=== PATIENT | female | born 1965 | race Hispanic/Latino ===

== ENCOUNTER 2016-11-05 16:13 | Inpatient (IN) | payer MEDICAID ==
[2016-11-05 16:27] LABS: Basophils % (Auto) 0.8 % (0.0-1.8); Eosinophils % (Auto) 1.7 % (0.0-4.3); Hematocrit 43.4 % (30.3-42.9); Hemoglobin 14.8 gm/dl (10.1-14.3); Mean Corpuscular HGB Conc 34 % (30-34); Mean Corpuscular Hemoglobin 32 pg (28-32); Mean Corpuscular Volume 93 fl (79-97); Platelet Count 210 K/mm3 (140-440); Red Blood Count 4.66 M/mm3 (3.65-5.03); Red Cell Distribution Width 12.4 % (13.2-15.2); White Blood Count 6.2 K/mm3 (4.5-11.0)
--- NOTE | 2016-11-05 16:36 | Cat Scan Report ---
FINAL REPORT PROCEDURE: Unenhanced CT scan of the brain TECHNIQUE: Computerized tomography of the head was performed without contrast material. HISTORY: neuro deficits \T\lt; 6hrs or sx present upon awakening COMPARISON: No prior studies are available for comparison. FINDINGS: Brain: Brain density appears normal. No evidence of intracranial hemorrhage. No parenchymal hemorrhage, mass lesions or mass effect are seen. No abnormal extraxial fluid collects or masses are seen. Ventricles: Ventricles are normal size and are midline. Bone Windows: No evidence of skull fracture. Paranasal sinuses: Clear Mastoid air cells: Clear IMPRESSION: Negative exam. If clinically indicated MRI of the brain could be obtained for further evaluation
[2016-11-05 16:37] LABS: INR 1.05 (0.87-1.13)
[2016-11-05 16:38] LABS: Partial Thromboplastin Time 29.6 Sec. (24.2-36.6)
[2016-11-05 16:40] LABS: Anion Gap 19 mmol/L; BUN/Creatinine Ratio 13.75; Blood Urea Nitrogen 11 mg/dL (7-17); Calcium 9.1 mg/dL (8.4-10.2); Carbon Dioxide 21 mmol/L (22-30); Chloride 104.7 mmol/L (98-107); Glucose 97 mg/dL (65-100); Potassium 3.9 mmol/L (3.6-5.0); Sodium 141 mmol/L (137-145)
[2016-11-05] MEDS ORDERED: NACL ONE (16:55)
[2016-11-05 17:12] LABS: Creatine Kinase 53 units/L (30-135)
[2016-11-05 17:29] LABS: Creatine Kinase MB < 1.0 ng/mL (0.0-4.0)
--- NOTE | 2016-11-05 18:01 | Cat Scan Report ---
FINAL REPORT EXAM: CT ANGIO HEAD HISTORY: stroke TECHNIQUE: Serial axial images from skullbase to vertex during intravenous administration of 100 milliliters Omni 350 contrast with coronal and sagittal reconstruction PRIORS: Noncontrast head CT 11/05/2016 FINDINGS: There is no mass effect or midline shift. Lateral ventricles are stable in size and configuration, remaining within normal limits. The vertebrobasilar system is patent. No focal stenotic lesion is identified. Posterior communicating artery is seen on the right side. Posterior cerebral arteries are patent bilaterally. The distal internal carotid arteries, middle cerebral arteries and anterior cerebral arteries are patent bilaterally. No major branch occlusion is seen. No aneurysm is identified. Paranasal sinuses and mastoid air cells are well aerated. No acute osseous abnormality is identified. IMPRESSION: 1. No major branch occlusion is identified. Patient can be further assessed with MRI with diffusion-weighted imaging if indicated.
[2016-11-05 18:11] LABS: Urine Drugs of Abuse Note Disclamer
[2016-11-05 18:19] LABS: Bacteria,Urine 1+ /HPF (Negative); Bilirubin,Urine NEG (Negative); Blood,Urine NEG (Negative); Ketones,Urine NEG (Negative); Leukocyte Esterase,Urine NEG (Negative); Nitrite,Urine NEG (Negative); Protein,Urine <15 mg/dL mg/dL (Negative); Urobilinogen,Urine < 2.0 mg/dL (<2.0); WBC,Urine < 1.0 /HPF (0.0-6.0)
--- NOTE | 2016-11-05 18:38 | Emergency Department Report ---
ED Neuro Deficit HPI - General Chief Complaint: Neuro Symptoms/Deficit Stated Complaint: POSS CVA Time Seen by Provider: 11/05/16 16:37 Source: patient, EMS Mode of arrival: Ambulatory Limitations: Physical Limitation - History of Present Illness Onset/Timin -: Sudden, hour(s) Location: speech, right face, right arm, right leg Presenting Symptoms: Present: Weak/Paralyzed One Side, Facial Droop/Numbness, Unable to Speak Clearly. Absent: Sudden, Severe Headache, Blurred/Loss of Vision, Altered Mental Status History of same: Yes Place: home Severity: moderate Quality: weak, numb Improves With: none Worsens With: none On Anticoagulants: Yes Associated Symptoms: chest pain. denies: confusion, cough, diaphoresis, fever/ chills, headaches, loss of appetite, malise, nausea/vomiting, vertigo, seizures , shortness of breath, syncope - Related Data Home Medications: Previous Rx's Medication Instructions Recorded Last Taken Type Clopidogrel [Plavix] 75 mg PO QDAY #30 tablet 11/08/16 Unknown Rx LORazepam [Ativan] 1 mg PO QDAY PRN #15 tablet 11/08/16 Unknown Rx Nicotine [Habitrol] 21 mg TD QDAY #30 patch 11/08/16 Unknown Rx Simvastatin [Zocor TAB] 40 mg PO QHS #30 tablet 11/08/16 Unknown Rx oxyCODONE /ACETAMINOPHEN [Percocet 1 tab PO Q4HR #12 tab 11/08/16 Unknown Rx 5/325] Allergies/Adverse Reactions: Allergies Allergy/AdvReac Type Severity Reaction Status Date / Time cyclobenzaprine HCl Allergy Severe Itching Verified 04/28/14 07:57 [From Flexeril] Fish Containing Products Allergy Anaphylaxis Verified 04/28/14 07:57 ibuprofen Allergy abd pain Verified 04/28/14 07:56 ketorolac tromethamine Allergy Headache Verified 04/28/14 07:56 [From Toradol] ED Review of Systems ROS: Stated complaint: POSS CVA Other details as noted in HPI Comment: Unobtainable due to pts medical conditions Constitutional: denies: chills, fever Eyes: denies: eye pain, eye discharge, vision change ENT: denies: ear pain, throat pain Respiratory: denies: cough, shortness of breath, wheezing Cardiovascular: denies: chest pain, palpitations Endocrine: no symptoms reported Gastrointestinal: denies: abdominal pain, nausea, diarrhea Genitourinary: denies: urgency, dysuria, discharge Musculoskeletal: denies: back pain, joint swelling, arthralgia Skin: denies: rash, lesions Neurological: denies: headache, weakness, paresthesias Psychiatric: denies: anxiety, depression Hematological/Lymphatic: denies: easy bleeding, easy bruising ED Past Medical Hx - Past Medical History Previous Medical History?: Yes Hx Hypertension: Yes Hx CVA: Yes (tia) Hx Heart Attack/AMI: Yes (04/2013) Hx Congestive Heart Failure: No Hx Diabetes: No Hx Seizures: Yes (closed head injury) Hx Asthma: No Hx COPD: No Hx HIV: No Additional medical history: history of anxiety - Surgical History Past Surgical History?: Yes Hx Coronary Stent: No Additional Surgical History: Hysterectomy, back surgery - Social History Smoking Status: Current Every Day Smoker Substance Use Type: None - Medications Home Medications: Home Medications Medication Instructions Recorded Confirmed Last Taken Type Clopidogrel [Plavix] 75 mg PO QDAY #30 tablet 11/08/16 Unknown Rx LORazepam [Ativan] 1 mg PO QDAY PRN #15 tablet 11/08/16 Unknown Rx Nicotine [Habitrol] 21 mg TD QDAY #30 patch 11/08/16 Unknown Rx Simvastatin [Zocor TAB] 40 mg PO QHS #30 tablet 11/08/16 Unknown Rx oxyCODONE /ACETAMINOPHEN [Percocet 1 tab PO Q4HR #12 tab 11/08/16 Unknown Rx 5/325] ED Neuro Physical Exam - General Limitations: Physical Limitation General appearance: alert, in no apparent distress - Head Head exam: Present: atraumatic, normocephalic - Eye Eye exam: Present: normal appearance, PERRL - Neck Neck exam: Present: normal inspection, full ROM. Absent: tenderness, meningismus, lymphadenopathy - Respiratory Respiratory exam: Present: normal lung sounds bilaterally - Cardiovascular Cardiovascular Exam: Present: regular rate - GI/Abdominal GI/Abdominal exam: Present: soft. Absent: distended, tenderness, guarding, rebound - Extremities Exam Extremities exam: Present: normal inspection, full ROM - Back Exam Back exam: Present: normal inspection, full ROM - Neurological Exam Neurological exam: Present: alert, oriented X3 - NIHSS Assessment Interval: Baseline 1a. Level of Consciousness: alert 1b. LOC Questions: answers correctly 1c. LOC Commands: performs tasks correctly 2. Best Gaze: normal 3. Visual: no visual loss 4. Facial Palsy: partial paralysis 5b. Motor Arm Right: no movement 5a. Motor Arm Left: no drift 6a. Motor Leg Left: no drift 6b. Motor Leg Right: no movement 7. Limb Ataxia: absent 8. Sensory: mild/moderate sensory loss 9. Best Language: no aphasia 10. Dysarthria: mild/moderate dysarthria 11. Extinction/Inattention: no abnormality Total Score: 12 Stroke Severity: Moderate Stroke - Psychiatric Psychiatric exam: Present: normal affect, normal mood - Skin Skin exam: Present: warm, dry ED Course Vital Signs 11/05/16 11/05/16 11/05/16 16:26 16:28 16:30 Temperature 98.3 F Pulse Rate 123 H Respiratory 16 Rate Blood Pressure 150/123 150/123 138/113 Blood Pressure [Left] O2 Sat by Pulse 98 98 Oximetry 11/05/16 11/05/16 11/05/16 16:32 16:34 16:36 Temperature Pulse Rate Respiratory Rate Blood Pressure 138/113 138/113 138/113 Blood Pressure [Left] O2 Sat by Pulse 97 98 99 Oximetry 11/05/16 11/05/16 11/05/16 16:37 16:38 16:40 Temperature Pulse Rate 118 H 119 H Respiratory 16 25 H 29 H Rate Blood Pressure 138/113 138/113 Blood Pressure [Left] O2 Sat by Pulse 99 98 97 Oximetry 11/05/16 11/05/16 11/05/16 16:42 16:44 16:46 Temperature Pulse Rate 118 H 116 H 118 H Respiratory 25 H 19 21 Rate Blood Pressure 138/113 138/113 138/113 Blood Pressure [Left] O2 Sat by Pulse 99 98 97 Oximetry 11/05/16 11/05/16 11/05/16 16:48 16:50 16:52 Temperature Pulse Rate 117 H 124 H 121 H Respiratory 19 17 17 Rate Blood Pressure 138/113 138/113 138/113 Blood Pressure [Left] O2 Sat by Pulse 97 98 97 Oximetry 11/05/16 11/05/16 11/05/16 16:54 16:56 16:58 Temperature Pulse Rate 118 H 113 H 111 H Respiratory 20 15 16 Rate Blood Pressure 138/113 138/113 138/113 Blood Pressure [Left] O2 Sat by Pulse 97 97 98 Oximetry 11/05/16 11/05/16 11/05/16 17:00 17:30 18:00 Temperature Pulse Rate 129 H 123 H 129 H Respiratory 16 12 23 Rate Blood Pressure 127/108 143/113 127/108 Blood Pressure [Left] O2 Sat by Pulse 95 71 L Oximetry 11/05/16 11/05/16 11/05/16 18:30 19:17 20:00 Temperature Pulse Rate 124 H 77 80 Respiratory 20 20 20 Rate Blood Pressure 139/108 Blood Pressure 121/107 128/82 [Left] O2 Sat by Pulse 93 100 97 Oximetry 11/05/16 11/05/16 11/05/16 21:00 22:51 22:52 Temperature Pulse Rate 79 60 Respiratory 20 20 Rate Blood Pressure Blood Pressure 135/103 [Left] O2 Sat by Pulse 98 Oximetry 11/05/16 22:55 Temperature Pulse Rate 73 Respiratory 20 Rate Blood Pressure Blood Pressure 126/85 [Left] O2 Sat by Pulse 98 Oximetry - Lab Data Result diagrams: 11/05/16 16:15 11/05/16 16:15 Lab Results 11/05/16 11/05/16 11/05/16 Range/Units 16:15 16:15 16:15 WBC 6.2 (4.5-11.0) K/mm3 RBC 4.66 (3.65-5.03) M/mm3 Hgb 14.8 H (10.1-14.3) gm/dl Hct 43.4 H (30.3-42.9) % MCV 93 (79-97) fl MCH 32 (28-32) pg MCHC 34 (30-34) % RDW 12.4 L (13.2-15.2) % Plt Count 210 (140-440) K/mm3 Lymph % (Auto) 26.9 (13.4-35.0) % [place] % (Auto) 6.7 (0.0-7.3) % Eos % (Auto) 1.7 (0.0-4.3) % Baso % (Auto) 0.8 (0.0-1.8) % Lymph # 1.7 (1.2-5.4) K/mm3 [place] # 0.4 (0.0-0.8) K/mm3 Eos # 0.1 (0.0-0.4) K/mm3 Baso # 0.1 (0.0-0.1) K/mm3 Seg Neutrophils % 63.9 (40.0-70.0) % Seg Neutrophils # 4.0 (1.8-7.7) K/mm3 PT 13.6 (12.2-14.9) Sec. INR 1.05 (0.87-1.13) APTT 29.6 (24.2-36.6) Sec. Thrombin Time (15.1-19.6) Sec. Sodium 141 (137-145) mmol/L Potassium 3.9 (3.6-5.0) mmol/L Chloride 104.7 (98-107) mmol/L Carbon Dioxide 21 L (22-30) mmol/L Anion Gap 19 mmol/L BUN 11 (7-17) mg/dL Creatinine 0.8 (0.7-1.2) mg/dL Estimated GFR > 60 ml/min BUN/Creatinine Ratio 13.75 % Glucose 97 (65-100) mg/dL POC Glucose (70-105) Calcium 9.1 (8.4-10.2) mg/dL Total Creatine Kinase (30-135) units/L CK-MB (CK-2) (0.0-4.0) ng/mL CK-MB (CK-2) Rel Index (0-4) Troponin T < 0.010 (0.00-0.029) ng/mL Urine Color (Yellow) Urine Turbidity (Clear) Urine pH (5.0-7.0) Urine Protein (Negative) mg/dL Urine Glucose (UA) (Negative) mg/dL Urine Ketones (Negative) mg/dL Urine Blood (Negative) Urine Nitrite (Negative) Urine Bilirubin (Negative) Urine Urobilinogen (<2.0) mg/dL Ur Leukocyte Esterase (Negative) Urine WBC (Auto) (0.0-6.0) /HPF Urine RBC (Auto) (0.0-6.0) /HPF U Epithel Cells (Auto) (0-13.0) /HPF Urine Bacteria (Auto) (Negative) /HPF Urine Opiates Screen Urine Methadone Screen Ur Barbiturates Screen Ur Phencyclidine Scrn Ur Amphetamines Screen U Benzodiazepines Scrn Urine Cocaine Screen U Marijuana (THC) Screen Drugs of Abuse Note 04/09/17 04/09/17 04/09/17 Range/Units 16:15 16:15 16:36 WBC (4.5-11.0) K/mm3 RBC (3.65-5.03) M/mm3 Hgb (10.1-14.3) gm/dl Hct (30.3-42.9) % MCV (79-97) fl MCH (28-32) pg MCHC (30-34) % RDW (13.2-15.2) % Plt Count (140-440) K/mm3 Lymph % (Auto) (13.4-35.0) % [place] % (Auto) (0.0-7.3) % Eos % (Auto) (0.0-4.3) % Baso % (Auto) (0.0-1.8) % Lymph # (1.2-5.4) K/mm3 [place] # (0.0-0.8) K/mm3 Eos # (0.0-0.4) K/mm3 Baso # (0.0-0.1) K/mm3 Seg Neutrophils % (40.0-70.0) % Seg Neutrophils # (1.8-7.7) K/mm3 PT (12.2-14.9) Sec. INR (0.87-1.13) APTT (24.2-36.6) Sec. Thrombin Time 15.2 (15.1-19.6) Sec. Sodium (137-145) mmol/L Potassium (3.6-5.0) mmol/L Chloride (98-107) mmol/L Carbon Dioxide (22-30) mmol/L Anion Gap mmol/L BUN (7-17) mg/dL Creatinine (0.7-1.2) mg/dL Estimated GFR ml/min BUN/Creatinine Ratio % Glucose (65-100) mg/dL POC Glucose 80 (70-105) Calcium (8.4-10.2) mg/dL Total Creatine Kinase 53 (30-135) units/L CK-MB (CK-2) < 1.0 (0.0-4.0) ng/mL CK-MB (CK-2) Rel Index 1.8 (0-4) Troponin T < 0.010 (0.00-0.029) ng/mL Urine Color (Yellow) Urine Turbidity (Clear) Urine pH (5.0-7.0) Urine Protein (Negative) mg/dL Urine Glucose (UA) (Negative) mg/dL Urine Ketones (Negative) mg/dL Urine Blood (Negative) Urine Nitrite (Negative) Urine Bilirubin (Negative) Urine Urobilinogen (<2.0) mg/dL Ur Leukocyte Esterase (Negative) Urine WBC (Auto) (0.0-6.0) /HPF Urine RBC (Auto) (0.0-6.0) /HPF U Epithel Cells (Auto) (0-13.0) /HPF Urine Bacteria (Auto) (Negative) /HPF Urine Opiates Screen Urine Methadone Screen Ur Barbiturates Screen Ur Phencyclidine Scrn Ur Amphetamines Screen U Benzodiazepines Scrn Urine Cocaine Screen U Marijuana (THC) Screen Drugs of Abuse Note 11/05/16 11/05/16 Range/Units 18:06 18:06 WBC (4.5-11.0) K/mm3 RBC (3.65-5.03) M/mm3 Hgb (10.1-14.3) gm/dl Hct (30.3-42.9) % MCV (79-97) fl MCH (28-32) pg MCHC (30-34) % RDW (13.2-15.2) % Plt Count (140-440) K/mm3 Lymph % (Auto) (13.4-35.0) % [place] % (Auto) (0.0-7.3) % Eos % (Auto) (0.0-4.3) % Baso % (Auto) (0.0-1.8) % Lymph # (1.2-5.4) K/mm3 [place] # (0.0-0.8) K/mm3 Eos # (0.0-0.4) K/mm3 Baso # (0.0-0.1) K/mm3 Seg Neutrophils % (40.0-70.0) % Seg Neutrophils # (1.8-7.7) K/mm3 PT (12.2-14.9) Sec. INR (0.87-1.13) APTT (24.2-36.6) Sec. Thrombin Time (15.1-19.6) Sec. Sodium (137-145) mmol/L Potassium (3.6-5.0) mmol/L Chloride (98-107) mmol/L Carbon Dioxide (22-30) mmol/L Anion Gap mmol/L BUN (7-17) mg/dL Creatinine (0.7-1.2) mg/dL Estimated GFR ml/min BUN/Creatinine Ratio % Glucose (65-100) mg/dL POC Glucose (70-105) Calcium (8.4-10.2) mg/dL Total Creatine Kinase (30-135) units/L CK-MB (CK-2) (0.0-4.0) ng/mL CK-MB (CK-2) Rel Index (0-4) Troponin T (0.00-0.029) ng/mL Urine Color Yellow (Yellow) Urine Turbidity Clear (Clear) Urine pH 5.0 (5.0-7.0) Urine Protein <15 mg/dl (Negative) mg/dL Urine Glucose (UA) Neg (Negative) mg/dL Urine Ketones Neg (Negative) mg/dL Urine Blood Neg (Negative) Urine Nitrite Neg (Negative) Urine Bilirubin Neg (Negative) Urine Urobilinogen < 2.0 (<2.0) mg/dL Ur Leukocyte Esterase Neg (Negative) Urine WBC (Auto) < 1.0 (0.0-6.0) /HPF Urine RBC (Auto) 1.0 (0.0-6.0) /HPF U Epithel Cells (Auto) 6.0 (0-13.0) /HPF Urine Bacteria (Auto) 1+ (Negative) /HPF Urine Opiates Screen Presumptive negative Urine Methadone Screen Presumptive negative Ur Barbiturates Screen Presumptive negative Ur Phencyclidine Scrn Presumptive negative Ur Amphetamines Screen Presumptive negative U Benzodiazepines Scrn Presumptive positive Urine Cocaine Screen Presumptive negative U Marijuana (THC) Screen Presumptive negative Drugs of Abuse Note Disclamer - EKG Data EKG shows normal: sinus rhythm Rate: normal - Medical Decision Making Patient will need admission for Right side CVA, head ct negative and ctAngio negative too, talk and discus with neurology and agree with admission , not TPA candidate , although i talk to the patient and explained the risk and benefits and the decision to not give tpa. labs negative , ekg unchanged , talk to dr. alexander and agree with admission. Critical Care Time: Yes Critical care time in (mins) excluding proc time.: 45 Critical care attestation.: If time is entered above; I have spent that time in minutes in the direct care of this critically ill patient, excluding procedure time. ED Disposition Clinical Impression: Hypertension Qualifiers: Hypertension type: essential hypertension Qualified Code(s): I10 - Essential ( primary) hypertension CVA (cerebral vascular accident) Qualifiers: CVA mechanism: thrombosis Precerebral and cerebral artery: middle cerebral artery Laterality of affected vessel: left Qualified Code(s): I63.312 - Cerebral infarction due to thrombosis of left middle cerebral artery Disposition: OP ADMITTED IP TO THIS HOSP Is pt being admited?: Yes Does the pt Need Aspirin: Yes Condition: Good Time of Disposition: 18:39
[2016-11-05] MEDS ORDERED: ASPIRIN PO ONE (18:39)
[2016-11-05] MEDS ORDERED: MORPHINE ONE (19:48)
[2016-11-05] MEDS ORDERED: MORPHINE IV ONE (19:51)
[2016-11-05] MEDS ORDERED: ZOFRAN IV PRN (22:08)
[2016-11-05] MEDS ORDERED: ZOFRAN ONE (22:42)
[2016-11-05] MEDS ORDERED: DILAUDID ONE (22:43)
[2016-11-05] MEDS: DILAUDID IV PRN (22:52)
--- NOTE | 2016-11-05 23:16 | History and Physical Report ---
History of Present Illness Date of examination: 11/05/16 Date of admission: 11/05/16 22:08 Chief complaint: C/o Rt sided weakness since 5 hrs ago History of present illness: 51 year old female with history of TIA HTN CAD AK in past and smoker comes in for Rt sided weakness and difficulty talking for last 5 hours.Symptoms are improving.No SOB CP.Had TIA in the past. Smokes pack a day Past History Past Medical History: acute AK, CAD, hypertension, hyperlipidemia, other (TIA) Past Surgical History: hysterectomy Social history: lives with family, smoking Family history: hypertension Medications and Allergies Allergies Allergy/AdvReac Type Severity Reaction Status Date / Time cyclobenzaprine HCl Allergy Severe Itching Verified 04/28/14 07:57 [From Flexeril] Fish Containing Products Allergy Anaphylaxis Verified 04/28/14 07:57 ibuprofen Allergy abd pain Verified 04/28/14 07:56 ketorolac tromethamine Allergy Headache Verified 04/28/14 07:56 [From Toradol] Home Medications Medication Instructions Recorded Confirmed Last Taken Type No Known Home Medications [No 11/05/16 11/05/16 Unknown History Reported Home Medications] Active Meds: Active Medications Hydromorphone HCl (Dilaudid) 1 mg IV Q3H PRN PRN Reason: pain Last Admin: 11/05/16 22:52 Dose: 1 mg Ondansetron HCl (Zofran) 4 mg IV Q3H PRN PRN Reason: nausea Last Admin: 11/05/16 22:50 Dose: 4 mg Review of Systems All systems: negative Constitutional: no weight loss, no weight gain, no fever, no chills, no sweats, no night sweats Ears, nose, mouth and throat: no ear pain, no ear discharge, no sinus pressure, no sinus pain, no mouth pain, no dysphagia, no hoarseness, no sore throat Breasts: deferred Cardiovascular: no chest pain, no orthopnea, no palpitations, no rapid/ irregular heart beat, no edema, no syncope, no lightheadedness, no shortness of breath, no dyspnea on exertion, no paroxysmal nocturnal dyspnea, no claudication , no phlebitis, no decreased exercise tolerance Respiratory: other, no cough, no cough with sputum, no excessive sputum, no hemoptysis, no shortness of breath, no dyspnea on exertion, no congestion, no wheezing, no pleurisy, no pain, no pain on inspiration, no snoring, no sleep apnea, no respiratory infections Gastrointestinal: no abdominal pain, no nausea, no vomiting, no diarrhea, no constipation, no change in bowel habits, no hematemesis, no coffee ground emesis , no BRBPR Genitourinary Female: no menorrhagia Menstruation: no ammenorrhea Musculoskeletal: arm numbness/tingling, leg numbness/tingling, no neck stiffness , no neck pain, no shooting arm pain Integumentary: no rash, no pruritis, no redness, no sores, no wounds, no jaundice, no boils, no blisters Neurological: paralysis, weakness, parathesias, numbness, change in speech Psychiatric: anxiety, no paranoia, no depression Endocrine: no cold intolerance, no heat intolerance, no polyphagia, no excessive thirst, no polydipsia, no polyuria Hematologic/Lymphatic: no easy bruising, no easy bleeding Allergic/Immunologic: no urticaria, no allergic rhinitis, no wheezing Exam - Physical Exam Narrative exam: WD WN female lying comfortably - Constitutional Vitals: Temp Pulse Resp BP Pulse Ox 98.3 F 73 20 126/85 98 11/05/16 16:30 11/05/16 22:55 11/05/16 22:55 11/05/16 22:55 11/05/16 22:55 General appearance: Present: no acute distress, well-nourished - EENT Eyes: Present: PERRL ENT: hearing intact, clear oral mucosa - Neck Neck: Present: supple, normal ROM - Respiratory Respiratory effort: normal Respiratory: bilateral: CTA - Cardiovascular Heart Sounds: Present: S1 & S2. Absent: rub, click - Extremities Extremities: pulses symmetrical, No edema Peripheral Pulses: within normal limits - Abdominal General gastrointestinal: Present: soft, non-tender, non-distended, normal bowel sounds Female genitourinary: Present: normal - Integumentary Integumentary: Present: clear, warm, dry - Musculoskeletal Musculoskeletal: gait normal, strength equal bilaterally - Psychiatric Psychiatric: appropriate mood/affect, intact judgment & insight - Neurologic Neurologic: CNII-XII intact, moves all extremities Results - Labs CBC & Chem 7: 11/05/16 16:15 11/05/16 16:15 Labs: Laboratory Last Values WBC 6.2 K/mm3 (4.5-11.0) 11/05/16 16:15 RBC 4.66 M/mm3 (3.65-5.03) 11/05/16 16:15 Hgb 14.8 gm/dl (10.1-14.3) H 11/05/16 16:15 Hct 43.4 % (30.3-42.9) H 11/05/16 16:15 MCV 93 fl (79-97) 11/05/16 16:15 MCH 32 pg (28-32) 11/05/16 16:15 MCHC 34 % (30-34) 11/05/16 16:15 RDW 12.4 % (13.2-15.2) L 11/05/16 16:15 Plt Count 210 K/mm3 (140-440) 11/05/16 16:15 Lymph % (Auto) 26.9 % (13.4-35.0) 11/05/16 16:15 [place] % (Auto) 6.7 % (0.0-7.3) 11/05/16 16:15 Eos % (Auto) 1.7 % (0.0-4.3) 11/05/16 16:15 Baso % (Auto) 0.8 % (0.0-1.8) 11/05/16 16:15 Lymph # 1.7 K/mm3 (1.2-5.4) 11/05/16 16:15 [place] # 0.4 K/mm3 (0.0-0.8) 11/05/16 16:15 Eos # 0.1 K/mm3 (0.0-0.4) 11/05/16 16:15 Baso # 0.1 K/mm3 (0.0-0.1) 11/05/16 16:15 Seg Neutrophils % 63.9 % (40.0-70.0) 11/05/16 16:15 Seg Neutrophils # 4.0 K/mm3 (1.8-7.7) 11/05/16 16:15 PT 13.6 Sec. (12.2-14.9) 11/05/16 16:15 INR 1.05 (0.87-1.13) 11/05/16 16:15 APTT 29.6 Sec. (24.2-36.6) 11/05/16 16:15 Thrombin Time 15.2 Sec. (15.1-19.6) 11/05/16 16:15 Sodium 141 mmol/L (137-145) 11/05/16 16:15 Potassium 3.9 mmol/L (3.6-5.0) 11/05/16 16:15 Chloride 104.7 mmol/L (98-107) 11/05/16 16:15 Carbon Dioxide 21 mmol/L (22-30) L 11/05/16 16:15 Anion Gap 19 mmol/L 11/05/16 16:15 BUN 11 mg/dL (7-17) 11/05/16 16:15 Creatinine 0.8 mg/dL (0.7-1.2) 11/05/16 16:15 Estimated GFR > 60 ml/min 11/05/16 16:15 BUN/Creatinine Ratio 13.75 % 11/05/16 16:15 Glucose 97 mg/dL (65-100) 11/05/16 16:15 Calcium 9.1 mg/dL (8.4-10.2) 11/05/16 16:15 Total Creatine Kinase 53 units/L (30-135) 11/05/16 16:15 CK-MB (CK-2) < 1.0 ng/mL (0.0-4.0) 11/05/16 16:15 CK-MB (CK-2) Rel Index 1.8 (0-4) 11/05/16 16:15 Troponin T < 0.010 ng/mL (0.00-0.029) 11/05/16 16:15 Urine Color Yellow (Yellow) 11/05/16 18:06 Urine Turbidity Clear (Clear) 11/05/16 18:06 Urine pH 5.0 (5.0-7.0) 11/05/16 18:06 Urine Protein <15 mg/dl mg/dL (Negative) 11/05/16 18:06 Urine Glucose (UA) Neg mg/dL (Negative) 11/05/16 18:06 Urine Ketones Neg mg/dL (Negative) 11/05/16 18:06 Urine Blood Neg (Negative) 11/05/16 18:06 Urine Nitrite Neg (Negative) 11/05/16 18:06 Urine Bilirubin Neg (Negative) 11/05/16 18:06 Urine Urobilinogen < 2.0 mg/dL (<2.0) 11/05/16 18:06 Ur Leukocyte Esterase Neg (Negative) 11/05/16 18:06 Urine WBC (Auto) < 1.0 /HPF (0.0-6.0) 11/05/16 18:06 Urine RBC (Auto) 1.0 /HPF (0.0-6.0) 11/05/16 18:06 U Epithel Cells (Auto) 6.0 /HPF (0-13.0) 11/05/16 18:06 Urine Bacteria (Auto) 1+ /HPF (Negative) 11/05/16 18:06 Urine Opiates Screen Presumptive negative 11/05/16 18:06 Urine Methadone Screen Presumptive negative 11/05/16 18:06 Ur Barbiturates Screen Presumptive negative 11/05/16 18:06 Ur Phencyclidine Scrn Presumptive negative 11/05/16 18:06 Ur Amphetamines Screen Presumptive negative 11/05/16 18:06 U Benzodiazepines Scrn Presumptive positive 11/05/16 18:06 Urine Cocaine Screen Presumptive negative 11/05/16 18:06 U Marijuana (THC) Screen Presumptive negative 11/05/16 18:06 Drugs of Abuse Note Disclamer 11/05/16 18:06 Short CBC 11/05/16 Range/Units 16:15 WBC 6.2 (4.5-11.0) K/mm3 Hgb 14.8 H (10.1-14.3) gm/dl Hct 43.4 H (30.3-42.9) % Plt Count 210 (140-440) K/mm3 [facility] 11/05/16 16:15 Sodium 141 Potassium 3.9 Chloride 104.7 Carbon Dioxide 21 L BUN 11 Creatinine 0.8 Glucose 97 Calcium 9.1 Cardiac Enzymes 11/05/16 11/05/16 Range/Units 16:15 16:15 Total Creatine Kinase 53 (30-135) units/L CK-MB (CK-2) < 1.0 (0.0-4.0) ng/mL Troponin T < 0.010 < 0.010 (0.00-0.029) ng/mL Urine 11/05/16 Range/Units 18:06 Urine Color Yellow (Yellow) Urine pH 5.0 (5.0-7.0) Urine Protein <15 mg/dl (Negative) mg/dL Urine Glucose (UA) Neg (Negative) mg/dL - Imaging and Cardiology EKG: report reviewed (NSR) CT Scan - head: report reviewed (No bleed.) Assessment and Plan Advance Directives: Yes (Full code) VTE prophylaxis?: Chemical Plan of care discussed with patient/family: Yes - Patient Problems (1) CVA (cerebral vascular accident) Current Visit: Yes Status: Acute Qualifiers: CVA mechanism: thrombosis Precerebral and cerebral artery: middle cerebral artery Laterality of affected vessel: left Qualified Code(s): I63.312 - Cerebral infarction due to thrombosis of left middle cerebral artery Plan to address problem: CVA work up.MRI MRA CDS and Echo ordered.Plavix initiated.F/u on Neuro consult. (2) Hypertension Current Visit: Yes Status: Chronic Qualifiers: Hypertension type: essential hypertension Qualified Code(s): I10 - Essential (primary) hypertension Plan to address problem: Losartan 100 mg po qd started (3) COPD (chronic obstructive pulmonary disease) Current Visit: Yes Status: Chronic Qualifiers: COPD type: C Chronic bronchitis type: simple Emphysema type: E Qualified Code(s): J41.0 - Simple chronic bronchitis Plan to address problem: Duonebs prn (4) Nicotine dependence Current Visit: Yes Status: Chronic Qualifiers: Nicotine product type: cigarettes Substance use status: S Plan to address problem: Counselled about chantix patches and Gum.Also Zyban/welbutrin.Initiated Nicoderm patch. (5) DVT prophylaxis Current Visit: No Status: Acute Plan to address problem: On Lovenox 40 mg sq qd
[2016-11-06] MEDS ORDERED: SODIUM CHLORIDE FLUSH SYRINGE 10 ML IV PRN (00:04)
[2016-11-06] MEDS ORDERED: DUONEB 0.5 MG-3 MG/3 ML SOLN IH PRN (00:41)
[2016-11-06] MEDS ORDERED: PROVENTIL IH PRN (00:44)
[2016-11-06] MEDS ORDERED: NACL 0.9% 1000 ML 1,000 ML IV SCH (01:00)
--- NOTE | 2016-11-06 01:51 | Admit Criteria Form ---
Admission Criteria Documentation: NEUROLOGY GRG Clinical Indications for Admission to Inpatient Care (Place ' X' for any and all applicable criteria): Hospital admission is needed for appropriate care of the patient because of 1 or more of the following: [ ]I. Encephalitis [ ]II. Severe PLAYERS ASSISTANT infections indicated by 1 or more of the following(1)(2)(3) : [ ]a) Intracranial abscess [ ]b) Spinal abscess or myelitis [ ]c) Tuberculous or other nonbacterial, nonviral PLAYERS ASSISTANT infection(8) [ ]III. Vasculitis and 1 or more of the following(14)(15): []a) Altered mental status that is severe or persistent or other acute neurologic change []b) Psychosis []c) Seizure [ ]IV. Status epilepticus or repetitive seizures not controlled with emergent treatment [A] (7)(8) [ ]V. Altered mental status that is severe or persistent [ ]. Transient alteration in consciousness with high-risk etiology; examples include (12)(13): [ ]a) Cardiovascular source [ ]b) Cataplexy [ ]VII. Cerebral aneurysm requiring ANY ONE of the following(14): [ ]a) IV antihypertensives or vasoactive agents [ ]b) Sedation and analgesia for suspected leak [ ]c) Need for external ventricular drainage and cerebral perfusion pressure monitoring [ ]d) Emergent evaluation to determine need for surgical clipping or endovascular coiling by interventional radiology. If surgery is required ( Also use Craniotomy, Supratentorial, for Surgery of Bleeding Intracranial Aneurysm (for bleeding aneurysm) or Craniotomy, Supratentorial (for nonbleeding aneurysm) as appropriate. [ X]VIII. New-onset severe neurologic symptom requiring inpatient care indicated by ANY ONE of the following: [ ]a) Aphasia(15) [ ]b) Weakness (grade 3 or less) [ ]c) Paralysis (eg, hemiplegia) [ ]d) Spasticity(16) [ ]e) Dystonia [ ]e) Ataxia(17) [ ]f) Amnesia(18) [ ]g) Involuntary movements(19) [ ]h) Vertigo [ ] Visual loss [ X]i) Other severe neurologic finding (eg, papilledema, mass effect on imaging, myoclonus not treatable at alternative level of care (eg, observation care) [ ]IX. Guillain-[place] syndrome(20) [ ]X. Myasthenia gravis crisis or inpatient monitoring need as indicated by 1 or more of the following(21): [ ]a) Intensive treatment (eg, course of plasmapheresis) with inadequate outpatient situation to monitor patients status [ ]b) Inadequate airway protection [ ]c) Respiratory insufficiency requiring intubation or inpatient. monitoring [ ]d) Progressive dysphagia with failure to thrive [ ]XI. Multiple sclerosis or other acute demyelinating disease requiring inpatient care as indicated by 1 or more of the following (22)(23): [ ]a) Acute severe deterioration requiring inpatient treatment (eg, IV steroids, plasmapheresis, close observation) [ ]b) Acute complication requiring inpatient care (eg, sepsis, severe decubitus, aspiration) [ ]XII.Parkinson disease requiring inpatient care (Also use Optimal Recovery Care Criteria or General Recovery Criteria as appropriate) indicated by 1 or more of the following(25): [ ]a) Infection (eg, aspiration pneumonia) not treatable at alternative level of care [ ]b Dehydration that is severe or persistent [ ]c) Life-threatening agitation or psychotic behavior not treatable on emergency, observation care, or alternative level (eg, residential) basis [ ]d) Severe medication withdrawal effects (eg, freezing, neuroleptic malignant syndrome) not responsive to emergency and observation care treatment ( as appropriate) [ ]e) Other severe manifestation not treatable at alternative level of care [ ]XII. Amyotrophic lateral sclerosis with inpatient care needs as indicated by ANY ONE of the following(26): [ ]a) Acute complications (eg, aspiration pneumonia, sepsis ) requiring inpatient care ( see other optimal Recovery Guideline as appropriate) [ ]b) Dehydration that is severe persistent AND artificial support desired [ ]c) Inadequate airway protection AND artificial support desired [ ]d) Severe ventilatory insufficiency AND artificial support desired [ ]XIII. Myasthenia gravis crisis or inpatient monitoring need as indicated by 1 or more of the following(21): [] a) Inadequate airway protection []b) Respiratory insufficiency requiring intubation or inpatient monitoring []c) Progressive dysphagia with failure to thrive []d) Intensive treatment (e.g., course of plasmapheresis) with inadequate outpatient situation to monitor patients status [ ]XIV. Multiple sclerosis or other acute demyelinating disease requiring inpatient care indicated by 1 or more of the following[C](36)(43)(44)(45)(46): []a) Acute severe deterioration requiring inpatient treatment (eg, IV steroids, plasmapheresis, close observation) []b) Acute complication requiring inpatient care (eg, sepsis, severe decubitus, aspiration) [ ]XV. Intracranial hypertension (e.g., pseudotumor cerebri) requiring inpatient care (e.g., acute visual loss, inadequate oral intake) (47)(48)(49) [ ]XVI. Parkinson disease requiring inpatient care (Also use Optimal Recovery Care Criteria or General Recovery Criteria as appropriate) indicated by 1 or more of the following(25): [] a) Infection (e.g., aspiration pneumonia) not treatable at alternative level of care []b) Volume depletion not responsive to emergency and observation care treatment (as appropriate) []c) Life-threatening agitation or psychotic behavior not treatable on emergency, observation care, or alternative level (e.g., residential) basis []d) Severe medication withdrawal effects (e.g., freezing, neuroleptic malignant syndrome) not responsive to emergency and observation care treatment (as appropriate) []e) Other severe manifestation not treatable at alternative level of care [ ]XVII. Amyotrophic lateral sclerosis with inpatient care needs as indicated by1 or more of the following(42): []a) Acute complications (eg, aspiration pneumonia, sepsis) requiring inpatient care (see other Optimal Recovery Guideline or General Recovery Guideline as appropriate) []b) Dehydration that is severe or persistent AND artificial support desired []c) Inadequate airway protection AND artificial support desired []d) Severe ventilatory insufficiency AND artificial support desired [ ]XVIII. Severe myopathy, neuropathy, or other neuromuscular disease indicated by 1 or more of the following(42)(52)(53)(54): []a ) New-onset severe diffuse weakness (eg, strength 3/5 or less) []b) Severe dysphagia []c) Dyspnea at rest or with minimal exertion (new) []d) Inadequate airway protection []e) Inadequate ventilation indicated by 1 or more of the following : i) Partial pressure of carbon dioxide greater than 44 mm Hg ( 5.9 kPa) (new) ii) Reduced peak expiratory flow rate (new) iii) Vital capacity less than 50% of predicted (less than 15 mL/kg) iv) Peak inspiratory force less negative than -30 cm H2O (- 2942 Pa) [ ]XVII.Complications of congenital or degenerative disease (eg, infection, seizures, dehydration, injury) not responsive to emergency and observation care treatment (as appropriate ) [C](16)(29)(30) [ ]XVIII.Suspected or confirmed nerve or muscle toxic injury, including ANY ONE of the following: [ ]a) Rhabdomyolysis(31) i) Acute renal failure ii) Dehydration that is severe or persistent iii) Altered mental status that is severe or persistent iv) Electrolyte abnormality that remains after emergency or observation level care ( as appropriate) [ ]b) Botulism(32) [ ]c) Other severe toxin-induced sign or symptom [ ]XIX. Neurologic trauma requiring inpatient treatment (medical) indicated by ANY ONE of the following(33)(34): [ ]a) Vital signs or neurologic signs more frequently than every 4 hours [ ]b) Hyperosmolar therapy [ ]c) Respiratory monitoring [ ]d) Intracranial pressure monitoring and treatment [ ]e) Stabilization and immobilization device placement (eg, braces, body jacket) [ ]f) Intubation & mechanical ventilation for airway protection or therapeutic hyperventilation [ ]g) Other treatment or monitoring needed that requires inpatient level of care [ ]XX.Complications of neurologic devices (eg, ventricular shunt, neurostimulator) requiring 1 or more of the following(35)(36): [ ]a) IV antibiotics with monitoring while awaiting culture results [ ]b) Monitoring for hydrocephalus [ ]XXI. Neurology condition symptom, or finding for which emergency and observation care have failed or are not considered appropriate. See General Criteria: Observation Care ISC, General Admission Criteria GRG, or Pediatric General Admission Criteria GRG guideline as appropriate. The original [facility] content created by [facility] has been revised. The portions of the content which have been revised are identified through the use of italic text or in bold, and [facility] has neither reviewed nor approved the modified material. All other unmodified content is copyright [facility] Please see references footnoted in the original [facility] edition 2016 Admission Criteria Met: Yes
[2016-11-06] MEDS: DILAUDID IV PRN ×5 (02:06→21:10)
[2016-11-06] MEDS: PLAVIX PO SCH (10:40)
[2016-11-06] MEDS: HABITROL TD SCH (10:41)
--- NOTE | 2016-11-06 11:05 | Consultation ---
History of Present Illness Consult date: 11/06/16 Requesting physician: ROSEY AMBROCIO Reason for Consult: stroke Chief complaint: R sided weakness History of present illness: 51 YO F Hx HTN/HLD/TIA/CAD/Tob not on AP abuse p/w wake up R sided weakness, slurred speech and R sided numbness on 11/05 8 AM. Sx are constant. There are no clear aggravating, relieving or temporal factors. Severity was enough to cause inability to effectively use the right side. Past History Past Medical History: acute PR, CAD, hypertension, hyperlipidemia, other (TIA) Past Surgical History: hysterectomy Social history: lives with family, smoking Family history: hypertension Medications and Allergies Allergies Allergy/AdvReac Type Severity Reaction Status Date / Time cyclobenzaprine HCl Allergy Severe Itching Verified 04/28/14 07:57 [From Flexeril] Fish Containing Products Allergy Anaphylaxis Verified 04/28/14 07:57 ibuprofen Allergy abd pain Verified 04/28/14 07:56 ketorolac tromethamine Allergy Headache Verified 04/28/14 07:56 [From Toradol] Home Medications Medication Instructions Recorded Confirmed Last Taken Type No Known Home Medications [No 11/05/16 11/05/16 Unknown History Reported Home Medications] Active Meds: Active Medications Albuterol (Proventil) 2.5 mg IH Q3HRT PRN PRN Reason: Shortness Of Breath Clopidogrel Bisulfate (Plavix) 75 mg PO QDAY [facility] Last Admin: 11/06/16 10:40 Dose: 75 mg Hydromorphone HCl (Dilaudid) 1 mg IV Q3H PRN PRN Reason: pain Last Admin: 11/06/16 07:52 Dose: 1 mg Sodium Chloride (Nacl 0.9% 1000 Ml) 1,000 mls @ 75 mls/hr IV DIRECT IRINA Stop: 11/06/16 22:00 Nicotine (Habitrol) 21 mg TD QDAY IRINA Last Admin: 11/06/16 10:41 Dose: 21 mg Ondansetron HCl (Zofran) 4 mg IV Q3H PRN PRN Reason: nausea Last Admin: 11/05/16 22:50 Dose: 4 mg Simvastatin (Zocor) 20 mg PO QHS [facility] Sodium Chloride (Sodium Chloride Flush Syringe 10 Ml) 10 ml IV PRN PRN PRN Reason: LINE FLUSH Review of Systems All systems: negative Constitutional: fatigue, weakness Neurological: paralysis (on R), weakness (on R), parathesias (on R hemibody), numbness (R hemibody), tingling, change in speech (slurred), gait dysfunction, motor disturbance (on R), sensory deficit (on R), paralysis (on R), no aphasia, no double vision, no loss of vision Physical Examination - Vital Signs Vital Signs: Vital Signs BP 150/123 11/05/16 16:26 - Constitutional General appearance: comfortable, older than stated age - EENT EENT: Present: ATNC, PERRL, mucous membranes moist, hearing intact - Respiratory Respiratory: Present: chest non-tender, normal breath sounds, no respiratory distress - Cardiovascular Cardiovascular: Present: regular rate Extremities: Present: no peripheral edema bilatateraly, no clubbing, cyanosis, no inflammation, no ischemia or petechiae - Gastrointestinal Gastrointestinal: Present: normoactive bowel sounds, soft, non-distended - Integumentary Integumentary: Present: normal - Neurologic Cranial nerve examination: PERRL, EOMI, V1/V2/V3 grossly intact, intact, intact shoulder shrug, intact cough reflex, Intact Vestibulo-ocular r, intact corneal reflex, facial droop (on R), tongue deviation (to L), other (slight decreased on R upper/lower field) Speech examination: other (dysarthria) Sensorimotor examination: flaccid paralysis (on R), hemiparesis (on R) Motor examination - right side: 2/5: biceps, triceps, wrist flexion, wrist extension, aquatic facility manager, hip flexors, knee extensors, dorsiflexion, toe extension (EHL) , plantarflexion Motor examination - left side: 5/5: biceps, triceps, wrist flexion, wrist extension, aquatic facility manager, hip flexors, knee extensors, dorsiflexion, toe extension (EHL) , plantarflexion Detailed sensory examination: light touch (diminished on R), temperature ( diminshed on R) Reflex and gait examination: Babinski's sign (on R) Reflexes: 3+: ankle (on R), bicep, knee, tricep - Musculoskeletal Musculoskeletal: Present: no fluid collection, no pain, normal range of motion - Psychiatric Psychiatric: Present: mood/affect appropriate, cooperative Results - Laboratory Findings CBC and BMP: 11/05/16 16:15 11/05/16 16:15 Assessment and Plan 51 YO F Hx HTN/HLD/CAD/TIA/Tob abuse not on AP p/w dense R sided weakness/ numbness, slurred speech, ? partial R hemianopsia and L tongue deviation- suspected acute lacunar stroke to L brainstem. CTH/CTA head neg. Plan and Recommendation: 1. No indication for pharmacologic thrombolysis with IV tPA or mechanical thrombectomy due to last known normal > 6 hrs from presentation. Current NIHSS 11. 2. Telemetry bed w/ Q4 hour neuro checks 3. Brain imaging: MRI Brain w/o Arturo Stroke Protocol 4. Vascular Imaging: Bilateral Carotid Duplex U/S 5. TTE to eval for possible cardiac source of embolism 6. Serum Labs: HgA1c, LDL. 7. Autoregulate SBP to goal 120-160 as pt is outside permissive HTN window. 8. Secondary stroke prevention: ASA 325mg Daily x 1 then 81mg QDay & upgrade to full dose statin therapy (Crestor 20mg or 40mg OR Lipitor 40mg or 80mg Daily OR Zocor 40mg QDay) for goal LDL < 70. No firm indication at this point for therapeutic anticoagulation as pt has not had AFib captured on telemetry monitoring. 9. F/E/N: isotonic IVF prn, prn replete, bedside speech/swallow eval prior to PO intake. 10. DVT Prophylaxis 11. Stroke education, PT/OT/Speech Therapy consults, CM evaluation 12. For any changes in neurologic status, pls obtain STAT CTH w/o contrast and call neurology
[2016-11-06] MEDS ORDERED: ATIVAN PO PRN (11:10)
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
[2016-11-06] MEDS: ZOCOR PO SCH (21:10)
[2016-11-07] MEDS: DILAUDID IV PRN ×6 (00:56→19:58)
[2016-11-07] MEDS: PLAVIX PO SCH (10:03)
[2016-11-07] MEDS: HABITROL TD SCH (10:03)
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
--- NOTE | 2016-11-07 12:35 | Magnetic Resonance Report ---
MRA HEAD WITHOUT CONTRAST HISTORY: CVA. [id number] imaging with MIP reformations of the [place] of [place] is submitted. The arteries appear widely patent and free of hemodynamically significant stenosis or aneurysm dilatation. Both vertebral arteries are identified appearing patent as well. IMPRESSION: Unremarkable MRA head.
--- NOTE | 2016-11-07 12:35 | Magnetic Resonance Report ---
MRI OF THE BRAIN WITHOUT CONTRAST: HISTORY: CVA PROCEDURE: Multiplanar, multisequence MR imaging of the brain without IV contrast was performed. FINDINGS: The brain parenchyma signal intensity and its ramirez white interface are within normal limits on all sequences. Mild, age-appropriate chronic white matter changes are noted. No evidence for acute ischemia, hemorrhage or mass. No chronic infarct or extra-axial fluid collection. The midline structures are central. The basal cisterns are patent. Normal ventricular size. The orbital cavities and sella turcica demonstrate no abnormality. The visualized paranasal sinuses and mastoid air cells are well aerated. IMPRESSION: Unremarkable non-enhanced MRI of the brain.
[2016-11-07] MEDS: ZOCOR PO SCH (22:33)
[2016-11-08] MEDS: DILAUDID IV PRN ×3 (04:06→09:51)
[2016-11-08] MEDS ORDERED: LEXISCAN IV ONE (09:00)
--- NOTE | 2016-11-08 11:14 | Event Note ---
Date: 11/08/16 I attempted to see this patient between my scheduled coverage time of 8 AM-12 PM but they were not present in the floor room. I will return to staff in follow up 11/09 as needed. Interestingly, MRI Brain and MRA Head neg-? infarct too small to be identified. TTE result pending. Remainder of impression/plan as previously dictated.
[2016-11-08] MEDS: PLAVIX PO SCH (12:09)
[2016-11-08] MEDS: HABITROL TD SCH (12:09)
--- NOTE | 2016-11-08 13:26 | Query- Chest Pain ---
Diana Galan Franco Date: 11/08/16 Jeremy/AUTUMN: Stevie Brendameera Phone#:[phone] Exercise your independent professional judgment when responding to query. Questions asked do not imply a particular answer is desired or expected. We greatly appreciate your clarification on this issue. Clinical Documentation States: 51 year old female was admitted on 11/05/16. The discharge summary states " Discharge Diagnoses (1) GERD (gastroesophageal reflux disease) Status: Acute Qualifiers: Esophagitis presence: E Chest pain Status: Acute Qualifiers: Chest pain type: C " Please document the etiology of Chest Pain: [ ] Myocardial Infarction [ ] Pneumonia [ ] Mediastinitis [ ] Costochondritis [ ] Pulmonary Embolism [ ] Coronary Artery Disease [x ] GERD [ ] Other: [ ] Comment/Explanation: Present on Admission: [x ] Yes (Y) [ ] Clinically undeterminable (W) [ ] No(N) Please document response in your Progress Notes and/or Discharge Summary and indicate if the condition was present on admission. SASHA
--- NOTE | 2016-11-08 23:08 | Treadmill Report ---
NUCLEAR PERFUSION SCAN REFERRING PHYSICIAN: Cody Read MD PROTOCOL: The patient was brought to the stress lab in a postabsorptive state, given 10 mCi of technetium 99m at rest. The patient underwent rest imaging: The patient underwent Lexiscan stress test per standard protocol. At peak stress, the patient was given 26 mCi of technetium 99m. Shortly thereafter, the patient underwent stress imaging. Raw imaging reveals mild GI artifact. No significant motion artifact. SPECT imaging examined carefully in the horizontal long axis, vertical long axis, and short axis views. Grossly, there is normal homogenous uptake of radioisotope in all reported segments. There is no evidence of significant fixed or reversible perfusion defects suggestive of prior infarction or ischemia. Gated wall motion reveals normal systolic thickening. Calculated ejection fraction of 50%. No TID. CONCLUSIONS: 1. Normal myocardial perfusion scan without evidence of active ischemia or prior infarction. 2. Normal left ventricular systolic performance without evidence of transient ischemic dilatation or stress-induced segmental wall motion abnormalities. JOB# [id number] ANEL/ROXANA
[2016-11-09 10:13] VITALS: BP 128/87
--- NOTE | 2016-11-10 22:05 | Vascular Lab Report ---
CAROTID DUPLEX STUDY: RIGHT PSVEDV CCA PROX: 8826 CCA DIST: 7425 ICA PROX: 7119 ICA MID: 8236 ICA DIST: 8336 ECA: 87 VERT: 95 23 LEFT PSVEDV CCA PROX:[id number] CCA DIST: 6822 ICA PROX: 5723 ICA MID: 7433 ICA DIST: 6730 ECA: 86 VERT: 31 9 REASON FOR EXAM: Stroke. COMMENTS ON THE RIGHT: Doppler frequency analysis is consistent with 16 to 49 percent diameter reduction of the internal carotid artery. Minimal amount of plaque is seen. The common carotid artery is patent. The external carotid artery is patent. The vertebral artery has antegrade flow. COMMENTS ON THE LEFT: Doppler frequency analysis is consistent with 16 to 49 percent diameter reduction of the internal carotid artery. Minimal amount of plaque is seen. The common carotid artery is patent. The external carotid artery is patent. The vertebral artery has antegrade flow. IMPRESSION: Less than 50% diameter reduction in the internal carotid arteries bilaterally. Consider repeat carotid artery duplex in 12 months.
== END 2016-11-08 13:24 | disposition home health service (06) | DRG 65 ==
LOC: ED 16:13 → 4A 22:08
PROVIDERS: ADMIT Internal Medicine; ATTEND Hospitalist
DX: I63.9 Cerebral infarction, unspecified (principal); G81.91 Hemiplegia, unspecified affecting right dominant side; K21.9 Gastro-esophageal reflux disease without esophagitis; J44.9 Chronic obstructive pulmonary disease, unspecified; I10 Essential (primary) hypertension; E78.5 Hyperlipidemia, unspecified; I25.10 Atherosclerotic heart disease of native coronary artery without angina pectoris; G89.29 Other chronic pain; M54.9 Dorsalgia, unspecified; F17.210 Nicotine dependence, cigarettes, uncomplicated; Z82.49 Family history of ischemic heart disease and other diseases of the circulatory system; Z79.899 Other long term (current) drug therapy; Z90.710 Acquired absence of both cervix and uterus; Z87.828 Personal history of other (healed) physical injury and trauma; I25.2 Old myocardial infarction
CPT/HCPCS: 36415; 70450; 70496; 70544; 70551; 78452; 80048; 80061; 80307; 81001; 82550; 82553; 82962; 84484; 85025; 85610; 85670; 85730; 93005; 93010; 93017; 93306; 93880; 94760; 96374; 96375; 99291; A9502; J1170; J2270; J2405; J2785; Q9967

== ENCOUNTER 2017-08-10 10:58 | Emergency (ER) | payer MEDICAID ==
[2017-08-10 11:22] VITALS: BP 132/94
[2017-08-10] MEDS ORDERED: ASPIRIN PO ONE (11:23)
--- NOTE | 2017-08-10 11:43 | XRay Report ---
CHEST XRAY, 2 VIEWS: History: Shortness of breath. Findings: There is mild diffuse interstitial coarsening. The lungs are hyperexpanded but clear. No infiltrate, pleural fluid or pneumothorax is detected. The cardiac silhouette and pulmonary vasculature are within normal limits for technique. The bony thorax is unremarkable. IMPRESSION: Changes consistent with COPD. No acute cardiopulmonary process.
[2017-08-10 12:01] LABS: Basophils % (Auto) 0.5 % (0.0-1.8); Eosinophils # (Auto) 0.1 K/mm3 (0.0-0.4); Eosinophils % (Auto) 1.1 % (0.0-4.3); Hematocrit 43.9 % (30.3-42.9); Hemoglobin 15.1 gm/dl (10.1-14.3); Lymphocytes % (Auto) 18.4 % (13.4-35.0); Mean Corpuscular HGB Conc 34 % (30-34); Mean Corpuscular Hemoglobin 32 pg (28-32); Mean Corpuscular Volume 94 fl (79-97); Monocytes # (Auto) 0.5 K/mm3 (0.0-0.8); Monocytes % (Auto) 8.5 % (0.0-7.3); Platelet Count 272 K/mm3 (140-440); Red Blood Count 4.65 M/mm3 (3.65-5.03); Red Cell Distribution Width 13.6 % (13.2-15.2)
[2017-08-10 12:33] LABS: BUN/Creatinine Ratio 13; Blood Urea Nitrogen 10 mg/dL (7-17); Calcium 9.1 mg/dL (8.4-10.2); Hemolysis Index 47
== END 2017-08-10 12:00 | disposition left against medical advice (07) ==
LOC: ED 10:58
DX: R11.2 Nausea with vomiting, unspecified (principal); R06.02 Shortness of breath; Z53.21 Procedure and treatment not carried out due to patient leaving prior to being seen by health care provider
CPT/HCPCS: 36415; 71046; 80048; 84484; 85025; 93005; 93010

== ENCOUNTER 2018-08-14 14:00 | Emergency (ER) | payer MEDICAID, OTHER ==
[2018-08-14] MEDS ORDERED: ATIVAN IV ONE (14:20)
[2018-08-14] MEDS ORDERED: ALUM-MAG HYDROX-SIMETH 200-200-20MG/5ML PO ONE (14:21)
--- NOTE | 2018-08-14 14:42 | Emergency Department Report ---
ED Chest Pain HPI - General Chief Complaint: Chest Pain Stated Complaint: CHEST PAIN Time Seen by Provider: 08/14/18 14:13 Source: patient, EMS Mode of arrival: Stretcher Limitations: No Limitations - History of Present Illness Initial Comments: Ms. Kelly is a 53-year-old female with history of CVA and reported coronary artery disease who presents with chest pain since last night. Pain began as indigestion. After antacid, symptoms improved. This morning she developed chest heaviness tightness radiating to her back and right side of her neck. She has right arm pain. Denies shortness of breath although she appears to be hyperventilating. Pain is persistent at rest. 9/10 in severity. Pain does not change with movement or breathing. Denies vomiting. Developed headache after nitroglycerin. She arrived per EMS. She does smoke tobacco. She does not take any home medications. She does not have a primary care physician. - Related Data Previous Rx's Medication Instructions Recorded Last Taken Type Nicotine [Habitrol] 14 mg TD QDAY #10 patch 06/11/18 Unknown Rx Pantoprazole [Protonix] 40 mg PO QDAY #20 tablet 06/11/18 Unknown Rx Zolpidem [Ambien] 5 mg PO QHS PRN #10 tablet 06/11/18 Unknown Rx oxyCODONE /ACETAMINOPHEN [Percocet 1 tab PO Q6H PRN #12 tablet 06/11/18 Unknown Rx 5/325 mg] Oxycodone HCl/Acetaminophen 1 each PO Q6HR PRN #4 tablet 06/16/18 Unknown Rx [Percocet 10/325 mg] Methocarbamol [Robaxin-750] 750 mg PO Q6HR PRN #20 tablet 06/20/18 Unknown Rx Ondansetron [Zofran Odt] 4 mg PO Q8HR PRN #20 tab.rapdis 06/20/18 Unknown Rx Pantoprazole [Protonix] 40 mg PO QDAY #30 tablet 07/10/18 Unknown Rx Allergies Allergy/AdvReac Type Severity Reaction Status Date / Time cyclobenzaprine HCl Allergy Severe Itching Verified 04/28/14 07:57 [From Flexeril] Fish Containing Products Allergy Anaphylaxis Verified 04/28/14 07:57 ibuprofen Allergy abd pain Verified 04/28/14 07:56 ketorolac tromethamine Allergy Headache Verified 04/28/14 07:56 [From Toradol] Heart Score - HEART Score History: Slightly suspicious EKG: Normal Age: 45-65 Risk factors: 1-2 risk factors Troponin: < normal limit HEART Score: 2 ED Review of Systems ROS: Stated complaint: CHEST PAIN Other details as noted in HPI Comment: All other systems reviewed and negative Constitutional: denies: fever, malaise Eyes: denies: eye discharge, vision change Respiratory: denies: cough Cardiovascular: chest pain ED Past Medical Hx - Past Medical History Hx Hypertension: Yes Hx CVA: Yes (tia) Hx Heart Attack/AMI: Yes (04/2014 as per pt although pt had a neg cardiac cath here ) Hx Congestive Heart Failure: No Hx Diabetes: No Hx Seizures: Yes (closed head injury) Hx Asthma: No Hx COPD: No Hx HIV: No Additional medical history: history of anxiety - Surgical History Hx Coronary Stent: No Additional Surgical History: Hysterectomy, back surgery - Family History Family history: CAD/[place] (father of heart attack), other (mother hx of CHF is ) - Social History Smoking Status: Current Every Day Smoker Substance Use Type: None - Medications Home Medications: Home Medications Medication Instructions Recorded Confirmed Last Taken Type Nicotine [Habitrol] 14 mg TD QDAY #10 patch 06/11/18 Unknown Rx Pantoprazole [Protonix] 40 mg PO QDAY #20 tablet 06/11/18 Unknown Rx Zolpidem [Ambien] 5 mg PO QHS PRN #10 tablet 06/11/18 Unknown Rx oxyCODONE /ACETAMINOPHEN [Percocet 1 tab PO Q6H PRN #12 tablet 06/11/18 Unknown Rx 5/325 mg] Oxycodone HCl/Acetaminophen 1 each PO Q6HR PRN #4 tablet 06/16/18 Unknown Rx [Percocet 10/325 mg] Methocarbamol [Robaxin-750] 750 mg PO Q6HR PRN #20 tablet 06/20/18 Unknown Rx Ondansetron [Zofran Odt] 4 mg PO Q8HR PRN #20 tab.rapdis 06/20/18 Unknown Rx Pantoprazole [Protonix] 40 mg PO QDAY #30 tablet 07/10/18 Unknown Rx ED Physical Exam - General Limitations: No Limitations General appearance: alert, in no apparent distress, other (appears anxious, hyperventilating) - Head Head exam: Present: atraumatic, normocephalic - Eye Eye exam: Present: normal appearance - ENT ENT exam: Present: mucous membranes moist - Neck Neck exam: Present: normal inspection, full ROM. Absent: tenderness, meningismus - Respiratory Respiratory exam: Present: normal lung sounds bilaterally. Absent: respiratory distress, wheezes, rales, rhonchi - Cardiovascular Cardiovascular Exam: Present: regular rate, normal rhythm, normal heart sounds. Absent: systolic murmur, diastolic murmur, rubs, gallop - GI/Abdominal GI/Abdominal exam: Present: soft, normal bowel sounds. Absent: distended, tenderness, guarding, rebound - Extremities Exam Extremities exam: Present: normal inspection - Back Exam Back exam: Present: normal inspection - Neurological Exam Neurological exam: Present: alert, oriented X3 - Psychiatric Psychiatric exam: Present: normal affect, normal mood - Skin Skin exam: Present: warm, dry, intact, normal color. Absent: rash ED Course Vital Signs 08/14/18 08/14/18 08/14/18 14:11 14:15 14:23 Temperature 98.5 F Pulse Rate 120 H 119 H 120 H Respiratory 21 44 H 13 Rate Blood Pressure 144/84 O2 Sat by Pulse 96 99 Oximetry 08/14/18 08/14/18 08/14/18 14:30 14:45 15:01 Temperature Pulse Rate 120 H 113 H 116 H Respiratory 17 44 H 13 Rate Blood Pressure 108/74 123/84 134/76 O2 Sat by Pulse 96 93 91 Oximetry 08/14/18 08/14/18 15:15 15:28 Temperature Pulse Rate 120 H Respiratory 21 18 Rate Blood Pressure 128/93 O2 Sat by Pulse 93 Oximetry ANKIT score - Ankit Score Age > 65: (0) No Aspirin use within the Past 7 Days: (0) No 3 or more CAD Risk Factors: (1) Yes 2 or more Angina events in past 24 hrs: (0) No Known CAD with more than 50% Stenosis: (0) No Elevated Cardiac Markers: (0) No ST Deviation Greater than 0.5mm: (0) No ANKIT Score: 1 ED Medical Decision Making - Lab Data Result diagrams: 08/14/18 14:26 08/14/18 14:26 - EKG Data Interpretation: no acute changes 08/14/18 14:41 EKG obtained upon arrival Sinus tachycardia rate 120 normal axis positive LVH no significant ST elevation positive repolarization abnormality unchanged from previous EKG 07/10/2018 08/14/18 14:42 - Medical Decision Making Ms. Kelly presents with recurrent chest pain over the last several years since at least 2013 according to electronic medical record. She has had 2 negative stress tests here at [facility]. First in 2013 negative Lexiscan. Recent normal thallium stress test May 2018 with a mild fixed defect attributed to breast attenuation Without reported ischemia. Ms. Kelly reported cardiac cath, but she does not have cardiac stent. Recent CT angiogram of the chest obtained last month obtained without evidence of acute vascular abnormality. No evidence of pulmonary embolism or aortic abnormality. I spoke with extensively with Ms. Kelly prior to discharge. Tachycardia has resolved after Lorazepam and PO maalox in addition to PO Percoct. She admitted that she was very afraid of her "leaky heart valve". She was upset that her last echo was 5 years ago. I provided education regarding the expected outcome and complications of aortic regurgitation. I've asked her to obtain primary care. She does not have a acute illness at this time which needs further resuscitation. SHe does have a high component of anxiety which is understandable considering the her extensive family history of heart disease. She is discharged home. She has been calm, comfortable after speaking with the family via phone. She has have recurrent chronic chest pain which is not related to coronary artery disease. Critical care attestation.: If time is entered above; I have spent that time in minutes in the direct care of this critically ill patient, excluding procedure time. ED Disposition Clinical Impression: Chest pain, COPD (chronic obstructive pulmonary disease), GERD (gastroesophageal reflux disease), Tobacco abuse Disposition: -01 TO HOME OR SELFCARE Is pt being admited?: No Does the pt Need Aspirin: No Condition: Stable Instructions: Chest Pain (ED), Chronic Obstructive Pulmonary Disease (ED) Referrals: [facility] [Outside] - 3-5 Days
[2018-08-14 14:45] LABS: Basophils # (Auto) 0.1 K/mm3 (0.0-0.1); Eosinophils # (Auto) 0.2 K/mm3 (0.0-0.4); Eosinophils % (Auto) 1.8 % (0.0-4.3); Hematocrit 39.3 % (30.3-42.9); Hemoglobin 13.8 gm/dl (10.1-14.3); Lymphocytes # (Auto) 1.8 K/mm3 (1.2-5.4); Lymphocytes % (Auto) 20.4 % (13.4-35.0); Mean Corpuscular HGB Conc 35 % (30-34); Mean Corpuscular Volume 97 fl (79-97); Monocytes # (Auto) 0.7 K/mm3 (0.0-0.8); Monocytes % (Auto) 7.4 % (0.0-7.3); Platelet Count 332 K/mm3 (140-440); Red Blood Count 4.06 M/mm3 (3.65-5.03); Red Cell Distribution Width 13.9 % (13.2-15.2)
--- NOTE | 2018-08-14 15:01 | XRay Report ---
CHEST ONE VIEW INDICATION: Chest pain. COMPARISON: 07/10/2018. FINDINGS: Portable, single, frontal chest radiograph demonstrates normal cardiomediastinal silhouette. Clear, hyperexpanded lungs. Unremarkable bones. Extrinsic EKG leads. CONCLUSION: No acute disease in the chest. COPD. Thank you for the opportunity to participate in this patient's care.
[2018-08-14 15:11] LABS: BUN/Creatinine Ratio 14; Blood Urea Nitrogen 13 mg/dL (7-17); Calcium 9.6 mg/dL (8.4-10.2); Hemolysis Index 6
[2018-08-14] MEDS ORDERED: ZOFRAN IV ONE (16:03)
[2018-08-14] MEDS ORDERED: PERCOCET 5/325 PO ONE (16:03)
[2018-08-14 18:48] VITALS: BP 112/70
== END 2018-08-14 18:15 | disposition home or self-care (01) ==
LOC: ED 14:00
DX: R07.89 Other chest pain (principal); J44.9 Chronic obstructive pulmonary disease, unspecified; K21.9 Gastro-esophageal reflux disease without esophagitis; F17.200 Nicotine dependence, unspecified, uncomplicated; I11.0 Hypertensive heart disease with heart failure; F41.9 Anxiety disorder, unspecified; Z88.5 Allergy status to narcotic agent; Z91.013 Allergy to seafood; Z90.710 Acquired absence of both cervix and uterus
CPT/HCPCS: 36415; 71045; 80048; 84484; 85025; 93005; 93010; 96374; 96375; 99285; J2060; J2405

== ENCOUNTER 2018-09-01 15:29 | Inpatient (IN) | payer OTHER ==
--- NOTE | 2018-09-01 15:44 | Emergency Department Report ---
HPI - General Time Seen by Provider: 09/01/18 15:32 - HPI HPI: Charge nurse triage/ room 23 The patient is a 53-year-old female presented with a chief complaint of slurred speech and right-sided weakness. The patient states she awakened this morning at approximately 03:30 with a headache. The patient was on the phone at approximately 14:45 when she was found to have slurred speech. The patient and fell right-sided weakness with inability to move the right upper or lower e xtremity. Patient also complains of numbness in her right upper and lower extremity. Location: [facility] Duration: [See above] Quality: Weakness, numbness Severity: Severe Modifying factors: [see above] Context: [see above] Mode of transportation: [not driving] ED Past Medical Hx - Past Medical History Hx Hypertension: Yes Hx CVA: Yes (tia) Hx Heart Attack/AMI: Yes (04/2014 as per pt although pt had a neg cardiac cath here ) Hx Seizures: Yes (closed head injury) Additional medical history: history of anxiety - Surgical History Additional Surgical History: Hysterectomy, back surgery - Family History Family history: no significant - Social History Smoking Status: Current Every Day Smoker Substance Use Type: None - Medications Home Medications: Home Medications Medication Instructions Recorded Confirmed Last Taken Type Nicotine [Habitrol] 14 mg TD QDAY #10 patch 06/11/18 09/01/18 Unknown Rx Zolpidem [Ambien] 5 mg PO QHS PRN #10 tablet 06/11/18 09/01/18 Unknown Rx oxyCODONE /ACETAMINOPHEN [Percocet 1 tab PO Q6H PRN #12 tablet 06/11/18 09/01/18 Unknown Rx 5/325 mg] Oxycodone HCl/Acetaminophen 1 each PO Q6HR PRN #4 tablet 06/16/18 09/01/18 Unknown Rx [Percocet 10/325 mg] Methocarbamol [Robaxin-750] 750 mg PO Q6HR PRN #20 tablet 06/20/18 09/01/18 Unknown Rx Ondansetron [Zofran Odt] 4 mg PO Q8HR PRN #20 tab.rapdis 06/20/18 09/01/18 Unknown Rx Pantoprazole [Protonix] 40 mg PO QDAY #30 tablet 07/10/18 09/01/18 Unknown Rx ED Review of Systems ROS: Stated complaint: CVA Other details as noted in HPI Constitutional: no symptoms reported Eyes: denies: eye pain ENT: denies: throat pain Respiratory: no symptoms reported Cardiovascular: denies: chest pain Endocrine: no symptoms reported Gastrointestinal: denies: abdominal pain Genitourinary: denies: dysuria Musculoskeletal: denies: back pain Neurological: headache, weakness, numbness Physical Exam - Physical Exam Physical Exam: GENERAL: The patient is well-developed well-nourished female lying on stretcher with right-sided facial droop. [] HEENT: Normocephalic. Atraumatic. Extraocular motions are intact. Right-sided facial droop NECK: Supple. Trachea midline CHEST/LUNGS: Clear to auscultation. There is no respiratory distress noted. HEART/CARDIOVASCULAR: Regular. There is no tachycardia. There is no gallop rub or murmur. ABDOMEN: Abdomen is soft, nontender. Patient has normal bowel sounds. There is no abdominal distention. SKIN: There is no rash. There is no edema. There is no diaphoresis. NEURO: The patient is awake, alert, and oriented. The patient is cooperative. The patient has a right-sided facial droop without forehead sparing. Patient's tongue deviates to the left. Patient is unable to move her right upper or lower extremity. Patient has decreased sensation to the right upper extremity and right lower extremity. The patient has slurred speech. MUSCULOSKELETAL: There is no evidence of acute injury. NIHSS= 13 LOC a. Alert= 0 Not alert but arousable to minor stimuli=1 Not alert requires repeated or strong stimuli to move= 2 Responds only reflex motor or unresponsive=3 b. asks month and age answers both correctly= 0 answers one correctly= 1 answers neither correctly= 2 Best Gaze normal= 0 abnormal in one or both but forced deviation or total paresis absent= 1 forced deviation or total gaze paresis= 2 Visual no visual loss= 0 partial hemianopia= 1 complete hemianopia= 2 bilateral hemianopia= 3 Facial Palsy normal= 0 minor paralysis= 1 partial paralysis= 2 (+)complete paralysis= 3 Motor Arm no drift= 0 drift before 10 secs but doesnt hit bed= 1 some effort against gravity= 2 no effort against gravity= 3 (+)no movement= 4 Motor leg no drift= 0 drift before 5 secs but doesnt hit bed= 1 drifts to bed before 5 secs= 2 no effort against gravity= 3 (+)no movement= 4 Limb ataxia absent=0 present in one limb= 1 present in two limbs= 2 Sensory normal= 0 (+)mild sensory loss= 1 severe (unaware of being touched)= 2 Best language mild/some loss of fluency= 1 severe= 2 mute= 3 Dysarthria normal= 0 (+)slurs some words= 1 severe/unintelligible= 2 Extinction and Inattention no abnormality= 0 visual, tactile, auditory or personal inattention= 1 profound (doesnt recognize own hand or orients to only one side= 2 ED Course - Consultations Consultation #1: 09/01/18 15:53 Tele-Neuro paged 09/01/18 15:[address] Moore- Will evaluate and call back 09/01/18 16:[address] Moore- states patient refused TPA. Recommends CTA brain and neck, if no large thrombus, admit for CVA workup ED Medical Decision Making - Lab Data Result diagrams: 09/01/18 15:50 09/01/18 15:50 Laboratory Tests 09/01/18 09/01/18 09/01/18 15:50 15:50 15:50 WBC 7.0 RBC 4.27 Hgb 14.6 H Hct 41.6 MCV 97 MCH 34 H MCHC 35 H RDW 12.7 L Plt Count 307 Lymph % (Auto) 26.2 Rice % (Auto) 7.7 H Eos % (Auto) 2.3 Baso % (Auto) 1.2 Lymph # 1.8 Rice # 0.5 Eos # 0.2 Baso # 0.1 Seg Neutrophils % 62.6 Seg Neutrophils # 4.4 PT 11.9 L INR 0.84 L APTT 24.5 Thrombin Time Sodium 139 Potassium 4.3 Chloride 100.7 Carbon Dioxide 24 Anion Gap 19 BUN 13 Creatinine 0.9 Estimated GFR > 60 BUN/Creatinine Ratio 14 Glucose 119 H Calcium 9.0 09/01/18 15:50 WBC RBC Hgb Hct MCV MCH MCHC RDW Plt Count Lymph % (Auto) Rice % (Auto) Eos % (Auto) Baso % (Auto) Lymph # Rice # Eos # Baso # Seg Neutrophils % Seg Neutrophils # PT INR APTT Thrombin Time 14.8 L Sodium Potassium Chloride Carbon Dioxide Anion Gap BUN Creatinine Estimated GFR BUN/Creatinine Ratio Glucose Calcium - EKG Data -: EKG Interpreted by Sd EKG shows normal: sinus rhythm Rate: tachycardia (106 bpm) - EKG Data When compared to previous EKG there are: no significant change Interpretation: unchanged when compared t (08/14/2018) - Radiology Data Radiology results: pending (CT angiogram brain, CT angiogram neck ), report reviewed (CT head), image reviewed (CT head) [address] [address] Cat Scan Report Signed Patient: ISHAAN YOON MR#: [id number] : 1965 Acct:[id number] Age/Sex: 53 / F ADM Date: 09/01/18 Loc: ED Attending Dr: Agusto allred Physician: ELAINE WORLEY MD Date of Service: 09/01/18 Procedure(s): CT head/brain wo con Accession Number(s): [id number] cc: ELAINE WORLEY MD FINAL REPORT PROCEDURE: CT HEAD/BRAIN WO CON TECHNIQUE: Computerized tomography of the head was performed without contrast material. HISTORY: right-sided weakness, slurred speech COMPARISON: 06/16/2018 FINDINGS: No CT evidence of acute intracranial hemorrhage, hydrocephalus, acute territorial infarction, or hydrocephalus. The intracranial arteries are symmetric in density. Calvarium is intact. The visualized paranasal sinuses and mastoids are aerated. IMPRESSION: No CT evidence of acute abnormality Transcribed By: [facility] Dictated By: MELLISA MCMILLAN M.D. Electronically Authenticated By: MELLISA MCMILLAN M.D. Signed Date/Time: 09/01/181550 DD/ 155 TD/TT: 09/01/18 155 Critical care attestation.: If time is entered above; I have spent that time in minutes in the direct care of this critically ill patient, excluding procedure time. ED Disposition Clinical Impression: Right sided weakness Disposition: OP ADMIT IP TO THIS HOSP Is pt being admited?: Yes Does the pt Need Aspirin: Yes Condition: Fair Referrals: KELLEE PHIPPS [Primary Care Provider] - 3-5 Days Time of Disposition: 19:05 (hospitalist notified (Dr Read). CTA brain and neck pending)
--- NOTE | 2018-09-01 15:51 | Cat Scan Report ---
FINAL REPORT PROCEDURE: CT HEAD/BRAIN WO CON TECHNIQUE: Computerized tomography of the head was performed without contrast material. HISTORY: right-sided weakness, slurred speech COMPARISON: 06/16/2018 FINDINGS: No CT evidence of acute intracranial hemorrhage, hydrocephalus, acute territorial infarction, or hydr ocephalus. The intracranial arteries are symmetric in density. Calvarium is intact. The visualized pa ranasal sinuses and mastoids are aerated. IMPRESSION: No CT evidence of acute abnormality
[2018-09-01 16:08] LABS: Basophils # (Auto) 0.1 K/mm3 (0.0-0.1); Basophils % (Auto) 1.2 % (0.0-1.8); Eosinophils # (Auto) 0.2 K/mm3 (0.0-0.4); Eosinophils % (Auto) 2.3 % (0.0-4.3); Hematocrit 41.6 % (30.3-42.9); Hemoglobin 14.6 gm/dl (10.1-14.3); Lymphocytes # (Auto) 1.8 K/mm3 (1.2-5.4); Lymphocytes % (Auto) 26.2 % (13.4-35.0); Mean Corpuscular HGB Conc 35 % (30-34); Mean Corpuscular Volume 97 fl (79-97); Monocytes # (Auto) 0.5 K/mm3 (0.0-0.8); Monocytes % (Auto) 7.7 % (0.0-7.3); Platelet Count 307 K/mm3 (140-440); Red Blood Count 4.27 M/mm3 (3.65-5.03); Red Cell Distribution Width 12.7 % (13.2-15.2)
[2018-09-01 16:12] LABS: BUN/Creatinine Ratio 14; Blood Urea Nitrogen 13 mg/dL (7-17); Hemolysis Index 11
[2018-09-01 16:17] LABS: INR 0.84 (0.87-1.13)
[2018-09-01 16:18] LABS: Partial Thromboplastin Time 24.5 Sec. (24.2-36.6)
[2018-09-01] MEDS ORDERED: PLAVIX PO ONE (16:18)
[2018-09-01] MEDS ORDERED: BENADRYL ONE (19:37)
[2018-09-01] MEDS ORDERED: BENADRYL IV ONE (19:39)
--- NOTE | 2018-09-01 20:13 | Cat Scan Report ---
FINAL REPORT EXAM: CT ANGIO HEAD HISTORY: right-sided weakness COMPARISON: CT of the head from today. TECHNIQUE: Contiguous axial images were obtained. Additional sagittal and coronal reformatted images were obtained. Max intensity projection images obtained. Administration of IV contrast given per ins titution protocol. Images submitted for interpretation. 100 cc Omnipaque 350. Findings: Petrous, cavernous, supraclinoid portions of the internal carotid arteries are widely paten t. A1 segments are symmetric in caliber. Tiny anterior communicating artery is present. Symmetric bra nching opacification of the anterior, middle, and posterior cerebral arteries. Bilateral posterior co mmunicating arteries are present. Intracranial portions the vertebral arteries and basilar artery are patent. No early draining vein. No area of abnormal hypervascular enhancement. Gross normal opacification harmony or dural venous sinuses. IMPRESSION: Negative CTA of the head.
--- NOTE | 2018-09-01 21:03 | Cat Scan Report ---
FINAL REPORT EXAM: CT ANGIO NECK HISTORY: right-sided weakness COMPARISON: None available. TECHNIQUE: Contiguous axial images were obtained. Additional sagittal and coronal reformatted images were obtained. Administration of IV contrast given per institution protocol. Images submitted for in terpretation. 100 cc Omnipaque 350. FINDINGS: Extracranial portions of the common carotid, internal carotid, vertebral arteries are widely patent. Carotid bifurcations are widely patent. Conventional arch anatomy with separate origins of the innomi sarah left common carotid arteries. Carotid bifurcations are patent. No luminal regularity or stenosis . Codominant vertebral arteries. Spaces of the neck are preserved. Mild diffuse enlargement of the thyroid gland without dominant nodu le. Salivary glands are unremarkable. No enlarged cervical lymph nodes. Mild degenerative changes of the cervical spine. Emphysematous changes at the lung apices and scarring. IMPRESSION: Negative CTA of the neck.
[2018-09-01] MEDS ORDERED: ATARAX PO ONE (21:06)
[2018-09-01] MEDS ORDERED: ZOFRAN ODT PO PRN (21:12)
[2018-09-01] MEDS ORDERED: AMBIEN PO PRN (21:12)
[2018-09-01] MEDS ORDERED: ROBAXIN PO PRN (21:12)
--- NOTE | 2018-09-01 21:12 | History and Physical Report ---
History of Present Illness Date of examination: 09/01/18 Medications and Allergies Allergies Allergy/AdvReac Type Severity Reaction Status Date / Time cyclobenzaprine HCl Allergy Severe Itching Verified 04/28/14 07:57 [From Flexeril] Fish Containing Products Allergy Anaphylaxis Verified 04/28/14 07:57 ibuprofen Allergy abd pain Verified 04/28/14 07:56 ketorolac tromethamine Allergy Headache Verified 04/28/14 07:56 [From Toradol] Home Medications Medication Instructions Recorded Confirmed Last Taken Type Nicotine [Habitrol] 14 mg TD QDAY #10 patch 06/11/18 09/01/18 Unknown Rx Zolpidem [Ambien] 5 mg PO QHS PRN #10 tablet 06/11/18 09/01/18 Unknown Rx oxyCODONE /ACETAMINOPHEN [Percocet 1 tab PO Q6H PRN #12 tablet 06/11/18 09/01/18 Unknown Rx 5/325 mg] Oxycodone HCl/Acetaminophen 1 each PO Q6HR PRN #4 tablet 06/16/18 09/01/18 Unknown Rx [Percocet 10/325 mg] Methocarbamol [Robaxin-750] 750 mg PO Q6HR PRN #20 tablet 06/20/18 09/01/18 Unknown Rx Ondansetron [Zofran Odt] 4 mg PO Q8HR PRN #20 tab.rapdis 06/20/18 09/01/18 Unknown Rx Pantoprazole [Protonix] 40 mg PO QDAY #30 tablet 07/10/18 09/01/18 Unknown Rx Exam - Constitutional Vitals: Temp Pulse Resp BP Pulse Ox 98.1 F 102 H 19 177/144 96 09/01/18 17:14 09/01/18 17:14 09/01/18 17:15 09/01/18 17:14 09/01/18 17:15 Results - Labs CBC & Chem 7: 09/01/18 15:50 09/01/18 15:50 Labs: Laboratory Last Values WBC 7.0 K/mm3 (4.5-11.0) 09/01/18 15:50 RBC 4.27 M/mm3 (3.65-5.03) 09/01/18 15:50 Hgb 14.6 gm/dl (10.1-14.3) H 09/01/18 15:50 Hct 41.6 % (30.3-42.9) 09/01/18 15:50 MCV 97 fl (79-97) 09/01/18 15:50 MCH 34 pg (28-32) H 09/01/18 15:50 MCHC 35 % (30-34) H 09/01/18 15:50 RDW 12.7 % (13.2-15.2) L 09/01/18 15:50 Plt Count 307 K/mm3 (140-440) 09/01/18 15:50 Lymph % (Auto) 26.2 % (13.4-35.0) 09/01/18 15:50 Perkins % (Auto) 7.7 % (0.0-7.3) H 09/01/18 15:50 Eos % (Auto) 2.3 % (0.0-4.3) 09/01/18 15:50 Baso % (Auto) 1.2 % (0.0-1.8) 09/01/18 15:50 Lymph # 1.8 K/mm3 (1.2-5.4) 09/01/18 15:50 Perkins # 0.5 K/mm3 (0.0-0.8) 09/01/18 15:50 Eos # 0.2 K/mm3 (0.0-0.4) 09/01/18 15:50 Baso # 0.1 K/mm3 (0.0-0.1) 09/01/18 15:50 Seg Neutrophils % 62.6 % (40.0-70.0) 09/01/18 15:50 Seg Neutrophils # 4.4 K/mm3 (1.8-7.7) 09/01/18 15:50 PT 11.9 Sec. (12.2-14.9) L 09/01/18 15:50 INR 0.84 (0.87-1.13) L 09/01/18 15:50 APTT 24.5 Sec. (24.2-36.6) 09/01/18 15:50 Thrombin Time 14.8 Sec. (15.1-19.6) L 09/01/18 15:50 Sodium 139 mmol/L (137-145) 09/01/18 15:50 Potassium 4.3 mmol/L (3.6-5.0) 09/01/18 15:50 Chloride 100.7 mmol/L (98-107) 09/01/18 15:50 Carbon Dioxide 24 mmol/L (22-30) 09/01/18 15:50 Anion Gap 19 mmol/L 09/01/18 15:50 BUN 13 mg/dL (7-17) 09/01/18 15:50 Creatinine 0.9 mg/dL (0.7-1.2) 09/01/18 15:50 Estimated GFR > 60 ml/min 09/01/18 15:50 BUN/Creatinine Ratio 14 % 09/01/18 15:50 Glucose 119 mg/dL (65-100) H 09/01/18 15:50 Calcium 9.0 mg/dL (8.4-10.2) 09/01/18 15:50
[2018-09-01] MEDS ORDERED: TYLENOL PO PRN (21:13)
[2018-09-01] MEDS ORDERED: SODIUM CHLORIDE FLUSH SYRINGE 10 ML IV PRN ×2 (21:13→21:14)
[2018-09-01] MEDS ORDERED: ZOFRAN IV PRN (21:13)
[2018-09-01] MEDS ORDERED: ASPIRIN PO SCH (22:00)
[2018-09-01] MEDS ORDERED: NACL 0.9% 1000 ML 1,000 ML IV SCH (22:00)
[2018-09-01] MEDS: PERCOCET 5/325 PO PRN (23:53)
[2018-09-01] MEDS: PROTONIX PO SCH (23:54)
[2018-09-01] MEDS: HABITROL TD SCH (23:55)
[2018-09-02] MEDS: SODIUM CHLORIDE FLUSH SYRINGE 10 ML IV SCH ×3 (00:08→21:12)
--- NOTE | 2018-09-02 02:20 | Event Note ---
Date: 09/01/18 See H/p in reports Aciute CVA with Rt Hemiplegia
--- NOTE | 2018-09-02 03:09 | History and Physical Report ---
CHIEF COMPLAINT: Right-sided weakness since 3:00 p.m. HISTORY OF PRESENT ILLNESS: A 53-year-old female presents with sudden onset of right upper and right lower extremity weakness, starting at around 3:00 p.m. The patient was called as a code stroke in the ER and code stroke protocol was initiated. The patient has some slight movement in the right upper extremity. No movement at all in the right lower extremity. PAST MEDICAL HISTORY: Significant for hypertension, cerebrovascular accident, acute NC, seizure disorder. PAST SURGICAL HISTORY: Hysterectomy and back surgery. FAMILY HISTORY: Hypertension. SOCIAL HISTORY: Smokes about half a pack to a pack a day. REVIEW OF SYSTEMS: Significant for dizziness, resolved by rest. Otherwise, review of systems is negative. PHYSICAL EXAMINATION: GENERAL: Middle-aged female, cooperative during examination. VITAL SIGNS: Initial blood pressure is 200/110, it dropped down to 164/87. HEENT: Unremarkable. Pupils equal and reactive. NECK: Supple, no lymphadenopathy, no thyromegaly. LUNGS: Clear to auscultation and percussion. Good air entry. CARDIOVASCULAR: S1, S2 heard. No gallop, no murmur, no rub. Apical impulse in left fifth intercostal space and midclavicular line. ABDOMEN: Soft and benign. No hepatosplenomegaly. No guarding, no rigidity. CENTRAL NERVOUS SYSTEM: Right upper extremity 0/5 power with slight twitching, able to move her fingers slightly. The right lower extremity is 0/5 power. LABORATORY DATA: Within normal limits. Head CT was normal. ASSESSMENT AND PLAN: 1. Right acute cerebrovascular accident with right hemiplegia. Cerebrovascular accident workup, MRI/MRA and carotid duplex scan and echocardiogram ordered. 2. Hypertension. Continue antihypertensives. 3. Nicotine dependence. Nicotine patch. 4. Deep venous thrombosis prophylaxis, Lovenox and gastrointestinal prophylaxis. JOB# [id number] VSM/NTS
[2018-09-02 05:58] LABS: Chol/HDL Ratio 2.32 %
[2018-09-02] MEDS: PERCOCET 5/325 PO PRN ×3 (06:00→20:02)
[2018-09-02] MEDS ORDERED: ATIVAN IV NR (08:17)
--- NOTE | 2018-09-02 10:11 | Progress Note ---
Assessment and Plan Assessment and plan: Patient is a 53 woman with a history of tobacco dependency, hypertension, CVA, prior seizure disorder, acute [place], anxiety disorder who presented for slurred speech and right sided weakness. According to Dr. 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 Follow-up on current diagnosis of acute stroke. Overnight uneventful. Patient denies any chest pain, shortness breath, nausea/vomiting or severe headaches. Imaging, nursing note, chart, labs and old chart reviewed. Discussed with patient. Hospitalist Physical - Physical exam Narrative exam: Gen: WDWN, NAD, Awake, Alert, Orientated HEENT: NCAT, EOMI, PERRL, OP Clear Neck: supple, no adenopathy, no thyromegaly, no JVD CVS/Heart: RRR, normal S1S2, pulses present bilaterally Chest/Lungs: CTA B, Symmetrical chest expansion, good air entry bilaterally GI/Abdomen: soft, NTND, good bowel sounds, no guarding or rebound /Bladder: no suprapubic tenderness, no CVA or paraspinal tenderness Extermity/Skin: no c/c/e, no obvious rash MSK: FROM x 3, right side not working Neuro: CN 2-12 grossly intact, right hemiparesis Psych: calm - Constitutional Vitals: Temp Pulse Resp BP Pulse Ox 97.9 F 89 18 142/111 99 09/02/18 07:35 09/02/18 07:35 09/02/18 07:35 09/02/18 07:35 09/02/18 07:35 Results - Labs CBC & Chem 7: 09/01/18 15:50 09/01/18 15:50 Labs: Laboratory Last Values WBC 7.0 K/mm3 (4.5-11.0) 09/01/18 15:50 RBC 4.27 M/mm3 (3.65-5.03) 09/01/18 15:50 Hgb 14.6 gm/dl (10.1-14.3) H 09/01/18 15:50 Hct 41.6 % (30.3-42.9) 09/01/18 15:50 MCV 97 fl (79-97) 09/01/18 15:50 MCH 34 pg (28-32) H 09/01/18 15:50 MCHC 35 % (30-34) H 09/01/18 15:50 RDW 12.7 % (13.2-15.2) L 09/01/18 15:50 Plt Count 307 K/mm3 (140-440) 09/01/18 15:50 Lymph % (Auto) 26.2 % (13.4-35.0) 09/01/18 15:50 [place] % (Auto) 7.7 % (0.0-7.3) H 09/01/18 15:50 Eos % (Auto) 2.3 % (0.0-4.3) 09/01/18 15:50 Baso % (Auto) 1.2 % (0.0-1.8) 09/01/18 15:50 Lymph # 1.8 K/mm3 (1.2-5.4) 09/01/18 15:50 [place] # 0.5 K/mm3 (0.0-0.8) 09/01/18 15:50 Eos # 0.2 K/mm3 (0.0-0.4) 09/01/18 15:50 Baso # 0.1 K/mm3 (0.0-0.1) 09/01/18 15:50 Seg Neutrophils % 62.6 % (40.0-70.0) 09/01/18 15:50 Seg Neutrophils # 4.4 K/mm3 (1.8-7.7) 09/01/18 15:50 PT 11.9 Sec. (12.2-14.9) L 09/01/18 15:50 INR 0.84 (0.87-1.13) L 09/01/18 15:50 APTT 24.5 Sec. (24.2-36.6) 09/01/18 15:50 Thrombin Time 14.8 Sec. (15.1-19.6) L 09/01/18 15:50 Sodium 139 mmol/L (137-145) 09/01/18 15:50 Potassium 4.3 mmol/L (3.6-5.0) 09/01/18 15:50 Chloride 100.7 mmol/L (98-107) 09/01/18 15:50 Carbon Dioxide 24 mmol/L (22-30) 09/01/18 15:50 Anion Gap 19 mmol/L 09/01/18 15:50 BUN 13 mg/dL (7-17) 09/01/18 15:50 Creatinine 0.9 mg/dL (0.7-1.2) 09/01/18 15:50 Estimated GFR > 60 ml/min 09/01/18 15:50 BUN/Creatinine Ratio 14 % 09/01/18 15:50 Glucose 119 mg/dL (65-100) H 09/01/18 15:50 POC Glucose 103 (70-105) 09/01/18 15:34 Hemoglobin A1c 5.2 % (4-6) 09/02/18 04:29 Calcium 9.0 mg/dL (8.4-10.2) 09/01/18 15:50 Triglycerides 73 mg/dL (2-149) 09/02/18 04:29 Cholesterol 121 mg/dL (50-199) 09/02/18 04:29 LDL Cholesterol Direct 69 mg/dL (50-130) 09/02/18 04:29 HDL Cholesterol 52 mg/dL (40-59) 09/02/18 04:29 Cholesterol/HDL Ratio 2.32 % 09/02/18 04:29
[2018-09-02] MEDS: PLAVIX PO SCH (10:24)
[2018-09-02] MEDS: PROTONIX PO SCH (10:24)
[2018-09-02] MEDS: HABITROL TD SCH (10:25)
[2018-09-02] MEDS: BABY ASPIRIN PO SCH (10:35)
[2018-09-02] MEDS: MORPHINE IV PRN ×3 (10:35→23:27)
--- NOTE | 2018-09-02 15:37 | Magnetic Resonance Report ---
MRI BRAIN WITHOUT CONTRAST: 09/02/18 CLINICAL: Stroke. COMPARISON: CT head and CTA head 09/01/18 TECHNIQUE: Axial diffusion, T1, T2, gradient echo T2*, coronal and axial FLAIR and sagittal T1 sequences on a 1.5 [place]iko magnet. FINDINGS: Motion degrades the quality of the exam. Normal ventricles and sulci. No restricted diffusion. Mild bilateral multifocal subcortical white matter hyperintensities on FLAIR and T2. A single right basal ganglia hypointensity on the gradient echo segments is consistent with a chronic microbleed. No other microbleeds. No mass or mass effect. No hemorrhage, edema or extra-axial collection. Normal pituitary and optic chiasm. The brainstem and cerebellum are normal. Intact vascular flow voids. Normal sinuses. The orbits, and soft tissues are normal. Normal calvarium and skull base. IMPRESSION: No evidence of acute/subacute infarct or hemorrhage. A single right basal ganglia chronic microbleed. Moderate bilateral chronic white matter microangiopathy.
--- NOTE | 2018-09-02 15:41 | Magnetic Resonance Report ---
MRA HEAD WITHOUT CONTRAST: 09/02/18 CLINICAL: Stroke. TECHNIQUE: Axial 3-D [id number] MR angiography of the [place] with review of axial source images. FINDINGS: Motion degrades the quality of the exam. The [place] is intact with no obvious aneurysm, high-grade stenosis or occlusion. Intact basilar and vertebral arteries. IMPRESSION: Negative study.
--- NOTE | 2018-09-02 16:35 | Progress Note ---
Subjective Date of service: 09/02/18 Interval history: patient seen and exmined there is right hand weakness and mild aphasia she has past hx of TIA w/u at [facility] there is negative MRI except microangiopathy in the brain... explained w/u to the patient condition is stable Objective - Vital Sign Vital Signs - 12hr 09/02/18 09/02/18 09/02/18 07:00 07:35 10:00 Temperature 97.9 F Pulse Rate 87 89 Pulse Rate [ 80 Apical] Pulse Rate [ 88 From Monitor] Respiratory 18 20 Rate Respiratory 20 Rate [Right Arm ] Respiratory 20 Rate [Right Leg ] Blood Pressure 142/111 O2 Sat by Pulse 99 99 Oximetry 09/02/18 09/02/18 09/02/18 10:31 10:35 14:11 Temperature 97.9 F Pulse Rate 97 H Pulse Rate [ Apical] Pulse Rate [ From Monitor] Respiratory 18 20 20 Rate Respiratory Rate [Right Arm ] Respiratory Rate [Right Leg ] Blood Pressure 129/102 O2 Sat by Pulse 100 Oximetry 09/02/18 09/02/18 16:27 16:30 Temperature 97.9 F Pulse Rate 101 H Pulse Rate [ Apical] Pulse Rate [ From Monitor] Respiratory 18 20 Rate Respiratory Rate [Right Arm ] Respiratory Rate [Right Leg ] Blood Pressure 123/93 O2 Sat by Pulse 98 Oximetry - Laboratory Findings CBC and BMP: 09/01/18 15:50 09/01/18 15:50 Abnormal Lab Findings: Abnormal Labs 09/01/18 09/01/18 09/01/18 15:50 15:50 15:50 Hgb 14.6 H MCH 34 H MCHC 35 H RDW 12.7 L [place] % (Auto) 7.7 H PT 11.9 L INR 0.84 L Thrombin Time Glucose 119 H 09/01/18 15:50 Hgb MCH MCHC RDW [place] % (Auto) PT INR Thrombin Time 14.8 L Glucose
--- NOTE | 2018-09-02 19:18 | Vascular Lab Report ---
FINAL REPORT EXAM: VL CAROTID DUPLEX BILAT HISTORY: stroke TECHNIQUE: Ultrasound carotid arteries with pulsed and color Doppler evaluation PRIORS: None. FINDINGS: Right common carotid artery demonstrates a no visible plaque formation. Peak systolic velocity 75 marifer timeters/second end-diastolic velocity 24 centimeters/second No significant plaque formation observed within the right ICA. Peak systolic velocity 105 centimeters /second end-diastolic velocity 44 centimeters/second The left CCA demonstrates normal flow velocity 82 centimeters/second peak systolic velocity and 24 ce ntimeters/second end-diastolic velocity The distal left ICA demonstrates peak systolic velocity 100 centimeters/second with end-diastolic heri ocity of 43 centimeters/second There is antegrade flow within both vertebral arteries IMPRESSION: No evidence for hemodynamically significant stenosis less than 50 percent range bilaterally
[2018-09-02] MEDS: BENADRYL PO PRN (21:11)
[2018-09-03] MEDS: PERCOCET 5/325 PO PRN ×2 (03:16→09:59)
[2018-09-03] MEDS: BENADRYL PO PRN (03:17)
--- NOTE | 2018-09-03 07:47 | Progress Note ---
Assessment and Plan Assessment and plan: Patient is a 53 woman with a history of tobacco dependency, hypertension, CVA, prior seizure disorder, acute [place], anxiety disorder who presented for slurred speech and right sided weakness. According to Dr. Dumas's note, patient refused tPA --Possible Acute CVA with right-sided weakness: patient refused tPA, On aspirin and statin Workup negative so far, acute CVA was ruled out as per workup Continue PT OT, rehabilitation Workup negative.: CT head; no acute abnormality noted MRI brain; normal study MRA brain; normal study carotid Doppler; 50% stenosis[no hemodynamically significant] CTA neck; negative CTA head; negative ECHO: Normal ejection fraction.No PFO --Possible TIA; continue aspirin and statin Physical therapy occupational therapy, home health as needed --Accelerated hypertension; present on admission Now well controlled, continue current antihypertensives --Ongoing tobacco use; smoking cessation Nicotine patch as needed --DVT prophylaxis; Lovenox --Discharge planning; Possible rehabilitation acute versus subacute versus home with home health, When medically stable History Interval history: Patient seen and examined medical records reviewed Admitted with possible acute CVA, not a candidate for TPA The patient feels better still complains of right-sided weakness Extensive neuro workup is negative Patient uses the right side normally sometimes Vital signs reviewed Hospitalist Physical - Constitutional Vitals: Temp Pulse Resp BP Pulse Ox 97.9 F 93 H 18 113/87 94 09/03/18 07:28 09/03/18 07:28 09/03/18 07:28 09/03/18 07:28 09/03/18 07:28 General appearance: Present: no acute distress, well-nourished - EENT Eyes: Present: PERRL, EOM intact - Neck Neck: Present: supple, normal ROM - Respiratory Respiratory effort: normal Respiratory: bilateral: diminished, negative: rales, rhonchi, wheezing - Cardiovascular Rhythm: regular Heart Sounds: Present: S1 & S2 - Extremities Extremities: no ischemia, No edema - Abdominal General gastrointestinal: soft, non-tender, non-distended, normal bowel sounds - Integumentary Integumentary: Present: clear, warm - Psychiatric Psychiatric: appropriate mood/affect, cooperative - Neurologic Neurologic: CNII-XII intact, moves all extremities (intermittent mild right- sided weakness) Results - Labs CBC & Chem 7: 09/01/18 15:50 09/01/18 15:50 Labs: Laboratory Last Values WBC 7.0 K/mm3 (4.5-11.0) 09/01/18 15:50 RBC 4.27 M/mm3 (3.65-5.03) 09/01/18 15:50 Hgb 14.6 gm/dl (10.1-14.3) H 09/01/18 15:50 Hct 41.6 % (30.3-42.9) 09/01/18 15:50 MCV 97 fl (79-97) 09/01/18 15:50 MCH 34 pg (28-32) H 09/01/18 15:50 MCHC 35 % (30-34) H 09/01/18 15:50 RDW 12.7 % (13.2-15.2) L 09/01/18 15:50 Plt Count 307 K/mm3 (140-440) 09/01/18 15:50 Lymph % (Auto) 26.2 % (13.4-35.0) 09/01/18 15:50 [place] % (Auto) 7.7 % (0.0-7.3) H 09/01/18 15:50 Eos % (Auto) 2.3 % (0.0-4.3) 09/01/18 15:50 Baso % (Auto) 1.2 % (0.0-1.8) 09/01/18 15:50 Lymph # 1.8 K/mm3 (1.2-5.4) 09/01/18 15:50 [place] # 0.5 K/mm3 (0.0-0.8) 09/01/18 15:50 Eos # 0.2 K/mm3 (0.0-0.4) 09/01/18 15:50 Baso # 0.1 K/mm3 (0.0-0.1) 09/01/18 15:50 Seg Neutrophils % 62.6 % (40.0-70.0) 09/01/18 15:50 Seg Neutrophils # 4.4 K/mm3 (1.8-7.7) 09/01/18 15:50 PT 11.9 Sec. (12.2-14.9) L 09/01/18 15:50 INR 0.84 (0.87-1.13) L 09/01/18 15:50 APTT 24.5 Sec. (24.2-36.6) 09/01/18 15:50 Thrombin Time 14.8 Sec. (15.1-19.6) L 09/01/18 15:50 Sodium 139 mmol/L (137-145) 09/01/18 15:50 Potassium 4.3 mmol/L (3.6-5.0) 09/01/18 15:50 Chloride 100.7 mmol/L (98-107) 09/01/18 15:50 Carbon Dioxide 24 mmol/L (22-30) 09/01/18 15:50 Anion Gap 19 mmol/L 09/01/18 15:50 BUN 13 mg/dL (7-17) 09/01/18 15:50 Creatinine 0.9 mg/dL (0.7-1.2) 09/01/18 15:50 Estimated GFR > 60 ml/min 09/01/18 15:50 BUN/Creatinine Ratio 14 % 09/01/18 15:50 Glucose 119 mg/dL (65-100) H 09/01/18 15:50 POC Glucose 103 (70-105) 09/01/18 15:34 Hemoglobin A1c 5.2 % (4-6) 09/02/18 04:29 Calcium 9.0 mg/dL (8.4-10.2) 09/01/18 15:50 Triglycerides 73 mg/dL (2-149) 09/02/18 04:29 Cholesterol 121 mg/dL (50-199) 09/02/18 04:29 LDL Cholesterol Direct 69 mg/dL (50-130) 09/02/18 04:29 HDL Cholesterol 52 mg/dL (40-59) 09/02/18 04:29 Cholesterol/HDL Ratio 2.32 % 09/02/18 04:29
[2018-09-03] MEDS: MORPHINE IV PRN ×2 (08:25→14:15)
[2018-09-03] MEDS: BABY ASPIRIN PO SCH (09:49)
[2018-09-03] MEDS: PROTONIX PO SCH (09:49)
[2018-09-03] MEDS: PLAVIX PO SCH (09:49)
[2018-09-03] MEDS: HABITROL TD SCH (09:50)
[2018-09-03] MEDS: SODIUM CHLORIDE FLUSH SYRINGE 10 ML IV SCH ×2 (09:50→21:44)
[2018-09-03] MEDS ORDERED: PERCOCET 5/325 PO PRN (14:30)
[2018-09-03] MEDS ORDERED: LOVENOX SUB-Q SCH (22:00)
[2018-09-04] MEDS ORDERED: NORCO 5/325 PO PRN (00:50)
[2018-09-04] MEDS: PERCOCET 5/325 PO PRN ×3 (00:58→12:43)
[2018-09-04] MEDS ORDERED: APRESOLINE IV ONE (04:27)
[2018-09-04] MEDS ORDERED: APRESOLINE IV PRN (09:01)
[2018-09-04] MEDS ORDERED: LOPRESSOR PO SCH (10:00)
[2018-09-04] MEDS: BABY ASPIRIN PO SCH (10:12)
[2018-09-04] MEDS: HABITROL TD SCH (10:12)
[2018-09-04] MEDS: PROTONIX PO SCH (10:13)
[2018-09-04] MEDS: SODIUM CHLORIDE FLUSH SYRINGE 10 ML IV SCH (12:58)
[2018-09-04] MEDS ORDERED: APRESOLINE PO SCH (14:00)
--- NOTE | 2018-09-04 14:01 | Discharge Summary ---
Providers - Providers Date of Admission: 09/01/18 21:13 Date of discharge: 09/04/18 Attending physician: KAELYN CARDONA 09/01/18 Consult to Physician [CONS] Routine Comment: Consulting Provider: SONDRA RENE Physician Instructions: Reason For Exam: cva 09/01/18 21:14 Occupational Therapy Evaluate and Treat [CONS] Routine Comment: Reason For Exam: Neuro deficits Physical Therapy Evaluation and Treat [CONS] Routine Comment: Reason For Exam: Neuro deficits Primary care physician: KELLEE PHIPPS Hospitalization Reason for admission: slurring speech, right-sided weakness Condition: Stable Pertinent studies: Workup negative.: CT head; no acute abnormality noted MRI brain; normal study MRA brain; normal study carotid Doppler; 50% stenosis[no hemodynamically significant] CTA neck; negative CTA head; negative ECHO: Normal ejection fraction.No PFO Hospital course: Patient is a 53 woman with a history of tobacco dependency, hypertension, CVA, prior seizure disorder, acute [place], anxiety disorder who presented for slurred speech and right sided weakness. According to Dr. Dumas's note, patient refused tPA Patient was admitted had extensive negative neuro workup, received physical therapy, recommend home PT No evidence of acute CVA, acute CVA ruled out, Possible TIA Today patient is comfortable in no new complaints vital signs stable Physical examination prior to discharge is unremarkable Hemodynamically and clinically stable at discharge Discharge diagnosis and management: --Possible Acute CVA with right-sided weakness:POA patient refused tPA, On aspirin and statin Workup negative so far, acute CVA was ruled out as per workup Continue PT Workup negative.: CT head; no acute abnormality noted MRI brain; normal study MRA brain; normal study carotid Doppler; 50% stenosis[no hemodynamically significant] CTA neck; negative CTA head; negative ECHO: Normal ejection fraction.No PFO --Possible TIA; continue aspirin and statin Physical therapy occupational therapy, home health as needed --Accelerated hypertension; present on admission Now well controlled, continue current antihypertensives --Ongoing tobacco use; smoking cessation Nicotine patch as needed Disposition: [id number]/[place]-06 HOME UNDER HOME HL Time spent for discharge: 31 min Core Measure Documentation - Palliative Care Palliative Care/ Comfort Measures: Not Applicable - Core Measures Any of the following diagnoses?: none Exam - Constitutional Vitals: Temp Pulse Resp BP Pulse Ox 98.7 F 83 16 141/117 96 09/04/18 12:37 09/04/18 12:57 09/04/18 12:37 09/04/18 12:57 09/04/18 12:37 General appearance: Present: no acute distress, well-nourished - EENT Eyes: Present: PERRL, EOM intact - Neck Neck: Present: supple, normal ROM - Respiratory Respiratory effort: normal Respiratory: negative: rales, rhonchi, wheezing - Cardiovascular Rhythm: regular Heart Sounds: Present: S1 & S2 - Extremities Extremities: no ischemia, No edema - Abdominal General gastrointestinal: Present: soft, non-tender, non-distended, normal bowel sounds - Integumentary Integumentary: Present: clear, warm - Musculoskeletal Musculoskeletal: right sided weakness - Psychiatric Psychiatric: appropriate mood/affect, cooperative - Neurologic Neurologic: moves all extremities Plan Activity: advance as tolerated, fall precautions Diet: regular Special Instructions: smoking cessation Additional Instructions: Smoking cessation advised Follow up with: KELLEE PHIPPS [Primary Care Provider] - 3-5 Days SANGITA SILVERIO MD [Staff Physician] - 7 Days Prescriptions: Aspirin [Aspirin BABY CHEW TAB] 81 mg PO QDAY #30 tab.chew Metoprolol [Lopressor TAB] 12.5 mg PO BID #60 tablet Nicotine [Habitrol] 14 mg TD QDAY #30 patch
[2018-09-04 15:47] VITALS: BP 135/97
== END 2018-09-04 16:30 | disposition home health service (06) | DRG 69 ==
LOC: ED 15:29 → 4A 21:13
PROVIDERS: ADMIT Internal Medicine; ATTEND Internal Medicine
DX: G45.9 Transient cerebral ischemic attack, unspecified (principal); F41.9 Anxiety disorder, unspecified; R29.713 NIHSS score 13; I10 Essential (primary) hypertension; F17.210 Nicotine dependence, cigarettes, uncomplicated; Z90.710 Acquired absence of both cervix and uterus; Z82.49 Family history of ischemic heart disease and other diseases of the circulatory system; Z86.73 Personal history of transient ischemic attack (TIA), and cerebral infarction without residual deficits; I25.2 Old myocardial infarction; Z71.6 Tobacco abuse counseling
CPT/HCPCS: 36415; 70450; 70496; 70498; 70544; 70551; 80048; 80061; 82962; 83036; 85025; 85610; 85670; 85730; 93005; 93010; 93306; 93880; 96374; 99406; G0378; A9270-GY; J0360; J1200; J1650; J2060; J2270; J7030; Q9967

== ENCOUNTER 2019-05-11 10:48 | Inpatient (IN) | payer OTHER ==
[2019-05-11] MEDS ORDERED: BABY ASPIRIN PO ONE (11:30)
[2019-05-11] MEDS ORDERED: ZOFRAN IV ONE (11:42)
[2019-05-11] MEDS ORDERED: DUONEB *Not for PRN Use IH ONE (11:42)
[2019-05-11] MEDS ORDERED: MORPHINE IV ONE ×2 (11:42→12:46)
--- NOTE | 2019-05-11 11:54 | XRay Report ---
CHEST 1 VIEW INDICATION: Chest Pain. COMPARISON: 08/14/2018. FINDINGS: Support devices: None. Heart: Normal. Lungs/Pleura: Mild diffuse increased interstitial/reticular markings are again noted. These are chron ic. No superimposed acute consolidation, effusion, or pneumothorax. IMPRESSION: 1. No acute findings. Signer Name: Nehemias Decker MD Signed: 05/11/2019 11:50 AM Workstation Name: [id number]
--- NOTE | 2019-05-11 11:55 | Emergency Department Report ---
<DECLAN ASHFORD - Last Filed: 05/11/19 13:45> ED Chest Pain HPI - General Chief Complaint: Chest Pain Stated Complaint: CHEST PAIN Time Seen by Provider: 05/11/19 11:19 Source: patient, EMS Mode of arrival: Stretcher Limitations: No Limitations - History of Present Illness Initial Comments: 54-year-old female patient here today with sudden onset of chest pain 2 hours prior to arrival. In as stabbing and pressure-like, substernal right chest, radiating through to back and down the right arm. He noted 02/05 in [facility]. Patient had a cardiac event in 2013 with a normal cardiac cath. Also diagnosed with a CVA in August of this year. Last stress test in 2018 was normal. MD Complaint: chest pain -: hour(s) Onset: during rest, during exertion Pain Location: substernal, right chest Pain Radiation: RUE, back Severity scale (0 -10): 8 Quality: sharp, pressure Consistency: constant Improves With: nothing Worsens With: exertion re: dyspnea. denies: nausea, vomting Other Symptoms: denies: cough, syncope - Related Data Previous Rx's Medication Instructions Recorded Last Taken Type Zolpidem [Ambien] 5 mg PO QHS PRN #10 tablet 06/11/18 Unknown Rx oxyCODONE /ACETAMINOPHEN [Percocet 1 tab PO Q6H PRN #12 tablet 06/11/18 Unknown Rx 5/325 mg] Ondansetron [Zofran ODT TAB] 4 mg PO Q8HR PRN #20 tab.rapdis 06/20/18 Unknown Rx Pantoprazole [Protonix TAB] 40 mg PO QDAY #30 tablet 07/10/18 Unknown Rx Aspirin [Aspirin BABY CHEW TAB] 81 mg PO QDAY #30 tab.chew 09/04/18 Unknown Rx Metoprolol [Lopressor TAB] 12.5 mg PO BID #60 tablet 09/04/18 Unknown Rx Nicotine [Habitrol] 14 mg TD QDAY #30 patch 09/04/18 Unknown Rx Allergies Allergy/AdvReac Type Severity Reaction Status Date / Time cyclobenzaprine HCl Allergy Severe Itching Verified 04/28/14 07:57 [From Flexeril] Fish Containing Products Allergy Anaphylaxis Verified 04/28/14 07:57 ibuprofen Allergy abd pain Verified 04/28/14 07:56 ketorolac tromethamine Allergy Headache Verified 04/28/14 07:56 [From Toradol] methocarbamol [From Robaxin] Allergy Unknown Verified 09/02/18 07:38 Heart Score - HEART Score History: Moderately suspicious EKG: Non-specific Age: 45-65 Risk factors: > 3 risk factors or hx of atherosclerotic disease ED Review of Systems Comment: All other systems reviewed and negative Constitutional: denies: chills, fever Respiratory: shortness of breath. denies: cough, SOB with exertion Cardiovascular: chest pain. denies: palpitations, dyspnea on exertion Endocrine: no symptoms reported Gastrointestinal: denies: abdominal pain, nausea, diarrhea Genitourinary: denies: urgency, dysuria, discharge Skin: denies: rash, lesions Neurological: denies: headache, weakness, paresthesias Psychiatric: denies: anxiety, depression ED Past Medical Hx - Past Medical History Hx Hypertension: Yes Hx CVA: Yes (tia) Hx Heart Attack/AMI: Yes (04/2014 as per pt although pt had a neg cardiac cath here ) Hx Congestive Heart Failure: No Hx Diabetes: No Hx Seizures: Yes Hx Asthma: No Hx COPD: No Additional medical history: history of anxiety - Surgical History Additional Surgical History: Hysterectomy, back surgery - Social History Smoking Status: Current Every Day Smoker Substance Use Type: None - Medications Home Medications: Home Medications Medication Instructions Recorded Confirmed Last Taken Type Zolpidem [Ambien] 5 mg PO QHS PRN #10 tablet 06/11/18 09/01/18 Unknown Rx oxyCODONE /ACETAMINOPHEN [Percocet 1 tab PO Q6H PRN #12 tablet 06/11/18 09/01/18 Unknown Rx 5/325 mg] Ondansetron [Zofran ODT TAB] 4 mg PO Q8HR PRN #20 tab.rapdis 06/20/18 09/01/18 Unknown Rx Pantoprazole [Protonix TAB] 40 mg PO QDAY #30 tablet 07/10/18 09/01/18 Unknown Rx Aspirin [Aspirin BABY CHEW TAB] 81 mg PO QDAY #30 tab.chew 09/04/18 Unknown Rx Metoprolol [Lopressor TAB] 12.5 mg PO BID #60 tablet 09/04/18 Unknown Rx Nicotine [Habitrol] 14 mg TD QDAY #30 patch 09/04/18 Unknown Rx ED Physical Exam - General Limitations: No Limitations RENNY score - Renny Score Age > 65: (0) No Aspirin use within the Past 7 Days: (0) No 3 or more CAD Risk Factors: (1) Yes 2 or more Angina events in past 24 hrs: (0) No Known CAD with more than 50% Stenosis: (0) No Elevated Cardiac Markers: (0) No ST Deviation Greater than 0.5mm: (0) No RENNY Score: 1 ED Medical Decision Making - Lab Data Result diagrams: 05/11/19 11:27 05/11/19 11:27 - Radiology Data Radiology results: report reviewed - Medical Decision Making 54-year-old female patient here today with sudden onset of chest pain. History of CVA 09/18/2018 and cardiac cath in 2013. Stress test in 2018 normal EKG today shows new left bundle branch block. Cristian is normal. ED Disposition Clinical Impression: Chest pain Qualifiers: Chest pain type: unspecified Qualified Code(s): R07.9 - Chest pain, unspecified Hypertension Qualifiers: Hypertension type: unspecified Qualified Code(s): I10 - Essential (primary) hypertension Disposition: OP ADMIT IP TO THIS HOSP Condition: Stable <SANGITA BERTRAND - Last Filed: 05/11/19 15:26> Heart Score - HEART Score History: Moderately suspicious EKG: Non-specific Age: 45-65 Risk factors: No known risk factors Troponin: < normal limit HEART Score: 3 - Critical Actions Critical Actions: 0-3 pts:0.9-1.7%risk of adverse cardiac event.Candidate for discharge ED Review of Systems ROS: Stated complaint: CHEST PAIN Other details as noted in HPI ED Course Vital Signs 05/11/19 05/11/19 05/11/19 10:55 12:50 14:06 Temperature 97.8 F Pulse Rate 108 H 96 H Pulse Rate [ 94 H Bilateral] Respiratory 22 20 Rate Respiratory 20 Rate [Bilateral ] Blood Pressure 170/99 Blood Pressure 142/75 [Left] O2 Sat by Pulse 93 95 Oximetry RENNY score - Renny Score Age > 65: (0) No Aspirin use within the Past 7 Days: (0) No 3 or more CAD Risk Factors: (1) Yes 2 or more Angina events in past 24 hrs: (0) No Known CAD with more than 50% Stenosis: (0) No Elevated Cardiac Markers: (0) No ST Deviation Greater than 0.5mm: (0) No RENNY Score: 1 ED Medical Decision Making - Lab Data Result diagrams: 05/11/19 11:27 05/11/19 11:27 Laboratory Results - last 24 hr 05/11/19 05/11/19 05/11/19 11:27 11:27 11:46 WBC 6.3 RBC 3.93 Hgb 12.8 Hct 37.7 MCV 96 MCH 33 H MCHC 34 RDW 13.0 L Plt Count 267 Lymph % (Auto) 18.2 [place] % (Auto) 6.1 Eos % (Auto) 1.0 Baso % (Auto) 1.0 Lymph # 1.1 L [place] # 0.4 Eos # 0.1 Baso # 0.1 Seg Neutrophils % 73.7 H Seg Neutrophils # 4.6 PT 12.7 INR 0.98 APTT 27.9 Sodium 137 Potassium 4.2 Chloride 100.1 Carbon Dioxide 23 Anion Gap 18 BUN 14 Creatinine 1.0 Estimated GFR 58 BUN/Creatinine Ratio 14 Glucose 109 H Calcium 8.9 Troponin T < 0.010 Critical care attestation.: If time is entered above; I have spent that time in minutes in the direct care of this critically ill patient, excluding procedure time. ED Disposition Is pt being admited?: Yes Does the pt Need Aspirin: Yes Time of Disposition: 15:26
[2019-05-11 11:57] LABS: Basophils # (Auto) 0.1 K/mm3 (0.0-0.1); Eosinophils # (Auto) 0.1 K/mm3 (0.0-0.4); Hematocrit 37.7 % (30.3-42.9); Hemoglobin 12.8 gm/dl (10.1-14.3); Lymphocytes # (Auto) 1.1 K/mm3 (1.2-5.4); Lymphocytes % (Auto) 18.2 % (13.4-35.0); Mean Corpuscular HGB Conc 34 % (30-34); Mean Corpuscular Volume 96 fl (79-97); Monocytes # (Auto) 0.4 K/mm3 (0.0-0.8); Monocytes % (Auto) 6.1 % (0.0-7.3); Platelet Count 267 K/mm3 (140-440); Red Blood Count 3.93 M/mm3 (3.65-5.03)
[2019-05-11 12:17] LABS: BUN/Creatinine Ratio 14; Blood Urea Nitrogen 14 mg/dL (7-17); Calcium 8.9 mg/dL (8.4-10.2); Hemolysis Index 4
[2019-05-11 12:23] LABS: INR 0.98 (0.87-1.13)
[2019-05-11 12:24] LABS: Partial Thromboplastin Time 27.9 Sec. (24.2-36.6)
[2019-05-11] MEDS ORDERED: SOLU-Medrol IV ONE ×2 (12:40→12:43)
[2019-05-11 12:46] LABS: Creatine Kinase MB 3.8 ng/mL (0.0-4.0)
[2019-05-11 12:49] LABS: Alanine Aminotransferase 19 units/L (7-56); Albumin 4.4 g/dL (3.9-5)
[2019-05-11] MEDS ORDERED: NITRO-BID 2% TP ONE ×2 (12:50→12:52)
[2019-05-11] MEDS ORDERED: HEPARIN 10,000 UNITS/10 ML IV ONE (12:51)
[2019-05-11] MEDS ORDERED: HEPARIN/ 0.45% NACL-25,000 UNIT/500 ML 25,000 UNIT/500 ML BAG IV SCH (13:00)
[2019-05-11 13:09] LABS: Bilirubin,Direct < 0.2 mg/dL (0-0.2)
[2019-05-11] MEDS ORDERED: BENADRYL PO ONE (13:45)
[2019-05-11] MEDS ORDERED: ZOFRAN ODT PO PRN (16:27)
[2019-05-11] MEDS ORDERED: ZOFRAN IV PRN (16:28)
[2019-05-11] MEDS ORDERED: SODIUM CHLORIDE FLUSH SYRINGE 10 ML IV PRN (16:28)
[2019-05-11] MEDS ORDERED: TYLENOL PO PRN (16:28)
[2019-05-11] MEDS ORDERED: REGLAN IV PRN (16:28)
[2019-05-11] MEDS ORDERED: BABY ASPIRIN PO SCH (17:00)
[2019-05-11] MEDS: DILAUDID IV PRN (17:01)
[2019-05-11] MEDS: HABITROL TD SCH (17:02)
[2019-05-11] MEDS: PROTONIX PO SCH (17:03)
[2019-05-11] MEDS: BENADRYL IV PRN (19:12)
[2019-05-11] MEDS: LOPRESSOR PO SCH (21:37)
[2019-05-11] MEDS: SODIUM CHLORIDE FLUSH SYRINGE 10 ML IV SCH (21:38)
[2019-05-11] MEDS: PERCOCET 5/325 PO PRN (21:42)
[2019-05-11] MEDS: AMBIEN PO PRN (21:42)
[2019-05-11] MEDS ORDERED: PEPCID IV SCH (22:00)
[2019-05-12] MEDS: DILAUDID IV PRN ×2 (04:19→10:00)
[2019-05-12] MEDS: BENADRYL IV PRN ×4 (04:20→21:27)
--- NOTE | 2019-05-12 06:34 | Event Note ---
Date: 05/11/19 See H/p in reports Chest pain-r/o ND HTN GERD
[2019-05-12 06:55] LABS: Albumin 3.8 g/dL (3.9-5); Calcium 7.7 mg/dL (8.4-10.2)
--- NOTE | 2019-05-12 07:45 | History and Physical Report ---
CHIEF COMPLAINT: Chest pain for 2 hours prior to arrival. HISTORY OF PRESENT ILLNESS: This 54-year-old female with history of hypertension, nicotine dependence, and gastroesophageal reflux disease, comes in for chest pain 2 hours prior to arrival, stabbing pain radiating to back and right arm. Chest pain is 7 on a scale of 1-10 in severity. The patient had cardiac catheterization in 2013. Diagnosed with cerebrovascular accident in August of this year with no residual deficits. Had a stress test in 2018, which was normal. No exacerbating or relieving factors. PAST MEDICAL HISTORY: As mentioned, hypertension, cerebrovascular accident, acute ID in 04/2014, seizure disorder; anxiety disorder, and GERD. PAST SURGICAL HISTORY: Hysterectomy and back surgery. SOCIAL HISTORY: Smokes over a pack a day. No alcohol, no recreational drugs. FAMILY HISTORY: Hypertension. CURRENT MEDICATIONS: Metoprolol 12.5 b.i.d., nicotine 14 mg patch, and Protonix 40 mg daily. REVIEW OF SYSTEMS: Significant for left-sided chest pain with radiation to the back and right arm. No diaphoresis. PHYSICAL EXAMINATION: GENERAL: A middle-aged female, cooperative during the examination. VITAL SIGNS: Blood pressure is 101/59, temperature 98.3, pulse is 92, and respirations 18. HEENT: Unremarkable. Pupils are equal and reactive. NECK: Supple, no lymphadenopathy, no thyromegaly. LUNGS: Clear to auscultation and percussion. Good air entry. CARDIOVASCULAR: S1, S2 heard. No gallop, no murmur, no rub. Apical impulse in the left fifth intercostal space in midclavicular line. ABDOMEN: Soft and benign. No hepatosplenomegaly, no guarding, no rigidity. Hernial orifices are normal. EXTREMITIES: Good pedal pulses. No pedal edema. EKG Reviewed. Normal sinus rhythm. No acute ST-T wave changes. Second EKG shows sinus tachycardia, left bundle branch block which is new. The old EKG did not show a left bundle branch block. LABORATORY DATA: CBC was normal. Electrolytes were normal. Glucose was slightly high at 109. BNP was 11,208, high. Troponin was normal. ASSESSMENT AND PLAN: 1. Chest pain, rule out myocardial infarction, chest pain protocol. 2. New-onset left bundle branch block. The patient was initiated on IV heparin by the ER physician. Continue to have IV heparin with the possibility of acute ischemic event causing left bundle branch block. Cardiology consult requested. 3. Elevated BNP. Echocardiogram requested for ejection fraction. 4. Hypertension. Continue antihypertensives. 5. Gastroesophageal reflux disease. Continue PPIs. 6. Nicotine dependence. Nicoderm patch initiated. 7. Deep vein thrombosis prophylaxis, Lovenox 40 mg subcutaneous daily. JOB# [id number] VSM/NTS MTDD
[2019-05-12] MEDS: PERCOCET 5/325 PO PRN ×3 (08:20→20:39)
[2019-05-12] MEDS: ASPIRIN PO SCH (09:58)
[2019-05-12] MEDS: PROTONIX PO SCH (09:59)
[2019-05-12] MEDS: HABITROL TD SCH (09:59)
[2019-05-12] MEDS: LOPRESSOR PO SCH ×2 (09:59→21:26)
[2019-05-12] MEDS: SODIUM CHLORIDE FLUSH SYRINGE 10 ML IV SCH (10:00)
--- NOTE | 2019-05-12 12:24 | Consultation ---
History of Present Illness Consult date: 05/12/19 Consult reason: chest pain, other (Abnormal ECG) History of present illness: This is a 54 year old woman with no prior cardiac history who presented with complaints of chest pain. Patient describes chest pain as tightness associated with shortness of breath. There is no lower extremity edema. Labs measures a proBNP at 11,208. Cycled troponin are normal and a chest x-ray is negative. A 12 lead ECG is sinus rhythm with a left bundle branch block. The LBBB is new when compared to prior ECGs. Patient has had extensive cardiac workup over the last few years. In 2013, a cardiac cath revealed normal coronaries, ejection fraction 60%. A year ago she had a persantine thallium stress test that reports no ischemia. An echocardiogram done at this hospital 6 months ago reports a normal left ventricular systolic function, ejection fraction 55-60%. Medications and Allergies Allergies Allergy/AdvReac Type Severity Reaction Status Date / Time cyclobenzaprine HCl Allergy Severe Itching Verified 04/28/14 07:57 [From Flexeril] Fish Containing Products Allergy Anaphylaxis Verified 04/28/14 07:57 ibuprofen Allergy abd pain Verified 04/28/14 07:56 ketorolac tromethamine Allergy Headache Verified 04/28/14 07:56 [From Toradol] methocarbamol [From Robaxin] Allergy Unknown Verified 09/02/18 07:38 Home Medications Medication Instructions Recorded Confirmed Last Taken Type Zolpidem [Ambien] 5 mg PO QHS PRN #10 tablet 06/11/18 05/12/19 05/11/19 Rx oxyCODONE /ACETAMINOPHEN [Percocet 1 tab PO Q6H PRN #12 tablet 06/11/18 05/12/19 05/11/19 Rx 5/325 mg] Ondansetron [Zofran ODT TAB] 4 mg PO Q8HR PRN #20 tab.rapdis 06/20/18 05/12/19 05/11/19 Rx Pantoprazole [Protonix TAB] 40 mg PO QDAY #30 tablet 07/10/18 05/12/19 05/11/19 Rx Aspirin [Aspirin BABY CHEW TAB] 81 mg PO QDAY #30 tab.chew 09/04/18 05/12/19 05/11/19 Rx Metoprolol [Lopressor TAB] 12.5 mg PO BID #60 tablet 09/04/18 05/12/19 05/11/19 Rx Nicotine [Habitrol] 14 mg TD QDAY #30 patch 09/04/18 05/12/19 05/12/19 07:43 Rx Active Meds: Active Medications Acetaminophen (Tylenol) 650 mg PO Q4H PRN PRN Reason: Pain MILD(1-3)/Fever >100.5/MATA Aspirin (Aspirin) 325 mg PO QDAY COUNTS INCLUDE 234 BEDS AT THE [facility] Last Admin: 05/12/19 09:58 Dose: 325 mg Documented by: Diphenhydramine HCl (Benadryl) 25 mg IV Q6H PRN PRN Reason: Itching Last Admin: 05/12/19 08:21 Dose: 25 mg Documented by: Enoxaparin Sodium (Lovenox) 30 mg SUB-Q QDAY COUNTS INCLUDE 234 BEDS AT THE [facility] Hydromorphone HCl (Dilaudid) 1 mg IV Q3H PRN PRN Reason: Pain , Severe (7-10) Last Admin: 05/12/19 10:00 Dose: 1 mg Documented by: Metoclopramide HCl (Reglan) 10 mg IV Q6H PRN PRN Reason: Nausea And Vomiting Last Admin: 05/11/19 20:01 Dose: 10 mg Documented by: Metoprolol Tartrate (Lopressor) 12.5 mg PO BID COUNTS INCLUDE 234 BEDS AT THE [facility] Last Admin: 05/12/19 09:59 Dose: 12.5 mg Documented by: Nicotine (Habitrol) 14 mg TD QDAY COUNTS INCLUDE 234 BEDS AT THE [facility] Last Admin: 05/12/19 09:59 Dose: 14 mg Documented by: Ondansetron HCl (Zofran Odt) 4 mg PO Q8H PRN PRN Reason: Vomiting Oxycodone/Acetaminophen (Percocet 5/325) 1 tab PO Q6H PRN PRN Reason: Pain, Moderate (4-6) Last Admin: 05/12/19 08:20 Dose: 1 tab Documented by: Pantoprazole Sodium (Protonix) 40 mg PO QDAY COUNTS INCLUDE 234 BEDS AT THE [facility] Last Admin: 05/12/19 09:59 Dose: 40 mg Documented by: Sodium Chloride (Sodium Chloride Flush Syringe 10 Ml) 10 ml IV BID COUNTS INCLUDE 234 BEDS AT THE [facility] Last Admin: 05/12/19 10:00 Dose: 10 ml Documented by: Sodium Chloride (Sodium Chloride Flush Syringe 10 Ml) 10 ml IV PRN PRN PRN Reason: LINE FLUSH Zolpidem Tartrate (Ambien) 5 mg PO QHS PRN PRN Reason: Insomnia Last Admin: 05/11/19 21:42 Dose: 5 mg Documented by: Physical Examination Vital Signs Temp Pulse Resp BP Pulse Ox 97.8 F 108 H 22 170/99 93 05/11/19 10:55 05/11/19 10:55 05/11/19 10:55 05/11/19 10:55 05/11/19 10:55 General appearance: no acute distress HEENT: Positive: PERRL Neck: Positive: trachea midline Cardiac: Positive: Reg Rate and Rhythm Lungs: Positive: Decreased Breath Sounds Neuro: Positive: Grossly Intact Extremities: Absent: edema Results 05/11/19 11:27 05/12/19 06:00 Cardiac Enzymes 05/11/19 05/12/19 Range/Units 11:46 06:00 AST 16 32 (5-40) units/L CK-MB (CK-2) 3.8 (0.0-4.0) ng/mL Coagulation 05/11/19 Range/Units 11:46 PT 12.7 (12.2-14.9) Sec. INR 0.98 (0.87-1.13) APTT 27.9 (24.2-36.6) Sec. Comprehensive Metabolic Panel 05/11/19 05/12/19 Range/Units 11:46 06:00 Sodium 134 L (137-145) mmol/L Potassium 5.5 H D (3.6-5.0) mmol/L Chloride 100.0 (98-107) mmol/L Carbon Dioxide 22 (22-30) mmol/L BUN 25 H (7-17) mg/dL Creatinine 1.5 H (0.7-1.2) mg/dL Glucose 105 H (65-100) mg/dL Calcium 7.7 L (8.4-10.2) mg/dL Direct Bilirubin < 0.2 (0-0.2) mg/dL Indirect Bilirubin 0.4 mg/dL AST 16 32 (5-40) units/L ALT 19 28 (7-56) units/L Alkaline Phosphatase 61 52 (35-129) units/L Total Protein 7.3 6.6 (6.3-8.2) g/dL Albumin 4.4 3.8 L (3.9-5) g/dL Assessment and Plan Chest pain LBBB, new [facility] 2014: normal coronaries MPI 05/2018: no ischemia Echo 08/2018: EF 55% Plan: Echocardiogram for LVEF reassessment. Pre-discharge persantine thallium stress test.
[2019-05-12] MEDS ORDERED: NITROMIST TL PRN (12:51)
[2019-05-12] MEDS ORDERED: ZESTRIL PO SCH (13:00)
[2019-05-12] MEDS: MUCINEX ER PO SCH ×2 (13:21→21:27)
[2019-05-12] MEDS: NITRO-BID 2% TP SCH ×2 (13:27→18:16)
[2019-05-12] MEDS ORDERED: NITROSTAT SL PRN (13:43)
[2019-05-12] MEDS ORDERED: LASIX IV ONE (15:00)
--- NOTE | 2019-05-12 15:03 | Progress Note ---
Assessment and Plan Atypical chest pain - ACS ruled out, cardiology recommended a stress test before discharge - Trend her troponins, continue aspirin and statin Left bundle branch block, new - Likely due to dilated cardiomyopathy - Status post heparin drip, 2-D echo showed reduction of EF to 20-25% - Medical management per cardiology TENZIN, likely vasomotor nephropathy versus cardiorenal syndrome - We will give one-time dose of Lasix IV - We'll monitor urine output, if urine output improves and renal function remains stable will continue Lasix New onset CHFrEF 20-25% - Dilated cardiomyopathy, cardiology following, stress test tomorrow - We'll give diuresis challenge, continue aspirin and statin Acute respiratory distress - Could be due to COPD and underlying new onset of CHF - We'll continue to treat underlying cause, provide supplemental O2 as needed along with nebulizer breathing treatment and diuresis COPD with exacerbation - Continue scheduled nebulizer, monitor clinically DVT prophylaxis, we'll place on Lovenox Brief History: The patient states 54-year-old woman with a history of COPD who presented to the hospital with atypical, poorly characterized chest pain. ECG on presentation was a mild sinus tachycardia at 103, with a left bundle branch block. A review of her serial ECGs show that the left bundle branch block is new. She was placed on heparin drip, Cardiologic consulted and admitted to the hospital for further evaluation and management. Patient has had extensive cardiac workup including a cardiac catheterization 5 years ago, which reported angiographically normal coronary arteries, and normal left ventricular systolic function with ejection fraction 60%. 2-D echo obtained during this hospitalization showed EF of 20-25%. Patient is being managed for acute new onset CHF exacerbation and acute respiratory failure. Radiological data: Chest x-ray: No acute findings A 2-D echo ; EF 20-25% Hospitalist Physical exam: GENERAL: elderly WF lying on bed appeared to be in no discomfort. HEENT: Normocephalic. Atraumatic. No conjunctival congestion or icterus. Patient has moist mucous membranes. NECK: Supple. Trachea midline. CHEST/LUNGS: Clear to auscultated bilaterally, breathing nonlabored. No wheezes crackles or rhonchi. HEART/CARDIOVASCULAR: Regular in rate and rhythm. S1 and S2 positive. ABDOMEN: Abdomen is soft, nontender. Patient has normal bowel sounds. SKIN: There is no rash. Warm and dry. NEURO: No focal motor deficit. Follows command. MUSCULOSKELETAL: No joint effusion or tenderness. EXTRIMITY: No edema, no cyanosis or clubbing. PSYCH: Cooperative. Subjective Date of service: 05/12/19 Interval history: Patient seen and examined. Medical records and medication list reviewed. No acute event overnight noted by the RN. Patient continued to complaints of difficulty breathing and cough. Patient is tolerating diet. Discussed plan of care at bedside with patient. Objective - Constitutional Vitals: Vital Signs - 12hr 05/12/19 05/12/19 05/12/19 04:59 09:54 09:59 Temperature 98.2 F Pulse Rate 78 69 82 Pulse Rate [ Apical] Pulse Rate [ Left Radial] Pulse Rate [ Right Radial] Respiratory 18 Rate Blood Pressure 114/87 114/87 Blood Pressure 122/58 [Left] O2 Sat by Pulse 95 98 Oximetry 05/12/19 05/12/19 05/12/19 10:00 13:27 13:33 Temperature Pulse Rate 66 71 71 Pulse Rate [ 70 Apical] Pulse Rate [ 70 Left Radial] Pulse Rate [ 70 Right Radial] Respiratory 21 Rate Blood Pressure 109/76 109/76 Blood Pressure [Left] O2 Sat by Pulse 98 Oximetry - Labs CBC & Chem 7: 05/13/19 05:36 05/13/19 05:36 Labs: Abnormal lab results 05/12/19 Range/Units 06:00 Sodium 134 L (137-145) mmol/L Potassium 5.5 H D (3.6-5.0) mmol/L BUN 25 H (7-17) mg/dL Creatinine 1.5 H (0.7-1.2) mg/dL Glucose 105 H (65-100) mg/dL Calcium 7.7 L (8.4-10.2) mg/dL Albumin 3.8 L (3.9-5) g/dL
[2019-05-12] MEDS: DUONEB *Not for PRN Use IH SCH (21:05)
[2019-05-13] MEDS: PERCOCET 5/325 PO PRN ×4 (02:18→22:27)
[2019-05-13] MEDS: DUONEB *Not for PRN Use IH SCH ×4 (04:18→20:08)
[2019-05-13] MEDS: NITRO-BID 2% TP SCH ×2 (05:23→12:57)
[2019-05-13] MEDS: SODIUM CHLORIDE FLUSH SYRINGE 10 ML IV SCH ×3 (05:23→22:26)
[2019-05-13] MEDS ORDERED: LASIX IV SCH (06:00)
[2019-05-13 06:04] LABS: Hematocrit 35.6 % (30.3-42.9)
[2019-05-13 06:29] LABS: Calcium 7.8 mg/dL (8.4-10.2)
[2019-05-13] MEDS ORDERED: LEXISCAN IV ONE ×2 (07:01→07:43)
[2019-05-13] MEDS ORDERED: LOVENOX SUB-Q SCH ×2 (10:00)
[2019-05-13] MEDS: PROTONIX PO SCH (11:29)
[2019-05-13] MEDS: ASPIRIN PO SCH (11:29)
[2019-05-13] MEDS: HABITROL TD SCH (11:29)
[2019-05-13] MEDS: LOPRESSOR PO SCH (11:30)
[2019-05-13] MEDS: LOVENOX SUB-Q SCH (11:33)
[2019-05-13] MEDS: MUCINEX ER PO SCH ×2 (11:35→21:46)
--- NOTE | 2019-05-13 13:38 | Progress Note ---
Assessment and Plan - Patient Problems (1) Bundle branch block, left Current Visit: Yes Status: Acute Plan to address problem: Patient's (bundle-branch block is associated with the of dilated cardiomyopathy, left ventricular ejection fraction 20-25%. Normal myocardial perfusion study suggests a nonischemic cardiomyopathy. We will start aggressive therapy with afterload agents, beta blockers, diuretics, spironolactone and aspirin. (2) Dyspnea Current Visit: No Status: Acute Plan to address problem: The patient's chronic dyspnea appears to be to her severe COPD. She has long-standing tobacco abuse and continues to smoke cigarettes. Chest x-ray does show hyperinflated lung rebollar with evidence of COPD. Recommend pulmonary consultation and assessment of the patient's COPD and respiratory distress prior to discharge. Subjective Date of service: 05/13/19 Interval history: Patient underwent a Lexiscan thallium stress test today, results show a dilated cardiomyopathy with normal perfusion, suggesting a nonischemic cardiomyopathy. On echocardiogram, left ventricular ejection fraction was estimated at 20-25%. Objective Vital Signs Temp Pulse Pulse Resp Resp BP Pulse Ox 05/13/19 11:30 118/93 05/13/19 10:20 84 118/93 05/13/19 10:19 84 121/84 05/13/19 10:18 87 129/85 05/13/19 10:17 87 123/54 05/13/19 10:16 89 89/46 05/13/19 10:15 88 120/81 05/13/19 09:49 69 108/80 05/13/19 08:20 98.2 F 18 110/81 05/13/19 04:02 98.4 F 67 18 102/72 99 05/12/19 23:58 98.3 F 68 18 98/66 98 05/12/19 23:00 69 05/12/19 21:18 92 05/12/19 21:06 88 20 05/12/19 19:23 98.1 F 65 18 120/74 94 05/12/19 18:16 81 111/77 05/12/19 18:14 74 111/77 97 05/12/19 17:00 67 05/12/19 16:35 97.9 F 72 18 120/79 95 - Physical Examination General: Other (mild respiratory distress) HEENT: Positive: PERRL Neck: Positive: trachea midline Cardiac: Positive: Reg Rate and Rhythm Lungs: Positive: Decreased Breath Sounds Neuro: Positive: Grossly Intact Abdomen: Positive: Soft Skin: Positive: Clear Extremities: Absent: edema - Labs and Meds CBC 05/13/19 Range/Units 05:36 Hgb 12.0 (10.1-14.3) gm/dl Hct 35.6 (30.3-42.9) % Plt Count 241 (140-440) K/mm3 Comprehensive Metabolic Panel 05/13/19 Range/Units 05:36 Sodium 131 L (137-145) mmol/L Potassium 4.6 (3.6-5.0) mmol/L Chloride 96.5 L (98-107) mmol/L Carbon Dioxide 22 (22-30) mmol/L BUN 41 H (7-17) mg/dL Creatinine 1.6 H (0.7-1.2) mg/dL Glucose 98 (65-100) mg/dL Calcium 7.8 L (8.4-10.2) mg/dL
[2019-05-13] MEDS: ZESTRIL PO SCH (14:00)
[2019-05-13] MEDS: COREG PO SCH ×2 (15:00→21:46)
[2019-05-13] MEDS: DELTASONE PO SCH (16:25)
[2019-05-13] MEDS: XANAX PO PRN (16:34)
--- NOTE | 2019-05-13 17:39 | Progress Note ---
Assessment and Plan Atypical chest pain - ACS ruled out, s/p stress test today - Trended her troponins, continue aspirin and statin - medical Mx per cardiology Left bundle branch block, new - Likely due to dilated cardiomyopathy - Status post heparin drip, 2-D echo showed reduction of EF to 20-25% - Medical management per cardiology TENZIN, likely vasomotor nephropathy versus cardiorenal syndrome -monitor urine output, continue Lasix New onset CHFrEF 20-25% - Dilated cardiomyopathy, cardiology following, s/p stress test today - We'll cont diuresis challenge, continue aspirin and statin Acute respiratory distress - Could be due to COPD and underlying new onset of CHF - We'll continue to treat underlying cause, provide supplemental O2 as needed along with nebulizer breathing treatment and diuresis COPD with exacerbation - Continue scheduled nebulizer, monitor clinically DVT prophylaxis, on Lovenox Disposition: when clinically stable Brief History: The patient states 54-year-old woman with a history of COPD who presented to the hospital with atypical, poorly characterized chest pain. ECG on presentation was a mild sinus tachycardia at 103, with a left bundle branch block. A review of her serial ECGs show that the left bundle branch block is new. She was placed on heparin drip, Cardiologic consulted and admitted to the hospital for further evaluation and management. Patient has had extensive cardiac workup including a cardiac catheterization 5 years ago, which reported angiographically normal coronary arteries, and normal left ventricular systolic function with ejection fraction 60%. 2-D echo obtained during this hospitalization showed EF of 20-25%. Patient is being managed for acute new onset CHF exacerbation and acute respiratory failure. Radiological data: Chest x-ray: No acute findings A 2-D echo ; EF 20-25% Hospitalist Physical exam: GENERAL: elderly WF lying on bed appeared to be in no discomfort. HEENT: Normocephalic. Atraumatic. No conjunctival congestion or icterus. Patient has moist mucous membranes. NECK: Supple. Trachea midline. CHEST/LUNGS: Clear to auscultated bilaterally, breathing nonlabored. No wheezes crackles or rhonchi. HEART/CARDIOVASCULAR: Regular in rate and rhythm. S1 and S2 positive. ABDOMEN: Abdomen is soft, nontender. Patient has normal bowel sounds. SKIN: There is no rash. Warm and dry. NEURO: No focal motor deficit. Follows command. MUSCULOSKELETAL: No joint effusion or tenderness. EXTRIMITY: No edema, no cyanosis or clubbing. PSYCH: Cooperative. Subjective Date of service: 05/13/19 Interval history: Patient seen and examined. Medical records and medication list reviewed. No acute event overnight noted by the RN. Patient continued to complaints of difficulty breathing and cough. Patient is tolerating diet. Cr tended up today Discussed plan of care at bedside with patient. Objective - Constitutional Vitals: Vital Signs - 12hr 05/13/19 05/13/19 05/13/19 08:20 09:49 10:15 Temperature 98.2 F Pulse Rate 69 88 Pulse Rate [ Posterior Bilateral Throughout] Respiratory 18 Rate Respiratory Rate [Posterior Bilateral Throughout] Blood Pressure 110/81 108/80 120/81 O2 Sat by Pulse Oximetry 05/13/19 05/13/19 05/13/19 10:16 10:17 10:18 Temperature Pulse Rate 89 87 87 Pulse Rate [ Posterior Bilateral Throughout] Respiratory Rate Respiratory Rate [Posterior Bilateral Throughout] Blood Pressure 89/46 123/54 129/85 O2 Sat by Pulse Oximetry 05/13/19 05/13/19 05/13/19 10:19 10:20 11:30 Temperature Pulse Rate 84 84 Pulse Rate [ Posterior Bilateral Throughout] Respiratory Rate Respiratory Rate [Posterior Bilateral Throughout] Blood Pressure 121/84 118/93 118/93 O2 Sat by Pulse Oximetry 05/13/19 05/13/19 13:45 13:50 Temperature Pulse Rate Pulse Rate [ 75 Posterior Bilateral Throughout] Respiratory Rate Respiratory 18 Rate [Posterior Bilateral Throughout] Blood Pressure O2 Sat by Pulse 96 Oximetry - Labs CBC & Chem 7: 05/13/19 05:36 05/14/19 06:52 Labs: Abnormal lab results 05/12/19 05/13/19 Range/Units 19:51 05:36 Heparin Anti-Xa Level < 0.10 L (0.3-0.7) U.I./ml Sodium 131 L (137-145) mmol/L Chloride 96.5 L (98-107) mmol/L BUN 41 H (7-17) mg/dL Creatinine 1.6 H (0.7-1.2) mg/dL Calcium 7.8 L (8.4-10.2) mg/dL
[2019-05-13] MEDS: ALDACTONE PO SCH (17:53)
[2019-05-13] MEDS ORDERED: PULMICORT 1 MG, BROVANA NEBU 15 MCG IH SCH (20:00)
[2019-05-13] MEDS: BROVANA NEBU IH SCH (20:07)
[2019-05-13] MEDS: PULMICORT IH SCH (20:07)
[2019-05-13] MEDS: AMBIEN PO PRN (22:27)
[2019-05-13 23:25] LABS: Bacteria,Urine 4+ /HPF (Negative); Bilirubin,Urine NEG (Negative); Blood,Urine NEG (Negative); Color,Urine Straw (Yellow); Mucus,Urine FEW /HPF; Protein,Urine <15 mg/dL mg/dL (Negative); Urobilinogen,Urine < 2.0 mg/dL (<2.0)
[2019-05-13 23:45] LABS: Creatinine,Urine 24.1 mg/dL (0.1-20.0)
--- NOTE | 2019-05-14 00:11 | Treadmill Report ---
THALLIUM STRESS TEST REPORT LEFT VENTRICLE: Left ventricle is moderately to severely dilated. Perfusion study demonstrates normal apical thinning, otherwise homogeneous uptake of the tracer in all segments with no significant defects identified. Gated analysis demonstrates severe left ventricular systolic dysfunction with ejection fraction calculated at 29%. CONCLUSION: Evidence of a severe dilated cardiomyopathy, with severe left ventricular dysfunction, ejection fraction 29%. The perfusion scan demonstrates no significant defects, consistent with a nonischemic cardiomyopathy. Clinical correlation is recommended. JOB# [id number] CA/NTS
[2019-05-14] MEDS: PERCOCET 5/325 PO PRN ×3 (04:44→18:12)
[2019-05-14 07:57] LABS: Calcium 8.4 mg/dL (8.4-10.2)
[2019-05-14] MEDS: PULMICORT IH SCH ×2 (08:06→20:34)
[2019-05-14] MEDS: BROVANA NEBU IH SCH ×2 (08:06→20:34)
[2019-05-14] MEDS: DUONEB *Not for PRN Use IH SCH ×3 (08:06→20:34)
[2019-05-14] MEDS: MUCINEX ER PO SCH ×2 (09:49→21:56)
[2019-05-14] MEDS: DELTASONE PO SCH (09:49)
[2019-05-14] MEDS: PROTONIX PO SCH (09:49)
[2019-05-14] MEDS: ASPIRIN PO SCH (09:49)
[2019-05-14] MEDS: LOVENOX SUB-Q SCH (09:49)
[2019-05-14] MEDS: LASIX PO SCH (09:49)
[2019-05-14] MEDS: COREG PO SCH ×2 (09:50→21:56)
[2019-05-14] MEDS: ZESTRIL PO SCH (09:50)
[2019-05-14] MEDS: ALDACTONE PO SCH (09:50)
[2019-05-14] MEDS: HABITROL TD SCH (09:50)
[2019-05-14] MEDS: SODIUM CHLORIDE FLUSH SYRINGE 10 ML IV SCH ×2 (09:51→21:56)
--- NOTE | 2019-05-14 10:17 | Consultation ---
History of Present Illness - Reason for Consult Consult date: 05/14/19 acute renal failure, hyperkalemia - History of Present Illness The patient is a 54 YO female with history significant for Hyeprtension, Tobacco smoking, COPD and CVA who presented to [facility] ED with c/o sudden onset of chest pa in 2 hours prior to arrival. Patient was admitted to r/o ACS. Echo showed EF 20-25%. Currently followed by Cards. The creatinine level increased to 1.6 yesterday. Her BP is intermittently low. Patient denies any N, V, D, abd pain, fever, chills, dysuria, hematuria, dizziness, weakness, syncope or leg swelling. Nephrology was consulted for further evaluation. Past History Past Medical History: COPD, heart failure, hypertension Medications and Allergies Allergies Allergy/AdvReac Type Severity Reaction Status Date / Time cyclobenzaprine HCl Allergy Severe Itching Verified 04/28/14 07:57 [From Flexeril] Fish Containing Products Allergy Anaphylaxis Verified 04/28/14 07:57 ibuprofen Allergy abd pain Verified 04/28/14 07:56 ketorolac tromethamine Allergy Headache Verified 04/28/14 07:56 [From Toradol] methocarbamol [From Robaxin] Allergy Unknown Verified 09/02/18 07:38 Home Medications Medication Instructions Recorded Confirmed Last Taken Type Zolpidem [Ambien] 5 mg PO QHS PRN #10 tablet 06/11/18 05/12/19 05/11/19 Rx oxyCODONE /ACETAMINOPHEN [Percocet 1 tab PO Q6H PRN #12 tablet 06/11/18 05/12/19 05/11/19 Rx 5/325 mg] Pantoprazole [Protonix TAB] 40 mg PO QDAY #30 tablet 07/10/18 05/12/19 05/11/19 Rx Aspirin [Aspirin BABY CHEW TAB] 81 mg PO QDAY #30 tab.chew 09/04/18 05/12/19 05/11/19 Rx ALBUTEROL Inhaler (OR & NICU) 2 puff IH QID PRN #1 vial 05/15/19 Unknown Rx [Proair] Budesonide/Formoterol Fumarate 10.2 gm IH BID #1 hfa.aer.ad 05/15/19 Unknown Rx [Symbicort 160-4.5 Mcg Inhaler] Carvedilol [Coreg] 6.25 mg PO BID #60 tablet 05/15/19 Unknown Rx Furosemide [Lasix TAB] 40 mg PO QDAY #30 tablet 05/15/19 Unknown Rx Lisinopril [Zestril TAB] 5 mg PO QDAY #30 tablet 05/15/19 Unknown Rx Pantoprazole [Protonix TAB] 40 mg PO QDAY #30 tablet 05/15/19 Unknown Rx Spironolactone [Aldactone] 25 mg PO QDAY #30 tablet 05/15/19 Unknown Rx guaiFENesin ER [Mucinex ER] 600 mg PO BID #10 tablet 05/15/19 Unknown Rx predniSONE [Deltasone] 40 mg PO QDAY #5 tablet 05/15/19 Unknown Rx Active Meds: Active Medications Acetaminophen (Tylenol) 650 mg PO Q4H PRN PRN Reason: Pain MILD(1-3)/Fever >100.5/MATA Albuterol/Ipratropium (Duoneb *Not For Prn Use*) 1 ampul IH TIDRT [facility] Last Admin: 05/14/19 08:06 Dose: 1 ampul Documented by: Alprazolam (Xanax) 0.25 mg PO Q8H PRN PRN Reason: Anxiety Last Admin: 05/13/19 16:34 Dose: 0.25 mg Documented by: Arformoterol Tartrate (Brovana Nebu) 15 mcg IH Q12HRT [facility] Last Admin: 05/14/19 08:06 Dose: 15 mcg Documented by: Aspirin (Aspirin) 325 mg PO QDAY [facility] Last Admin: 05/14/19 09:49 Dose: 325 mg Documented by: Budesonide (Pulmicort) 1 mg IH Q12HRT [facility] Last Admin: 05/14/19 08:06 Dose: 0.5 mg Documented by: Carvedilol (Coreg) 6.25 mg PO BID [facility] Last Admin: 05/14/19 09:50 Dose: 6.25 mg Documented by: Diphenhydramine HCl (Benadryl) 25 mg IV Q6H PRN PRN Reason: Itching Last Admin: 05/12/19 21:27 Dose: 25 mg Documented by: Enoxaparin Sodium (Lovenox) 30 mg SUB-Q QDAY [facility] Last Admin: 05/14/19 09:49 Dose: 30 mg Documented by: Furosemide (Lasix) 40 mg PO QDAY [facility] Last Admin: 05/14/19 09:49 Dose: 40 mg Documented by: Guaifenesin (Mucinex Er) 600 mg PO BID [facility] Last Admin: 05/14/19 09:49 Dose: 600 mg Documented by: Lisinopril (Zestril) 5 mg PO QDAY [facility] Last Admin: 05/14/19 09:50 Dose: 5 mg Documented by: Metoclopramide HCl (Reglan) 10 mg IV Q6H PRN PRN Reason: Nausea And Vomiting Last Admin: 05/11/19 20:01 Dose: 10 mg Documented by: Nicotine (Habitrol) 14 mg TD QDAY [facility] Last Admin: 05/14/19 09:50 Dose: 14 mg Documented by: Nitroglycerin (Nitrostat) 0.4 mg SL .Q5MIN PRN PRN Reason: Chest Pain Ondansetron HCl (Zofran Odt) 4 mg PO Q8H PRN PRN Reason: Vomiting Oxycodone/Acetaminophen (Percocet 5/325) 1 tab PO Q6H PRN PRN Reason: Pain, Moderate (4-6) Last Admin: 05/14/19 04:44 Dose: 1 tab Documented by: Pantoprazole Sodium (Protonix) 40 mg PO QDAY [facility] Last Admin: 05/14/19 09:49 Dose: 40 mg Documented by: Prednisone (Deltasone) 40 mg PO QDAY [facility] Last Admin: 05/14/19 09:49 Dose: 40 mg Documented by: Sodium Chloride (Sodium Chloride Flush Syringe 10 Ml) 10 ml IV BID [facility] Last Admin: 05/14/19 09:51 Dose: 10 ml Documented by: Sodium Chloride (Sodium Chloride Flush Syringe 10 Ml) 10 ml IV PRN PRN PRN Reason: LINE FLUSH Spironolactone (Aldactone) 25 mg PO QDAY [facility] Last Admin: 05/14/19 09:50 Dose: 25 mg Documented by: Zolpidem Tartrate (Ambien) 5 mg PO QHS PRN PRN Reason: Insomnia Last Admin: 05/13/19 22:27 Dose: 5 mg Documented by: Review of Systems Constitutional: no weight loss, no weight gain, no anorexia, no fatigue, no weakness, no poor appetite Breasts: deferred Cardiovascular: chest pain, no orthopnea, no edema, no syncope, no lightheadedness, no shortness of breath, no dyspnea on exertion, no high blood pressure, no leg edema Respiratory: no cough, no hemoptysis, no shortness of breath, no dyspnea on exertion Gastrointestinal: no abdominal pain, no nausea, no vomiting, no diarrhea Genitourinary Female: no dysuria, no hematuria Rectal: no bleeding Integumentary: no rash, no jaundice Neurological: no paralysis, no weakness, no convulsions, no aphasia, no change in speech, no change in mentation, no confusion, no memory loss Exam - Vital Signs Vital signs: Vital Signs Temp Pulse Resp BP Pulse Ox 97.8 F 108 H 22 170/99 93 05/11/19 10:55 05/11/19 10:55 05/11/19 10:55 05/11/19 10:55 05/11/19 10:55 - General Appearance General appearance: well-developed, well-nourished, appears stated age, other (no distress) EENT: ATNC, PERRL, mucous membranes moist, hearing intact, vision intact Neck: Present: neck supple, trachea midline Respiratory: Clear to Ascultation Heart: regular, S1S2, no murmurs Gastrointestinal: Present: normoactive bowel sounds. Absent: tenderness, distended Integumentary: no rash, warm and dry Neurologic: no focal deficit, no asterixis, alert and oriented x3 Musculoskeletal: Present: other (no edema) Results - Lab Results 05/15/19 05:17 05/15/19 05:17 Most recent lab results Calcium 8.4 mg/dL (8.4-10.2) 05/14/19 06:52 Magnesium 1.90 mg/dL (1.7-2.3) 05/11/19 11:46 Urine Creatinine 24.1 mg/dL (0.1-20.0) H 05/13/19 23:00 Urine Sodium 17 mmol/L 05/13/19 23:00 Assessment and Plan 1. Acute kidney injury: Adalbertoley vasomotor TENZIN. Renal function has improved now. Monitor renal function. Avoid nephrotoxic agents. 2. FEN: Hyperkalemia, improved. Monitor lytes. 3. Chest pain: Followed by Cards. 4.Cardiomyopathy: EF 20-25%. 5. COPD. Will sign off.
[2019-05-14] MEDS: BENADRYL IV PRN (10:21)
--- NOTE | 2019-05-14 13:00 | Progress Note ---
<SOFIYA REEVES - Last Filed: 05/14/19 12:57> Assessment and Plan Chest pain LBBB, new COPD Left ventricular ejection fraction 20-25% by echo. Normal myocardial perfusion study suggests a nonischemic cardiomyopathy. Recommend Pulmonary consultation and assessment of the patient's COPD. Continue medical therapy for nonischemic cardiomyopathy. Advised sodium/fluid restriction. Subjective Date of service: 05/14/19 Interval history: Patient denies chest pain and shortness of breath. Objective Vital Signs Temp Pulse Pulse Pulse Resp Resp BP 05/14/19 12:22 87 18 124/81 05/14/19 10:00 83 05/14/19 09:50 83 151/101 05/14/19 09:48 93 H 151/101 05/14/19 08:15 77 18 05/14/19 07:36 98.3 F 81 18 144/95 05/14/19 05:44 17 05/14/19 04:37 97.3 F L 84 18 128/77 05/14/19 00:07 97.6 F 79 16 128/86 05/13/19 23:00 72 05/13/19 21:46 71 94/62 05/13/19 20:22 98.4 F 71 12 94/62 05/13/19 20:12 05/13/19 20:00 78 18 05/13/19 17:53 109/78 05/13/19 16:29 97.7 F 82 18 109/78 05/13/19 15:00 109/78 05/13/19 13:50 75 18 05/13/19 13:45 Pulse Ox 05/14/19 12:22 98 05/14/19 10:00 98 05/14/19 09:50 05/14/19 09:48 93 05/14/19 08:15 05/14/19 07:36 89 05/14/19 05:44 05/14/19 04:37 90 05/14/19 00:07 100 05/13/19 23:00 05/13/19 21:46 05/13/19 20:22 99 05/13/19 20:12 95 05/13/19 20:00 05/13/19 17:53 05/13/19 16:29 95 05/13/19 15:00 05/13/19 13:50 05/13/19 13:45 96 - Physical Examination General: No Apparent Distress HEENT: Positive: PERRL Neck: Positive: trachea midline Cardiac: Positive: Reg Rate and Rhythm Lungs: Positive: Decreased Breath Sounds Neuro: Positive: Grossly Intact Abdomen: Positive: Soft Extremities: Absent: edema - Labs and Meds Comprehensive Metabolic Panel 05/14/19 Range/Units 06:52 Sodium 139 D (137-145) mmol/L Potassium 4.6 (3.6-5.0) mmol/L Chloride 100.0 (98-107) mmol/L Carbon Dioxide 23 (22-30) mmol/L BUN 28 H (7-17) mg/dL Creatinine 1.0 (0.7-1.2) mg/dL Glucose 110 H (65-100) mg/dL Calcium 8.4 (8.4-10.2) mg/dL <ANKIT HEWITT - Last Filed: 05/14/19 17:43> Assessment and Plan I have seen and evaluated the patient and agree with the assessment and plan. The patient presents with nonischemic cardiomyopathy with EF 20-25%. Continue goal directed medical therapy. Objective Vital Signs Temp Pulse Pulse Pulse Resp Resp BP 05/14/19 15:30 86 115/87 05/14/19 13:22 15 05/14/19 12:22 87 18 124/81 05/14/19 10:00 83 05/14/19 09:50 83 151/101 05/14/19 09:48 93 H 151/101 05/14/19 08:15 77 18 05/14/19 07:36 98.3 F 81 18 144/95 05/14/19 05:44 17 05/14/19 04:37 97.3 F L 84 18 128/77 05/14/19 00:07 97.6 F 79 16 128/86 05/13/19 23:00 72 05/13/19 21:46 71 94/62 05/13/19 20:22 98.4 F 71 12 94/62 05/13/19 20:12 05/13/19 20:00 78 18 05/13/19 17:53 109/78 Pulse Ox 05/14/19 15:30 94 05/14/19 13:22 05/14/19 12:22 98 05/14/19 10:00 98 05/14/19 09:50 05/14/19 09:48 93 05/14/19 08:15 05/14/19 07:36 89 05/14/19 05:44 05/14/19 04:37 90 05/14/19 00:07 100 05/13/19 23:00 05/13/19 21:46 05/13/19 20:22 99 05/13/19 20:12 95 05/13/19 20:00 05/13/19 17:53 - Labs and Meds Comprehensive Metabolic Panel 05/14/19 Range/Units 06:52 Sodium 139 D (137-145) mmol/L Potassium 4.6 (3.6-5.0) mmol/L Chloride 100.0 (98-107) mmol/L Carbon Dioxide 23 (22-30) mmol/L BUN 28 H (7-17) mg/dL Creatinine 1.0 (0.7-1.2) mg/dL Glucose 110 H (65-100) mg/dL Calcium 8.4 (8.4-10.2) mg/dL
--- NOTE | 2019-05-14 15:39 | Progress Note ---
Assessment and Plan Atypical chest pain - ACS ruled out, NORMAL stress test - Trended her troponins, continue aspirin and statin - medical Mx per cardiology Left bundle branch block, new - Likely due to dilated cardiomyopathy - Status post heparin drip, 2-D echo showed reduction of EF to 20-25% - Medical management per cardiology TENZIN, likely vasomotor nephropathy versus cardiorenal syndrome -monitor urine output, continue Lasix New onset CHFrEF 20-25% - Dilated cardiomyopathy, cardiology following, s/p Normal MPI study suggests a nonischemic cardiomyopathy. - We'll cont diuresis challenge, continue aspirin and statin Acute respiratory distress - Could be due to COPD and underlying new onset of CHF - We'll continue to treat underlying cause, provide supplemental O2 as needed along with nebulizer breathing treatment and diuresis COPD with exacerbation - Continue scheduled nebulizer, monitor clinically DVT prophylaxis, on Lovenox Disposition: when clinically stable Brief History: The patient states 54-year-old woman with a history of COPD who presented to the hospital with atypical, poorly characterized chest pain. ECG on presentation was a mild sinus tachycardia at 103, with a left bundle branch block. A review of her serial ECGs show that the left bundle branch block is new. She was placed on heparin drip, Cardiologic consulted and admitted to the hospital for further evaluation and management. Patient has had extensive cardiac workup including a cardiac catheterization 5 years ago, which reported angiographically normal coronary arteries, and normal left ventricular systolic function with eje ction fraction 60%. 2-D echo obtained during this hospitalization showed EF of 20-25%. Patient is being managed for acute new onset CHF exacerbation and acute respiratory failure. Radiological data: Chest x-ray: No acute findings A 2-D echo ; EF 20-25% Hospitalist Physical exam: GENERAL: elderly WF lying on bed appeared to be in no discomfort. HEENT: Normocephalic. Atraumatic. No conjunctival congestion or icterus. Patient has moist mucous membranes. NECK: Supple. Trachea midline. CHEST/LUNGS: Clear to auscultated bilaterally, breathing nonlabored. No wheezes crackles or rhonchi. HEART/CARDIOVASCULAR: Regular in rate and rhythm. S1 and S2 positive. ABDOMEN: Abdomen is soft, nontender. Patient has normal bowel sounds. SKIN: There is no rash. Warm and dry. NEURO: No focal motor deficit. Follows command. MUSCULOSKELETAL: No joint effusion or tenderness. EXTRIMITY: No edema, no cyanosis or clubbing. PSYCH: Cooperative. Subjective Date of service: 05/14/19 Interval history: Patient seen and examined. Medical records and medication list reviewed. No acute event overnight noted by the RN. Patient continued to complaints of difficulty breathing on exertion and improved cough. Patient is tolerating diet. Cr improved Discussed plan of care at bedside with patient. Objective - Constitutional Vitals: Vital Signs - 12hr 05/14/19 05/14/19 05/14/19 04:37 05:44 07:36 Temperature 97.3 F L 98.3 F Pulse Rate 84 81 Pulse Rate [ Apical] Pulse Rate [ Posterior Bilateral Throughout] Respiratory 18 17 18 Rate Respiratory Rate [Posterior Bilateral Throughout] Blood Pressure 128/77 144/95 O2 Sat by Pulse 90 89 Oximetry 05/14/19 05/14/19 05/14/19 08:15 09:48 09:50 Temperature Pulse Rate 93 H 83 Pulse Rate [ Apical] Pulse Rate [ 77 Posterior Bilateral Throughout] Respiratory Rate Respiratory 18 Rate [Posterior Bilateral Throughout] Blood Pressure 151/101 151/101 O2 Sat by Pulse 93 Oximetry 05/14/19 05/14/19 05/14/19 10:00 12:22 13:22 Temperature Pulse Rate 87 Pulse Rate [ 83 Apical] Pulse Rate [ Posterior Bilateral Throughout] Respiratory 18 15 Rate Respiratory Rate [Posterior Bilateral Throughout] Blood Pressure 124/81 O2 Sat by Pulse 98 98 Oximetry 05/14/19 15:30 Temperature Pulse Rate 86 Pulse Rate [ Apical] Pulse Rate [ Posterior Bilateral Throughout] Respiratory Rate Respiratory Rate [Posterior Bilateral Throughout] Blood Pressure 115/87 O2 Sat by Pulse 94 Oximetry - Labs CBC & Chem 7: 05/15/19 05:17 05/15/19 05:17 Labs: Abnormal lab results 05/13/19 05/14/19 Range/Units 23:00 06:52 BUN 28 H (7-17) mg/dL Glucose 110 H (65-100) mg/dL Urine Creatinine 24.1 H (0.1-20.0) mg/dL
[2019-05-14] MEDS: XANAX PO PRN (16:24)
--- NOTE | 2019-05-14 17:27 | Consultation ---
History of Present Illness Consult date: 05/14/19 Reason for consult: dyspnea, cough, chest pain, COPD History of present illness: PULMONARY AND CRITICAL CARE CONSULTATION DR. STONE THANK YOU FOR ASKING US TO PARTICIPATE IN THE CARE OF THIS PATIENT. 54-year-old female patient here today with sudden onset of chest pain 2 hours prior to arrival. In as stabbing and pressure-like, substernal right chest, radiating through to back and down the right arm. He noted 7/10 in severity. Patient had a cardiac event in 2013 with a normal cardiac cath. Also diagnosed with a CVA in August of this year. Last stress test in 2018 was normal. Patient also complaining shortness of breath and cough. Patient has history of COPD. Smoked 1 pack x 30 years. Patient says cut down to 1/2 a pack now. Counselled to stop smoking. Denies alcohol or drug abuse. 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 Patient allergic Cyclobezaprine, Ibuprophen and fish products. Past History Past Medical History: COPD, stroke Medications and Allergies Allergies Allergy/AdvReac Type Severity Reaction Status Date / Time cyclobenzaprine HCl Allergy Severe Itching Verified 04/28/14 07:57 [From Flexeril] Fish Containing Products Allergy Anaphylaxis Verified 04/28/14 07:57 ibuprofen Allergy abd pain Verified 04/28/14 07:56 ketorolac tromethamine Allergy Headache Verified 04/28/14 07:56 [From Toradol] methocarbamol [From Robaxin] Allergy Unknown Verified 09/02/18 07:38 Home Medications Medication Instructions Recorded Confirmed Last Taken Type Zolpidem [Ambien] 5 mg PO QHS PRN #10 tablet 06/11/18 05/12/19 05/11/19 Rx oxyCODONE /ACETAMINOPHEN [Percocet 1 tab PO Q6H PRN #12 tablet 06/11/18 05/12/19 05/11/19 Rx 5/325 mg] Ondansetron [Zofran ODT TAB] 4 mg PO Q8HR PRN #20 tab.rapdis 06/20/18 05/12/19 05/11/19 Rx Pantoprazole [Protonix TAB] 40 mg PO QDAY #30 tablet 07/10/18 05/12/19 05/11/19 Rx Aspirin [Aspirin BABY CHEW TAB] 81 mg PO QDAY #30 tab.chew 09/04/18 05/12/19 05/11/19 Rx Metoprolol [Lopressor TAB] 12.5 mg PO BID #60 tablet 09/04/18 05/12/19 05/11/19 Rx Nicotine [Habitrol] 14 mg TD QDAY #30 patch 09/04/18 05/12/19 05/12/19 07:43 Rx Active Meds: Active Medications Acetaminophen (Tylenol) 650 mg PO Q4H PRN PRN Reason: Pain MILD(1-3)/Fever >100.5/MATA Albuterol/Ipratropium (Duoneb *Not For Prn Use*) 1 ampul IH TIDRT [facility] Last Admin: 05/14/19 15:06 Dose: 1 ampul Documented by: Alprazolam (Xanax) 0.25 mg PO Q8H PRN PRN Reason: Anxiety Last Admin: 05/14/19 16:24 Dose: 0.25 mg Documented by: Arformoterol Tartrate (Brovana Nebu) 15 mcg IH Q12HRT [facility] Last Admin: 05/14/19 08:06 Dose: 15 mcg Documented by: Aspirin (Aspirin) 325 mg PO QDAY [facility] Last Admin: 05/14/19 09:49 Dose: 325 mg Documented by: Budesonide (Pulmicort) 0.5 mg IH Q12HRT [facility] Carvedilol (Coreg) 6.25 mg PO BID [facility] Last Admin: 05/14/19 09:50 Dose: 6.25 mg Documented by: Diphenhydramine HCl (Benadryl) 25 mg IV Q6H PRN PRN Reason: Itching Last Admin: 05/14/19 10:21 Dose: 25 mg Documented by: Enoxaparin Sodium (Lovenox) 30 mg SUB-Q QDAY [facility] Last Admin: 05/14/19 09:49 Dose: 30 mg Documented by: Furosemide (Lasix) 40 mg PO QDAY [facility] Last Admin: 05/14/19 09:49 Dose: 40 mg Documented by: Guaifenesin (Mucinex Er) 600 mg PO BID [facility] Last Admin: 05/14/19 09:49 Dose: 600 mg Documented by: Lisinopril (Zestril) 5 mg PO QDAY [facility] Last Admin: 05/14/19 09:50 Dose: 5 mg Documented by: Metoclopramide HCl (Reglan) 10 mg IV Q6H PRN PRN Reason: Nausea And Vomiting Last Admin: 05/11/19 20:01 Dose: 10 mg Documented by: Nicotine (Habitrol) 14 mg TD QDAY [facility] Last Admin: 05/14/19 09:50 Dose: 14 mg Documented by: Nitroglycerin (Nitrostat) 0.4 mg SL .Q5MIN PRN PRN Reason: Chest Pain Ondansetron HCl (Zofran Odt) 4 mg PO Q8H PRN PRN Reason: Vomiting Oxycodone/Acetaminophen (Percocet 5/325) 1 tab PO Q6H PRN PRN Reason: Pain, Moderate (4-6) Last Admin: 05/14/19 12:22 Dose: 1 tab Documented by: Pantoprazole Sodium (Protonix) 40 mg PO QDAY [facility] Last Admin: 05/14/19 09:49 Dose: 40 mg Documented by: Prednisone (Deltasone) 40 mg PO QDAY [facility] Last Admin: 05/14/19 09:49 Dose: 40 mg Documented by: Sodium Chloride (Sodium Chloride Flush Syringe 10 Ml) 10 ml IV BID [facility] Last Admin: 05/14/19 09:51 Dose: 10 ml Documented by: Sodium Chloride (Sodium Chloride Flush Syringe 10 Ml) 10 ml IV PRN PRN PRN Reason: LINE FLUSH Spironolactone (Aldactone) 25 mg PO QDAY [facility] Last Admin: 05/14/19 09:50 Dose: 25 mg Documented by: Zolpidem Tartrate (Ambien) 5 mg PO QHS PRN PRN Reason: Insomnia Last Admin: 05/13/19 22:27 Dose: 5 mg Documented by: Physical Examination Vital signs: Vital Signs Temp Pulse Resp BP Pulse Ox 97.8 F 108 H 22 170/99 93 05/11/19 10:55 05/11/19 10:55 05/11/19 10:55 05/11/19 10:55 05/11/19 10:55 General appearance: alert, appears uncomfortable Eyes: non-icteric ENT: oropharynx moist Neck: supple, no JVD Ascultation: Bilateral: diminished breath sounds, other (Prolonged expiratory phase.) Cardiovascular: regular rate and rhythm Gastrointestinal: normoactive bowel sounds, soft, non-tender Integumentary: normal Extremities: no cyanosis, no edema Musculoskeletal: no deformities Gait: other (Patient resting in bed at this time.) normal mental status, non-focal exam, pupils equal and round depressed Results - Laboratory Findings CBC and BMP: 05/13/19 05:36 05/14/19 06:52 PT/INR, D-dimer PT 12.7 Sec. (12.2-14.9) 05/11/19 11:46 INR 0.98 (0.87-1.13) 05/11/19 11:46 Abnormal lab findings: Abnormal Labs 05/11/19 05/11/19 05/11/19 11:27 11:27 11:46 MCH 33 H RDW 13.0 L Lymph # 1.1 L Seg Neutrophils % 73.7 H Heparin Anti-Xa Level Sodium Potassium Chloride BUN Creatinine Glucose 109 H Calcium CK-MB (CK-2) Rel Index 4.9 H NT-Pro-B Natriuret Pep 96310 H Albumin Urine Creatinine 05/12/19 05/12/19 05/13/19 06:00 19:51 05:36 MCH RDW Lymph # Seg Neutrophils % Heparin Anti-Xa Level < 0.10 L Sodium 134 L 131 L Potassium 5.5 H D Chloride 96.5 L BUN 25 H 41 H Creatinine 1.5 H 1.6 H Glucose 105 H Calcium 7.7 L 7.8 L CK-MB (CK-2) Rel Index NT-Pro-B Natriuret Pep Albumin 3.8 L Urine Creatinine 05/13/19 05/14/19 23:00 06:52 MCH RDW Lymph # Seg Neutrophils % Heparin Anti-Xa Level Sodium Potassium Chloride BUN 28 H Creatinine Glucose 110 H Calcium CK-MB (CK-2) Rel Index NT-Pro-B Natriuret Pep Albumin Urine Creatinine 24.1 H - Diagnostic Findings Chest x-ray: report reviewed (Reported chronic interstitial and reticulonodular markings. No acute findings.), image reviewed Assessment and Plan 54-year-old female patient here today with sudden onset of chest pain 2 hours prior to arrival. In as stabbing and pressure-like, substernal right chest, radiating through to back and down the right arm. He noted 710 in severity. Patient had a cardiac event in 2013 with a normal cardiac cath. Also diagnosed with a CVA in August of this year. Last stress test in 2018 was normal. Patient also complaining shortness of breath and cough. Patient has history of COPD. Smoked 1 pack x 30 years. Patient says cut down to 1/2 a pack now. Counselled to stop smoking. Denies alcohol or drug abuse. 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 Patient allergic Cyclobezaprine, Ibuprophen and fish products. - Patient Problems (1) Chest pain Current Visit: Yes Status: Acute Qualifiers: Chest pain type: unspecified Qualified Code(s): R07.9 - Chest pain, unspecified Plan to address problem: Management as per cardiology. (2) HTN (hypertension) Current Visit: Yes Status: Chronic Qualifiers: Hypertension type: unspecified Qualified Code(s): I10 - Essential (primary) hypertension Plan to address problem: Management as per primary care. (3) Bundle branch block, left Current Visit: Yes Status: Acute Plan to address problem: Management as per cardiology. (4) COPD (chronic obstructive pulmonary disease) Current Visit: No Status: Chronic Qualifiers: Plan to address problem: O2 2 litres via nasal canula. Albuterol/atrovent aerosol treatments q 6 hours prn for shortness of breath. Brovanna/Budesonide aerosol treatments q 12 hours. Patient is on PO prednisone. Continue s/c lovenox. Continue Protonix. ABGs on room air. (5) GERD (gastroesophageal reflux disease) Current Visit: No Status: Acute Plan to address problem: Patient is on Protonix. (6) Right sided weakness Current Visit: No Status: Acute Plan to address problem: Management as per primary care.
[2019-05-14] MEDS: AMBIEN PO PRN (21:56)
[2019-05-15 05:36] LABS: Hematocrit 36.6 % (30.3-42.9); Hemoglobin 12.6 gm/dl (10.1-14.3)
[2019-05-15 05:55] LABS: Calcium 8.1 mg/dL (8.4-10.2)
[2019-05-15] MEDS: PULMICORT IH SCH (08:12)
[2019-05-15] MEDS: DUONEB *Not for PRN Use IH SCH ×2 (08:13→15:01)
[2019-05-15] MEDS: PERCOCET 5/325 PO PRN ×2 (08:15→14:00)
[2019-05-15] MEDS: XANAX PO PRN (08:15)
[2019-05-15] MEDS: BROVANA NEBU IH SCH (08:16)
[2019-05-15] MEDS: LASIX PO SCH (09:39)
[2019-05-15] MEDS: ALDACTONE PO SCH (09:39)
[2019-05-15] MEDS: ASPIRIN PO SCH (09:40)
[2019-05-15] MEDS: DELTASONE PO SCH (09:40)
[2019-05-15] MEDS: PROTONIX PO SCH (09:40)
[2019-05-15] MEDS: COREG PO SCH (09:40)
[2019-05-15] MEDS: ZESTRIL PO SCH (09:41)
[2019-05-15] MEDS: SODIUM CHLORIDE FLUSH SYRINGE 10 ML IV SCH (09:42)
[2019-05-15] MEDS: LOVENOX SUB-Q SCH (09:51)
[2019-05-15] MEDS: MUCINEX ER PO SCH (09:51)
--- NOTE | 2019-05-15 10:29 | Progress Note ---
Assessment and Plan Chest pain LBBB, new COPD Tobacco abuse Left ventricular ejection fraction 20-25% by echo. Normal myocardial perfusion study suggests a nonischemic cardiomyopathy. Recommend: Sodium/fluid restriction. Continue medical therapy for nonischemic cardiomyopathy. Subjective Date of service: 05/15/19 Interval history: No cardiac complaints. No events on telemetry overnight. Objective Vital Signs Temp Pulse Pulse Resp Resp Resp BP 05/15/19 09:41 80 05/15/19 09:40 84 05/15/19 09:39 84 05/15/19 08:50 05/15/19 08:37 97.9 F 88 18 144/93 05/15/19 08:00 86 18 05/15/19 03:13 97.8 F 87 16 108/63 05/14/19 23:09 97.7 F 84 20 142/73 05/14/19 23:00 83 05/14/19 20:39 05/14/19 20:38 79 20 05/14/19 20:03 98.0 F 88 16 121/63 05/14/19 18:12 16 05/14/19 18:00 16 05/14/19 15:30 86 115/87 05/14/19 13:22 15 05/14/19 12:22 87 18 124/81 05/14/19 12:00 78 Pulse Ox 05/15/19 09:41 05/15/19 09:40 05/15/19 09:39 05/15/19 08:50 97 05/15/19 08:37 97 05/15/19 08:00 05/15/19 03:13 85 05/14/19 23:09 91 05/14/19 23:00 05/14/19 20:39 93 05/14/19 20:38 05/14/19 20:03 91 05/14/19 18:12 05/14/19 18:00 05/14/19 15:30 94 05/14/19 13:22 05/14/19 12:22 98 05/14/19 12:00 - Physical Examination General: No Apparent Distress HEENT: Positive: PERRL Neck: Positive: trachea midline Cardiac: Positive: Reg Rate and Rhythm Lungs: Positive: Decreased Breath Sounds Neuro: Positive: Grossly Intact Abdomen: Positive: Soft Extremities: Absent: edema - Labs and Meds CBC 05/15/19 Range/Units 05:17 Hgb 12.6 (10.1-14.3) gm/dl Hct 36.6 (30.3-42.9) % Plt Count 263 (140-440) K/mm3 Comprehensive Metabolic Panel 05/15/19 Range/Units 05:17 Sodium 138 (137-145) mmol/L Potassium 4.1 (3.6-5.0) mmol/L Chloride 99.5 (98-107) mmol/L Carbon Dioxide 27 (22-30) mmol/L BUN 23 H (7-17) mg/dL Creatinine 1.0 (0.7-1.2) mg/dL Glucose 97 (65-100) mg/dL Calcium 8.1 L (8.4-10.2) mg/dL
[2019-05-15 12:10] VITALS: BP 143/89
--- NOTE | 2019-05-15 12:42 | Discharge Summary ---
Providers - Providers Date of Admission: 05/11/19 13:33 Date of discharge: 05/15/19 Attending physician: ROSEY AMBROCIO 05/11/19 11:51 Consult to Physician [CONS] Stat Comment: Consulting Provider: RACHID SPAULDING Physician Instructions: Reason For Exam: Chest pain new LBBB 05/13/19 15:11 Consult to Physician [CONS] Routine Comment: Consulting Provider: DANIELLE GOMEZ Physician Instructions: Reason For Exam: TENZIN 05/14/19 09:11 Consult to Physician [CONS] Routine Comment: Consulting Provider: ONELIA GALVIN Physician Instructions: Reason For Exam: respiratory failure 05/14/19 15:39 Physical Therapy Evaluation and Treat [CONS] Routine Comment: Reason For Exam: placement Primary care physician: WAGON WINDER Hospitalization Condition: Stable Pertinent studies: CXR MPI stress test 2d echo Hospital course: The patient states 54-year-old woman with a history of COPD who presented to the hospital with atypical, poorly characterized chest pain. ECG on presentation was a mild sinus tachycardia at 103, with a left bundle branch block. A review of her serial ECGs showed that the left bundle branch block is new. She was placed on heparin drip, Cardiologic consulted and admitted to the hospital for further evaluation and management. Patient has had extensive cardiac workup including a cardiac catheterization 5 years ago, which reported angiographically normal coronary arteries, and normal left ventricular systolic function with ejection fraction 60%. 2-D echo obtained during this hospitalization showed EF of 20-25%. Patient was managed for acute new onset CHF exacerbation and acute respiratory distress. Patient was admitted to medical floor with scheduled nebs, steroids, IV Lasix and supplemental O2 to keep O2 sat at or above 94%. Heart MPS stress test was normal. Cardiology recommended no further intervention. Patients symptoms improved with medical management. patient was was then discharged home in stable condition with outpt f/u. Radiological data: Chest x-ray: No acute findings A 2-D echo ; EF 20-25% MPI stress test - normal findings Discharge Diagnosis and mx: Atypical chest pain, likely GERD - ACS ruled out, NORMAL stress test - Trended her troponins, continue aspirin and statin - medical Mx per cardiology Left bundle branch block, new - Likely due to dilated cardiomyopathy - Status post heparin drip, 2-D echo showed reduction of EF to 20-25% - Medical management per cardiology TENZIN, likely vasomotor nephropathy versus cardiorenal syndrome, resolved -monitored urine output, continue Lasix New onset CHFrEF 20-25% - Dilated cardiomyopathy, cardiology following, s/p Normal MPI study suggests a nonischemic cardiomyopathy. - cont diuresis, continue aspirin and statin Acute respiratory distress - Could be due to COPD and underlying new onset of CHF - Treated underlying cause, provided supplemental O2 as needed along with nebulizer breathing treatment and diuresis COPD with exacerbation - Continued scheduled nebulizer, monitored clinically DVT prophylaxis, on Lovenox Disposition: when clinically stable Hospitalist Physical exam: GENERAL: elderly WF lying on bed appeared to be in no discomfort. HEENT: Normocephalic. Atraumatic. No conjunctival congestion or icterus. Patient has moist mucous membranes. NECK: Supple. Trachea midline. CHEST/LUNGS: Clear to auscultated bilaterally, breathing nonlabored. No wheezes crackles or rhonchi. HEART/CARDIOVASCULAR: Regular in rate and rhythm. S1 and S2 positive. ABDOMEN: Abdomen is soft, nontender. Patient has normal bowel sounds. SKIN: There is no rash. Warm and dry. NEURO: No focal motor deficit. Follows command. MUSCULOSKELETAL: No joint effusion or tenderness. EXTRIMITY: No edema, no cyanosis or clubbing. PSYCH: Cooperative. Disposition: DC/[place]-06 HOME [facility] Time spent for discharge: 34 minutes Core Measure Documentation - Palliative Care Palliative Care/ Comfort Measures: Not Applicable - Core Measures Any of the following diagnoses?: heart failure - Heart Failure Discharge Requirements THA/ARB for LVSD if EF <40%: Yes Beta cammy at discharge: Yes Exam - Constitutional Vitals: Temp Pulse Resp BP Pulse Ox 97.9 F 90 18 143/89 96 05/15/19 08:37 05/15/19 12:09 05/15/19 08:37 05/15/19 12:09 05/15/19 12:09 Plan Activity: advance as tolerated, fall precautions Weight Bearing Status: Non-Weight Bearing Diet: low fat, low salt Special Instructions: restrict fluid intake to (1.2 L daily), record daily weights Follow up with: LUISA PRYOR MD [Primary Care Provider] - 3-5 Days KAREY VERMA MD [Staff Physician] - 7 Days RACHID SPAULDING MD [Staff Physician] - 7 Days Prescriptions: Spironolactone [Aldactone] 25 mg PO QDAY #30 tablet Carvedilol [Coreg] 6.25 mg PO BID #60 tablet predniSONE [Deltasone] 40 mg PO QDAY #5 tablet Furosemide [Lasix TAB] 40 mg PO QDAY #30 tablet guaiFENesin ER [Mucinex ER] 600 mg PO BID #10 tablet ALBUTEROL Inhaler (OR & NICU) [Proair] 2 puff IH QID PRN #1 vial PRN Reason: Shortness Of Breath Pantoprazole [Protonix TAB] 40 mg PO QDAY #30 tablet Budesonide/Formoterol Fumarate [Symbicort 160-4.5 Mcg Inhaler] 10.2 gm IH BID #1 hfa.aer.ad Lisinopril [Zestril TAB] 5 mg PO QDAY #30 tablet
[2019-05-15] MEDS: HABITROL TD SCH (14:04)
== END 2019-05-15 16:00 | disposition home health service (06) | DRG 291 ==
LOC: ED 10:48 → 4A 13:33
PROVIDERS: ADMIT Internal Medicine; ATTEND Internal Medicine
PROC: 4A033R1 Measurement of Arterial Saturation, Peripheral, Percutaneous Approach (ICD-10-PCS; principal; 2019-05-15)
DX: I11.0 Hypertensive heart disease with heart failure (principal); N17.0 Acute kidney failure with tubular necrosis; J44.1 Chronic obstructive pulmonary disease with (acute) exacerbation; I50.23 Acute on chronic systolic (congestive) heart failure; I42.0 Dilated cardiomyopathy; I44.7 Left bundle-branch block, unspecified; E87.5 Hyperkalemia; G40.909 Epilepsy, unspecified, not intractable, without status epilepticus; F17.210 Nicotine dependence, cigarettes, uncomplicated; F41.9 Anxiety disorder, unspecified; F17.200 Nicotine dependence, unspecified, uncomplicated; K21.9 Gastro-esophageal reflux disease without esophagitis; Z86.73 Personal history of transient ischemic attack (TIA), and cerebral infarction without residual deficits; I25.2 Old myocardial infarction; Z90.710 Acquired absence of both cervix and uterus; Z82.49 Family history of ischemic heart disease and other diseases of the circulatory system; Z88.8 Allergy status to other drugs, medicaments and biological substances; Z88.6 Allergy status to analgesic agent; Z79.82 Long term (current) use of aspirin; Z79.899 Other long term (current) drug therapy; Z79.51 Long term (current) use of inhaled steroids; Z71.6 Tobacco abuse counseling
CPT/HCPCS: 36415; 36600; 71045; 78452; 80048; 80053; 80076; 81001; 82550; 82553; 82570; 82803; 83036; 83735; 83880; 84100; 84300; 84484; 85014; 85018; 85025; 85049; 85520; 85610; 85730; 93005; 93010; 93017; 93306; 94640; 94644; 94760; 96374; 96375; G0378; A9502; J1170; J1200; J1644; J1650; J1940; J2270; J2405; J2765; J2785; J2930; J7512

== ENCOUNTER 2019-05-27 20:42 | Emergency (ER) | payer SELFPAY ==
[2019-05-27] MEDS ORDERED: ASPIRIN 325 MG TAB PO ONE (21:13)
--- NOTE | 2019-05-27 21:44 | XRay Report ---
CHEST 1 VIEW 05/27/2019 9:22 PM INDICATION / CLINICAL INFORMATION: Chest Pain. COMPARISON: One view of the chest from 05/11/2019. FINDINGS: SUPPORT DEVICES: None. HEART / MEDIASTINUM: No significant abnormality. LUNGS / PLEURA: Generalized interstitial prominence is unchanged. No acute pulmonary abnormality is s een. No significant pleural effusion. No pneumothorax. ADDITIONAL FINDINGS: No significant additional findings. IMPRESSION: No acute abnormality of the chest. Signer Name: Maxi Burciaga MD Signed: 05/27/2019 9:40 PM Workstation Name: [id number]
[2019-05-27] MEDS ORDERED: MAGNESIUM SULFATE 2 GM/50 ML BAG IV ONE (21:45)
[2019-05-27] MEDS ORDERED: IPRATROPIUM 0.02% NEBU 2.5 ML IH ONE (21:46)
[2019-05-27] MEDS ORDERED: ALBUTEROL 2.5 MG/3 ML NEBU IH ONE (21:46)
[2019-05-27] MEDS ORDERED: LORazepam 2 MG/ML VIAL IV ONE (21:46)
[2019-05-27 21:54] LABS: Basophils # (Auto) 0.1 K/mm3 (0.0-0.1); Basophils % (Auto) 0.7 % (0.0-1.8); Eosinophils # (Auto) 0.2 K/mm3 (0.0-0.4); Eosinophils % (Auto) 2.1 % (0.0-4.3); Hematocrit 37.4 % (30.3-42.9); Hemoglobin 12.6 gm/dl (10.1-14.3); Lymphocytes # (Auto) 1.2 K/mm3 (1.2-5.4); Mean Corpuscular HGB Conc 34 % (30-34); Mean Corpuscular Volume 97 fl (79-97); Monocytes # (Auto) 0.4 K/mm3 (0.0-0.8); Monocytes % (Auto) 4.5 % (0.0-7.3); Platelet Count 244 K/mm3 (140-440); Red Blood Count 3.87 M/mm3 (3.65-5.03); Red Cell Distribution Width 13.3 % (13.2-15.2)
[2019-05-27 22:17] LABS: BUN/Creatinine Ratio 19; Blood Urea Nitrogen 23 mg/dL (7-17); Calcium 8.3 mg/dL (8.4-10.2); Hemolysis Index 8
[2019-05-27 22:22] LABS: Alanine Aminotransferase 9 units/L (7-56); Albumin 4.1 g/dL (3.9-5)
[2019-05-27 22:28] LABS: Bilirubin,Direct < 0.2 mg/dL (0-0.2)
--- NOTE | 2019-05-27 22:30 | Emergency Department Report ---
ED General Adult HPI - General Chief complaint: Dyspnea/Respdistress Stated complaint: PAM Time Seen by Provider: 05/27/19 21:07 Source: patient, EMS Mode of arrival: Stretcher Limitations: No Limitations - History of Present Illness Initial comments: Patient presents to the emergency department the chief complaint of shortness of breath. Patient has a history of COPD since the last 2 days she's had shortness of breath. Patient denies any valerie chest pain but states that she has some chest tightness when trying to take a deep breath. Patient was brought in by EMS and received a breathing treatment in route with 125 mg Solu-Medrol IV. Patient denies any abdominal pain, headache. -: Sudden Severity scale (0 -10): 1 Improves with: none Worsens with: none Associated Symptoms: denies other symptoms Treatments Prior to Arrival: none - Related Data Previous Rx's Medication Instructions Recorded Last Taken Type Zolpidem [Ambien] 5 mg PO QHS PRN #10 tablet 06/11/18 05/11/19 Rx oxyCODONE /ACETAMINOPHEN [Percocet 1 tab PO Q6H PRN #12 tablet 06/11/18 05/11/19 Rx 5/325 mg] Pantoprazole [Protonix TAB] 40 mg PO QDAY #30 tablet 07/10/18 05/11/19 Rx Aspirin [Aspirin BABY CHEW TAB] 81 mg PO QDAY #30 tab.chew 09/04/18 05/11/19 Rx ALBUTEROL Inhaler (OR & NICU) 2 puff IH QID PRN #1 vial 05/15/19 Unknown Rx [Proair] Budesonide/Formoterol Fumarate 10.2 gm IH BID #1 hfa.aer.ad 05/15/19 Unknown Rx [Symbicort 160-4.5 Mcg Inhaler] Carvedilol [Coreg] 6.25 mg PO BID #60 tablet 05/15/19 Unknown Rx Furosemide [Lasix TAB] 40 mg PO QDAY #30 tablet 05/15/19 Unknown Rx Lisinopril [Zestril TAB] 5 mg PO QDAY #30 tablet 05/15/19 Unknown Rx Pantoprazole [Protonix TAB] 40 mg PO QDAY #30 tablet 05/15/19 Unknown Rx Spironolactone [Aldactone] 25 mg PO QDAY #30 tablet 05/15/19 Unknown Rx guaiFENesin ER [Mucinex ER] 600 mg PO BID #10 tablet 05/15/19 Unknown Rx predniSONE [Deltasone] 40 mg PO QDAY #5 tablet 05/15/19 Unknown Rx ALBUTEROL Inhaler (OR & NICU) 2 puff IH Q4HR PRN #1 inhalation 05/27/19 Unknown Rx [ProAir HFA Inhaler] Acetaminophen/Codeine [Tylenol 1 tab PO Q6H PRN #6 tab 05/27/19 Unknown Rx /Codeine # 3 tab] Azithromycin [Zithromax Z-BECK] 250 mg PO DAILY #6 tablet 05/27/19 Unknown Rx predniSONE [Deltasone] 20 mg PO DAILY #15 tablet 05/27/19 Unknown Rx Allergies Allergy/AdvReac Type Severity Reaction Status Date / Time cyclobenzaprine HCl Allergy Severe Itching Verified 04/28/14 07:57 [From Flexeril] Fish Containing Products Allergy Anaphylaxis Verified 04/28/14 07:57 ibuprofen Allergy abd pain Verified 04/28/14 07:56 ketorolac tromethamine Allergy Headache Verified 04/28/14 07:56 [From Toradol] methocarbamol [From Robaxin] Allergy Unknown Verified 09/02/18 07:38 ED Review of Systems ROS: Stated complaint: APM Other details as noted in HPI Comment: All other systems reviewed and negative Constitutional: denies: chills, fever Eyes: denies: eye pain, eye discharge, vision change ENT: denies: ear pain, throat pain Respiratory: shortness of breath, wheezing. denies: cough Cardiovascular: denies: chest pain, palpitations Endocrine: no symptoms reported Gastrointestinal: denies: abdominal pain, nausea, diarrhea Genitourinary: denies: urgency, dysuria, discharge Musculoskeletal: denies: back pain, joint swelling, arthralgia Skin: denies: rash, lesions Neurological: denies: headache, weakness, paresthesias Psychiatric: denies: anxiety, depression Hematological/Lymphatic: denies: easy bleeding, easy bruising ED Past Medical Hx - Past Medical History Previous Medical History?: Yes Hx Hypertension: Yes Hx CVA: Yes (tia) Hx Heart Attack/AMI: Yes (04/2014 as per pt although pt had a neg cardiac cath here ) Hx Congestive Heart Failure: No Hx Diabetes: No Hx Seizures: Yes Hx Asthma: No Hx COPD: Yes Additional medical history: history of anxiety - Surgical History Past Surgical History?: Yes Additional Surgical History: Hysterectomy, back surgery - Social History Smoking Status: Current Every Day Smoker - Medications Home Medications: Home Medications Medication Instructions Recorded Confirmed Last Taken Type Zolpidem [Ambien] 5 mg PO QHS PRN #10 tablet 06/11/18 05/12/19 05/11/19 Rx oxyCODONE /ACETAMINOPHEN [Percocet 1 tab PO Q6H PRN #12 tablet 06/11/18 05/12/19 05/11/19 Rx 5/325 mg] Pantoprazole [Protonix TAB] 40 mg PO QDAY #30 tablet 07/10/18 05/12/19 05/11/19 Rx Aspirin [Aspirin BABY CHEW TAB] 81 mg PO QDAY #30 tab.chew 09/04/18 05/12/19 05/11/19 Rx ALBUTEROL Inhaler (OR & NICU) 2 puff IH QID PRN #1 vial 05/15/19 Unknown Rx [Proair] Budesonide/Formoterol Fumarate 10.2 gm IH BID #1 hfa.aer.ad 05/15/19 Unknown Rx [Symbicort 160-4.5 Mcg Inhaler] Carvedilol [Coreg] 6.25 mg PO BID #60 tablet 05/15/19 Unknown Rx Furosemide [Lasix TAB] 40 mg PO QDAY #30 tablet 05/15/19 Unknown Rx Lisinopril [Zestril TAB] 5 mg PO QDAY #30 tablet 05/15/19 Unknown Rx Pantoprazole [Protonix TAB] 40 mg PO QDAY #30 tablet 05/15/19 Unknown Rx Spironolactone [Aldactone] 25 mg PO QDAY #30 tablet 05/15/19 Unknown Rx guaiFENesin ER [Mucinex ER] 600 mg PO BID #10 tablet 05/15/19 Unknown Rx predniSONE [Deltasone] 40 mg PO QDAY #5 tablet 05/15/19 Unknown Rx ALBUTEROL Inhaler (OR & NICU) 2 puff IH Q4HR PRN #1 inhalation 05/27/19 Unknown Rx [ProAir HFA Inhaler] Acetaminophen/Codeine [Tylenol 1 tab PO Q6H PRN #6 tab 05/27/19 Unknown Rx /Codeine # 3 tab] Azithromycin [Zithromax Z-BECK] 250 mg PO DAILY #6 tablet 05/27/19 Unknown Rx predniSONE [Deltasone] 20 mg PO DAILY #15 tablet 05/27/19 Unknown Rx ED Physical Exam - General Limitations: No Limitations General appearance: alert, in no apparent distress - Head Head exam: Present: atraumatic, normocephalic - Eye Eye exam: Present: normal appearance, PERRL, EOMI - ENT ENT exam: Present: mucous membranes moist - Neck Neck exam: Present: normal inspection - Respiratory Respiratory exam: Present: wheezes. Absent: respiratory distress - Cardiovascular Cardiovascular Exam: Present: regular rate, normal rhythm. Absent: systolic murmur, diastolic murmur, rubs, gallop - GI/Abdominal GI/Abdominal exam: Present: soft, normal bowel sounds. Absent: distended, tenderness - Extremities Exam Extremities exam: Present: normal inspection - Back Exam Back exam: Present: normal inspection - Neurological Exam Neurological exam: Present: alert, oriented X3, CN II-XII intact. Absent: motor sensory deficit - Psychiatric Psychiatric exam: Present: normal affect, normal mood, anxious - Skin Skin exam: Present: warm, dry, intact, normal color. Absent: rash ED Course Vital Signs 05/27/19 05/27/19 05/27/19 20:56 21:00 21:15 Temperature 97.6 F Pulse Rate 104 H 92 H Pulse Rate [ Anterior] Respiratory 18 32 H Rate Respiratory Rate [Anterior] Blood Pressure 126/92 126/92 O2 Sat by Pulse 99 98 99 Oximetry 05/27/19 05/27/19 05/27/19 21:30 21:45 22:00 Temperature Pulse Rate 90 94 H 96 H Pulse Rate [ Anterior] Respiratory 30 H 28 H 19 Rate Respiratory Rate [Anterior] Blood Pressure 143/86 143/86 141/99 O2 Sat by Pulse 98 99 99 Oximetry 05/27/19 05/27/19 05/27/19 22:15 22:21 22:30 Temperature Pulse Rate 94 H 97 H Pulse Rate [ 95 H Anterior] Respiratory 21 22 Rate Respiratory 25 H Rate [Anterior] Blood Pressure 141/99 148/92 O2 Sat by Pulse 99 98 Oximetry 05/27/19 05/27/19 05/27/19 22:45 23:00 23:15 Temperature Pulse Rate 103 H 100 H 102 H Pulse Rate [ Anterior] Respiratory 23 24 24 Rate Respiratory Rate [Anterior] Blood Pressure 148/92 139/101 139/101 O2 Sat by Pulse 99 96 97 Oximetry ED Medical Decision Making - Lab Data Result diagrams: 05/27/19 21:43 05/27/19 21:43 Lab Results 05/27/19 05/27/19 05/27/19 Range/Units 21:43 21:43 21:48 WBC 8.3 (4.5-11.0) K/mm3 RBC 3.87 (3.65-5.03) M/mm3 Hgb 12.6 (10.1-14.3) gm/dl Hct 37.4 (30.3-42.9) % MCV 97 (79-97) fl MCH 33 H (28-32) pg MCHC 34 (30-34) % RDW 13.3 (13.2-15.2) % Plt Count 244 (140-440) K/mm3 Lymph % (Auto) 15.0 (13.4-35.0) % [place] % (Auto) 4.5 (0.0-7.3) % Eos % (Auto) 2.1 (0.0-4.3) % Baso % (Auto) 0.7 (0.0-1.8) % Lymph # 1.2 (1.2-5.4) K/mm3 [place] # 0.4 (0.0-0.8) K/mm3 Eos # 0.2 (0.0-0.4) K/mm3 Baso # 0.1 (0.0-0.1) K/mm3 Seg Neutrophils % 77.7 H (40.0-70.0) % Seg Neutrophils # 6.5 (1.8-7.7) K/mm3 Sodium 138 (137-145) mmol/L Potassium 4.7 (3.6-5.0) mmol/L Chloride 106.4 (98-107) mmol/L Carbon Dioxide 18 L (22-30) mmol/L Anion Gap 18 mmol/L BUN 23 H (7-17) mg/dL Creatinine 1.2 (0.7-1.2) mg/dL Estimated GFR 47 ml/min BUN/Creatinine Ratio 19 % Glucose 117 H (65-100) mg/dL Calcium 8.3 L (8.4-10.2) mg/dL Total Bilirubin 0.30 (0.1-1.2) mg/dL Direct Bilirubin < 0.2 (0-0.2) mg/dL Indirect Bilirubin 0.1 mg/dL AST 12 (5-40) units/L ALT 9 (7-56) units/L Alkaline Phosphatase 48 (35-129) units/L Troponin T < 0.010 (0.00-0.029) ng/mL Total Protein 7.1 (6.3-8.2) g/dL Albumin 4.1 (3.9-5) g/dL Albumin/Globulin Ratio 1.4 % - EKG Data -: EKG Interpreted by Me EKG shows normal: sinus rhythm - EKG Data Interpretation: other (LBBB ) - Radiology Data Radiology results: report reviewed - Medical Decision Making Patient states that she's been told that she has a left bundle branch block The patient's symptoms greatly improved He was breathing treatment in ED and IV magnesium Anxiety improved with Ativan Critical care attestation.: If time is entered above; I have spent that time in minutes in the direct care of this critically ill patient, excluding procedure time. ED Disposition Clinical Impression: COPD (chronic obstructive pulmonary disease), Anxiousness Disposition: DC-01 TO HOME OR SELFCARE Is pt being admited?: No Does the pt Need Aspirin: No Condition: Stable Instructions: Chronic Obstructive Pulmonary Disease (ED) Additional Instructions: return if worse Referrals: [facility] [Provider Group] - 3-5 Days [facility] [Provider Group] - 3-5 Days Time of Disposition: 23:38
[2019-05-27 23:18] VITALS: BP 139/101
[2019-05-27] MEDS ORDERED: ONDANSETRON 4 MG ODT TAB PO ONE (23:35)
[2019-05-27] MEDS ORDERED: ACETAMINOPHEN W/CODEINE 300-30 MG TAB PO ONE (23:35)
[2019-05-27] MEDS ORDERED: ONDANSETRON 4 MG ODT TAB ONE (23:37)
[2019-05-27] MEDS ORDERED: ACETAMINOPHEN W/CODEINE 300-30 MG TAB ONE (23:38)
== END 2019-05-28 | disposition home or self-care (01) ==
LOC: ED 20:42
DX: J44.9 Chronic obstructive pulmonary disease, unspecified (principal); F41.9 Anxiety disorder, unspecified; I10 Essential (primary) hypertension; F17.200 Nicotine dependence, unspecified, uncomplicated; Z88.5 Allergy status to narcotic agent; Z91.013 Allergy to seafood; Z88.8 Allergy status to other drugs, medicaments and biological substances; Z79.899 Other long term (current) drug therapy; Z90.710 Acquired absence of both cervix and uterus; Z79.82 Long term (current) use of aspirin
CPT/HCPCS: 36415; 71045; 80048; 80076; 84484; 85025; 93005; 93010; 94640; 96365; 96375; 99285; J2060; J3475; 94644; Q0162

== ENCOUNTER 2019-05-29 17:14 | Emergency (ER) | payer SELFPAY ==
[2019-05-29] MEDS: ASPIRIN 325 MG TAB PO ONE ×2 (18:36→18:59)
--- NOTE | 2019-05-29 18:38 | XRay Report ---
CHEST 1 VIEW 05/29/2019 6:09 PM INDICATION / CLINICAL INFORMATION: Chest Pain. COMPARISON: 05/27/19 FINDINGS: SUPPORT DEVICES: None. HEART / MEDIASTINUM: No significant abnormality. LUNGS / PLEURA: No significant pulmonary or pleural abnormality. No pneumothorax. ADDITIONAL FINDINGS: No significant additional findings. IMPRESSION: 1. No acute findings. No change. Signer Name: Racehl Hanley MD Signed: 05/29/2019 6:34 PM Workstation Name: [id number]
[2019-05-29] MEDS ORDERED: IPRATROPIUM/ALBUTEROL SULFATE 3 ML AMPUL.NEB IH ONE (18:48)
[2019-05-29 18:59] LABS: Hematocrit 37.7 % (30.3-42.9); Hemoglobin 12.5 gm/dl (10.1-14.3); Mean Corpuscular HGB Conc 33 % (30-34); Mean Corpuscular Volume 98 fl (79-97); Mean Platelet Volume 7.1 fl (6-12); Platelet Count 254 K/mm3 (140-440); Red Blood Count 3.86 M/mm3 (3.65-5.03); Red Cell Distribution Width 13.6 % (13.2-15.2)
[2019-05-29 19:00] LABS: Basophils % (Auto) 0.2 % (0.0-1.8); Eosinophils % (Auto) 0.1 % (0.0-4.3); Lymphocytes # (Auto) 0.5 K/mm3 (1.2-5.4); Monocytes # (Auto) 0.1 K/mm3 (0.0-0.8); Monocytes % (Auto) 0.7 % (0.0-7.3)
--- NOTE | 2019-05-29 20:37 | Event Note ---
Date of service: 05/29/19 Face to Face: This is a 54-year-old female, recently admitted to this hospital, had a negative nuclear stress test for ischemic findings, had negative CT scan of the chest for pulmonary embolism June 2018, presenting with anxiety, tachycardia, chest pain and shortness of breath. Her EKG is unchanged from prior. D-dimer is negative. Troponin negative multiple times. Appears to be quite anxious. During the history and physical, she appears to be preoccupied with his cellular phone. Patient given Ativan, Versed for symptom control, tachycardia improving. Not hypoxic with supplemental oxygen. Has no crackles or rales. Does not clinically appear to be fluid overloaded. Repeat EKG, repeat troponin pending, anticipate discharge, she'll need to follow up with outpatient primary care, cardiology, or pulmonology. d/w GILLIAN Vital Signs 05/29/19 05/29/19 05/29/19 18:34 19:36 21:49 Temperature 98.0 F Pulse Rate 74 109 H Respiratory 17 18 20 Rate Blood Pressure 156/86 144/75 [Right] O2 Sat by Pulse 94 93 95 Oximetry 05/29/19 22:00 Temperature 98.0 F Pulse Rate 109 H Respiratory 20 Rate Blood Pressure 144/75 [Right] O2 Sat by Pulse 95 Oximetry
[2019-05-29 20:42] LABS: BUN/Creatinine Ratio 21; Blood Urea Nitrogen 21 mg/dL (7-17); Calcium 8.6 mg/dL (8.4-10.2); Hemolysis Index 27
[2019-05-29] MEDS ORDERED: LORazepam 2 MG/ML VIAL IV STA (20:58)
--- NOTE | 2019-05-29 21:02 | Emergency Department Report ---
ED General Adult HPI - General Chief complaint: Dyspnea/Respdistress Stated complaint: PAM Time Seen by Provider: 05/29/19 20:55 Source: patient Mode of arrival: Stretcher Limitations: No Limitations - History of Present Illness Initial comments: 54-year-old female with known past medical history of hypertension, COPD and chest pain home just recently was admitted to the hospital and underwent review is evaluation for chest pain including a thallium exercise stress tests. She presents to the emergency emergency Department complaining of exacerbation of shortness of breath and chest pain. She reports no palliative or provocative factors and denies any dizziness, headaches, visual changes, nausea, vomiting, abdominal pain. No trauma no hemoptysis no hematemesis or hematochezia. She reports having had a cough off and on sporadic chest pain. Pain is sharp and achy in nature 1 present. She reports no fever, chills, sweats -: Gradual Radiation: non-radiation Severity scale (0 -10): 8 Improves with: none Worsens with: none Associated Symptoms: cough. denies: confusion, diaphoresis, headaches, loss of appetite, malaise, nausea/vomiting, rash, seizure, syncope, weakness - Related Data Previous Rx's Medication Instructions Recorded Last Taken Type Zolpidem [Ambien] 5 mg PO QHS PRN #10 tablet 06/11/18 05/11/19 Rx oxyCODONE /ACETAMINOPHEN [Percocet 1 tab PO Q6H PRN #12 tablet 06/11/18 05/11/19 Rx 5/325 mg] Pantoprazole [Protonix TAB] 40 mg PO QDAY #30 tablet 07/10/18 05/11/19 Rx Aspirin [Aspirin BABY CHEW TAB] 81 mg PO QDAY #30 tab.chew 09/04/18 05/11/19 Rx ALBUTEROL Inhaler (OR & NICU) 2 puff IH QID PRN #1 vial 05/15/19 Unknown Rx [Proair] Budesonide/Formoterol Fumarate 10.2 gm IH BID #1 hfa.aer.ad 05/15/19 Unknown Rx [Symbicort 160-4.5 Mcg Inhaler] Carvedilol [Coreg] 6.25 mg PO BID #60 tablet 05/15/19 Unknown Rx Furosemide [Lasix TAB] 40 mg PO QDAY #30 tablet 05/15/19 Unknown Rx Lisinopril [Zestril TAB] 5 mg PO QDAY #30 tablet 05/15/19 Unknown Rx Pantoprazole [Protonix TAB] 40 mg PO QDAY #30 tablet 05/15/19 Unknown Rx Spironolactone [Aldactone] 25 mg PO QDAY #30 tablet 05/15/19 Unknown Rx guaiFENesin ER [Mucinex ER] 600 mg PO BID #10 tablet 05/15/19 Unknown Rx predniSONE [Deltasone] 40 mg PO QDAY #5 tablet 05/15/19 Unknown Rx ALBUTEROL Inhaler (OR & NICU) 2 puff IH Q4HR PRN #1 inhalation 05/27/19 Unknown Rx [ProAir HFA Inhaler] Acetaminophen/Codeine [Tylenol 1 tab PO Q6H PRN #6 tab 05/27/19 Unknown Rx /Codeine # 3 tab] Azithromycin [Zithromax Z-BECK] 250 mg PO DAILY #6 tablet 05/27/19 Unknown Rx predniSONE [Deltasone] 20 mg PO DAILY #15 tablet 05/27/19 Unknown Rx Allergies Allergy/AdvReac Type Severity Reaction Status Date / Time cyclobenzaprine HCl Allergy Severe Itching Verified 04/28/14 07:57 [From Flexeril] Fish Containing Products Allergy Anaphylaxis Verified 04/28/14 07:57 ibuprofen Allergy abd pain Verified 04/28/14 07:56 ketorolac tromethamine Allergy Headache Verified 04/28/14 07:56 [From Toradol] methocarbamol [From Robaxin] Allergy Unknown Verified 09/02/18 07:38 ED Review of Systems ROS: Stated complaint: PAM Other details as noted in HPI Comment: All other systems reviewed and negative ED Past Medical Hx - Past Medical History Previous Medical History?: Yes Hx Hypertension: Yes Hx CVA: Yes (tia) Hx Heart Attack/AMI: Yes (04/2014 as per pt although pt had a neg cardiac cath here ) Hx Congestive Heart Failure: Yes Hx Diabetes: No Hx Seizures: Yes Hx Asthma: No Hx COPD: Yes Additional medical history: history of anxiety - Surgical History Past Surgical History?: Yes Additional Surgical History: Hysterectomy, back surgery - Social History Smoking Status: Current Every Day Smoker Substance Use Type: None - Medications Home Medications: Home Medications Medication Instructions Recorded Confirmed Last Taken Type Zolpidem [Ambien] 5 mg PO QHS PRN #10 tablet 11/13/18 10/14/19 10/13/19 Rx oxyCODONE /ACETAMINOPHEN [Percocet 1 tab PO Q6H PRN #12 tablet 06/11/18 05/12/19 05/11/19 Rx 5/325 mg] Pantoprazole [Protonix TAB] 40 mg PO QDAY #30 tablet 07/10/18 05/12/19 05/11/19 Rx Aspirin [Aspirin BABY CHEW TAB] 81 mg PO QDAY #30 tab.chew 09/04/18 05/12/19 05/11/19 Rx ALBUTEROL Inhaler (OR & NICU) 2 puff IH QID PRN #1 vial 05/15/19 Unknown Rx [Proair] Budesonide/Formoterol Fumarate 10.2 gm IH BID #1 hfa.aer.ad 05/15/19 Unknown Rx [Symbicort 160-4.5 Mcg Inhaler] Carvedilol [Coreg] 6.25 mg PO BID #60 tablet 05/15/19 Unknown Rx Furosemide [Lasix TAB] 40 mg PO QDAY #30 tablet 05/15/19 Unknown Rx Lisinopril [Zestril TAB] 5 mg PO QDAY #30 tablet 05/15/19 Unknown Rx Pantoprazole [Protonix TAB] 40 mg PO QDAY #30 tablet 05/15/19 Unknown Rx Spironolactone [Aldactone] 25 mg PO QDAY #30 tablet 05/15/19 Unknown Rx guaiFENesin ER [Mucinex ER] 600 mg PO BID #10 tablet 05/15/19 Unknown Rx predniSONE [Deltasone] 40 mg PO QDAY #5 tablet 05/15/19 Unknown Rx ALBUTEROL Inhaler (OR & NICU) 2 puff IH Q4HR PRN #1 inhalation 05/27/19 Unknown Rx [ProAir HFA Inhaler] Acetaminophen/Codeine [Tylenol 1 tab PO Q6H PRN #6 tab 05/27/19 Unknown Rx /Codeine # 3 tab] Azithromycin [Zithromax Z-BECK] 250 mg PO DAILY #6 tablet 05/27/19 Unknown Rx predniSONE [Deltasone] 20 mg PO DAILY #15 tablet 05/27/19 Unknown Rx ED Physical Exam - General Limitations: No Limitations General appearance: alert, in no apparent distress - Head Head exam: Present: atraumatic, normocephalic - Eye Eye exam: Present: normal appearance, PERRL, EOMI - ENT ENT exam: Present: mucous membranes moist - Neck Neck exam: Present: normal inspection, full ROM, other (no JVD no bruits noted). Absent: tenderness - Respiratory Respiratory exam: Present: normal lung sounds bilaterally. Absent: respiratory distress, wheezes, rales, rhonchi, chest wall tenderness, accessory muscle use - Cardiovascular Cardiovascular Exam: Present: regular rate, normal rhythm. Absent: systolic murmur, diastolic murmur, rubs, gallop - GI/Abdominal GI/Abdominal exam: Present: soft, normal bowel sounds - Extremities Exam Extremities exam: Present: normal inspection, normal capillary refill. Absent: tenderness, pedal edema, joint swelling, calf tenderness - Back Exam Back exam: Present: normal inspection - Neurological Exam Neurological exam: Present: alert, oriented X3, CN II-XII intact - Psychiatric Psychiatric exam: Present: normal affect, normal mood, anxious - Skin Skin exam: Present: warm, dry, intact, normal color. Absent: rash ED Course Vital Signs 05/29/19 05/29/19 05/29/19 18:34 19:36 21:49 Temperature 98.0 F Pulse Rate 74 109 H Respiratory 17 18 20 Rate Blood Pressure 156/86 144/75 [Right] O2 Sat by Pulse 94 93 95 Oximetry 05/29/19 22:00 Temperature 98.0 F Pulse Rate 109 H Respiratory 20 Rate Blood Pressure 144/75 [Right] O2 Sat by Pulse 95 Oximetry ED Medical Decision Making - Lab Data Result diagrams: 05/29/19 Unknown 05/29/19 Unknown - EKG Data EKG shows normal: sinus rhythm Rate: tachycardia - EKG Data When compared to previous EKG there are: no significant change Interpretation: no acute changes, other (EKG shows LBBB) - Radiology Data Radiology results: report reviewed [facility] [address] [place] [address] XRay Report Signed Patient: ISHAAN YOON MR#: [id number] : 1965 Acct:[id number] Age/Sex: 54 / F ADM Date: 05/29/19 Loc: ED Attending Dr: Ordering Physician: ED DOCMD Date of Service: 05/29/19 Procedure(s): XR chest 1V ap Accession Number(s): [id number] cc: ED DOC, Fluoro Time In Minutes: CHEST 1 VIEW 05/29/2019 6:09 PM INDICATION / CLINICAL INFORMATION: Chest Pain. COMPARISON: 05/27/19 FINDINGS: SUPPORT DEVICES: None. HEART / MEDIASTINUM: No significant abnormality. LUNGS / PLEURA: No significant pulmonary or pleural abnormality. No pn eumothorax. ADDITIONAL FINDINGS: No significant additional findings. IMPRESSION: 1. No acute findings. No change. Signer Name: Rachel Hanley MD Signed: 05/29/2019 6:34 PM Workstation Name: [id number] Transcribed By: DT Dictated By: Dawson Hanley MD Electronically Authenticated By: Dawson Hanley MD Signed Date/Time: 05/29/191833 DD/ 32 TD/TT: - Medical Decision Making 54-year-old female with known past medical history of hypertension, COPD and chest pain is recently had a thallium stress test in 05/13/2019 showing severe dilated cardiomyopathy with left ventricular dysfunction and ejection fraction of 29% the perfusion scan did not demonstrate a significant defect. Today she continues to have some issues with anxiety and chest pain. 2 troponins that were normal with normal with no changes in her serial EKGs ,no acute findings on chest x-ray EKG did show left bundle-branch block block but no significant findings in relation to Sgarbossa criteria. Ishaan speaks in full sentences and her oxygen saturation greater than 96% on room air, I discussed the need tofollow up with her police justice and primary care provider for further evaluation and treatment options. advised to return to emergency department should she feel her condition is worsening Critical care attestation.: If time is entered above; I have spent that time in minutes in the direct care of this critically ill patient, excluding procedure time. ED Disposition Clinical Impression: Dyspnea, Anxiousness, Bundle branch block, left Disposition: DC-01 TO HOME OR SELFCARE Is pt being admited?: No Does the pt Need Aspirin: No Condition: Stable Instructions: Heart Block (ED), Dyspnea (ED), Anxiety (ED) Referrals: [facility] [Provider Group] - 2-3 Days PRIMARY CARE, [Primary Care Provider] - 3-5 Days
[2019-05-29] MEDS ORDERED: MIDAZOLAM 2 MG/2 ML INJ IV ONE (21:45)
[2019-05-30 00:27] VITALS: BP 151/82
== END 2019-05-30 00:28 | disposition home or self-care (01) ==
LOC: ED 17:14
DX: I44.7 Left bundle-branch block, unspecified (principal); R06.02 Shortness of breath; F41.9 Anxiety disorder, unspecified; I11.0 Hypertensive heart disease with heart failure; I50.9 Heart failure, unspecified; J44.9 Chronic obstructive pulmonary disease, unspecified; F17.200 Nicotine dependence, unspecified, uncomplicated
CPT/HCPCS: 36415; 71045; 80048; 83880; 84484; 85025; 85379; 93005; 93010; 94640; 96374; 96375; 99285; J2060; J2250

== ENCOUNTER 2019-06-02 18:02 | Emergency (ER) | payer SELFPAY ==
[2019-06-02] MEDS ORDERED: ALBUTEROL 2.5 MG/3 ML NEBU IH ONE ×3 (18:17→19:07)
[2019-06-02] MEDS ORDERED: IPRATROPIUM 0.02% NEBU 2.5 ML IH ONE ×2 (18:17→18:20)
[2019-06-02] MEDS ORDERED: MAGNESIUM SULFATE 2 GM/50 ML BAG IV ONE (19:07)
[2019-06-02] MEDS ORDERED: ALPRAZolam 1 MG TAB PO ONE (19:08)
[2019-06-02 19:30] LABS: Basophils % (Auto) 0.3 % (0.0-1.8); Eosinophils # (Auto) 0.2 K/mm3 (0.0-0.4); Eosinophils % (Auto) 2.4 % (0.0-4.3); Hematocrit 41.8 % (30.3-42.9); Hemoglobin 14.3 gm/dl (10.1-14.3); Lymphocytes # (Auto) 1.9 K/mm3 (1.2-5.4); Lymphocytes % (Auto) 23.4 % (13.4-35.0); Mean Corpuscular HGB Conc 34 % (30-34); Mean Corpuscular Volume 95 fl (79-97); Monocytes # (Auto) 0.7 K/mm3 (0.0-0.8); Monocytes % (Auto) 8.7 % (0.0-7.3); Platelet Count 271 K/mm3 (140-440); Red Blood Count 4.39 M/mm3 (3.65-5.03); Red Cell Distribution Width 13.1 % (13.2-15.2)
--- NOTE | 2019-06-02 19:30 | Emergency Department Report ---
ED Shortness of Breath HPI - General Chief Complaint: Dyspnea/Respdistress Stated Complaint: CHEST PAIN Time Seen by Provider: 06/02/19 18:19 Source: EMS Mode of arrival: Stretcher Limitations: No Limitations - History of Present Illness Initial Comments: 54-year-old female with a past medical history of COPD without O2 dependence, hypertension, recently diagnosed dilated cardiomyopathy with the EF of 20-25%, and anxiety presents to the hospital with complaints of shortness of breath that started at 5 PM. Patient complains of dyspnea with wheeze. Cough productive clear sputum. Patient complains of chronic 3 pillow orthopnea times one month with PND. Patient complains of intermittent chest pressure associated with shortness of breath. No nausea, vomiting, or diaphoresis. No leg edema, calf tenderness, recent travel, history of PE/DVT reported. Pain is medical record reviewed and patient was admitted here May 16 into the . She had a normal MPI stress test. Since discharge patient has had several ER visits for same complaint. Patient has been treated for COPD and anxiety with recent ED visits. Patient admits to not filling any other meds that were recently prescribed for her hypertension and CHF that was diagnosed in apr because she cannot afford it and does not have insurance. She states the cost is $60. She has only been taking the prednisone and abuterol inhalers. She does not have a nebulizer. She denies previous intubations. States when she becomes short of breath it causes her to be anxious and she is afraid she is going to at home because of the heart failure. Pt not f/u with PMD or card due to lack of insurance. - Related Data Previous Rx's Medication Instructions Recorded Last Taken Type Zolpidem [Ambien] 5 mg PO QHS PRN #10 tablet 06/11/18 05/11/19 Rx oxyCODONE /ACETAMINOPHEN [Percocet 1 tab PO Q6H PRN #12 tablet 06/11/18 05/11/19 Rx 5/325 mg] Pantoprazole [Protonix TAB] 40 mg PO QDAY #30 tablet 07/10/18 05/11/19 Rx Aspirin [Aspirin BABY CHEW TAB] 81 mg PO QDAY #30 tab.chew 09/04/18 05/11/19 Rx ALBUTEROL Inhaler (OR & NICU) 2 puff IH QID PRN #1 vial 05/15/19 Unknown Rx [Proair] Budesonide/Formoterol Fumarate 10.2 gm IH BID #1 hfa.aer.ad 05/15/19 Unknown Rx [Symbicort 160-4.5 Mcg Inhaler] Carvedilol [Coreg] 6.25 mg PO BID #60 tablet 05/15/19 Unknown Rx Furosemide [Lasix TAB] 40 mg PO QDAY #30 tablet 05/15/19 Unknown Rx Lisinopril [Zestril TAB] 5 mg PO QDAY #30 tablet 05/15/19 Unknown Rx Pantoprazole [Protonix TAB] 40 mg PO QDAY #30 tablet 05/15/19 Unknown Rx Spironolactone [Aldactone] 25 mg PO QDAY #30 tablet 05/15/19 Unknown Rx guaiFENesin ER [Mucinex ER] 600 mg PO BID #10 tablet 05/15/19 Unknown Rx predniSONE [Deltasone] 40 mg PO QDAY #5 tablet 05/15/19 Unknown Rx ALBUTEROL Inhaler (OR & NICU) 2 puff IH Q4HR PRN #1 inhalation 05/27/19 Unknown Rx [ProAir HFA Inhaler] Acetaminophen/Codeine [Tylenol 1 tab PO Q6H PRN #6 tab 05/27/19 Unknown Rx /Codeine # 3 tab] Azithromycin [Zithromax Z-BECK] 250 mg PO DAILY #6 tablet 05/27/19 Unknown Rx predniSONE [Deltasone] 20 mg PO DAILY #15 tablet 05/27/19 Unknown Rx hydrOXYzine PAMOATE [Vistaril] 50 mg PO Q6HR PRN #30 capsule 06/03/19 Unknown Rx Allergies Allergy/AdvReac Type Severity Reaction Status Date / Time cyclobenzaprine HCl Allergy Severe Itching Verified 04/28/14 07:57 [From Flexeril] Fish Containing Products Allergy Anaphylaxis Verified 04/28/14 07:57 ibuprofen Allergy abd pain Verified 04/28/14 07:56 ketorolac tromethamine Allergy Headache Verified 04/28/14 07:56 [From Toradol] methocarbamol [From Robaxin] Allergy Unknown Verified 09/02/18 07:38 ED Review of Systems ROS: Stated complaint: CHEST PAIN Other details as noted in HPI Comment: All other systems reviewed and negative ED Past Medical Hx - Past Medical History Previous Medical History?: Yes Hx Hypertension: Yes Hx CVA: Yes (tia) Hx Heart Attack/AMI: Yes (04/2014 as per pt although pt had a neg cardiac cath here ) Hx Congestive Heart Failure: Yes Hx Diabetes: No Hx Seizures: Yes Hx Asthma: No Hx COPD: Yes Additional medical history: history of anxiety - Surgical History Past Surgical History?: Yes Additional Surgical History: Hysterectomy, back surgery - Social History Smoking Status: Unknown if ever smoked Substance Use Type: None - Medications Home Medications: Home Medications Medication Instructions Recorded Confirmed Last Taken Type Zolpidem [Ambien] 5 mg PO QHS PRN #10 tablet 06/11/18 05/12/19 05/11/19 Rx oxyCODONE /ACETAMINOPHEN [Percocet 1 tab PO Q6H PRN #12 tablet 06/11/18 05/12/19 05/11/19 Rx 5/325 mg] Pantoprazole [Protonix TAB] 40 mg PO QDAY #30 tablet 07/10/18 05/12/19 05/11/19 Rx Aspirin [Aspirin BABY CHEW TAB] 81 mg PO QDAY #30 tab.chew 09/04/18 05/12/19 05/11/19 Rx ALBUTEROL Inhaler (OR & NICU) 2 puff IH QID PRN #1 vial 05/15/19 Unknown Rx [Proair] Budesonide/Formoterol Fumarate 10.2 gm IH BID #1 hfa.aer.ad 05/15/19 Unknown Rx [Symbicort 160-4.5 Mcg Inhaler] Carvedilol [Coreg] 6.25 mg PO BID #60 tablet 05/15/19 Unknown Rx Furosemide [Lasix TAB] 40 mg PO QDAY #30 tablet 05/15/19 Unknown Rx Lisinopril [Zestril TAB] 5 mg PO QDAY #30 tablet 05/15/19 Unknown Rx Pantoprazole [Protonix TAB] 40 mg PO QDAY #30 tablet 05/15/19 Unknown Rx Spironolactone [Aldactone] 25 mg PO QDAY #30 tablet 05/15/19 Unknown Rx guaiFENesin ER [Mucinex ER] 600 mg PO BID #10 tablet 05/15/19 Unknown Rx predniSONE [Deltasone] 40 mg PO QDAY #5 tablet 05/15/19 Unknown Rx ALBUTEROL Inhaler (OR & NICU) 2 puff IH Q4HR PRN #1 inhalation 05/27/19 Unknown Rx [ProAir HFA Inhaler] Acetaminophen/Codeine [Tylenol 1 tab PO Q6H PRN #6 tab 05/27/19 Unknown Rx /Codeine # 3 tab] Azithromycin [Zithromax Z-BECK] 250 mg PO DAILY #6 tablet 05/27/19 Unknown Rx predniSONE [Deltasone] 20 mg PO DAILY #15 tablet 05/27/19 Unknown Rx hydrOXYzine PAMOATE [Vistaril] 50 mg PO Q6HR PRN #30 capsule 06/03/19 Unknown Rx ED Physical Exam - General Limitations: No Limitations - Other Other exam information: General: No acute distress Head: Atraumatic Eyes: normal appearance ENT: Moist mucous membranes Neck: Normal appearance, no midline tenderness Chest: Bilateral wheezing, no respiratory distress or accessory muscle uses. Wheezing persists despite albuterol in route and upon arrival. CV: Regular rate and rhythm Abdomen: Soft, normal bowel sounds, nontender, nondistended, no rebound or guarding Back: Normal inspection Extremity: Normal inspection infection, full range of motion, no calf tenderness or leg edema Neuro: Alert O x 3, no facial asymmetry, speech clear, no gross motor sensory deficit Psych: Appropriate behavior Skin: No rash ED Course Vital Signs 06/02/19 06/02/19 06/02/19 18:18 18:19 18:30 Temperature 98.0 F Pulse Rate 124 H 100 H Pulse Rate [ Anterior Bilateral Throughout] Respiratory 24 32 H Rate Respiratory Rate [Anterior Bilateral Throughout] Blood Pressure 165/93 Blood Pressure [Left] O2 Sat by Pulse 97 94 99 Oximetry 06/02/19 06/02/19 06/02/19 18:36 18:46 19:00 Temperature Pulse Rate 100 H Pulse Rate [ 102 H Anterior Bilateral Throughout] Respiratory 24 10 L Rate Respiratory 24 Rate [Anterior Bilateral Throughout] Blood Pressure 123/82 Blood Pressure [Left] O2 Sat by Pulse 94 95 Oximetry 06/02/19 06/02/19 06/02/19 19:08 19:56 20:01 Temperature 98.2 F Pulse Rate 94 H 102 H Pulse Rate [ 93 H Anterior Bilateral Throughout] Respiratory 18 13 Rate Respiratory 22 Rate [Anterior Bilateral Throughout] Blood Pressure 137/100 Blood Pressure 121/94 [Left] O2 Sat by Pulse 97 98 Oximetry 06/02/19 06/02/1919 21:01 22:01 23:00 Temperature Pulse Rate 101 H 97 H 100 H Pulse Rate [ Anterior Bilateral Throughout] Respiratory 13 26 H 40 H Rate Respiratory Rate [Anterior Bilateral Throughout] Blood Pressure 103/77 132/114 120/99 Blood Pressure [Left] O2 Sat by Pulse 95 97 97 Oximetry 06/03/19 00:16 Temperature 98.1 F Pulse Rate 88 Pulse Rate [ Anterior Bilateral Throughout] Respiratory 16 Rate Respiratory Rate [Anterior Bilateral Throughout] Blood Pressure Blood Pressure 142/62 [Left] O2 Sat by Pulse 100 Oximetry ED Medical Decision Making - Lab Data Result diagrams: 06/02/19 19:14 06/02/19 19:14 Lab Results 06/02/19 06/02/19 06/02/19 Range/Units 19:14 19:14 19:14 WBC 8.2 (4.5-11.0) K/mm3 RBC 4.39 (3.65-5.03) M/mm3 Hgb 14.3 (10.1-14.3) gm/dl Hct 41.8 (30.3-42.9) % MCV 95 (79-97) fl MCH 33 H (28-32) pg MCHC 34 (30-34) % RDW 13.1 L (13.2-15.2) % Plt Count 271 (140-440) K/mm3 Lymph % (Auto) 23.4 (13.4-35.0) % Ashe % (Auto) 8.7 H (0.0-7.3) % Eos % (Auto) 2.4 (0.0-4.3) % Baso % (Auto) 0.3 (0.0-1.8) % Lymph # 1.9 (1.2-5.4) K/mm3 Ashe # 0.7 (0.0-0.8) K/mm3 Eos # 0.2 (0.0-0.4) K/mm3 Baso # 0.0 (0.0-0.1) K/mm3 Seg Neutrophils % 65.2 (40.0-70.0) % Seg Neutrophils # 5.4 (1.8-7.7) K/mm3 D-Dimer 181.29 (0-234) ng/mlDDU POC ABG pH (7.35-7.45) POC ABG pCO2 (35-45) POC ABG pO2 (80-105) POC ABG HCO3 (22-26 mml/L) POC ABG Total CO2 (23-27mmol/L) POC ABG O2 Sat POC ABG Base Excess ((-2) - (+3)mmol/L) FiO2 % Sodium 136 L (137-145) mmol/L Potassium 3.8 (3.6-5.0) mmol/L Chloride 100.7 (98-107) mmol/L Carbon Dioxide 20 L (22-30) mmol/L Anion Gap 19 mmol/L BUN 23 H (7-17) mg/dL Creatinine 1.0 (0.7-1.2) mg/dL Estimated GFR 58 ml/min BUN/Creatinine Ratio 23 % Glucose 115 H (65-100) mg/dL Calcium 8.7 (8.4-10.2) mg/dL Troponin T < 0.010 (0.00-0.029) ng/mL NT-Pro-B Natriuret Pep 9864 H (0-900) pg/mL 06/02/19 06/02/19 Range/Units 22:10 23:41 WBC (4.5-11.0) K/mm3 RBC (3.65-5.03) M/mm3 Hgb (10.1-14.3) gm/dl Hct (30.3-42.9) % MCV (79-97) fl MCH (28-32) pg MCHC (30-34) % RDW (13.2-15.2) % Plt Count (140-440) K/mm3 Lymph % (Auto) (13.4-35.0) % Ashe % (Auto) (0.0-7.3) % Eos % (Auto) (0.0-4.3) % Baso % (Auto) (0.0-1.8) % Lymph # (1.2-5.4) K/mm3 Ashe # (0.0-0.8) K/mm3 Eos # (0.0-0.4) K/mm3 Baso # (0.0-0.1) K/mm3 Seg Neutrophils % (40.0-70.0) % Seg Neutrophils # (1.8-7.7) K/mm3 D-Dimer (0-234) ng/mlDDU POC ABG pH 7.436 (7.35-7.45) POC ABG pCO2 34.3 L (35-45) POC ABG pO2 68 L (80-105) POC ABG HCO3 23.1 (22-26 mml/L) POC ABG Total CO2 24 (23-27mmol/L) POC ABG O2 Sat 94 POC ABG Base Excess -1 ((-2) - (+3)mmol/L) FiO2 21 % Sodium (137-145) mmol/L Potassium (3.6-5.0) mmol/L Chloride (98-107) mmol/L Carbon Dioxide (22-30) mmol/L Anion Gap mmol/L BUN (7-17) mg/dL Creatinine (0.7-1.2) mg/dL Estimated GFR ml/min BUN/Creatinine Ratio % Glucose (65-100) mg/dL Calcium (8.4-10.2) mg/dL Troponin T < 0.010 (0.00-0.029) ng/mL NT-Pro-B Natriuret Pep (0-900) pg/mL - EKG Data -: EKG Interpreted by Co EKG shows normal: sinus rhythm - Radiology Data Radiology results: report reviewed CHEST 1 VIEW INDICATION: MAIN: sob c/o CP pt has extensive respiratory hx. Pt had nitro 0.4 and ASA 324 @ 17:44. And Nitro 0.4 17:53. Albuterol tx Neb. COMPARISON: 05/29/2019 FINDINGS: Support devices: None Heart: Normal and unchanged Lungs/Pleura: Chronic appearing interstitial disease, unchanged. No superimposed acute disease. IMPRESSION: 1. No significant change. - Medical Decision Making neg ddimer with low pretest prob trop neg x2 recent neg stress test repeated recent ed visits with med noncompliance. pt requests admission each time no medical reason to admit at this time. suspect anxiety. f/u encouraged, vistaril will be prescribed. - Differential Diagnosis copd, asthma, chf, mi, unstable angina, anxiety, pe Critical Care Time: No Critical care attestation.: If time is entered above; I have spent that time in minutes in the direct care of this critically ill patient, excluding procedure time. ED Disposition Clinical Impression: Anxiety, COPD (chronic obstructive pulmonary disease) Disposition: TO HOME OR SELFCARE Is pt being admited?: No Does the pt Need Aspirin: No Condition: Stable Instructions: Chronic Obstructive Pulmonary Disease (ED), Anxiety (ED) Additional Instructions: Take the medication as prescribed. Follow-up with your doctor or doctor/clinic provided. Return if symptoms worsen as indicated by your discharge in structions. Prescriptions: hydrOXYzine PAMOATE [Vistaril] 50 mg PO Q6HR PRN #30 capsule PRN Reason: Anxiety Referrals: PRIMARY CARE, [Primary Care Provider] - 3-5 Days [facility] [Provider Group] - 3-5 Days
[2019-06-02 19:51] LABS: BUN/Creatinine Ratio 23; Blood Urea Nitrogen 23 mg/dL (7-17); Calcium 8.7 mg/dL (8.4-10.2); Hemolysis Index 59
--- NOTE | 2019-06-02 20:19 | XRay Report ---
CHEST 1 VIEW INDICATION: MAIN: sob c/o CP pt has extensive respiratory hx. Pt had nitro 0.4 and ASA 324 @ 17:44. And Nitro 0. 4 17:53. Albuterol tx Neb. COMPARISON: 05/29/2019 FINDINGS: Support devices: None Heart: Normal and unchanged Lungs/Pleura: Chronic appearing interstitial disease, unchanged. No superimposed acute disease. IMPRESSION: 1. No significant change. Signer Name: Sy Yeager MD Signed: 06/02/2019 8:14 PM Workstation Name: [id number]
[2019-06-02] MEDS ORDERED: LORazepam 2 MG/ML VIAL IV ONE (22:17)
[2019-06-02] MEDS ORDERED: diphenhydrAMINE 50 MG/ML VIAL IV ONE (23:11)
[2019-06-03 00:17] VITALS: BP 142/62
== END 2019-06-03 01:28 | disposition home or self-care (01) ==
LOC: ED 18:02
DX: J44.9 Chronic obstructive pulmonary disease, unspecified (principal); F41.9 Anxiety disorder, unspecified; I11.0 Hypertensive heart disease with heart failure; I50.9 Heart failure, unspecified
CPT/HCPCS: 36415; 71045; 80048; 82803; 83880; 84484; 85025; 85379; 93005; 93010; 94640; 94760; 96365; 96375; 99285; J1200; J2060; J3475; 94644

== ENCOUNTER 2019-06-08 10:17 | Emergency (ER) | payer SELFPAY ==
--- NOTE | 2019-06-08 10:33 | Emergency Department Report ---
ED Shortness of Breath HPI - General Stated Complaint: CHEST PAIN Time Seen by Provider: 06/08/19 10:22 - History of Present Illness Initial Comments: 54-year-old female smoker with a known past medical history of COPD, CHF, CAD, hypertension and has recently undergone a thallium stress test which was found to be normal and echo with an ejection fraction of 20% presents emergency department for evaluation of continued shortness of shortness of breath with dull chest pressure. She's been seen time in the past few weeks for the same symptoms but despite reported treatment her symptoms persist. She reports no fever, chills, sweats, no hemoptysis no hematemesis nor hematochezia has had occasional cough with some wheezing sensation and what she feels is weight gain. She states taking the medication as prescribed with no complications. EMS was seen reports over the last 3 days with shortness of breath has been getting worse. In route they had provided her with 5 mg of albuterol which helped to ease desist the symptoms mildly and nitroglycerin 2 which had relatively no effect. MD Complaint: shortness of breath Severity: moderate Known History Of: COPD, congestive heart failure Associated Symptoms: chest pain Treatments Prior to Arrival: oxygen, bronchodilator, nitroglycerin - Related Data Home Oxygen Therapy: No Previous Rx's Medication Instructions Recorded Last Taken Type Zolpidem [Ambien] 5 mg PO QHS PRN #10 tablet 06/11/18 05/11/19 Rx oxyCODONE /ACETAMINOPHEN [Percocet 1 tab PO Q6H PRN #12 tablet 06/11/18 05/11/19 Rx 5/325 mg] Pantoprazole [Protonix TAB] 40 mg PO QDAY #30 tablet 07/10/18 05/11/19 Rx Aspirin [Aspirin BABY CHEW TAB] 81 mg PO QDAY #30 tab.chew 09/04/18 05/11/19 Rx ALBUTEROL Inhaler (OR & NICU) 2 puff IH QID PRN #1 vial 05/15/19 Unknown Rx [Proair] Lisinopril [Zestril TAB] 5 mg PO QDAY #30 tablet 05/15/19 Unknown Rx Pantoprazole [Protonix TAB] 40 mg PO QDAY #30 tablet 05/15/19 Unknown Rx Spironolactone [Aldactone] 25 mg PO QDAY #30 tablet 05/15/19 Unknown Rx guaiFENesin ER [Mucinex ER] 600 mg PO BID #10 tablet 05/15/19 Unknown Rx predniSONE [Deltasone] 40 mg PO QDAY #5 tablet 05/15/19 Unknown Rx Acetaminophen/Codeine [Tylenol 1 tab PO Q6H PRN #6 tab 05/27/19 Unknown Rx /Codeine # 3 tab] Azithromycin [Zithromax Z-BECK] 250 mg PO DAILY #6 tablet 05/27/19 Unknown Rx predniSONE [Deltasone] 20 mg PO DAILY #15 tablet 05/27/19 Unknown Rx hydrOXYzine PAMOATE [Vistaril] 50 mg PO Q6HR PRN #30 capsule 06/03/19 Unknown Rx ALBUTEROL Inhaler (OR & NICU) 2 puff IH Q4HR PRN #1 inhalation 06/08/19 Unknown Rx [ProAir HFA Inhaler] Budesonide/Formoterol Fumarate 10.2 gm IH BID #1 hfa.aer.ad 06/08/19 Unknown Rx [Symbicort 160-4.5 Mcg Inhaler] Carvedilol [Coreg] 6.25 mg PO BID #60 tablet 06/08/19 Unknown Rx Furosemide [Lasix TAB] 40 mg PO QDAY #30 tablet 06/08/19 Unknown Rx Allergies Allergy/AdvReac Type Severity Reaction Status Date / Time cyclobenzaprine HCl Allergy Severe Itching Verified 04/28/14 07:57 [From Flexeril] Fish Containing Products Allergy Anaphylaxis Verified 04/28/14 07:57 ibuprofen Allergy abd pain Verified 04/28/14 07:56 ketorolac tromethamine Allergy Headache Verified 04/28/14 07:56 [From Toradol] methocarbamol [From Robaxin] Allergy Unknown Verified 09/02/18 07:38 ED Review of Systems ROS: Stated complaint: CHEST PAIN Other details as noted in HPI Comment: All other systems reviewed and negative ED Past Medical Hx - Past Medical History Hx Hypertension: Yes Hx CVA: Yes (tia) Hx Heart Attack/AMI: Yes (04/2014 as per pt although pt had a neg cardiac cath here ) Hx Congestive Heart Failure: Yes Hx Diabetes: No Hx Seizures: Yes Hx Asthma: No Hx COPD: Yes Additional medical history: history of anxiety - Surgical History Additional Surgical History: Hysterectomy, back surgery - Social History Smoking Status: Unknown if ever smoked Substance Use Type: None - Medications Home Medications: Home Medications Medication Instructions Recorded Confirmed Last Taken Type Zolpidem [Ambien] 5 mg PO QHS PRN #10 tablet 06/11/18 05/12/19 05/11/19 Rx oxyCODONE /ACETAMINOPHEN [Percocet 1 tab PO Q6H PRN #12 tablet 06/11/18 05/12/19 05/11/19 Rx 5/325 mg] Pantoprazole [Protonix TAB] 40 mg PO QDAY #30 tablet 07/10/18 05/12/19 05/11/19 Rx Aspirin [Aspirin BABY CHEW TAB] 81 mg PO QDAY #30 tab.chew 09/04/18 05/12/19 05/11/19 Rx ALBUTEROL Inhaler (OR & NICU) 2 puff IH QID PRN #1 vial 05/15/19 Unknown Rx [Proair] Lisinopril [Zestril TAB] 5 mg PO QDAY #30 tablet 05/15/19 Unknown Rx Pantoprazole [Protonix TAB] 40 mg PO QDAY #30 tablet 05/15/19 Unknown Rx Spironolactone [Aldactone] 25 mg PO QDAY #30 tablet 05/15/19 Unknown Rx guaiFENesin ER [Mucinex ER] 600 mg PO BID #10 tablet 05/15/19 Unknown Rx predniSONE [Deltasone] 40 mg PO QDAY #5 tablet 05/15/19 Unknown Rx Acetaminophen/Codeine [Tylenol 1 tab PO Q6H PRN #6 tab 05/27/19 Unknown Rx /Codeine # 3 tab] Azithromycin [Zithromax Z-BECK] 250 mg PO DAILY #6 tablet 05/27/19 Unknown Rx predniSONE [Deltasone] 20 mg PO DAILY #15 tablet 05/27/19 Unknown Rx hydrOXYzine PAMOATE [Vistaril] 50 mg PO Q6HR PRN #30 capsule 06/03/19 Unknown Rx ALBUTEROL Inhaler (OR & NICU) 2 puff IH Q4HR PRN #1 inhalation 06/08/19 Unknown Rx [ProAir HFA Inhaler] Budesonide/Formoterol Fumarate 10.2 gm IH BID #1 hfa.aer.ad 06/08/19 Unknown Rx [Symbicort 160-4.5 Mcg Inhaler] Carvedilol [Coreg] 6.25 mg PO BID #60 tablet 06/08/19 Unknown Rx Furosemide [Lasix TAB] 40 mg PO QDAY #30 tablet 06/08/19 Unknown Rx ED Physical Exam - General General appearance: alert, in no apparent distress - Head Head exam: Present: atraumatic, normocephalic - Eye Eye exam: Present: normal appearance, PERRL, EOMI - ENT ENT exam: Present: mucous membranes moist - Neck Neck exam: Present: normal inspection - Respiratory Respiratory exam: Present: normal lung sounds bilaterally, wheezes, decreased breath sounds. Absent: respiratory distress - Cardiovascular Cardiovascular Exam: Present: regular rate, normal rhythm. Absent: systolic murmur, diastolic murmur, rubs, gallop - GI/Abdominal GI/Abdominal exam: Present: soft, normal bowel sounds - Extremities Exam Extremities exam: Present: normal inspection - Back Exam Back exam: Present: normal inspection - Neurological Exam Neurological exam: Present: alert, oriented X3 - Psychiatric Psychiatric exam: Present: normal affect, normal mood - Skin Skin exam: Present: warm, dry, intact, normal color. Absent: rash ED Course Vital Signs 06/08/19 06/08/19 06/08/19 10:34 10:43 11:16 Temperature 97.8 F Pulse Rate 98 H 102 H 103 H Respiratory 28 H 28 H 37 H Rate Blood Pressure 136/93 O2 Sat by Pulse 94 92 95 Oximetry 06/08/19 06/08/19 06/08/19 11:30 12:00 12:34 Temperature Pulse Rate 99 H 102 H 114 H Respiratory 22 14 21 Rate Blood Pressure 154/101 120/91 120/91 O2 Sat by Pulse 94 95 Oximetry 06/08/19 06/08/19 06/08/19 13:00 13:30 14:00 Temperature Pulse Rate 97 H 96 H 97 H Respiratory 15 26 H 30 H Rate Blood Pressure 120/91 120/91 129/99 O2 Sat by Pulse 93 97 94 Oximetry ED Medical Decision Making - Lab Data Result diagrams: 06/08/19 10:34 06/08/19 10:34 - Radiology Data Radiology results: report reviewed [address] [address] Cat Scan Report Signed Patient: ISHAAN YOON MR#: [id number] : 1965 Acct:[id number] Age/Sex: 54 / F ADM Date: 06/08/19 Loc: ED Attending Dr: Ordering Physician: GILLIAN CALI Date of Service: 06/08/19 Procedure(s): CT angio chest Accession Number(s): [id number] cc: GILLIAN CALI CTA CHEST WITH IV CONTRAST INDICATION: Acute onset chest pain with dyspnea. TECHNIQUE: Axial CT images were obtained through the chest after injection of 100 mL IV contrast. 3 plane MIP reconstructions were produced. All CT scans at this location are performed using CT dose reduction for ALARA by means of automated exposure control. COMPARISON: None available. FINDINGS: PULMONARY ARTERIES: No pulmonary emboli. AORTA AND ARTERIES: No acute abnormality. MEDIASTINUM: No mass, lymphadenopathy or other significant abnormality. The heart is normal in size without a pericardial effusion. The trachea and main bronchi are patent and normal in caliber. LUNGS: No suspicious consolidation, nodule or mass. No pneumothorax or pleural effusion. ADDITIONAL FINDINGS: None. UPPER ABDOMEN: No acute findings. BONES: No significant osseous abnormality. IMPRESSION: 1. No CT evidence for pulmonary embolism. 2. No acute findings. Signer Name: Dariusz Champagne MD Signed: 06/08/2019 12:56 PM Workstation Name: [id number] Transcribed By: BC Dictated By: Dariusz Champagne MD Electronically Authenticated By: Dariusz Champagne MD Signed Date/Time: 06/08/19 125 DD/ 1255 TD/TT: [address] [address] XRay Report Signed Patient: ISHAAN YOON MR#: [id number] : 1965 Acct:[id number] Age/Sex: 54 / F ADM Date: 06/08/19 Loc: ED Attending Dr: Ordering Physician: GILLIAN CALI Date of Service: 06/08/19 Procedure(s): XR chest 1V ap Accession Number(s): [id number] cc: GILLIAN CALI Fluoro Time In Minutes: CHEST 1 VIEW INDICATION / CLINICAL INFORMATION: Chest Pain. COMPARISON: None available. FINDINGS: SUPPORT DEVICES: None. HEART / MEDIASTINUM: No significant abnormality. LUNGS / PLEURA: No significant pulmonary or pleural abnormality. No pneumothorax. ADDITIONAL FINDINGS: No significant additional findings. IMPRESSION: 1. No acute findings. Signer Name: Dariusz Champagne MD Signed: 06/08/2019 11:08 AM Workstation Name: [id number] Transcribed By: JOSÉ MIGUEL Dictated By: Dariusz Champagne MD Electronically Authenticated By: Dariusz Champagne MD Signed Date/Time: 06/08/191107 DD/ 07 TD/TT: - Medical Decision Making 54-year-old female smoker with a known history of CHF and COPD. Presents emergency department again for evaluation of shortness of breath she has been seen in the emergency department multiple times since April 2019April today with negative chest pain/ evaluations. Today workup yielded a negative CT scan as well as chest x-ray and laboratory findings was only supported a known history of CHF. Patient had a significant amount of anxiety that Inc. her symptoms improved after receiving an anxiolytic. Discussed with family in great detail the need to be compliant with medication she admitted to not taking any prescribed home medications that were previously provided to her. Only medication she filled was the Vistaril which she is requesting something stronger. Currently there is no evidence of any emergent medical condition but there is a need for appropriate follow-up and management of her current disease processes - Differential Diagnosis anxiety, acute on chronic CHF, sleep apnea, Critical care attestation.: If time is entered above; I have spent that time in minutes in the direct care of this critically ill patient, excluding procedure time. ED Disposition Clinical Impression: Chest pain, Dyspnea, COPD (chronic obstructive pulmonary disease), Anxiousness Disposition: -01 TO HOME OR SELFCARE Is pt being admited?: No Does the pt Need Aspirin: No Condition: Stable Instructions: Chest Pain (ED), Chronic Obstructive Pulmonary Disease (ED) Prescriptions: Carvedilol [Coreg] 6.25 mg PO BID #60 tablet Furosemide [Lasix TAB] 40 mg PO QDAY #30 tablet ALBUTEROL Inhaler (OR & NICU) [ProAir HFA Inhaler] 2 puff IH Q4HR PRN #1 inhalation PRN Reason: Shortness Of Breath Budesonide/Formoterol Fumarate [Symbicort 160-4.5 Mcg Inhaler] 10.2 gm IH BID #1 hfa.aer.ad Referrals: PRIMARY CARE, [Primary Care Provider] - 2-3 Days [facility] [Provider Group] - 3-5 Days
[2019-06-08] MEDS ORDERED: LORazepam 2 MG/ML VIAL IV ONE (10:40)
[2019-06-08 11:02] LABS: Basophils % (Auto) 0.6 % (0.0-1.8); Eosinophils # (Auto) 0.2 K/mm3 (0.0-0.4); Eosinophils % (Auto) 2.4 % (0.0-4.3); Hematocrit 38.3 % (30.3-42.9); Hemoglobin 12.9 gm/dl (10.1-14.3); Lymphocytes # (Auto) 1.5 K/mm3 (1.2-5.4); Lymphocytes % (Auto) 21.6 % (13.4-35.0); Mean Corpuscular HGB Conc 34 % (30-34); Mean Corpuscular Volume 94 fl (79-97); Monocytes # (Auto) 0.5 K/mm3 (0.0-0.8); Monocytes % (Auto) 6.9 % (0.0-7.3); Platelet Count 266 K/mm3 (140-440); Red Blood Count 4.07 M/mm3 (3.65-5.03); Red Cell Distribution Width 13.5 % (13.2-15.2)
--- NOTE | 2019-06-08 11:13 | XRay Report ---
CHEST 1 VIEW INDICATION / CLINICAL INFORMATION: Chest Pain. COMPARISON: None available. FINDINGS: SUPPORT DEVICES: None. HEART / MEDIASTINUM: No significant abnormality. LUNGS / PLEURA: No significant pulmonary or pleural abnormality. No pneumothorax. ADDITIONAL FINDINGS: No significant additional findings. IMPRESSION: 1. No acute findings. Signer Name: Dariusz Champagne MD Signed: 06/08/2019 11:08 AM Workstation Name: [id number]
[2019-06-08 11:15] LABS: INR 0.91 (0.87-1.13)
[2019-06-08 11:17] LABS: Alanine Aminotransferase 26 units/L (7-56); Albumin 4.6 g/dL (3.9-5); BUN/Creatinine Ratio 18; Blood Urea Nitrogen 18 mg/dL (7-17); Calcium 9.2 mg/dL (8.4-10.2); Hemolysis Index 8
[2019-06-08] MEDS ORDERED: MORPHINE 2 MG/1 ML INJ IV STA (11:19)
[2019-06-08 12:56] LABS: Amphetamine Screen,Urine PRESUMPTIVE NEGATIVE; Benzodiazepines Screen,Urine PRESUMPTIVE NEGATIVE; Cannabinoid Screen,Urine PRESUMPTIVE NEGATIVE; Cocaine Screen,Urine PRESUMPTIVE NEGATIVE; Methadone Screen,Urine PRESUMPTIVE NEGATIVE; Opiate Screen,Urine PRESUMPTIVE NEGATIVE
--- NOTE | 2019-06-08 13:01 | Cat Scan Report ---
CTA CHEST WITH IV CONTRAST INDICATION: Acute onset chest pain with dyspnea. TECHNIQUE: Axial CT images were obtained through the chest after injection of 100 mL IV contrast. 3 plane MIP re constructions were produced. All CT scans at this location are performed using CT dose reduction for ALARA by means of automated exposure control. COMPARISON: None available. FINDINGS: PULMONARY ARTERIES: No pulmonary emboli. AORTA AND ARTERIES: No acute abnormality. MEDIASTINUM: No mass, lymphadenopathy or other significant abnormality. The heart is normal in size w ithout a pericardial effusion. The trachea and main bronchi are patent and normal in caliber. LUNGS: No suspicious consolidation, nodule or mass. No pneumothorax or pleural effusion. ADDITIONAL FINDINGS: None. UPPER ABDOMEN: No acute findings. BONES: No significant osseous abnormality. IMPRESSION: 1. No CT evidence for pulmonary embolism. 2. No acute findings. Signer Name: Dariusz Champagne MD Signed: 06/08/2019 12:56 PM Workstation Name: [id number]
[2019-06-08] MEDS ORDERED: diphenhydrAMINE 50 MG/ML VIAL IV STA (13:49)
--- NOTE | 2019-06-08 14:36 | Emergency Department Report ---
ED Shortness of Breath HPI - General Chief Complaint: Chest Pain Stated Complaint: CHEST PAIN Time Seen by Provider: 06/08/19 10:22 Source: patient, EMS Mode of arrival: Stretcher Limitations: No Limitations - History of Present Illness MD Complaint: shortness of breath -: Gradual Severity: moderate Consistency: constant Improves With: nothing Worsens With: nothing Known History Of: COPD, congestive heart failure Associated Symptoms: chest pain Treatments Prior to Arrival: oxygen, bronchodilator, nitroglycerin - Related Data Home Oxygen Therapy: No Previous Rx's Medication Instructions Recorded Last Taken Type Zolpidem [Ambien] 5 mg PO QHS PRN #10 tablet 06/11/18 05/11/19 Rx oxyCODONE /ACETAMINOPHEN [Percocet 1 tab PO Q6H PRN #12 tablet 06/11/18 05/11/19 Rx 5/325 mg] Pantoprazole [Protonix TAB] 40 mg PO QDAY #30 tablet 07/10/18 05/11/19 Rx Aspirin [Aspirin BABY CHEW TAB] 81 mg PO QDAY #30 tab.chew 09/04/18 05/11/19 Rx ALBUTEROL Inhaler (OR & NICU) 2 puff IH QID PRN #1 vial 05/15/19 Unknown Rx [Proair] Budesonide/Formoterol Fumarate 10.2 gm IH BID #1 hfa.aer.ad 05/15/19 Unknown Rx [Symbicort 160-4.5 Mcg Inhaler] Carvedilol [Coreg] 6.25 mg PO BID #60 tablet 05/15/19 Unknown Rx Furosemide [Lasix TAB] 40 mg PO QDAY #30 tablet 05/15/19 Unknown Rx Lisinopril [Zestril TAB] 5 mg PO QDAY #30 tablet 05/15/19 Unknown Rx Pantoprazole [Protonix TAB] 40 mg PO QDAY #30 tablet 05/15/19 Unknown Rx Spironolactone [Aldactone] 25 mg PO QDAY #30 tablet 05/15/19 Unknown Rx guaiFENesin ER [Mucinex ER] 600 mg PO BID #10 tablet 05/15/19 Unknown Rx predniSONE [Deltasone] 40 mg PO QDAY #5 tablet 05/15/19 Unknown Rx ALBUTEROL Inhaler (OR & NICU) 2 puff IH Q4HR PRN #1 inhalation 05/27/19 Unknown Rx [ProAir HFA Inhaler] Acetaminophen/Codeine [Tylenol 1 tab PO Q6H PRN #6 tab 05/27/19 Unknown Rx /Codeine # 3 tab] Azithromycin [Zithromax Z-BECK] 250 mg PO DAILY #6 tablet 05/27/19 Unknown Rx predniSONE [Deltasone] 20 mg PO DAILY #15 tablet 05/27/19 Unknown Rx hydrOXYzine PAMOATE [Vistaril] 50 mg PO Q6HR PRN #30 capsule 06/03/19 Unknown Rx Allergies Allergy/AdvReac Type Severity Reaction Status Date / Time cyclobenzaprine HCl Allergy Severe Itching Verified 04/28/14 07:57 [From Flexeril] Fish Containing Products Allergy Anaphylaxis Verified 04/28/14 07:57 ibuprofen Allergy abd pain Verified 04/28/14 07:56 ketorolac tromethamine Allergy Headache Verified 04/28/14 07:56 [From Toradol] methocarbamol [From Robaxin] Allergy Unknown Verified 09/02/18 07:38 ED Review of Systems ROS: Stated complaint: CHEST PAIN Other details as noted in HPI Comment: All other systems reviewed and negative ED Past Medical Hx - Past Medical History Hx Hypertension: Yes Hx CVA: Yes (tia) Hx Heart Attack/AMI: Yes (04/2014 as per pt although pt had a neg cardiac cath here ) Hx Congestive Heart Failure: Yes Hx Diabetes: No Hx Seizures: Yes Hx Asthma: No Hx COPD: Yes Additional medical history: history of anxiety - Surgical History Additional Surgical History: Hysterectomy, back surgery - Social History Smoking Status: Unknown if ever smoked Substance Use Type: None - Medications Home Medications: Home Medications Medication Instructions Recorded Confirmed Last Taken Type Zolpidem [Ambien] 5 mg PO QHS PRN #10 tablet 06/11/18 05/12/19 05/11/19 Rx oxyCODONE /ACETAMINOPHEN [Percocet 1 tab PO Q6H PRN #12 tablet 06/11/18 05/12/19 05/11/19 Rx 5/325 mg] Pantoprazole [Protonix TAB] 40 mg PO QDAY #30 tablet 07/10/18 05/12/19 05/11/19 Rx Aspirin [Aspirin BABY CHEW TAB] 81 mg PO QDAY #30 tab.chew 09/04/18 05/12/19 05/11/19 Rx ALBUTEROL Inhaler (OR & NICU) 2 puff IH QID PRN #1 vial 05/15/19 Unknown Rx [Proair] Budesonide/Formoterol Fumarate 10.2 gm IH BID #1 hfa.aer.ad 05/15/19 Unknown Rx [Symbicort 160-4.5 Mcg Inhaler] Carvedilol [Coreg] 6.25 mg PO BID #60 tablet 05/15/19 Unknown Rx Furosemide [Lasix TAB] 40 mg PO QDAY #30 tablet 05/15/19 Unknown Rx Lisinopril [Zestril TAB] 5 mg PO QDAY #30 tablet 05/15/19 Unknown Rx Pantoprazole [Protonix TAB] 40 mg PO QDAY #30 tablet 05/15/19 Unknown Rx Spironolactone [Aldactone] 25 mg PO QDAY #30 tablet 05/15/19 Unknown Rx guaiFENesin ER [Mucinex ER] 600 mg PO BID #10 tablet 05/15/19 Unknown Rx predniSONE [Deltasone] 40 mg PO QDAY #5 tablet 05/15/19 Unknown Rx ALBUTEROL Inhaler (OR & NICU) 2 puff IH Q4HR PRN #1 inhalation 05/27/19 Unknown Rx [ProAir HFA Inhaler] Acetaminophen/Codeine [Tylenol 1 tab PO Q6H PRN #6 tab 05/27/19 Unknown Rx /Codeine # 3 tab] Azithromycin [Zithromax Z-BECK] 250 mg PO DAILY #6 tablet 05/27/19 Unknown Rx predniSONE [Deltasone] 20 mg PO DAILY #15 tablet 05/27/19 Unknown Rx hydrOXYzine PAMOATE [Vistaril] 50 mg PO Q6HR PRN #30 capsule 06/03/19 Unknown Rx ED Physical Exam - General Limitations: No Limitations General appearance: alert, in no apparent distress ED Course Vital Signs 06/08/19 06/08/19 06/08/19 10:34 10:43 11:16 Temperature 97.8 F Pulse Rate 98 H 102 H 103 H Respiratory 28 H 28 H 37 H Rate Blood Pressure 136/93 O2 Sat by Pulse 94 92 95 Oximetry 06/08/19 06/08/19 06/08/19 11:30 12:00 12:34 Temperature Pulse Rate 99 H 102 H 114 H Respiratory 22 14 21 Rate Blood Pressure 154/101 120/91 120/91 O2 Sat by Pulse 94 95 Oximetry 06/08/19 06/08/19 06/08/19 13:00 13:30 14:00 Temperature Pulse Rate 97 H 96 H 97 H Respiratory 15 26 H 30 H Rate Blood Pressure 120/91 120/91 129/99 O2 Sat by Pulse 93 97 94 Oximetry ED Medical Decision Making - Lab Data Result diagrams: 06/08/19 10:34 06/08/19 10:34 Critical care attestation.: If time is entered above; I have spent that time in minutes in the direct care of this critically ill patient, excluding procedure time. ED Disposition Condition: Stable Referrals: PRIMARY CARE, [Primary Care Provider] - 3-5 Days
[2019-06-08 16:18] VITALS: BP 140/87
== END 2019-06-08 15:30 | disposition home or self-care (01) ==
LOC: ED 10:17
DX: J44.9 Chronic obstructive pulmonary disease, unspecified (principal); I11.0 Hypertensive heart disease with heart failure; I50.9 Heart failure, unspecified; I25.10 Atherosclerotic heart disease of native coronary artery without angina pectoris; F41.9 Anxiety disorder, unspecified; Z79.82 Long term (current) use of aspirin; Z79.899 Other long term (current) drug therapy; Z88.8 Allergy status to other drugs, medicaments and biological substances; Z88.5 Allergy status to narcotic agent; Z91.013 Allergy to seafood; Z90.710 Acquired absence of both cervix and uterus
CPT/HCPCS: 36415; 71045; 71275; 80053; 80307; 82803; 83880; 84484; 85025; 85610; 93005; 93010; 96374; 96375; 99285; J1200; J2060; J2270; Q9967

== ENCOUNTER 2019-08-05 10:52 | Emergency (ER) | payer MEDICARE ==
[2019-08-05] MEDS ORDERED: ASPIRIN 81 MG TAB CHEW PO ONE (11:36)
[2019-08-05] MEDS ORDERED: NITROGLYCERIN 0.4 MG TAB SUBL SL ONE (11:36)
[2019-08-05] MEDS ORDERED: ACETAMINOPHEN 500 MG TAB PO ONE (11:38)
--- NOTE | 2019-08-05 12:28 | Emergency Department Report ---
ED General Adult HPI - General Chief complaint: Chest Pain Stated complaint: STEMI Time Seen by Provider: 08/05/19 11:25 Source: patient, EMS Mode of arrival: Stretcher Limitations: No Limitations - History of Present Illness Initial comments: Patient presents to the emergency department with the chief complaint of chest pain that started at 11:30 AM. 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 Patient does have a history of VT but denies a history of stents. Patient received one nitroglycerin in route with no relief. -: Sudden Location: chest Radiation: extremity Severity scale (0 -10): 9 Quality: crushing Consistency: constant Improves with: none Worsens with: none Associated Symptoms: denies other symptoms Treatments Prior to Arrival: none - Related Data Previous Rx's Medication Instructions Recorded Last Taken Type Zolpidem [Ambien] 5 mg PO QHS PRN #10 tablet 06/11/18 05/11/19 Rx oxyCODONE /ACETAMINOPHEN [Percocet 1 tab PO Q6H PRN #12 tablet 06/11/18 05/11/19 Rx 5/325 mg] Pantoprazole [Protonix TAB] 40 mg PO QDAY #30 tablet 07/10/18 05/11/19 Rx Aspirin [Aspirin BABY CHEW TAB] 81 mg PO QDAY #30 tab.chew 09/04/18 05/11/19 Rx Albuterol INH(or & Nicu Only) 2 puff IH QID PRN #1 vial 05/15/19 Unknown Rx [Proair] Pantoprazole [Protonix TAB] 40 mg PO QDAY #30 tablet 05/15/19 Unknown Rx Spironolactone [Aldactone] 25 mg PO QDAY #30 tablet 05/15/19 Unknown Rx guaiFENesin ER [Mucinex ER] 600 mg PO BID #10 tablet 05/15/19 Unknown Rx lisinopriL [Zestril TAB] 5 mg PO QDAY #30 tablet 05/15/19 Unknown Rx predniSONE [Deltasone] 40 mg PO QDAY #5 tablet 05/15/19 Unknown Rx Acetaminophen/Codeine [Tylenol 1 tab PO Q6H PRN #6 tab 05/27/19 Unknown Rx /Codeine # 3 tab] Azithromycin [Zithromax Z-BECK] 250 mg PO DAILY #6 tablet 05/27/19 Unknown Rx predniSONE [Deltasone] 20 mg PO DAILY #15 tablet 05/27/19 Unknown Rx hydrOXYzine PAMOATE [Vistaril] 50 mg PO Q6HR PRN #30 capsule 06/03/19 Unknown Rx Albuterol INH(or & Nicu Only) 2 puff IH Q4HR PRN #1 inhalation 06/08/19 Unknown Rx [ProAir HFA Inhaler] Budesonide/Formoterol Fumarate 10.2 gm IH BID #1 hfa.aer.ad 06/08/19 Unknown Rx [Symbicort 160-4.5 Mcg Inhaler] Furosemide [Lasix TAB] 40 mg PO QDAY #30 tablet 06/08/19 Unknown Rx carvediloL [Coreg] 6.25 mg PO BID #60 tablet 06/08/19 Unknown Rx Allergies Allergy/AdvReac Type Severity Reaction Status Date / Time cyclobenzaprine HCl Allergy Severe Itching Verified 04/28/14 07:57 [From Flexeril] Fish Containing Products Allergy Anaphylaxis Verified 04/28/14 07:57 ibuprofen Allergy abd pain Verified 04/28/14 07:56 ketorolac tromethamine Allergy Headache Verified 04/28/14 07:56 [From Toradol] methocarbamol [From Robaxin] Allergy Unknown Verified 09/02/18 07:38 ED Review of Systems ROS: Stated complaint: STEMI Other details as noted in HPI Comment: All other systems reviewed and negative Constitutional: denies: chills, fever Eyes: denies: eye pain, eye discharge, vision change ENT: denies: ear pain, throat pain Respiratory: denies: cough, shortness of breath, wheezing Cardiovascular: chest pain. denies: palpitations Endocrine: no symptoms reported Gastrointestinal: denies: abdominal pain, nausea, diarrhea Genitourinary: denies: urgency, dysuria, discharge Musculoskeletal: denies: back pain, joint swelling, arthralgia Skin: denies: rash, lesions Neurological: denies: headache, weakness, paresthesias Psychiatric: denies: anxiety, depression Hematological/Lymphatic: denies: easy bleeding, easy bruising ED Past Medical Hx - Past Medical History Hx Hypertension: Yes Hx CVA: Yes (tia) Hx Heart Attack/AMI: Yes (04/2014 as per pt although pt had a neg cardiac cath here ) Hx Congestive Heart Failure: Yes Hx Diabetes: No Hx Seizures: Yes Hx Asthma: No Hx COPD: Yes Additional medical history: history of anxiety - Surgical History Additional Surgical History: Hysterectomy, back surgery - Social History Smoking Status: Current Every Day Smoker Substance Use Type: None - Medications Home Medications: Home Medications Medication Instructions Recorded Confirmed Last Taken Type Zolpidem [Ambien] 5 mg PO QHS PRN #10 tablet 06/11/18 05/12/19 05/11/19 Rx oxyCODONE /ACETAMINOPHEN [Percocet 1 tab PO Q6H PRN #12 tablet 06/11/18 05/12/19 05/11/19 Rx 5/325 mg] Pantoprazole [Protonix TAB] 40 mg PO QDAY #30 tablet 07/10/18 05/12/19 05/11/19 Rx Aspirin [Aspirin BABY CHEW TAB] 81 mg PO QDAY #30 tab.chew 09/04/18 05/12/19 05/11/19 Rx Albuterol INH(or & Nicu Only) 2 puff IH QID PRN #1 vial 05/15/19 Unknown Rx [Proair] Pantoprazole [Protonix TAB] 40 mg PO QDAY #30 tablet 05/15/19 Unknown Rx Spironolactone [Aldactone] 25 mg PO QDAY #30 tablet 05/15/19 Unknown Rx guaiFENesin ER [Mucinex ER] 600 mg PO BID #10 tablet 05/15/19 Unknown Rx lisinopriL [Zestril TAB] 5 mg PO QDAY #30 tablet 05/15/19 Unknown Rx predniSONE [Deltasone] 40 mg PO QDAY #5 tablet 05/15/19 Unknown Rx Acetaminophen/Codeine [Tylenol 1 tab PO Q6H PRN #6 tab 05/27/19 Unknown Rx /Codeine # 3 tab] Azithromycin [Zithromax Z-BECK] 250 mg PO DAILY #6 tablet 05/27/19 Unknown Rx predniSONE [Deltasone] 20 mg PO DAILY #15 tablet 05/27/19 Unknown Rx hydrOXYzine PAMOATE [Vistaril] 50 mg PO Q6HR PRN #30 capsule 06/03/19 Unknown Rx Albuterol INH(or & Nicu Only) 2 puff IH Q4HR PRN #1 inhalation 06/08/19 Unknown Rx [ProAir HFA Inhaler] Budesonide/Formoterol Fumarate 10.2 gm IH BID #1 hfa.aer.ad 06/08/19 Unknown Rx [Symbicort 160-4.5 Mcg Inhaler] Furosemide [Lasix TAB] 40 mg PO QDAY #30 tablet 06/08/19 Unknown Rx carvediloL [Coreg] 6.25 mg PO BID #60 tablet 06/08/19 Unknown Rx ED Physical Exam - General Limitations: No Limitations General appearance: alert, in no apparent distress - Head Head exam: Present: atraumatic, normocephalic - Eye Eye exam: Present: normal appearance, PERRL, EOMI - ENT ENT exam: Present: mucous membranes moist - Neck Neck exam: Present: normal inspection - Respiratory Respiratory exam: Present: normal lung sounds bilaterally. Absent: respiratory distress - Cardiovascular Cardiovascular Exam: Present: regular rate, normal rhythm. Absent: systolic murmur, diastolic murmur, rubs, gallop - GI/Abdominal GI/Abdominal exam: Present: soft, normal bowel sounds. Absent: distended, tenderness - Extremities Exam Extremities exam: Present: normal inspection - Back Exam Back exam: Present: normal inspection - Neurological Exam Neurological exam: Present: alert, oriented X3, CN II-XII intact. Absent: motor sensory deficit - Psychiatric Psychiatric exam: Present: normal affect, normal mood - Skin Skin exam: Present: warm, dry, intact, normal color. Absent: rash ED Course Vital Signs 08/05/19 08/05/19 08/05/19 11:10 11:14 11:15 Temperature 97.9 F Pulse Rate 104 H 107 H 109 H Respiratory 30 H 24 13 Rate Blood Pressure 162/107 147/105 Blood Pressure [Left] O2 Sat by Pulse 96 95 95 Oximetry 08/05/19 08/05/19 08/05/19 11:30 11:45 11:46 Temperature Pulse Rate 100 H 99 H 103 H Respiratory 22 19 24 Rate Blood Pressure 162/89 137/102 Blood Pressure 162/89 [Left] O2 Sat by Pulse 95 93 95 Oximetry 08/05/19 08/05/19 08/05/19 11:54 12:00 12:15 Temperature Pulse Rate 102 H 105 H 101 H Respiratory 18 19 Rate Blood Pressure 137/102 137/102 176/107 Blood Pressure [Left] O2 Sat by Pulse 92 93 Oximetry 08/05/19 08/05/19 08/05/19 12:30 12:51 13:00 Temperature Pulse Rate 97 H 97 H 92 H Respiratory 15 20 17 Rate Blood Pressure 176/107 122/98 122/98 Blood Pressure [Left] O2 Sat by Pulse 95 98 95 Oximetry 08/05/19 08/05/19 08/05/19 13:15 13:31 13:45 Temperature Pulse Rate 104 H 94 H 98 H Respiratory 16 11 L 18 Rate Blood Pressure 135/101 154/84 148/100 Blood Pressure [Left] O2 Sat by Pulse 94 94 94 Oximetry ED Medical Decision Making - Lab Data Result diagrams: 08/05/19 11:43 08/05/19 11:43 Lab Results 08/05/19 08/05/19 08/05/19 Range/Units 11:43 11:43 11:43 WBC 6.5 (4.5-11.0) K/mm3 RBC 3.82 (3.65-5.03) M/mm3 Hgb 12.4 (10.1-14.3) gm/dl Hct 37.2 (30.3-42.9) % MCV 98 H (79-97) fl MCH 33 H (28-32) pg MCHC 33 (30-34) % RDW 16.3 H (13.2-15.2) % Plt Count 333 (140-440) K/mm3 Lymph % (Auto) 22.1 (13.4-35.0) % [place] % (Auto) 7.9 H (0.0-7.3) % Eos % (Auto) 3.4 (0.0-4.3) % Baso % (Auto) 0.8 (0.0-1.8) % Lymph # 1.4 (1.2-5.4) K/mm3 [place] # 0.5 (0.0-0.8) K/mm3 Eos # 0.2 (0.0-0.4) K/mm3 Baso # 0.0 (0.0-0.1) K/mm3 Seg Neutrophils % 65.8 (40.0-70.0) % Seg Neutrophils # 4.3 (1.8-7.7) K/mm3 PT 12.4 (12.2-14.9) Sec. INR 0.92 (0.87-1.13) APTT 31.4 (24.2-36.6) Sec. Sodium 139 (137-145) mmol/L Potassium 3.8 (3.6-5.0) mmol/L Chloride 104.3 (98-107) mmol/L Carbon Dioxide 17 L (22-30) mmol/L Anion Gap 22 mmol/L BUN 23 H (7-17) mg/dL Creatinine 0.9 (0.7-1.2) mg/dL Estimated GFR > 60 ml/min BUN/Creatinine Ratio 26 % Glucose 108 H (65-100) mg/dL Calcium 9.5 (8.4-10.2) mg/dL Total Bilirubin 0.30 (0.1-1.2) mg/dL AST 14 (5-40) units/L ALT 8 (7-56) units/L Alkaline Phosphatase 85 (35-129) units/L Troponin T < 0.010 (0.00-0.029) ng/mL Total Protein 7.7 (6.3-8.2) g/dL Albumin 4.2 (3.9-5) g/dL Albumin/Globulin Ratio 1.2 % Lipase 28 (13-60) units/L Urine Color (Yellow) Urine Turbidity (Clear) Urine pH (5.0-7.0) Ur Specific [place] (1.003-1.030) Urine Protein (Negative) mg/dL Urine Glucose (UA) (Negative) mg/dL Urine Ketones (Negative) mg/dL Urine Blood (Negative) Urine Nitrite (Negative) Urine Bilirubin (Negative) Urine Urobilinogen (<2.0) mg/dL Ur Leukocyte Esterase (Negative) Urine WBC (Auto) (0.0-6.0) /HPF Urine RBC (Auto) (0.0-6.0) /HPF U Epithel Cells (Auto) (0-13.0) /HPF Urine Mucus /HPF Urine Opiates Screen Urine Methadone Screen Ur Barbiturates Screen Ur Phencyclidine Scrn Ur Amphetamines Screen U Benzodiazepines Scrn Urine Cocaine Screen U Marijuana (THC) Screen Drugs of Abuse Note 08/05/19 08/05/19 08/05/19 Range/Units 12:28 12:28 14:18 WBC (4.5-11.0) K/mm3 RBC (3.65-5.03) M/mm3 Hgb (10.1-14.3) gm/dl Hct (30.3-42.9) % MCV (79-97) fl MCH (28-32) pg MCHC (30-34) % RDW (13.2-15.2) % Plt Count (140-440) K/mm3 Lymph % (Auto) (13.4-35.0) % [place] % (Auto) (0.0-7.3) % Eos % (Auto) (0.0-4.3) % Baso % (Auto) (0.0-1.8) % Lymph # (1.2-5.4) K/mm3 [place] # (0.0-0.8) K/mm3 Eos # (0.0-0.4) K/mm3 Baso # (0.0-0.1) K/mm3 Seg Neutrophils % (40.0-70.0) % Seg Neutrophils # (1.8-7.7) K/mm3 PT (12.2-14.9) Sec. INR (0.87-1.13) APTT (24.2-36.6) Sec. Sodium (137-145) mmol/L Potassium (3.6-5.0) mmol/L Chloride (98-107) mmol/L Carbon Dioxide (22-30) mmol/L Anion Gap mmol/L BUN (7-17) mg/dL Creatinine (0.7-1.2) mg/dL Estimated GFR ml/min BUN/Creatinine Ratio % Glucose (65-100) mg/dL Calcium (8.4-10.2) mg/dL Total Bilirubin (0.1-1.2) mg/dL AST (5-40) units/L ALT (7-56) units/L Alkaline Phosphatase (35-129) units/L Troponin T < 0.010 (0.00-0.029) ng/mL Total Protein (6.3-8.2) g/dL Albumin (3.9-5) g/dL Albumin/Globulin Ratio % Lipase (13-60) units/L Urine Color Yellow (Yellow) Urine Turbidity Clear (Clear) Urine pH 5.0 (5.0-7.0) Ur Specific [place] 1.029 (1.003-1.030) Urine Protein <15 mg/dl (Negative) mg/dL Urine Glucose (UA) Neg (Negative) mg/dL Urine Ketones Neg (Negative) mg/dL Urine Blood Neg (Negative) Urine Nitrite Neg (Negative) Urine Bilirubin Neg (Negative) Urine Urobilinogen < 2.0 (<2.0) mg/dL Ur Leukocyte Esterase Neg (Negative) Urine WBC (Auto) 1.0 (0.0-6.0) /HPF Urine RBC (Auto) 2.0 (0.0-6.0) /HPF U Epithel Cells (Auto) 2.0 (0-13.0) /HPF Urine Mucus Few /HPF Urine Opiates Screen Presumptive negative Urine Methadone Screen Presumptive negative Ur Barbiturates Screen Presumptive negative Ur Phencyclidine Scrn Presumptive negative Ur Amphetamines Screen Presumptive negative U Benzodiazepines Scrn Presumptive negative Urine Cocaine Screen Presumptive negative U Marijuana (THC) Screen Presumptive negative Drugs of Abuse Note Disclamer - EKG Data -: EKG Interpreted by Me EKG shows normal: sinus rhythm Rate: tachycardia - EKG Data Interpretation: other (LBBB) - Radiology Data Radiology results: report reviewed - Medical Decision Making Spoke to [facility] and was informed that last month the patient had a cardiac cath at [facility] which did not show any significant disease It was discussed that after the patient received 3 units of Prilosec and follow up as outpatient with Dr. Chahal Was confirmed that the patient had a history of left bundle branch block which I did see on a previous EKG that was done on 06/08/2019 Critical care attestation.: If time is entered above; I have spent that time in minutes in the direct care of this critically ill patient, excluding procedure time. ED Disposition Clinical Impression: Chest pain Disposition: DC-01 TO HOME OR SELFCARE Is pt being admited?: No Does the pt Need Aspirin: No Condition: Stable Instructions: Chest Pain (ED) Referrals: KYLE CEDENO MD [Primary Care Provider] - 3-5 Days DEVON CHAHAL MD [Staff Physician] - 3-5 Days Time of Disposition: 17:26
[2019-08-05 12:47] LABS: Basophils % (Auto) 0.8 % (0.0-1.8); Eosinophils # (Auto) 0.2 K/mm3 (0.0-0.4); Eosinophils % (Auto) 3.4 % (0.0-4.3); Hematocrit 37.2 % (30.3-42.9); Hemoglobin 12.4 gm/dl (10.1-14.3); Lymphocytes # (Auto) 1.4 K/mm3 (1.2-5.4); Lymphocytes % (Auto) 22.1 % (13.4-35.0); Mean Corpuscular HGB Conc 33 % (30-34); Mean Corpuscular Volume 98 fl (79-97); Monocytes # (Auto) 0.5 K/mm3 (0.0-0.8); Monocytes % (Auto) 7.9 % (0.0-7.3); Platelet Count 333 K/mm3 (140-440); Red Blood Count 3.82 M/mm3 (3.65-5.03); Red Cell Distribution Width 16.3 % (13.2-15.2)
[2019-08-05 12:58] LABS: INR 0.92 (0.87-1.13)
[2019-08-05 12:59] LABS: Partial Thromboplastin Time 31.4 Sec. (24.2-36.6)
--- NOTE | 2019-08-05 13:06 | XRay Report ---
CHEST 1 VIEW INDICATION: Chest Pain. COMPARISON: 06/08/2019. FINDINGS: Support devices: None. Heart: Normal. Lungs/Pleura: No acute pulmonary or pleural findings. IMPRESSION: 1. No acute findings. Signer Name: Nehemias Decker MD Signed: 08/05/2019 1:01 PM Workstation Name: [id number]
[2019-08-05 13:10] LABS: Alanine Aminotransferase 8 units/L (7-56); Albumin 4.2 g/dL (3.9-5); BUN/Creatinine Ratio 26; Blood Urea Nitrogen 23 mg/dL (7-17); Calcium 9.5 mg/dL (8.4-10.2); Hemolysis Index 4
[2019-08-05 13:44] LABS: Bilirubin,Urine NEG (Negative); Blood,Urine NEG (Negative); Color,Urine Yellow (Yellow); Mucus,Urine FEW /HPF; Protein,Urine <15 mg/dL mg/dL (Negative); Urobilinogen,Urine < 2.0 mg/dL (<2.0)
[2019-08-05 13:50] LABS: Amphetamine Screen,Urine PRESUMPTIVE NEGATIVE; Benzodiazepines Screen,Urine PRESUMPTIVE NEGATIVE; Cannabinoid Screen,Urine PRESUMPTIVE NEGATIVE; Cocaine Screen,Urine PRESUMPTIVE NEGATIVE; Methadone Screen,Urine PRESUMPTIVE NEGATIVE; Opiate Screen,Urine PRESUMPTIVE NEGATIVE
[2019-08-05 17:30] VITALS: BP 141/105
== END 2019-08-05 17:43 | disposition left against medical advice (07) ==
LOC: ED 10:52
DX: R07.9 Chest pain, unspecified (principal); I11.0 Hypertensive heart disease with heart failure; I50.9 Heart failure, unspecified; Z86.73 Personal history of transient ischemic attack (TIA), and cerebral infarction without residual deficits; J44.9 Chronic obstructive pulmonary disease, unspecified; F17.200 Nicotine dependence, unspecified, uncomplicated
CPT/HCPCS: 36415; 71045; 80053; 80307; 81001; 83690; 84484; 85025; 85610; 85730; 93005; 93010; 96372

== ENCOUNTER 2019-09-09 11:07 | Emergency (ER) | payer MEDICARE ==
[2019-09-09] MEDS ORDERED: MORPHINE 4 MG/1 ML INJ IV ONE ×2 (11:30→14:25)
[2019-09-09] MEDS ORDERED: SODIUM CHLORIDE 0.9% 1000 ML 1,000 ML IV ONE (11:30)
--- NOTE | 2019-09-09 11:32 | Emergency Department Report ---
ED Lower Extremity HPI - General Chief Complaint: Fall Stated Complaint: RT SIDE PELVIC PAIN Time Seen by Provider: 09/09/19 11:29 Source: patient, EMS Mode of arrival: Stretcher Limitations: Physical Limitation - History of Present Illness Initial Comments: Patient is a 54-year-old female that comes to the ER after a ground- level fall at home. She is complaining of right hip and low back pain. She states that her foot got caught in her purse strap and she fell. Patient is well-known to the ER she has here often. She does not have a PCP. Past surgical history hysterectomy. Patient does smoke. She denies alcohol or drugs. Patient reports home medications to be Lasix a beta-cammy and another blood pressure pill. She denies being on any blood thinners. She states that she did not hit her head and did not lose consciousness. This was a witnessed fall. Patient called 911 for transport to the ER. - Related Data Previous Rx's Medication Instructions Recorded Last Taken Type Zolpidem [Ambien] 5 mg PO QHS PRN #10 tablet 06/11/18 05/11/19 Rx Aspirin [Aspirin BABY CHEW TAB] 81 mg PO QDAY #30 tab.chew 09/04/18 05/11/19 Rx Spironolactone [Aldactone] 25 mg PO QDAY #30 tablet 05/15/19 Unknown Rx guaiFENesin ER [Mucinex ER] 600 mg PO BID #10 tablet 05/15/19 Unknown Rx lisinopriL [Zestril TAB] 5 mg PO QDAY #30 tablet 05/15/19 Unknown Rx hydrOXYzine PAMOATE [Vistaril] 50 mg PO Q6HR PRN #30 capsule 06/03/19 Unknown Rx Albuterol INH(or & Nicu Only) 2 puff IH Q4HR PRN #1 inhalation 06/08/19 Unknown Rx [ProAir HFA Inhaler] Budesonide/Formoterol Fumarate 10.2 gm IH BID #1 hfa.aer.ad 06/08/19 Unknown Rx [Symbicort 160-4.5 Mcg Inhaler] Furosemide [Lasix TAB] 40 mg PO QDAY #30 tablet 06/08/19 Unknown Rx carvediloL [Coreg] 6.25 mg PO BID #60 tablet 06/08/19 Unknown Rx traMADoL [Ultram] 50 mg PO Q6HR PRN #12 tablet 09/09/19 Unknown Rx Allergies Allergy/AdvReac Type Severity Reaction Status Date / Time cyclobenzaprine HCl Allergy Severe Itching Verified 04/28/14 07:57 [From Flexeril] Fish Containing Products Allergy Anaphylaxis Verified 04/28/14 07:57 ibuprofen Allergy abd pain Verified 04/28/14 07:56 ketorolac tromethamine Allergy Headache Verified 04/28/14 07:56 [From Toradol] methocarbamol [From Robaxin] Allergy Unknown Verified 09/02/18 07:38 ED Review of Systems ROS: Stated complaint: RT SIDE PELVIC PAIN Other details as noted in HPI Comment: All other systems reviewed and negative ED Past Medical Hx - Past Medical History Previous Medical History?: Yes Hx Hypertension: Yes Hx CVA: Yes (tia) Hx Heart Attack/AMI: Yes (04/2014 as per pt although pt had a neg cardiac cath here ) Hx Congestive Heart Failure: Yes Hx Diabetes: No Hx Seizures: Yes Hx Asthma: No Hx COPD: Yes Additional medical history: history of anxiety - Surgical History Past Surgical History?: Yes Additional Surgical History: Hysterectomy, back surgery - Family History Family history: no significant - Social History Smoking Status: Current Every Day Smoker Substance Use Type: None - Medications Home Medications: Home Medications Medication Instructions Recorded Confirmed Last Taken Type Zolpidem [Ambien] 5 mg PO QHS PRN #10 tablet 06/11/18 05/12/19 05/11/19 Rx Aspirin [Aspirin BABY CHEW TAB] 81 mg PO QDAY #30 tab.chew 09/04/18 05/12/19 05/11/19 Rx Spironolactone [Aldactone] 25 mg PO QDAY #30 tablet 05/15/19 Unknown Rx guaiFENesin ER [Mucinex ER] 600 mg PO BID #10 tablet 05/15/19 Unknown Rx lisinopriL [Zestril TAB] 5 mg PO QDAY #30 tablet 05/15/19 Unknown Rx hydrOXYzine PAMOATE [Vistaril] 50 mg PO Q6HR PRN #30 capsule 06/03/19 Unknown Rx Albuterol INH(or & Nicu Only) 2 puff IH Q4HR PRN #1 inhalation 06/08/19 Unknown Rx [ProAir HFA Inhaler] Budesonide/Formoterol Fumarate 10.2 gm IH BID #1 hfa.aer.ad 06/08/19 Unknown Rx [Symbicort 160-4.5 Mcg Inhaler] Furosemide [Lasix TAB] 40 mg PO QDAY #30 tablet 06/08/19 Unknown Rx carvediloL [Coreg] 6.25 mg PO BID #60 tablet 06/08/19 Unknown Rx traMADoL [Ultram] 50 mg PO Q6HR PRN #12 tablet 09/09/19 Unknown Rx ED Physical Exam - General Limitations: Physical Limitation General appearance: alert, in no apparent distress - Head Head exam: Present: atraumatic, normocephalic - Eye Eye exam: Present: normal appearance - ENT ENT exam: Present: mucous membranes moist - Neck Neck exam: Present: normal inspection - Respiratory Respiratory exam: Present: normal lung sounds bilaterally. Absent: respiratory distress - Cardiovascular Cardiovascular Exam: Present: regular rate, normal rhythm. Absent: systolic murmur, diastolic murmur, rubs, gallop - GI/Abdominal GI/Abdominal exam: Present: soft, normal bowel sounds - Extremities Exam Extremities exam: Present: normal inspection - Expanded Lower Extremity Exam Right Hip exam: Present: tenderness (external rotation and shortened). Absent: pelvic stability (pelvic binder on) Upper Leg exam: Present: normal inspection Knee exam: Present: normal inspection Lower Leg exam: Present: normal inspection Ankle exam: Present: normal inspection Neuro vascular tendon exam: Present: no vascular compromise - Back Exam Back exam: Present: normal inspection - Neurological Exam Neurological exam: Present: alert, oriented X3 - Psychiatric Psychiatric exam: Present: normal affect, normal mood - Skin Skin exam: Present: warm, dry, intact, normal color. Absent: rash ED Course Vital Signs 09/09/19 09/09/19 09/09/19 11:32 11:45 11:53 Pulse Rate 111 H 108 H Respiratory 20 22 Rate Blood Pressure 158/97 O2 Sat by Pulse 94 95 Oximetry 09/09/19 09/09/19 09/09/19 12:00 12:15 12:30 Pulse Rate 110 H 107 H 108 H Respiratory 20 14 34 H Rate Blood Pressure 128/92 138/102 144/92 O2 Sat by Pulse 95 94 96 Oximetry 09/09/19 12:45 Pulse Rate 111 H Respiratory 29 H Rate Blood Pressure 144/92 O2 Sat by Pulse 95 Oximetry - Reevaluation(s) Reevaluation #2: 09/09/19 14:46 pt and educated on CT findings Pt remedicated for pain neuro intact with no s/s cauda equina ED Lower Extremity MDM - Lab Data Result diagrams: 09/09/19 12:00 09/09/19 12:00 - Radiology Data Radiology results: report reviewed, image reviewed - Medical Decision Making Lab Results 09/09/19 09/09/19 09/09/19 Range/Units 12:00 12:00 12:00 WBC 6.4 (4.5-11.0) K/mm3 RBC 3.85 (3.65-5.03) M/mm3 Hgb 12.8 (10.1-14.3) gm/dl Hct 38.2 (30.3-42.9) % MCV 99 H (79-97) fl MCH 33 H (28-32) pg MCHC 33 (30-34) % RDW 14.8 (13.2-15.2) % Plt Count 394 (140-440) K/mm3 Lymph % (Auto) 15.2 (13.4-35.0) % [place] % (Auto) 7.4 H (0.0-7.3) % Eos % (Auto) 0.8 (0.0-4.3) % Baso % (Auto) 0.7 (0.0-1.8) % Lymph # 1.0 L (1.2-5.4) K/mm3 [place] # 0.5 (0.0-0.8) K/mm3 Eos # 0.1 (0.0-0.4) K/mm3 Baso # 0.0 (0.0-0.1) K/mm3 Seg Neutrophils % 75.9 H (40.0-70.0) % Seg Neutrophils # 4.9 (1.8-7.7) K/mm3 PT 13.3 (12.2-14.9) Sec. INR 1.00 (0.87-1.13) APTT 34.5 (24.2-36.6) Sec. Sodium 141 (137-145) mmol/L Potassium 4.6 (3.6-5.0) mmol/L Chloride 105.9 (98-107) mmol/L Carbon Dioxide 19 L (22-30) mmol/L Anion Gap 21 mmol/L BUN 9 (7-17) mg/dL Creatinine 0.9 (0.7-1.2) mg/dL Estimated GFR > 60 ml/min BUN/Creatinine Ratio 10 % Glucose 85 (65-100) mg/dL Calcium 9.4 (8.4-10.2) mg/dL Total Bilirubin 0.40 (0.1-1.2) mg/dL AST 11 (5-40) units/L ALT 8 (7-56) units/L Alkaline Phosphatase 91 (35-129) units/L Total Protein 7.8 (6.3-8.2) g/dL Albumin 4.0 (3.9-5) g/dL Albumin/Globulin Ratio 1.1 % Blood Type Antibody Screen 09/09/19 Range/Units 12:01 WBC (4.5-11.0) K/mm3 RBC (3.65-5.03) M/mm3 Hgb (10.1-14.3) gm/dl Hct (30.3-42.9) % MCV (79-97) fl MCH (28-32) pg MCHC (30-34) % RDW (13.2-15.2) % Plt Count (140-440) K/mm3 Lymph % (Auto) (13.4-35.0) % [place] % (Auto) (0.0-7.3) % Eos % (Auto) (0.0-4.3) % Baso % (Auto) (0.0-1.8) % Lymph # (1.2-5.4) K/mm3 [place] # (0.0-0.8) K/mm3 Eos # (0.0-0.4) K/mm3 Baso # (0.0-0.1) K/mm3 Seg Neutrophils % (40.0-70.0) % Seg Neutrophils # (1.8-7.7) K/mm3 PT (12.2-14.9) Sec. INR (0.87-1.13) APTT (24.2-36.6) Sec. Sodium (137-145) mmol/L Potassium (3.6-5.0) mmol/L Chloride (98-107) mmol/L Carbon Dioxide (22-30) mmol/L Anion Gap mmol/L BUN (7-17) mg/dL Creatinine (0.7-1.2) mg/dL Estimated GFR ml/min BUN/Creatinine Ratio % Glucose (65-100) mg/dL Calcium (8.4-10.2) mg/dL Total Bilirubin (0.1-1.2) mg/dL AST (5-40) units/L ALT (7-56) units/L Alkaline Phosphatase (35-129) units/L Total Protein (6.3-8.2) g/dL Albumin (3.9-5) g/dL Albumin/Globulin Ratio % Blood Type A POSITIVE Antibody Screen Negative Vital Signs 09/09/19 09/09/19 09/09/19 11:32 11:45 11:53 Pulse Rate 111 H 108 H Respiratory 20 22 Rate Blood Pressure 158/97 O2 Sat by Pulse 94 95 Oximetry 09/09/19 09/09/19 09/09/19 12:00 12:15 12:30 Pulse Rate 110 H 107 H 108 H Respiratory 20 14 34 H Rate Blood Pressure 128/92 138/102 144/92 O2 Sat by Pulse 95 94 96 Oximetry 09/09/19 12:45 Pulse Rate 111 H Respiratory 29 H Rate Blood Pressure 144/92 O2 Sat by Pulse 95 Oximetry X-ray was noted negative. Pelvic binder removed from the patient. With assistance she was able to extend and move her lower extremity. EMR review indicates frequent ER admissions and chronic pain. I suspect a component of drug-seeking. Patient is neurovascularly intact with DP +[address] Labs [address] of the lumbar spine is been completed to rule out any fracture of lumbar spine. CT noted 20% ?acute fracture. Discussed with Dr Gonzalez- pt to dc home with ortho follow up. Pt and family aware Patient was medicated once with morphine when she first got to the emergency room. She was then offered Motrin or Tylenol for her pain. On dc pt remedicated for pain. Patient being discharged to home with ortho follow up. Pt and family verbalize understanding. - Differential Diagnosis ro hip/pelvic fracture Critical care attestation.: If time is entered above; I have spent that time in minutes in the direct care of this critically ill patient, excluding procedure time. ED Disposition Clinical Impression: Nicotine dependence, Chronic low back pain, Fall, Lumbar compression fracture Disposition: DC- TO HOME OR SELFCARE Is pt being admited?: No Does the pt Need Aspirin: No Condition: Stable Instructions: Chronic Back Pain (ED) Additional Instructions: motrin or tylenol for pain follow up with pcp referral below diet and activity as tolerated Prescriptions: traMADoL [Ultram] 50 mg PO Q6HR PRN #12 tablet PRN Reason: Pain Referrals: PRIYANKA ARELLANO MD [Staff Physician] - 3-5 Days ROCKY CHAHAL MD [Staff Physician] - 3-5 Days Time of Disposition: 11:37
--- NOTE | 2019-09-09 12:21 | XRay Report ---
RIGHT HIP 3 VIEWS INDICATION / CLINICAL INFORMATION: fall with hip pain and deformity. COMPARISON: 06/10/2018 FINDINGS: Bones are diffusely osteopenic. No acute fracture or dislocation. No interval change. Signer Name: Sy Yeager MD Signed: 09/09/2019 12:16 PM Workstation Name: [id number]
[2019-09-09 12:39] LABS: Basophils % (Auto) 0.7 % (0.0-1.8); Eosinophils # (Auto) 0.1 K/mm3 (0.0-0.4); Eosinophils % (Auto) 0.8 % (0.0-4.3); Hematocrit 38.2 % (30.3-42.9); Hemoglobin 12.8 gm/dl (10.1-14.3); Lymphocytes % (Auto) 15.2 % (13.4-35.0); Mean Corpuscular HGB Conc 33 % (30-34); Mean Corpuscular Volume 99 fl (79-97); Monocytes # (Auto) 0.5 K/mm3 (0.0-0.8); Monocytes % (Auto) 7.4 % (0.0-7.3); Platelet Count 394 K/mm3 (140-440); Red Blood Count 3.85 M/mm3 (3.65-5.03); Red Cell Distribution Width 14.8 % (13.2-15.2)
[2019-09-09 12:49] LABS: Partial Thromboplastin Time 34.5 Sec. (24.2-36.6)
[2019-09-09 13:12] VITALS: BP 144/92
[2019-09-09 13:18] LABS: Alanine Aminotransferase 8 units/L (7-56); BUN/Creatinine Ratio 10; Blood Urea Nitrogen 9 mg/dL (7-17); Calcium 9.4 mg/dL (8.4-10.2); Hemolysis Index 5
--- NOTE | 2019-09-09 14:03 | Cat Scan Report ---
CT LUMBAR SPINE WITHOUT CONTRAST INDICATION: Fall. TECHNIQUE: Axial CT images of the spine were obtained. Sagittal and coronal reformatted images were produced. Al l CT scans at this location are performed using CT dose reduction for ALARA by means of automated exp osure control. COMPARISON: Comparison is made with CT of the abdomen and pelvis dated 05/30/2018. FINDINGS: ACUTE FRACTURE(S) OR SUBLUXATION: There is an acute appearing superior endplate compression fracture of T12 with about 20% vertebral body height loss. There are multiple chronic appearing vertebral comp ression fractures involving L2, L3, L4, and L5. There is no retropulsion of fracture fragments. SPINAL DEGENERATIVE CHANGES: No additional significant degenerative changes appreciated. PARASPINAL SOFT TISSUES: No soft tissue swelling or other acute abnormalities. ADDITIONAL FINDINGS: No significant additional findings. IMPRESSION: 1. Acute appearing superior endplate compression fracture of T12 with about 20% vertebral body height loss. 2. Chronic appearing vertebral compression fractures of L2-L5. Signer Name: Koby White MD Signed: 09/09/2019 1:59 PM Workstation Name: [id number]
[2019-09-09] MEDS ORDERED: IBUPROFEN 800 MG TAB PO ONE (14:25)
== END 2019-09-09 14:45 | disposition home or self-care (01) ==
LOC: ED 11:07
DX: S32.009A Unspecified fracture of unspecified lumbar vertebra, initial encounter for closed fracture (principal); F17.200 Nicotine dependence, unspecified, uncomplicated; I25.2 Old myocardial infarction; I11.0 Hypertensive heart disease with heart failure; I50.9 Heart failure, unspecified; J44.9 Chronic obstructive pulmonary disease, unspecified; F41.9 Anxiety disorder, unspecified; Z90.710 Acquired absence of both cervix and uterus; Z86.73 Personal history of transient ischemic attack (TIA), and cerebral infarction without residual deficits; Z98.890 Other specified postprocedural states; Z79.899 Other long term (current) drug therapy; Z88.8 Allergy status to other drugs, medicaments and biological substances; Z91.013 Allergy to seafood; W18.39XA Other fall on same level, initial encounter; Y93.89 Activity, other specified; Y92.008 Other place in unspecified non-institutional (private) residence as the place of occurrence of the external cause; Y99.8 Other external cause status
CPT/HCPCS: 36415; 72131; 73502; 80053; 85025; 85610; 85730; 86850; 86900; 86901; 96374; 96376; 99285; J2270; J7030

== ENCOUNTER 2019-10-11 16:35 | Emergency (ER) | payer MEDICARE ==
--- NOTE | 2019-10-11 17:32 | XRay Report ---
CHEST 1 VIEW INDICATION: Dyspnea. COMPARISON: 08/05/2019 FINDINGS: Support devices: None. Heart: Within normal limits. Lungs/Pleura: No acute air space or interstitial disease. Additional findings: None. IMPRESSION: No acute abnormality. Signer Name: Shayne Camacho MD Signed: 10/11/2019 5:28 PM Workstation Name: [id number]
[2019-10-11 17:42] LABS: Basophils # (Auto) 0.1 K/mm3 (0.0-0.1); Basophils % (Auto) 0.7 % (0.0-1.8); Eosinophils % (Auto) 0.6 % (0.0-4.3); Hematocrit 42.4 % (30.3-42.9); Lymphocytes # (Auto) 1.8 K/mm3 (1.2-5.4); Lymphocytes % (Auto) 23.1 % (13.4-35.0); Mean Corpuscular HGB Conc 33 % (30-34); Mean Corpuscular Volume 99 fl (79-97); Monocytes # (Auto) 0.3 K/mm3 (0.0-0.8); Monocytes % (Auto) 3.6 % (0.0-7.3); Platelet Count 355 K/mm3 (140-440); Red Blood Count 4.29 M/mm3 (3.65-5.03); Red Cell Distribution Width 14.2 % (13.2-15.2)
[2019-10-11 17:52] LABS: Albumin 4.5 g/dL (3.9-5); Calcium 9.3 mg/dL (8.4-10.2)
[2019-10-11] MEDS ORDERED: oxyCODONE /ACETAMINOPHEN 5-325MG TAB PO ONE (18:49)
[2019-10-11] MEDS ORDERED: ALBUTEROL 2.5 MG/3 ML NEBU IH ONE ×2 (18:49→22:29)
[2019-10-11] MEDS ORDERED: IPRATROPIUM 0.02% NEBU 2.5 ML IH ONE (18:49)
--- NOTE | 2019-10-11 19:14 | Emergency Department Report ---
ED Shortness of Breath HPI - General Chief Complaint: Dyspnea/Respdistress Stated Complaint: SOB/PAM Time Seen by Provider: 10/11/19 18:34 Source: EMS Mode of arrival: Stretcher Limitations: No Limitations - History of Present Illness Initial Comments: 54-year-old female with a past medical history of CHF with EF of 20 to 25% on April 2019 echocardiogram, COPD with 2 L as needed home oxygen use, CVA, diabetes, negative stress test here 04/2019, seizures, and anxieties presents to the hospital complaining of shortness of breath x2 days. Yesterday patient sprayed some cleaning fumes at her home and has had some difficulty breathing since with increased wheezing. Patient had worsening wheezing upon EMS arrival and was treated with albuterol, Solu-Medrol, and magnesium 2 g. Some mild symptom improvement but patient still complains of shortness of breath and a pressure in her chest as well as anxiety. Patient complains of cough productive of white phlegm, denies fever, sick contacts, recent international travel, history of cancer, history of PE/DVT. - Related Data Previous Rx's Medication Instructions Recorded Last Taken Type Zolpidem [Ambien] 5 mg PO QHS PRN #10 tablet 06/11/18 05/11/19 Rx Aspirin [Aspirin BABY CHEW TAB] 81 mg PO QDAY #30 tab.chew 09/04/18 05/11/19 Rx Spironolactone [Aldactone] 25 mg PO QDAY #30 tablet 05/15/19 Unknown Rx guaiFENesin ER [Mucinex ER] 600 mg PO BID #10 tablet 05/15/19 Unknown Rx lisinopriL [Zestril TAB] 5 mg PO QDAY #30 tablet 05/15/19 Unknown Rx hydrOXYzine PAMOATE [Vistaril] 50 mg PO Q6HR PRN #30 capsule 06/03/19 Unknown Rx Albuterol INH(or & Nicu Only) 2 puff IH Q4HR PRN #1 inhalation 06/08/19 Unknown Rx [ProAir HFA Inhaler] Budesonide/Formoterol Fumarate 10.2 gm IH BID #1 hfa.aer.ad 06/08/19 Unknown Rx [Symbicort 160-4.5 Mcg Inhaler] Furosemide [Lasix TAB] 40 mg PO QDAY #30 tablet 06/08/19 Unknown Rx carvediloL [Coreg] 6.25 mg PO BID #60 tablet 06/08/19 Unknown Rx traMADoL [Ultram] 50 mg PO Q6HR PRN #12 tablet 09/09/19 Unknown Rx Famotidine [Pepcid] 20 mg PO BID #20 tablet 10/12/19 Unknown Rx HYDROcodone/APAP 5-325 [[place] 1 each PO Q6HR PRN #14 tablet 10/12/19 Unknown Rx 5/325] Prednisone [predniSONE 10 mg 10 mg PO .TAPER #1 tab.ds.pk 10/12/19 Unknown Rx (6-Day Pack, 21 Tabs)] diazePAM TAB [Valium] 2 mg PO TID PRN #10 tablet 10/12/19 Unknown Rx Allergies Allergy/AdvReac Type Severity Reaction Status Date / Time cyclobenzaprine HCl Allergy Severe Itching Verified 04/28/14 07:57 [From Flexeril] Fish Containing Products Allergy Anaphylaxis Verified 04/28/14 07:57 ibuprofen Allergy abd pain Verified 04/28/14 07:56 ketorolac tromethamine Allergy Headache Verified 04/28/14 07:56 [From Toradol] methocarbamol [From Robaxin] Allergy Unknown Verified 09/02/18 07:38 ED Review of Systems ROS: Stated complaint: SOB/PAM Other details as noted in HPI Comment: All other systems reviewed and negative ED Past Medical Hx - Past Medical History Previous Medical History?: Yes Hx Hypertension: Yes Hx CVA: Yes (TIA 2014; Stroke Aug 2018) Hx Heart Attack/AMI: Yes (04/2014 as per pt although pt had a neg cardiac cath here ) Hx Congestive Heart Failure: Yes (Dilated cardiomyopathy EF of 20 to 25% echo 04/2019) Hx Diabetes: No Hx Seizures: Yes Hx Asthma: No Hx COPD: Yes Additional medical history: history of anxiety - Surgical History Past Surgical History?: Yes Additional Surgical History: Hysterectomy, back surgery - Social History Smoking Status: Current Every Day Smoker Substance Use Type: None - Medications Home Medications: Home Medications Medication Instructions Recorded Confirmed Last Taken Type Zolpidem [Ambien] 5 mg PO QHS PRN #10 tablet 06/11/18 05/12/19 05/11/19 Rx Aspirin [Aspirin BABY CHEW TAB] 81 mg PO QDAY #30 tab.chew 09/04/18 05/12/19 05/11/19 Rx Spironolactone [Aldactone] 25 mg PO QDAY #30 tablet 05/15/19 Unknown Rx guaiFENesin ER [Mucinex ER] 600 mg PO BID #10 tablet 05/15/19 Unknown Rx lisinopriL [Zestril TAB] 5 mg PO QDAY #30 tablet 05/15/19 Unknown Rx hydrOXYzine PAMOATE [Vistaril] 50 mg PO Q6HR PRN #30 capsule 06/03/19 Unknown Rx Albuterol INH(or & Nicu Only) 2 puff IH Q4HR PRN #1 inhalation 06/08/19 Unknown Rx [ProAir HFA Inhaler] Budesonide/Formoterol Fumarate 10.2 gm IH BID #1 hfa.aer.ad 06/08/19 Unknown Rx [Symbicort 160-4.5 Mcg Inhaler] Furosemide [Lasix TAB] 40 mg PO QDAY #30 tablet 06/08/19 Unknown Rx carvediloL [Coreg] 6.25 mg PO BID #60 tablet 06/08/19 Unknown Rx traMADoL [Ultram] 50 mg PO Q6HR PRN #12 tablet 09/09/19 Unknown Rx Famotidine [Pepcid] 20 mg PO BID #20 tablet 10/12/19 Unknown Rx HYDROcodone/APAP 5-325 [[place] 1 each PO Q6HR PRN #14 tablet 10/12/19 Unknown Rx 5/325] Prednisone [predniSONE 10 mg 10 mg PO .TAPER #1 tab.ds.pk 10/12/19 Unknown Rx (6-Day Pack, 21 Tabs)] diazePAM TAB [Valium] 2 mg PO TID PRN #10 tablet 10/12/19 Unknown Rx ED Physical Exam - General Limitations: No Limitations - Other Other exam information: General: No acute distress Head: Atraumatic Eyes: normal appearance ENT: Moist mucous membranes Neck: Normal appearance, no midline tenderness Chest: Clear to auscultation bilaterally, mild tachypnea CV: Regular rate and rhythm Abdomen: Soft, normal bowel sounds, nontender, nondistended, no rebound or guarding Back: Normal inspection Extremity: Normal inspection, full range of motion, no calf tenderness or leg edema Neuro: Alert O x 3, no facial asymmetry, speech clear, no gross motor sensory deficit Psych: Anxious Skin: No rash ED Course Vital Signs 0310/11/19 10/11/19 17:16 17:24 17:30 Temperature Pulse Rate 92 H 90 84 Pulse Rate [ Anterior Bilateral Throughout] Respiratory 15 34 H 25 H Rate Respiratory Rate [Anterior Bilateral Throughout] Blood Pressure 132/81 124/82 Blood Pressure 135/53 [Right] O2 Sat by Pulse 98 98 Oximetry 10/11/19 10/11/19 10/11/19 17:46 18:00 18:15 Temperature Pulse Rate 87 84 81 Pulse Rate [ Anterior Bilateral Throughout] Respiratory 22 28 H 21 Rate Respiratory Rate [Anterior Bilateral Throughout] Blood Pressure 122/89 124/84 105/85 Blood Pressure [Right] O2 Sat by Pulse 98 98 96 Oximetry 10/11/19 10/11/19 10/11/19 18:30 18:46 18:54 Temperature 98.0 F Pulse Rate 89 93 H Pulse Rate [ Anterior Bilateral Throughout] Respiratory 24 28 H Rate Respiratory Rate [Anterior Bilateral Throughout] Blood Pressure 116/92 146/96 Blood Pressure [Right] O2 Sat by Pulse 98 96 Oximetry 10/11/19 10/11/19 10/11/19 19:00 19:15 19:30 Temperature Pulse Rate 94 H 87 92 H Pulse Rate [ Anterior Bilateral Throughout] Respiratory 37 H 18 22 Rate Respiratory Rate [Anterior Bilateral Throughout] Blood Pressure 146/96 119/86 144/90 Blood Pressure [Right] O2 Sat by Pulse 91 93 91 Oximetry 10/11/19 10/11/19 10/11/19 19:33 19:45 20:00 Temperature Pulse Rate 89 100 H Pulse Rate [ 92 H Anterior Bilateral Throughout] Respiratory 19 30 H Rate Respiratory 28 H Rate [Anterior Bilateral Throughout] Blood Pressure 140/102 138/102 Blood Pressure [Right] O2 Sat by Pulse 90 92 Oximetry 10/11/19 10/11/19 10/11/19 20:15 20:30 20:45 Temperature Pulse Rate 95 H 94 H 89 Pulse Rate [ Anterior Bilateral Throughout] Respiratory 29 H 26 H 20 Rate Respiratory Rate [Anterior Bilateral Throughout] Blood Pressure 154/103 150/98 150/89 Blood Pressure [Right] O2 Sat by Pulse 92 93 96 Oximetry 10/11/19 10/11/19 10/11/19 21:00 21:22 21:30 Temperature Pulse Rate 90 94 H 92 H Pulse Rate [ Anterior Bilateral Throughout] Respiratory 19 20 24 Rate Respiratory Rate [Anterior Bilateral Throughout] Blood Pressure 141/91 141/91 142/89 Blood Pressure [Right] O2 Sat by Pulse 94 96 95 Oximetry 10/11/19 10/11/19 10/11/19 21:45 22:00 22:15 Temperature Pulse Rate 89 86 84 Pulse Rate [ Anterior Bilateral Throughout] Respiratory 15 17 19 Rate Respiratory Rate [Anterior Bilateral Throughout] Blood Pressure 153/89 141/89 157/92 Blood Pressure [Right] O2 Sat by Pulse 98 97 97 Oximetry 10/11/19 10/11/19 10/11/19 22:30 22:45 22:46 Temperature Pulse Rate 88 87 Pulse Rate [ 85 Anterior Bilateral Throughout] Respiratory 11 L 16 Rate Respiratory 20 Rate [Anterior Bilateral Throughout] Blood Pressure 149/85 140/79 Blood Pressure [Right] O2 Sat by Pulse 97 95 Oximetry 10/11/19 10/11/19 23:00 23:16 Temperature Pulse Rate 90 96 H Pulse Rate [ Anterior Bilateral Throughout] Respiratory 15 24 Rate Respiratory Rate [Anterior Bilateral Throughout] Blood Pressure 139/83 149/85 Blood Pressure [Right] O2 Sat by Pulse 95 94 Oximetry - Reevaluation(s) Reevaluation #1: 10/11/19 21:25 Patient has generalized itching after receiving IV contrast. No rash or airway issues. Benadryl ordered and Xanax on hold at this time Reevaluation #2: 10/11/19 22:29 mild and expiratory wheezing. No respiratory distress. Patient is visiting and appears anxious still even after Percocet and Benadryl. IV Valium ordered with additional nebs ED Medical Decision Making - Lab Data Result diagrams: 10/11/19 17:22 10/11/19 17:22 Lab Results 10/11/19 10/11/19 10/11/19 Range/Units 17:22 17:22 17:22 WBC 8.0 (4.5-11.0) K/mm3 RBC 4.29 (3.65-5.03) M/mm3 Hgb 14.0 (10.1-14.3) gm/dl Hct 42.4 (30.3-42.9) % MCV 99 H (79-97) fl MCH 33 H (28-32) pg MCHC 33 (30-34) % RDW 14.2 (13.2-15.2) % Plt Count 355 (140-440) K/mm3 Lymph % (Auto) 23.1 (13.4-35.0) % Dane % (Auto) 3.6 (0.0-7.3) % Eos % (Auto) 0.6 (0.0-4.3) % Baso % (Auto) 0.7 (0.0-1.8) % Lymph # 1.8 (1.2-5.4) K/mm3 Dane # 0.3 (0.0-0.8) K/mm3 Eos # 0.0 (0.0-0.4) K/mm3 Baso # 0.1 (0.0-0.1) K/mm3 Seg Neutrophils % 72.0 H (40.0-70.0) % Seg Neutrophils # 5.7 (1.8-7.7) K/mm3 D-Dimer (0-234) ng/mlDDU ABG pH (7.350-7.450) pH Units ABG pCO2 mm Hg ABG pO2 (80.0-90.0) mm Hg ABG HCO3 (20.0-26.0) mmol/L ABG O2 Saturation (95.0-99.0) % ABG O2 Content (0.0-44) ABG Base Excess (-2.0-3.0) mmol/L ABG Hemoglobin (12.0-16.0) gm/dl ABG Carboxyhemoglobin (0.0-5.0) % ABG Methemoglobin (0.0-1.5) % Oxyhemoglobin (95.0-99.0) % FiO2 % Sodium 135 L (137-145) mmol/L Potassium 3.6 (3.6-5.0) mmol/L Chloride 98.6 (98-107) mmol/L Carbon Dioxide 18 L (22-30) mmol/L Anion Gap 22 mmol/L BUN 17 (7-17) mg/dL Creatinine 1.1 (0.7-1.2) mg/dL Estimated GFR 52 ml/min BUN/Creatinine Ratio 15 % Glucose 122 H (65-100) mg/dL Calcium 9.3 (8.4-10.2) mg/dL Total Bilirubin 0.40 (0.1-1.2) mg/dL AST 19 (5-40) units/L ALT 11 (7-56) units/L Alkaline Phosphatase 81 (35-129) units/L Troponin T < 0.010 (0.00-0.029) ng/mL NT-Pro-B Natriuret Pep 84069 H (0-900) pg/mL Total Protein 7.9 (6.3-8.2) g/dL Albumin 4.5 (3.9-5) g/dL Albumin/Globulin Ratio 1.3 % 10/11/19 10/11/19 10/11/19 Range/Units 19:17 19:58 19:58 WBC (4.5-11.0) K/mm3 RBC (3.65-5.03) M/mm3 Hgb (10.1-14.3) gm/dl Hct (30.3-42.9) % MCV (79-97) fl MCH (28-32) pg MCHC (30-34) % RDW (13.2-15.2) % Plt Count (140-440) K/mm3 Lymph % (Auto) (13.4-35.0) % Dane % (Auto) (0.0-7.3) % Eos % (Auto) (0.0-4.3) % Baso % (Auto) (0.0-1.8) % Lymph # (1.2-5.4) K/mm3 Dane # (0.0-0.8) K/mm3 Eos # (0.0-0.4) K/mm3 Baso # (0.0-0.1) K/mm3 Seg Neutrophils % (40.0-70.0) % Seg Neutrophils # (1.8-7.7) K/mm3 D-Dimer 258.77 H (0-234) ng/mlDDU ABG pH 7.436 (7.350-7.450) pH Units ABG pCO2 29.3 mm Hg ABG pO2 74.2 L (80.0-90.0) mm Hg ABG HCO3 19.3 L (20.0-26.0) mmol/L ABG O2 Saturation 96.0 (95.0-99.0) % ABG O2 Content 18.4 (0.0-44) ABG Base Excess -3.6 L (-2.0-3.0) mmol/L ABG Hemoglobin 14.1 (12.0-16.0) gm/dl ABG Carboxyhemoglobin 3.3 (0.0-5.0) % ABG Methemoglobin 0.5 (0.0-1.5) % Oxyhemoglobin 92.4 L (95.0-99.0) % FiO2 32 % Sodium (137-145) mmol/L Potassium (3.6-5.0) mmol/L Chloride (98-107) mmol/L Carbon Dioxide (22-30) mmol/L Anion Gap mmol/L BUN (7-17) mg/dL Creatinine (0.7-1.2) mg/dL Estimated GFR ml/min BUN/Creatinine Ratio % Glucose (65-100) mg/dL Calcium (8.4-10.2) mg/dL Total Bilirubin (0.1-1.2) mg/dL AST (5-40) units/L ALT (7-56) units/L Alkaline Phosphatase (35-129) units/L Troponin T < 0.010 (0.00-0.029) ng/mL NT-Pro-B Natriuret Pep (0-900) pg/mL Total Protein (6.3-8.2) g/dL Albumin (3.9-5) g/dL Albumin/Globulin Ratio % - EKG Data -: EKG Interpreted by [facility] EKG shows normal: sinus rhythm, ST-T waves (no stemi) Rate: normal (85) - Radiology Data Radiology results: report reviewed CTA of the chest with 3D Reconstruction Indication: ,MAIN: SHORTNESS OF BREATH/ CHEST PAIN. 100 ML OMNIPAQUE 350 Technique: TECHNIQUE: Axial CT images were obtained through the chest after injection of 100 cc of Omnipaque 350 IV contrast. 3 plane MIP reconstructions were produced. All CT scans at this location are performed using CT dose reduction for ALARA by means of automated exposure control. COMPARISON: CT scan dated 06/08/2019 Automatic exposure control was utilized in an attempt to reduce radiation dose. Findings: Pulmonary arteries: The main pulmonary artery and right and left pulmonary artery branches fill satisfactorily with contrast. No pulmonary embolus is seen. Lungs: There is bullous disease in the lungs. There is hyperinflation of the lungs. Mediastinum: Heart size is normal. No adenopathy is seen. Aorta: Normal in diameter. No dissection seen within limits of this exam. There is a 2 cm left adrenal adenoma which is unchanged. Impression: No pulmonary embolus is seen There are chronic changes of emphysema again noted. CHEST 1 VIEW INDICATION: Dyspnea. COMPARISON: 08/05/2019 FINDINGS: Support devices: None. Heart: Within normal limits. Lungs/Pleura: No acute air space or interstitial disease. Additional findings: None. IMPRESSION: No acute abnormality. - Medical Decision Making trop neg x 2 with recent negative stress test and cardiac work-up within a year copd exacerbation with wheezing in the ED improved with the ED treatment ABG does not reveal any CO2 retention and was performed on patient's baseline O2 use cta neg for pe + copd on scan In past patient has been diagnosed with GERD as cause of chest pain therefore H2 cammy will also be prescribed Patient was anxious during ED stay and appears to have significant anxiety will be prescribed anxiety medication at discharge Outpatient follow-up encouraged - Differential Diagnosis COPD, CHF, pneumonia, bronchitis, PE, anxiety Critical Care Time: No Critical care attestation.: If time is entered above; I have spent that time in minutes in the direct care of this critically ill patient, excluding procedure time. ED Disposition Clinical Impression: COPD exacerbation, Anxiety Disposition: DC-01 TO HOME OR SELFCARE Is pt being admited?: No Does the pt Need Aspirin: No Condition: Stable Instructions: Chronic Obstructive Pulmonary Disease (ED), Anxiety (ED) Additional Instructions: Take the medication as prescribed. Follow-up with your doctor or doctor/clinic provided. Return if symptoms worsen as indicated by your discharge instructions. Prescriptions: HYDROcodone/APAP 5-325 [[place] 5/325] 1 each PO Q6HR PRN #14 tablet PRN Reason: Pain Famotidine [Pepcid] 20 mg PO BID #20 tablet Prednisone [predniSONE 10 mg (6-Day Pack, 21 Tabs)] 10 mg PO .TAPER #1 tab.ds.pk diazePAM TAB [Valium] 2 mg PO TID PRN #10 tablet PRN Reason: Anxiety Referrals: PRIMARY CARE, [Primary Care Provider] - 3-5 Days CELE MARTINEZ MD [Staff Physician] - 3-5 Days (lung doctor) PRIYANKA ARELLANO MD [Staff Physician] - 3-5 Days (primary care doctor ) Time of Disposition: 00:15
[2019-10-11 19:26] LABS: ABG Base Excess -3.6 mmol/L (-2.0-3.0); ABG HCO3 19.3 mmol/L (20.0-26.0); ABG Methemoglobin 0.5 % (0.0-1.5); ABG PCO2 29.3 mm Hg; ABG PH 7.436 pH Units (7.350-7.450); ABG PO2 74.2 mm Hg (80.0-90.0)
[2019-10-11] MEDS ORDERED: diazePAM 10 MG/2 ML SYRINGE IV ONE (21:06)
[2019-10-11] MEDS ORDERED: diphenhydrAMINE 50 MG/ML VIAL IV ONE (21:25)
[2019-10-11] MEDS ORDERED: diphenhydrAMINE 50 MG/ML VIAL ONE (21:27)
--- NOTE | 2019-10-11 21:56 | Cat Scan Report ---
CTA of the chest with 3D Reconstruction Indication: ,MAIN: SHORTNESS OF BREATH/ CHEST PAIN. 100 ML OMNIPAQUE 350 Technique: TECHNIQUE: Axial CT images were obtained through the chest after injection of 100 cc of Omnipaque 350 IV contrast. 3 plane MIP reconstructions were produced. All CT scans at this location are performed using CT dose reduction for ALARA by means of automated exposure control. COMPARISON: CT scan dated 06/08/2019 Automatic exposure control was utilized in an attempt to reduce radiation dose. Findings: Pulmonary arteries: The main pulmonary artery and right and left pulmonary artery branches fill satis factorily with contrast. No pulmonary embolus is seen. Lungs: There is bullous disease in the lungs. There is hyperinflation of the lungs. Mediastinum: Heart size is normal. No adenopathy is seen. Aorta: Normal in diameter. No dissection seen within limits of this exam. There is a 2 cm left adrenal adenoma which is unchanged. Impression: No pulmonary embolus is seen There are chronic changes of emphysema again noted. Signer Name: Dennis Pinon MD Signed: 10/11/2019 9:52 PM Workstation Name: [id number]
[2019-10-12 00:45] VITALS: BP 134/68
== END 2019-10-12 00:44 | disposition home or self-care (01) ==
LOC: ED 16:35
DX: J44.1 Chronic obstructive pulmonary disease with (acute) exacerbation (principal); F41.9 Anxiety disorder, unspecified; I11.0 Hypertensive heart disease with heart failure; I50.9 Heart failure, unspecified; E11.9 Type 2 diabetes mellitus without complications; F17.200 Nicotine dependence, unspecified, uncomplicated; I25.2 Old myocardial infarction; Z86.69 Personal history of other diseases of the nervous system and sense organs; Z91.013 Allergy to seafood; Z88.8 Allergy status to other drugs, medicaments and biological substances; Z79.82 Long term (current) use of aspirin; Z79.899 Other long term (current) drug therapy; Z90.710 Acquired absence of both cervix and uterus; Z98.890 Other specified postprocedural states; Z86.73 Personal history of transient ischemic attack (TIA), and cerebral infarction without residual deficits
CPT/HCPCS: 36415; 71045; 71275; 80053; 82803; 83880; 84484; 85025; 85379; 93005; 93010; 94640; 96374; 96375; 99285; J1200; J3360; Q9967; 94644

== ENCOUNTER 2019-11-01 14:39 | Emergency (ER) | payer MEDICARE ==
[2019-11-01] MEDS ORDERED: SODIUM CHLORIDE 0.9% 1000 ML 1,000 ML IV ONE (14:54)
[2019-11-01] MEDS ORDERED: LORazepam 2 MG/ML VIAL IV ONE (14:56)
[2019-11-01] MEDS ORDERED: ALBUTEROL 2.5 MG/3 ML NEBU IH ONE (14:56)
[2019-11-01] MEDS ORDERED: methylPREDNISolone Sod Succinate 125 MG/2 ML INJ IV ONE (15:07)
--- NOTE | 2019-11-01 15:08 | Emergency Department Report ---
ED Shortness of Breath HPI - General Chief Complaint: Dyspnea/Respdistress Stated Complaint: CHEST PAIN Time Seen by Provider: 11/01/19 14:53 Source: patient, EMS Mode of arrival: Ambulatory Limitations: No Limitations - History of Present Illness Initial Comments: Patient is a 54-year-old female with a past medical history of COPD who uses supplemental oxygen at home as needed who is presenting with shortness of breath. Patient states she was having shortness of breath and was admitted to the hospital last week. Patient was tested for coronavirus and her test was negative. Patient states that today she approximately an hour before her arrival she began to have some increased shortness of breath with chest tightness. Patient states that the pain was 6 out of 10 in severity. She was started on albuterol treatment prior to arrival. - Related Data Previous Rx's Medication Instructions Recorded Last Taken Type Zolpidem [Ambien] 5 mg PO QHS PRN #10 tablet 06/11/18 05/11/19 Rx Aspirin [Aspirin BABY CHEW TAB] 81 mg PO QDAY #30 tab.chew 09/04/18 05/11/19 Rx Spironolactone [Aldactone] 25 mg PO QDAY #30 tablet 05/15/19 Unknown Rx guaiFENesin ER [Mucinex ER] 600 mg PO BID #10 tablet 05/15/19 Unknown Rx lisinopriL [Zestril TAB] 5 mg PO QDAY #30 tablet 05/15/19 Unknown Rx hydrOXYzine PAMOATE [Vistaril] 50 mg PO Q6HR PRN #30 capsule 06/03/19 Unknown Rx Albuterol INH(or & Nicu Only) 2 puff IH Q4HR PRN #1 inhalation 06/08/19 Unknown Rx [ProAir HFA Inhaler] Budesonide/Formoterol Fumarate 10.2 gm IH BID #1 hfa.aer.ad 06/08/19 Unknown Rx [Symbicort 160-4.5 Mcg Inhaler] Furosemide [Lasix TAB] 40 mg PO QDAY #30 tablet 06/08/19 Unknown Rx carvediloL [Coreg] 6.25 mg PO BID #60 tablet 06/08/19 Unknown Rx traMADoL [Ultram] 50 mg PO Q6HR PRN #12 tablet 09/09/19 Unknown Rx Famotidine [Pepcid] 20 mg PO BID #20 tablet 10/12/19 Unknown Rx HYDROcodone/APAP 5-325 [[place] 1 each PO Q6HR PRN #14 tablet 10/12/19 Unknown Rx 5/325] Prednisone [predniSONE 10 mg 10 mg PO .TAPER #1 tab.ds.pk 10/12/19 Unknown Rx (6-Day Pack, 21 Tabs)] diazePAM TAB [Valium] 2 mg PO TID PRN #10 tablet 10/12/19 Unknown Rx Albuterol INH(or & Nicu Only) 2 puff IH QID PRN #1 inhalation 11/01/19 Unknown Rx [ProAir HFA Inhaler] Azithromycin [Zithromax Z-BECK] 250 mg PO DAILY #6 tablet 11/01/19 Unknown Rx HYDROcodone/APAP 5-325 [[place] 1 each PO Q6HR PRN #10 tablet 11/01/19 Unknown Rx 5/325] predniSONE [Deltasone] 20 mg PO QDAY #5 tab 11/01/19 Unknown Rx Allergies Allergy/AdvReac Type Severity Reaction Status Date / Time cyclobenzaprine HCl Allergy Severe Itching Verified 04/28/14 07:57 [From Flexeril] Fish Containing Products Allergy Anaphylaxis Verified 04/28/14 07:57 ibuprofen Allergy abd pain Verified 04/28/14 07:56 ketorolac tromethamine Allergy Headache Verified 04/28/14 07:56 [From Toradol] methocarbamol [From Robaxin] Allergy Unknown Verified 09/02/18 07:38 ED Review of Systems ROS: Stated complaint: CHEST PAIN Other details as noted in HPI Comment: All other systems reviewed and negative ED Past Medical Hx - Past Medical History Previous Medical History?: Yes Hx Hypertension: Yes Hx CVA: Yes (TIA 2014; Stroke Aug 2018) Hx Heart Attack/AMI: Yes (04/2014 as per pt although pt had a neg cardiac cath here ) Hx Congestive Heart Failure: Yes (Dilated cardiomyopathy EF of 20 to 25% echo 04/2019) Hx Diabetes: No Hx Seizures: Yes Hx Asthma: No Hx COPD: Yes Additional medical history: history of anxiety - Surgical History Past Surgical History?: Yes Additional Surgical History: Hysterectomy, back surgery - Social History Smoking Status: Current Every Day Smoker Substance Use Type: None - Medications Home Medications: Home Medications Medication Instructions Recorded Confirmed Last Taken Type Zolpidem [Ambien] 5 mg PO QHS PRN #10 tablet 11/13/18 10/14/19 10/13/19 Rx Aspirin [Aspirin BABY CHEW TAB] 81 mg PO QDAY #30 tab.chew 09/04/18 05/12/19 05/11/19 Rx Spironolactone [Aldactone] 25 mg PO QDAY #30 tablet 05/15/19 Unknown Rx guaiFENesin ER [Mucinex ER] 600 mg PO BID #10 tablet 05/15/19 Unknown Rx lisinopriL [Zestril TAB] 5 mg PO QDAY #30 tablet 05/15/19 Unknown Rx hydrOXYzine PAMOATE [Vistaril] 50 mg PO Q6HR PRN #30 capsule 06/03/19 Unknown Rx Albuterol INH(or & Nicu Only) 2 puff IH Q4HR PRN #1 inhalation 06/08/19 Unknown Rx [ProAir HFA Inhaler] Budesonide/Formoterol Fumarate 10.2 gm IH BID #1 hfa.aer.ad 06/08/19 Unknown Rx [Symbicort 160-4.5 Mcg Inhaler] Furosemide [Lasix TAB] 40 mg PO QDAY #30 tablet 06/08/19 Unknown Rx carvediloL [Coreg] 6.25 mg PO BID #60 tablet 06/08/19 Unknown Rx traMADoL [Ultram] 50 mg PO Q6HR PRN #12 tablet 09/09/19 Unknown Rx Famotidine [Pepcid] 20 mg PO BID #20 tablet 10/12/19 Unknown Rx HYDROcodone/APAP 5-325 [[place] 1 each PO Q6HR PRN #14 tablet 10/12/19 Unknown Rx 5/325] Prednisone [predniSONE 10 mg 10 mg PO .TAPER #1 tab.ds.pk 10/12/19 Unknown Rx (6-Day Pack, 21 Tabs)] diazePAM TAB [Valium] 2 mg PO TID PRN #10 tablet 10/12/19 Unknown Rx Albuterol INH(or & Nicu Only) 2 puff IH QID PRN #1 inhalation 11/01/19 Unknown Rx [ProAir HFA Inhaler] Azithromycin [Zithromax Z-BECK] 250 mg PO DAILY #6 tablet 11/01/19 Unknown Rx HYDROcodone/APAP 5-325 [[place] 1 each PO Q6HR PRN #10 tablet 11/01/19 Unknown Rx 5/325] predniSONE [Deltasone] 20 mg PO QDAY #5 tab 11/01/19 Unknown Rx ED Physical Exam - General Limitations: No Limitations General appearance: alert, in no apparent distress - Head Head exam: Present: atraumatic, normocephalic - Eye Eye exam: Present: normal appearance - ENT ENT exam: Present: mucous membranes moist - Neck Neck exam: Present: normal inspection - Respiratory Respiratory exam: Present: respiratory distress, wheezes, accessory muscle use. Absent: normal lung sounds bilaterally, rales, rhonchi, stridor, chest wall tenderness - Cardiovascular Cardiovascular Exam: Present: normal rhythm, tachycardia. Absent: systolic murmur, diastolic murmur, rubs, gallop - GI/Abdominal GI/Abdominal exam: Present: soft, normal bowel sounds. Absent: distended, tenderness, guarding, rebound - Extremities Exam Extremities exam: Present: normal inspection - Back Exam Back exam: Present: normal inspection - Neurological Exam Neurological exam: Present: alert, oriented X3 - Psychiatric Psychiatric exam: Present: normal affect, normal mood - Skin Skin exam: Present: warm, dry, intact, normal color. Absent: rash ED Course Vital Signs 11/01/19 11/01/19 11/01/19 14:48 14:54 14:57 Pulse Rate 99 H 99 H Respiratory 22 17 Rate O2 Sat by Pulse 99 100 99 Oximetry 11/01/19 11/01/19 11/01/19 15:01 15:31 16:01 Pulse Rate 91 H 86 90 Respiratory 17 26 H 21 Rate O2 Sat by Pulse 99 97 92 Oximetry 11/01/19 11/01/19 16:31 17:31 Pulse Rate 121 H Respiratory 19 47 H Rate O2 Sat by Pulse 92 92 Oximetry - Reevaluation(s) Reevaluation #1: 11/01/19 18:18 Patient received 5 mg of albuterol before arrival and an additional 7.5 mg of albuterol and 1 mg of Atrovent here. Patient currently is no longer wheezing 11/01/19 19:14 Reevaluation #2: 11/01/19 18:21 Vital Signs 11/01/19 11/01/19 11/01/19 14:48 14:54 14:57 Pulse Rate 99 H 99 H Respiratory 22 17 Rate O2 Sat by Pulse 99 100 99 Oximetry 11/01/19 11/01/19 11/01/19 15:01 15:31 16:01 Pulse Rate 91 H 86 90 Respiratory 17 26 H 21 Rate O2 Sat by Pulse 99 97 92 Oximetry 11/01/19 11/01/19 16:31 17:31 Pulse Rate 121 H Respiratory 19 47 H Rate O2 Sat by Pulse 92 92 Oximetry Reevaluation #3: 11/01/19 19:15 Patient was given [place] for her chest pain. Pain is likely secondary to some inflammatory changes in the lungs. Patient second troponin is negative. Patient is stable for discharge and outpatient therapy. Patient at the time of discharge satting 94% on 2 L. She does wear oxygen occasionally. ED Medical Decision Making - Lab Data Result diagrams: 11/01/19 15:57 11/01/19 15:57 - EKG Data -: EKG Interpreted by Nc - EKG Data 11/01/19 19:16 EKG shows sinus rhythm a rate of 93. [place] is normal intervals are normal there is evidence of LVH patient has no ST segment elevations or depressions. - Radiology Data [facility] [address] [place] [address] XRay Report Signed Patient: ISHAAN LINDO MR#: [id number] : 1965 Acct:[id number] Age/Sex: 54 / F ADM Date: 11/01/19 Loc: ED Attending Dr: Ordering Physician: ASTRID BOBBY MD Date of Service: 11/01/19 Procedure(s): XR chest 1V ap Accession Number(s): [id number] cc: ASTRID BOBBY MD Fluoro Time In Minutes: CHEST 1 VIEW 11/01/2019 3:11 PM INDICATION / CLINICAL INFORMATION: wheezing, chest pain. COMPARISON: One view of the chest from 10/11/2019. FINDINGS: SUPPORT DEVICES: None. HEART / MEDIASTINUM: No significant abnormality. LUNGS / PLEURA: No significant pulmonary or pleural abnormality. No pneumothorax. ADDITIONAL FINDINGS: No significant additional findings. IMPRESSION: 1. No acute abnormality of the chest. Signer Name: Maxi Burciaga MD Signed: 11/01/2019 3:24 PM Workstation Name: [id number] Critical care attestation.: If time is entered above; I have spent that time in minutes in the direct care o f this critically ill patient, excluding procedure time. ED Disposition Clinical Impression: COPD exacerbation, Atypical chest pain Disposition: DC-01 TO HOME OR SELFCARE Is pt being admited?: No Does the pt Need Aspirin: No Condition: Stable Instructions: Chronic Obstructive Pulmonary Disease (ED), Chest Pain (ED) Referrals: PRIMARY CARE, [Primary Care Provider] - 3-5 Days Time of Disposition: 19:17
--- NOTE | 2019-11-01 15:29 | XRay Report ---
CHEST 1 VIEW 11/01/2019 3:11 PM INDICATION / CLINICAL INFORMATION: wheezing, chest pain. COMPARISON: One view of the chest from 10/11/2019. FINDINGS: SUPPORT DEVICES: None. HEART / MEDIASTINUM: No significant abnormality. LUNGS / PLEURA: No significant pulmonary or pleural abnormality. No pneumothorax. ADDITIONAL FINDINGS: No significant additional findings. IMPRESSION: 1. No acute abnormality of the chest. Signer Name: Maxi Burciaga MD Signed: 11/01/2019 3:24 PM Workstation Name: [id number]
[2019-11-01 16:44] LABS: Basophils % (Auto) 0.4 % (0.0-1.8); Eosinophils # (Auto) 0.1 K/mm3 (0.0-0.4); Eosinophils % (Auto) 1.2 % (0.0-4.3); Hematocrit 38.4 % (30.3-42.9); Hemoglobin 12.6 gm/dl (10.1-14.3); Lymphocytes # (Auto) 1.7 K/mm3 (1.2-5.4); Lymphocytes % (Auto) 21.1 % (13.4-35.0); Mean Corpuscular HGB Conc 33 % (30-34); Mean Corpuscular Volume 97 fl (79-97); Monocytes # (Auto) 0.5 K/mm3 (0.0-0.8); Monocytes % (Auto) 6.6 % (0.0-7.3); Platelet Count 282 K/mm3 (140-440); Red Blood Count 3.94 M/mm3 (3.65-5.03); Red Cell Distribution Width 13.9 % (13.2-15.2)
[2019-11-01 16:53] LABS: INR 0.88 (0.87-1.13)
[2019-11-01 16:54] LABS: Partial Thromboplastin Time 27.9 Sec. (24.2-36.6)
[2019-11-01 17:18] LABS: BUN/Creatinine Ratio 20; Blood Urea Nitrogen 20 mg/dL (7-17); Calcium 8.4 mg/dL (8.4-10.2); Hemolysis Index 4
[2019-11-01] MEDS ORDERED: HYDROcodone/ACETAMINOPHEN 5-325 MG TAB PO ONE (17:21)
== END 2019-11-01 19:30 | disposition home or self-care (01) ==
LOC: ED 14:39
DX: J44.1 Chronic obstructive pulmonary disease with (acute) exacerbation (principal); R07.89 Other chest pain; I11.0 Hypertensive heart disease with heart failure; I50.9 Heart failure, unspecified; I25.2 Old myocardial infarction; Z86.73 Personal history of transient ischemic attack (TIA), and cerebral infarction without residual deficits; Z90.710 Acquired absence of both cervix and uterus; Z98.890 Other specified postprocedural states; Z79.899 Other long term (current) drug therapy; Z91.013 Allergy to seafood; Z88.8 Allergy status to other drugs, medicaments and biological substances
CPT/HCPCS: 36415; 71045; 80048; 84484; 85025; 85610; 85730; 93005; 93010; 96374; 96375; 99284; J2060; J2930; J7030

== ENCOUNTER 2019-11-10 08:48 | Emergency (ER) | payer MEDICARE ==
[2019-11-10] MEDS ORDERED: ASPIRIN 325 MG TAB PO ONE (09:31)
[2019-11-10 09:53] LABS: Basophils % (Auto) 0.6 % (0.0-1.8); Eosinophils % (Auto) 0.7 % (0.0-4.3); Hematocrit 42.8 % (30.3-42.9); Hemoglobin 14.1 gm/dl (10.1-14.3); Lymphocytes # (Auto) 0.9 K/mm3 (1.2-5.4); Mean Corpuscular HGB Conc 33 % (30-34); Mean Corpuscular Volume 95 fl (79-97); Monocytes # (Auto) 0.2 K/mm3 (0.0-0.8); Monocytes % (Auto) 3.2 % (0.0-7.3); Platelet Count 320 K/mm3 (140-440); Red Cell Distribution Width 14.3 % (13.2-15.2)
--- NOTE | 2019-11-10 10:05 | XRay Report ---
CHEST 1 VIEW INDICATION: Chest Pain. COMPARISON: 11/01/2019 FINDINGS: Support devices: None. Heart: Within normal limits. Lungs/Pleura: No acute air space or interstitial disease. Underlying emphysema is suspected. Additional findings: None. IMPRESSION: No acute findings. Mild emphysematous changes. Signer Name: Nii Redding Jr, MD Signed: 11/10/2019 10:00 AM Workstation Name: [id number]
[2019-11-10] MEDS ORDERED: FUROSEMIDE 40 MG/4 ML INJ IV ONE (10:08)
[2019-11-10] MEDS ORDERED: IPRATROPIUM/ALBUTEROL SULFATE 3 ML AMPUL.NEB IH ONE (10:08)
[2019-11-10] MEDS ORDERED: HYDROcodone/ACETAMINOPHEN 5-325 MG TAB PO ONE (10:10)
--- NOTE | 2019-11-10 10:10 | Emergency Department Report ---
ED Shortness of Breath HPI - General Chief Complaint: Chest Pain Stated Complaint: DIFFICULTY BREATHING Time Seen by Provider: 11/10/19 09:57 Source: patient, EMS Mode of arrival: Stretcher Limitations: No Limitations - History of Present Illness Initial Comments: Mrs. Jimenes is a 54-year-old female with history of COPD CHF emphysema, CVA, GERD, seizure disorder who presents with shortness of breath for the past 2 weeks. She continues to smoke cigarettes. She is dependent on 2 L oxygen nasal cannula. Has wheezing. Mild cough. She also has nondescript chest pain. She did not endorse this to me. She did inform triage nurse that she had mild chest pain radiating to the left arm. MD Complaint: shortness of breath, cough, chest pain -: Gradual, week(s) (2) Severity: moderate Consistency: constant Improves With: nothing Worsens With: nothing Known History Of: COPD, congestive heart failure Associated Symptoms: chest pain - Related Data Previous Rx's Medication Instructions Recorded Last Taken Type Zolpidem [Ambien] 5 mg PO QHS PRN #10 tablet 06/11/18 05/11/19 Rx Aspirin [Aspirin BABY CHEW TAB] 81 mg PO QDAY #30 tab.chew 09/04/18 05/11/19 Rx Spironolactone [Aldactone] 25 mg PO QDAY #30 tablet 05/15/19 Unknown Rx guaiFENesin ER [Mucinex ER] 600 mg PO BID #10 tablet 05/15/19 Unknown Rx lisinopriL [Zestril TAB] 5 mg PO QDAY #30 tablet 05/15/19 Unknown Rx hydrOXYzine PAMOATE [Vistaril] 50 mg PO Q6HR PRN #30 capsule 06/03/19 Unknown Rx Albuterol INH(or & Nicu Only) 2 puff IH Q4HR PRN #1 inhalation 06/08/19 Unknown Rx [ProAir HFA Inhaler] Budesonide/Formoterol Fumarate 10.2 gm IH BID #1 hfa.aer.ad 06/08/19 Unknown Rx [Symbicort 160-4.5 Mcg Inhaler] Furosemide [Lasix TAB] 40 mg PO QDAY #30 tablet 06/08/19 Unknown Rx carvediloL [Coreg] 6.25 mg PO BID #60 tablet 06/08/19 Unknown Rx traMADoL [Ultram] 50 mg PO Q6HR PRN #12 tablet 09/09/19 Unknown Rx Famotidine [Pepcid] 20 mg PO BID #20 tablet 10/12/19 Unknown Rx HYDROcodone/APAP 5-325 [[place] 1 each PO Q6HR PRN #14 tablet 10/12/19 Unknown Rx 5/325] Prednisone [predniSONE 10 mg 10 mg PO .TAPER #1 tab.ds.pk 10/12/19 Unknown Rx (6-Day Pack, 21 Tabs)] diazePAM TAB [Valium] 2 mg PO TID PRN #10 tablet 10/12/19 Unknown Rx Albuterol INH(or & Nicu Only) 2 puff IH QID PRN #1 inhalation 11/01/19 Unknown Rx [ProAir HFA Inhaler] Azithromycin [Zithromax Z-BECK] 250 mg PO DAILY #6 tablet 11/01/19 Unknown Rx HYDROcodone/APAP 5-325 [[place] 1 each PO Q6HR PRN #10 tablet 11/01/19 Unknown Rx 5/325] predniSONE [Deltasone] 20 mg PO QDAY #5 tab 11/01/19 Unknown Rx DOXYCYCLINE Hyclate [Vibramycin 100 mg PO Q12HR 7 Days #14 capsule 11/10/19 Unknown Rx CAP] Prednisone [predniSONE 10 mg 10 mg PO .TAPER #1 tab.ds.pk 11/10/19 Unknown Rx (6-Day Pack, 21 Tabs)] Allergies Allergy/AdvReac Type Severity Reaction Status Date / Time cyclobenzaprine HCl Allergy Severe Itching Verified 04/28/14 07:57 [From Flexeril] Fish Containing Products Allergy Anaphylaxis Verified 04/28/14 07:57 ibuprofen Allergy abd pain Verified 04/28/14 07:56 ketorolac tromethamine Allergy Headache Verified 04/28/14 07:56 [From Toradol] methocarbamol [From Robaxin] Allergy Unknown Verified 09/02/18 07:38 ED Review of Systems ROS: Stated complaint: DIFFICULTY BREATHING Other details as noted in HPI Comment: All other systems reviewed and negative Constitutional: denies: fever, malaise Respiratory: cough, shortness of breath, wheezing Cardiovascular: chest pain ED Past Medical Hx - Past Medical History Previous Medical History?: Yes Hx Hypertension: Yes Hx CVA: Yes (TIA 2014; Stroke Aug 2018) Hx Heart Attack/AMI: Yes (04/2014 as per pt although pt had a neg cardiac cath here ) Hx Congestive Heart Failure: Yes (Dilated cardiomyopathy EF of 20 to 25% echo 04/2019) Hx Diabetes: No Hx Seizures: Yes Hx Asthma: No Hx COPD: Yes Additional medical history: history of anxiety - Surgical History Past Surgical History?: Yes Additional Surgical History: Hysterectomy, back surgery - Social History Smoking Status: Current Every Day Smoker Substance Use Type: None - Medications Home Medications: Home Medications Medication Instructions Recorded Confirmed Last Taken Type Zolpidem [Ambien] 5 mg PO QHS PRN #10 tablet 06/11/18 05/12/19 05/11/19 Rx Aspirin [Aspirin BABY CHEW TAB] 81 mg PO QDAY #30 tab.chew 09/04/18 05/12/19 05/11/19 Rx Spironolactone [Aldactone] 25 mg PO QDAY #30 tablet 05/15/19 Unknown Rx guaiFENesin ER [Mucinex ER] 600 mg PO BID #10 tablet 05/15/19 Unknown Rx lisinopriL [Zestril TAB] 5 mg PO QDAY #30 tablet 05/15/19 Unknown Rx hydrOXYzine PAMOATE [Vistaril] 50 mg PO Q6HR PRN #30 capsule 06/03/19 Unknown Rx Albuterol INH(or & Nicu Only) 2 puff IH Q4HR PRN #1 inhalation 06/08/19 Unknown Rx [ProAir HFA Inhaler] Budesonide/Formoterol Fumarate 10.2 gm IH BID #1 hfa.aer.ad 06/08/19 Unknown Rx [Symbicort 160-4.5 Mcg Inhaler] Furosemide [Lasix TAB] 40 mg PO QDAY #30 tablet 06/08/19 Unknown Rx carvediloL [Coreg] 6.25 mg PO BID #60 tablet 06/08/19 Unknown Rx traMADoL [Ultram] 50 mg PO Q6HR PRN #12 tablet 09/09/19 Unknown Rx Famotidine [Pepcid] 20 mg PO BID #20 tablet 10/12/19 Unknown Rx HYDROcodone/APAP 5-325 [[place] 1 each PO Q6HR PRN #14 tablet 10/12/19 Unknown Rx 5/325] Prednisone [predniSONE 10 mg 10 mg PO .TAPER #1 tab.ds.pk 03/15/20 Unknown Rx (6-Day Pack, 21 Tabs)] diazePAM TAB [Valium] 2 mg PO TID PRN #10 tablet 10/12/19 Unknown Rx Albuterol INH(or & Nicu Only) 2 puff IH QID PRN #1 inhalation 11/01/19 Unknown Rx [ProAir HFA Inhaler] Azithromycin [Zithromax Z-BECK] 250 mg PO DAILY #6 tablet 11/01/19 Unknown Rx HYDROcodone/APAP 5-325 [[place] 1 each PO Q6HR PRN #10 tablet 11/01/19 Unknown Rx 5/325] predniSONE [Deltasone] 20 mg PO QDAY #5 tab 11/01/19 Unknown Rx DOXYCYCLINE Hyclate [Vibramycin 100 mg PO Q12HR 7 Days #14 capsule 11/10/19 Unknown Rx CAP] Prednisone [predniSONE 10 mg 10 mg PO .TAPER #1 tab.ds.pk 11/10/19 Unknown Rx (6-Day Pack, 21 Tabs)] ED Physical Exam - General Limitations: No Limitations General appearance: alert, in no apparent distress, anxious (Speaking full word sentences ), other - Head Head exam: Present: atraumatic, normocephalic - Eye Eye exam: Present: normal appearance - ENT ENT exam: Present: mucous membranes moist - Neck Neck exam: Present: normal inspection, full ROM - Respiratory Respiratory exam: Present: wheezes, prolonged expiratory. Absent: respiratory distress, rales, rhonchi, accessory muscle use, decreased breath sounds - Cardiovascular Cardiovascular Exam: Present: regular rate, normal rhythm, normal heart sounds. Absent: systolic murmur, diastolic murmur, rubs, gallop - GI/Abdominal GI/Abdominal exam: Present: soft, normal bowel sounds. Absent: distended, tenderness, guarding, rebound - Extremities Exam Extremities exam: Present: normal inspection - Back Exam Back exam: Present: normal inspection - Neurological Exam Neurological exam: Present: alert, oriented X3 - Psychiatric Psychiatric exam: Present: normal affect, anxious - Skin Skin exam: Present: warm, dry, intact, normal color. Absent: rash ED Course Vital Signs 11/10/19 11/10/19 11/10/19 09:10 09:50 10:51 Temperature 97.8 F Pulse Rate 96 H 96 H Pulse Rate [ 94 H Posterior Bilateral Throughout] Respiratory 18 18 Rate Respiratory 19 Rate [Posterior Bilateral Throughout] Blood Pressure 135/105 O2 Sat by Pulse 97 93 Oximetry 11/10/19 12:15 Temperature Pulse Rate Pulse Rate [ 94 H Posterior Bilateral Throughout] Respiratory Rate Respiratory 20 Rate [Posterior Bilateral Throughout] Blood Pressure O2 Sat by Pulse Oximetry ED Medical Decision Making - Lab Data Result diagrams: 11/10/19 09:39 11/10/19 09:39 Laboratory Results - last 24 hr 11/10/19 11/10/19 11/10/19 09:39 09:39 12:15 WBC 7.3 RBC 4.50 Hgb 14.1 Hct 42.8 MCV 95 MCH 31 MCHC 33 RDW 14.3 Plt Count 320 Lymph % (Auto) 12.0 L [place] % (Auto) 3.2 Eos % (Auto) 0.7 Baso % (Auto) 0.6 Lymph # 0.9 L [place] # 0.2 Eos # 0.0 Baso # 0.0 Seg Neutrophils % 83.5 H Seg Neutrophils # 6.1 ABG pH ABG pCO2 ABG pO2 ABG HCO3 ABG O2 Saturation ABG O2 Content ABG Base Excess ABG Hemoglobin ABG Carboxyhemoglobin ABG Methemoglobin Oxyhemoglobin FiO2 Sodium 138 Potassium 3.9 Chloride 101.5 Carbon Dioxide 18 L Anion Gap 22 BUN 14 Creatinine 1.1 Estimated GFR 52 BUN/Creatinine Ratio 13 Glucose 123 H Calcium 9.5 Troponin T < 0.010 < 0.010 11/10/19 13:15 WBC RBC Hgb Hct MCV MCH MCHC RDW Plt Count Lymph % (Auto) [place] % (Auto) Eos % (Auto) Baso % (Auto) Lymph # [place] # Eos # Baso # Seg Neutrophils % Seg Neutrophils # ABG pH 7.427 ABG pCO2 34.1 ABG pO2 62.4 L ABG HCO3 22.0 ABG O2 Saturation 93.8 L ABG O2 Content 18.2 ABG Base Excess -1.7 ABG Hemoglobin 14.6 ABG Carboxyhemoglobin 4.8 ABG Methemoglobin 0.5 Oxyhemoglobin 88.9 L FiO2 28 Sodium Potassium Chloride Carbon Dioxide Anion Gap BUN Creatinine Estimated GFR BUN/Creatinine Ratio Glucose Calcium Troponin T - EKG Data 11/10/19 10:31 EKG obtained 0921 Normal sinus rhythm rate 95 bpm normal axis prolonged QT interval positive LVH no significant ST elevation nonischemic T wave pattern - Radiology Data Radiology results: report reviewed Chest radiograph no acute findings mild emphysematous changes according to chest radiograph - Medical Decision Making Mrs. Jimenes presents with mild COPD exacerbation. ABG reveals mild hyperventilation. No respiratory acidosis. There is a component of anxiety. Prescribed doxycycline and prednisone taper. Troponin x2-. Critical care attestation.: If time is entered above; I have spent that time in minutes in the direct care of this critically ill patient, excluding procedure time. ED Disposition Clinical Impression: COPD with acute exacerbation Disposition: DC-01 TO HOME OR SELFCARE Is pt being admited?: No Does the pt Need Aspirin: No Condition: Stable Instructions: Chronic Obstructive Pulmonary Disease (ED) Prescriptions: Prednisone [predniSONE 10 mg (6-Day Pack, 21 Tabs)] 10 mg PO .TAPER #1 tab.ds.pk DOXYCYCLINE Hyclate [Vibramycin CAP] 100 mg PO Q12HR 7 Days #14 capsule Referrals: PRIMARY CARE, [Primary Care Provider] - 3-5 Days
[2019-11-10] MEDS ORDERED: ALBUTEROL 2.5 MG/3 ML NEBU IH ONE ×2 (10:57→13:08)
[2019-11-10] MEDS ORDERED: LORazepam 2 MG/ML VIAL ONE (11:05)
[2019-11-10] MEDS ORDERED: LORazepam 2 MG/ML VIAL IV ONE ×2 (11:06→13:07)
[2019-11-10 11:18] LABS: BUN/Creatinine Ratio 13; Blood Urea Nitrogen 14 mg/dL (7-17); Calcium 9.5 mg/dL (8.4-10.2); Hemolysis Index 5
[2019-11-10 13:38] LABS: ABG Base Excess -1.7 mmol/L (-2.0-3.0); ABG Methemoglobin 0.5 % (0.0-1.5); ABG Oxygen Saturation 93.8 % (95.0-99.0); ABG PCO2 34.1 mm Hg; ABG PH 7.427 pH Units (7.350-7.450); ABG PO2 62.4 mm Hg (80.0-90.0)
[2019-11-10 16:04] VITALS: BP 145/86
== END 2019-11-10 14:30 | disposition home or self-care (01) ==
LOC: ED 08:48
DX: J44.1 Chronic obstructive pulmonary disease with (acute) exacerbation (principal); I11.0 Hypertensive heart disease with heart failure; I50.9 Heart failure, unspecified; F41.9 Anxiety disorder, unspecified; I25.2 Old myocardial infarction; K21.9 Gastro-esophageal reflux disease without esophagitis; F17.200 Nicotine dependence, unspecified, uncomplicated; Z86.69 Personal history of other diseases of the nervous system and sense organs; Z86.73 Personal history of transient ischemic attack (TIA), and cerebral infarction without residual deficits; Z91.013 Allergy to seafood; Z88.8 Allergy status to other drugs, medicaments and biological substances; Z79.899 Other long term (current) drug therapy; Z98.890 Other specified postprocedural states; Z88.6 Allergy status to analgesic agent; Z90.710 Acquired absence of both cervix and uterus
CPT/HCPCS: 36415; 71045; 80048; 82803; 84484; 85025; 93005; 93010; 94640; 96374; 96375; 96376; 99285; J1940; J2060; 94644

== ENCOUNTER 2019-12-10 17:56 | Emergency (ER) | payer MEDICARE ==
[2019-12-10 18:17] VITALS: BP 148/90
--- NOTE | 2019-12-10 18:26 | Emergency Department Report ---
ED General Adult HPI - General Chief complaint: Dizziness Stated complaint: FALL Time Seen by Provider: 12/10/19 18:14 Source: EMS Mode of arrival: Stretcher Limitations: No Limitations - History of Present Illness Initial comments: This is a 54-year-old home O2 dependent diabetic lady with COPD. She states that she is never passed out before. However at approximately 5 PM this evening she "fell down like a tree". She states that she did not lose consciousness. However, she fell onto her right shoulder and right hip. She complains of pain in both those areas. She states that she was feeling weak and dizzy prior to the event. She denies a history of previous syncope or near syncope. She denies any other acute change. However she does state that she was not wearing her oxygen when she began to feel weak and dizzy. -: Gradual Location: right, upper extremity, lower extremity Severity scale (0 -10): 9 Quality: aching Consistency: constant Improves with: none Worsens with: none Associated Symptoms: denies other symptoms Treatments Prior to Arrival: none - Related Data Previous Rx's Medication Instructions Recorded Last Taken Type Zolpidem [Ambien] 5 mg PO QHS PRN #10 tablet 06/11/18 05/11/19 Rx Aspirin [Aspirin BABY CHEW TAB] 81 mg PO QDAY #30 tab.chew 09/04/18 05/11/19 Rx Spironolactone [Aldactone] 25 mg PO QDAY #30 tablet 05/15/19 Unknown Rx guaiFENesin ER [Mucinex ER] 600 mg PO BID #10 tablet 05/15/19 Unknown Rx lisinopriL [Zestril TAB] 5 mg PO QDAY #30 tablet 05/15/19 Unknown Rx hydrOXYzine PAMOATE [Vistaril] 50 mg PO Q6HR PRN #30 capsule 06/03/19 Unknown Rx Albuterol INH(or & Nicu Only) 2 puff IH Q4HR PRN #1 inhalation 06/08/19 Unknown Rx [ProAir HFA Inhaler] Budesonide/Formoterol Fumarate 10.2 gm IH BID #1 hfa.aer.ad 06/08/19 Unknown Rx [Symbicort 160-4.5 Mcg Inhaler] Furosemide [Lasix TAB] 40 mg PO QDAY #30 tablet 06/08/19 Unknown Rx carvediloL [Coreg] 6.25 mg PO BID #60 tablet 06/08/19 Unknown Rx traMADoL [Ultram] 50 mg PO Q6HR PRN #12 tablet 09/09/19 Unknown Rx Famotidine [Pepcid] 20 mg PO BID #20 tablet 10/12/19 Unknown Rx HYDROcodone/APAP 5-325 [[place] 1 each PO Q6HR PRN #14 tablet 10/12/19 Unknown Rx 5/325] Prednisone [predniSONE 10 mg 10 mg PO .TAPER #1 tab.ds.pk 10/12/19 Unknown Rx (6-Day Pack, 21 Tabs)] diazePAM TAB [Valium] 2 mg PO TID PRN #10 tablet 10/12/19 Unknown Rx Albuterol INH(or & Nicu Only) 2 puff IH QID PRN #1 inhalation 11/01/19 Unknown Rx [ProAir HFA Inhaler] Azithromycin [Zithromax Z-BECK] 250 mg PO DAILY #6 tablet 11/01/19 Unknown Rx HYDROcodone/APAP 5-325 [[place] 1 each PO Q6HR PRN #10 tablet 11/01/19 Unknown Rx 5/325] predniSONE [Deltasone] 20 mg PO QDAY #5 tab 11/01/19 Unknown Rx DOXYCYCLINE Hyclate [Vibramycin 100 mg PO Q12HR 7 Days #14 capsule 11/10/19 Unknown Rx CAP] Prednisone [predniSONE 10 mg 10 mg PO .TAPER #1 tab.ds.pk 11/10/19 Unknown Rx (6-Day Pack, 21 Tabs)] Allergies Allergy/AdvReac Type Severity Reaction Status Date / Time cyclobenzaprine HCl Allergy Severe Itching Verified 04/28/14 07:57 [From Flexeril] Fish Containing Products Allergy Anaphylaxis Verified 04/28/14 07:57 ibuprofen Allergy abd pain Verified 04/28/14 07:56 ketorolac tromethamine Allergy Headache Verified 04/28/14 07:56 [From Toradol] methocarbamol [From Robaxin] Allergy Unknown Verified 09/02/18 07:38 ED Review of Systems ROS: Stated complaint: FALL Other details as noted in HPI Constitutional: denies: chills, fever Eyes: denies: eye pain, vision change ENT: denies: ear pain, throat pain Respiratory: denies: cough, shortness of breath Cardiovascular: denies: chest pain, palpitations Endocrine: no symptoms reported Gastrointestinal: denies: abdominal pain, vomiting Genitourinary: denies: urgency, dysuria Musculoskeletal: denies: back pain, arthralgia Skin: denies: rash, lesions Neurological: denies: headache, weakness, paresthesias Psychiatric: denies: anxiety, depression Hematological/Lymphatic: denies: easy bleeding, easy bruising ED Past Medical Hx - Past Medical History Previous Medical History?: Yes Hx Hypertension: Yes Hx CVA: Yes (TIA 2014; Stroke Aug 2018) Hx Heart Attack/AMI: Yes (04/2014 as per pt although pt had a neg cardiac cath here ) Hx Congestive Heart Failure: Yes (Dilated cardiomyopathy EF of 20 to 25% echo 04/2019) Hx Diabetes: No Hx Seizures: Yes Hx Asthma: No Hx COPD: Yes Additional medical history: history of anxiety - Surgical History Past Surgical History?: Yes Additional Surgical History: Hysterectomy, back surgery - Social History Smoking Status: Current Every Day Smoker Substance Use Type: None - Medications Home Medications: Home Medications Medication Instructions Recorded Confirmed Last Taken Type Zolpidem [Ambien] 5 mg PO QHS PRN #10 tablet 06/11/18 05/12/19 05/11/19 Rx Aspirin [Aspirin BABY CHEW TAB] 81 mg PO QDAY #30 tab.chew 09/04/18 05/12/19 05/11/19 Rx Spironolactone [Aldactone] 25 mg PO QDAY #30 tablet 05/15/19 Unknown Rx guaiFENesin ER [Mucinex ER] 600 mg PO BID #10 tablet 05/15/19 Unknown Rx lisinopriL [Zestril TAB] 5 mg PO QDAY #30 tablet 05/15/19 Unknown Rx hydrOXYzine PAMOATE [Vistaril] 50 mg PO Q6HR PRN #30 capsule 06/03/19 Unknown Rx Albuterol INH(or & Nicu Only) 2 puff IH Q4HR PRN #1 inhalation 06/08/19 Unknown Rx [ProAir HFA Inhaler] Budesonide/Formoterol Fumarate 10.2 gm IH BID #1 hfa.aer.ad 06/08/19 Unknown Rx [Symbicort 160-4.5 Mcg Inhaler] Furosemide [Lasix TAB] 40 mg PO QDAY #30 tablet 06/08/19 Unknown Rx carvediloL [Coreg] 6.25 mg PO BID #60 tablet 06/08/19 Unknown Rx traMADoL [Ultram] 50 mg PO Q6HR PRN #12 tablet 09/09/19 Unknown Rx Famotidine [Pepcid] 20 mg PO BID #20 tablet 10/12/19 Unknown Rx HYDROcodone/APAP 5-325 [[place] 1 each PO Q6HR PRN #14 tablet 10/12/19 Unknown Rx 5/325] Prednisone [predniSONE 10 mg 10 mg PO .TAPER #1 tab.ds.pk 10/12/19 Unknown Rx (6-Day Pack, 21 Tabs)] diazePAM TAB [Valium] 2 mg PO TID PRN #10 tablet 10/12/19 Unknown Rx Albuterol INH(or & Nicu Only) 2 puff IH QID PRN #1 inhalation 11/01/19 Unknown Rx [ProAir HFA Inhaler] Azithromycin [Zithromax Z-BECK] 250 mg PO DAILY #6 tablet 11/01/19 Unknown Rx HYDROcodone/APAP 5-325 [[place] 1 each PO Q6HR PRN #10 tablet 11/01/19 Unknown Rx 5/325] predniSONE [Deltasone] 20 mg PO QDAY #5 tab 11/01/19 Unknown Rx DOXYCYCLINE Hyclate [Vibramycin 100 mg PO Q12HR 7 Days #14 capsule 11/10/19 Unknown Rx CAP] Prednisone [predniSONE 10 mg 10 mg PO .TAPER #1 tab.ds.pk 11/10/19 Unknown Rx (6-Day Pack, 21 Tabs)] ED Physical Exam - General Limitations: No Limitations General appearance: alert, in no apparent distress - Head Head exam: Present: atraumatic, normocephalic - Eye Eye exam: Present: normal appearance. Absent: scleral icterus - ENT ENT exam: Present: mucous membranes moist - Neck Neck exam: Present: normal inspection. Absent: tenderness, meningismus - Respiratory Respiratory exam: Present: normal lung sounds bilaterally. Absent: respiratory distress - Cardiovascular Cardiovascular Exam: Present: regular rate, normal rhythm. Absent: systolic murmur, diastolic murmur, rubs, gallop - GI/Abdominal GI/Abdominal exam: Present: soft, normal bowel sounds. Absent: distended, tende rness, guarding, rebound, rigid - Extremities Exam Extremities exam: Present: other (Pain on palpation of the right shoulder and right hip no gross deformity or displacement) - Back Exam Back exam: Present: normal inspection. Absent: CVA tenderness (R), CVA tenderness (L), muscle spasm, paraspinal tenderness, vertebral tenderness - Neurological Exam Neurological exam: Present: alert, oriented X3, CN II-XII intact, other (Some apprehension on right upper extremity and right hip movement secondary to pain but motor is intact). Absent: motor sensory deficit - Psychiatric Psychiatric exam: Present: normal affect, normal mood - Skin Skin exam: Present: warm, dry, intact, normal color. Absent: rash ED Course Vital Signs 12/10/19 12/10/19 18:16 18:28 Temperature 98.7 F Pulse Rate 94 H Respiratory 12 Rate Blood Pressure 148/90 [Left] O2 Sat by Pulse 100 Oximetry - Reevaluation(s) Reevaluation #1: Discussed with Dr. Palacios will admit. 12/10/19 19:06 ED Medical Decision Making - Lab Data Result diagrams: 12/10/19 18:19 12/10/19 18:19 Laboratory Results - last 24 hr 12/10/19 18:19 WBC 5.2 RBC 3.63 L Hgb 11.7 Hct 34.9 MCV 96 MCH 32 MCHC 33 RDW 15.4 H Plt Count 271 Lymph % (Auto) 16.2 [place] % (Auto) 8.5 H Eos % (Auto) 2.8 Baso % (Auto) 0.6 Lymph # 0.8 L [place] # 0.4 Eos # 0.1 Baso # 0.0 Seg Neutrophils % 71.9 H Seg Neutrophils # 3.8 - EKG Data -: EKG Interpreted by Me EKG shows normal: sinus rhythm, axis, intervals, QRS complexes, ST-T waves Rate: normal - EKG Data Interpretation: nonspecific ST-T wave jered, LVH - Radiology Data Radiology results: image reviewed (Chest x-ray, shoulder x-ray, hip x-ray no acute process CT pending) Critical care attestation.: If time is entered above; I have spent that time in minutes in the direct care of this critically ill patient, excluding procedure time. ED Disposition Clinical Impression: Syncope and collapse, Chronic respiratory failure with hypoxia COPD (chronic obstructive pulmonary disease) Qualifiers: COPD type: unspecified COPD Qualified Code(s): J44.9 - Chronic obstructive pulmonary disease, unspecified Disposition: DC-09 OP ADMIT IP TO THIS HOSP Is pt being admited?: Yes Does the pt Need Aspirin: Yes Condition: Stable Instructions: Syncope (ED), Chronic Obstructive Pulmonary Disease (ED) Referrals: PRIMARY CARE, [Primary Care Provider] - 3-5 Days Time of Disposition: 19:06
[2019-12-10 18:50] LABS: Basophils % (Auto) 0.6 % (0.0-1.8); Eosinophils # (Auto) 0.1 K/mm3 (0.0-0.4); Eosinophils % (Auto) 2.8 % (0.0-4.3); Hematocrit 34.9 % (30.3-42.9); Hemoglobin 11.7 gm/dl (10.1-14.3); Lymphocytes # (Auto) 0.8 K/mm3 (1.2-5.4); Lymphocytes % (Auto) 16.2 % (13.4-35.0); Mean Corpuscular HGB Conc 33 % (30-34); Mean Corpuscular Volume 96 fl (79-97); Monocytes # (Auto) 0.4 K/mm3 (0.0-0.8); Monocytes % (Auto) 8.5 % (0.0-7.3); Platelet Count 271 K/mm3 (140-440); Red Blood Count 3.63 M/mm3 (3.65-5.03); Red Cell Distribution Width 15.4 % (13.2-15.2)
[2019-12-10 18:55] LABS: Calcium 8.7 mg/dL (8.4-10.2)
[2019-12-10 18:57] LABS: INR 0.91 (0.87-1.13)
[2019-12-10 18:58] LABS: Partial Thromboplastin Time 27.9 Sec. (24.2-36.6)
--- NOTE | 2019-12-10 19:02 | History and Physical Report ---
History of Present Illness Chief complaint: I nearly passed out History of present illness: 54 YO Female with COPD, Chronic Respiratory Failure on home Oxygen, DM, HTN, Systolic CHF(EF 25%), CVA, Nicotine Dependence, OR, Seizure Disorder presents to ED for evaluation. Patient states that she was in her usual state of health today. Patient states that at approximately 1700 hrs. she experienced a sudden onset of dizziness and subsequently "fell down the country". Patient states that she fell and landing on her right hip and shoulder. Patient denies loss of consciousness. Patient states that shortly after fall she experienced pain. EMS was notified and upon arrival the patient was found to be in distress and subsequently transported to [facility] for further evaluation and care. Patient seen and evaluated in the emergency department. Lab and imaging studies reviewed. Patient found to have clinical symptoms consistent with acute stroke. Patient initiated on CVA protocol. Patient admitted to medical floor for further evaluation and care. Patient left AMA prior to conclusion of work-up. Past History Past Medical History: diabetes, heart failure, hypertension, stroke, other (See HPI) Past Surgical History: hysterectomy, Other (Back surgery) Social history: Family history: hypertension Medications and Allergies Allergies Allergy/AdvReac Type Severity Reaction Status Date / Time cyclobenzaprine HCl Allergy Severe Itching Verified 04/28/14 07:57 [From Flexeril] Fish Containing Products Allergy Anaphylaxis Verified 04/28/14 07:57 ibuprofen Allergy abd pain Verified 04/28/14 07:56 ketorolac tromethamine Allergy Headache Verified 04/28/14 07:56 [From Toradol] methocarbamol [From Robaxin] Allergy Unknown Verified 09/02/18 07:38 Home Medications Medication Instructions Recorded Confirmed Last Taken Type Zolpidem [Ambien] 5 mg PO QHS PRN #10 tablet 06/11/18 12/11/19 05/11/19 Rx Aspirin [Aspirin BABY CHEW TAB] 81 mg PO QDAY #30 tab.chew 09/04/18 12/11/19 05/11/19 Rx Spironolactone [Aldactone] 25 mg PO QDAY #30 tablet 05/15/19 12/11/19 Unknown Rx lisinopriL [Zestril TAB] 5 mg PO QDAY #30 tablet 05/15/19 12/11/19 Unknown Rx Albuterol INH(or & Nicu Only) 2 puff IH Q4HR PRN #1 inhalation 06/08/19 12/11/19 Unknown Rx [ProAir HFA Inhaler] Budesonide/Formoterol Fumarate 10.2 gm IH BID #1 hfa.aer.ad 06/08/19 12/11/19 Unknown Rx [Symbicort 160-4.5 Mcg Inhaler] Furosemide [Lasix TAB] 40 mg PO QDAY #30 tablet 06/08/19 12/11/19 Unknown Rx Famotidine [Pepcid] 20 mg PO BID #20 tablet 10/12/19 12/11/19 Unknown Rx diazePAM TAB [Valium] 2 mg PO TID PRN #10 tablet 10/12/19 12/11/19 Unknown Rx Albuterol INH(or & Nicu Only) 2 puff IH QID PRN #1 inhalation 11/01/19 12/11/19 Unknown Rx [ProAir HFA Inhaler] Levothyroxine [Synthroid] 25 mcg PO DAILY@0600 #30 tablet 12/14/19 Unknown Rx Levothyroxine [Synthroid] 112 mcg PO DAILY@0600 #30 tablet 12/14/19 Unknown Rx Warfarin [Coumadin] 5 mg PO QDAY 12/14/19 12/14/19 Unknown History levETIRAcetam [Keppra TAB] 750 mg PO BID #60 tablet 12/14/19 Unknown Rx Review of Systems Constitutional: no weight loss, no weight gain, no fever, no chills Ears, nose, mouth and throat: no ear pain, no ear discharge, no tinnitis, no decreased hearing, no nose pain Breasts: no change in shape, no swelling Cardiovascular: no chest pain, no orthopnea, no palpitations, no rapid/irregular heart beat Respiratory: no cough, no cough with sputum, no excessive sputum Gastrointestinal: no abdominal pain, no diarrhea, no constipation Genitourinary Female: no pelvic pain, no flank pain, no menorrhagia, no dysuria Rectal: no pain, no incontinence, no bleeding Musculoskeletal: no neck stiffness, no shooting arm pain, no arm numbness/tingling Integumentary: no rash, no pruritis, no redness, no sores, no wounds Neurological: lack of coordination, balance difficulties, no paralysis, no weakness, no numbness, no seizures, no syncope Psychiatric: no change in sleep habits, no sleep disturbances, no insomnia, no hypersomnia, no change in libido Endocrine: no heat intolerance, no excessive thirst, no polydipsia, no nocturia, no excessive sweating Hematologic/Lymphatic: no easy bruising, no easy bleeding, no lymphedema Allergic/Immunologic: no urticaria, no allergic rhinitis, no wheezing, no persis tent infections, no anaphylaxis Exam - Constitutional Vitals: Temp Pulse Resp BP Pulse Ox 98.7 F 94 H 12 148/90 100 12/10/19 18:28 12/10/19 18:16 12/10/19 18:16 12/10/19 18:16 12/10/19 18:16 General appearance: Present: mild distress - EENT Eyes: Present: PERRL ENT: hearing intact, clear oral mucosa - Neck Neck: Present: supple, normal ROM - Respiratory Respiratory effort: normal Respiratory: bilateral: CTA - Cardiovascular Heart Sounds: Present: S1 & S2. Absent: rub, click - Extremities Extremities: pulses symmetrical, No edema Peripheral Pulses: within normal limits - Abdominal General gastrointestinal: Present: soft, non-tender, non-distended, normal bowel sounds Female genitourinary: Present: normal - Integumentary Integumentary: Present: clear, warm, dry - Musculoskeletal Musculoskeletal: gait normal, strength equal bilaterally - Psychiatric Psychiatric: appropriate mood/affect, intact judgment & insight - Neurologic Neurologic: CNII-XII intact, moves all extremities Results - Labs CBC & Chem 7: 12/10/19 18:19 12/10/19 18:19 Labs: Abnormal lab results 12/10/19 12/10/19 Range/Units 18:19 18:19 RBC 3.63 L (3.65-5.03) M/mm3 RDW 15.4 H (13.2-15.2) % [place] % (Auto) 8.5 H (0.0-7.3) % Lymph # 0.8 L (1.2-5.4) K/mm3 Seg Neutrophils % 71.9 H (40.0-70.0) % PT 12.1 L (12.2-14.9) Sec. Assessment and Plan - Patient Problems (1) CVA (cerebral vascular accident) Status: Acute Plan to address problem: Stroke protocol. Patient left AMA prior to initiation and completion of work- up. (2) Hypertension Status: Acute Qualifiers: Hypertension type: essential hypertension Qualified Code(s): I10 - Essential (primary) hypertension Plan to address problem: Patient left AMA prior to initiation and completion of work-up (3) CHF (congestive heart failure) Status: Acute Plan to address problem: Patient left AMA prior to initiation and completion of work-up. (4) DVT prophylaxis Status: Acute Plan to address problem: SCD to bilateral lower extremities while in bed, patient is ambulatory.
[2019-12-10 19:03] LABS: Alanine Aminotransferase 22 units/L (7-56); Albumin 4.2 g/dL (3.9-5); Bilirubin,Direct < 0.2 mg/dL (0-0.2)
[2019-12-10] MEDS ORDERED: MORPHINE 2 MG/1 ML INJ IV ONE (19:08)
[2019-12-10] MEDS ORDERED: ONDANSETRON 4 MG/2 ML INJ IV ONE (19:09)
[2019-12-10] MEDS ORDERED: HYDROcodone/ACETAMINOPHEN 5-325 MG TAB ONE (19:20)
[2019-12-10] MEDS ORDERED: HYDROcodone/ACETAMINOPHEN 5-325 MG TAB PO ONE (19:24)
--- NOTE | 2019-12-10 19:37 | XRay Report ---
CHEST 1 VIEW INDICATION / CLINICAL INFORMATION: MAIN: fell in kitchen after feeling faint. COMPARISON: Chest radiograph 11/10/2019 FINDINGS: SUPPORT DEVICES: None. HEART / MEDIASTINUM: No significant abnormality. LUNGS / PLEURA: No significant pulmonary or pleural abnormality. No pneumothorax. No acute skeletal abnormality. IMPRESSION: No acute finding. Signer Name: Dawson Rajput MD Signed: 12/10/2019 7:32 PM Workstation Name: [id number]
--- NOTE | 2019-12-10 19:37 | XRay Report ---
RIGHT SHOULDER 3 VIEW(S) INDICATION / CLINICAL INFORMATION: MAIN: fell in kitchen after feeling faint COMPARISON: None available. FINDINGS: BONES / JOINT(S): No acute fracture or subluxation. No significant arthritis. SOFT TISSUES: No significant abnormality. ADDITIONAL FINDINGS: None. Signer Name: Dawson Rajput MD Signed: 12/10/2019 7:33 PM Workstation Name: [id number]
--- NOTE | 2019-12-10 19:39 | XRay Report ---
RIGHT HIP 2 VIEW(S) INDICATION / CLINICAL INFORMATION: MAIN: fell in kitchen after feeling faint COMPARISON: right hip radiograph 09/09/2019 FINDINGS: BONES / JOINT(S): No acute fracture or subluxation. SOFT TISSUES: No significant abnormality. Signer Name: Dawson Rajput MD Signed: 12/10/2019 7:35 PM Workstation Name: [id number]
== END 2019-12-10 19:26 | disposition left against medical advice (07) ==
LOC: ED 17:56
DX: M25.511 Pain in right shoulder (principal); M25.551 Pain in right hip; I11.0 Hypertensive heart disease with heart failure; I50.9 Heart failure, unspecified; I25.2 Old myocardial infarction; F41.9 Anxiety disorder, unspecified; F17.200 Nicotine dependence, unspecified, uncomplicated; Z88.6 Allergy status to analgesic agent; Z88.8 Allergy status to other drugs, medicaments and biological substances; Z79.899 Other long term (current) drug therapy; Z86.73 Personal history of transient ischemic attack (TIA), and cerebral infarction without residual deficits; Z86.69 Personal history of other diseases of the nervous system and sense organs; Z98.890 Other specified postprocedural states; Z90.710 Acquired absence of both cervix and uterus; W19.XXXA Unspecified fall, initial encounter; Y93.89 Activity, other specified; Y92.89 Other specified places as the place of occurrence of the external cause; Y99.8 Other external cause status
CPT/HCPCS: 36415; 71045; 80048; 80076; 82550; 82553; 82962; 83735; 83880; 84484; 85025; 85610; 85730; 86850; 86900; 86901; 93005; J2270; J2405

== ENCOUNTER 2020-07-12 19:12 | Emergency (ER) | payer MEDICARE ==
[2020-07-12] MEDS ORDERED: IPRATROPIUM 0.02% NEBU 2.5 ML IH ONE (19:49)
[2020-07-12] MEDS ORDERED: ALBUTEROL 2.5 MG/3 ML NEBU IH ONE (19:49)
--- NOTE | 2020-07-12 19:51 | Event Note ---
ED Screening Note ED Screening Note: Patient presents for shortness of breath that began an hour prior to arrival She states that she has used for nebulizer treatments at home She has shortness of breath and wheezing She denies any cough, fever, vomiting, diarrhea Past medical history of COPD and wears 2 L of home oxygen On exam very poor air movement, wheezing throughout she is 95% on nasal cannula at this time This initial assessment/diagnostic orders/clinical plan/treatment(s) is/are subject to change based on patients health status, clinical progression and re- assessment by fellow clinical providers in the ED. Further treatment and workup at subsequent clinical providers discretion. Patient/guardian urged not to elope from the ED as their condition may be serious if not clinically assessed and managed. Initial orders include: Labs, chest x-ray, continuous neb treatment, steroids Charge nurse Brooke notified patient needs room DICK
[2020-07-12] MEDS: dexAMETHasone 20 MG/5 ML VIAL IV ONE ×2 (20:03→20:09)
--- NOTE | 2020-07-12 20:50 | XRay Report ---
XR chest 1V ap INDICATION / CLINICAL INFORMATION: Shortness of breath. COMPARISON: 12/11/2019 FINDINGS: SUPPORT DEVICES: None. HEART /PULMONARY VASCULATURE: No significant abnormality. LUNGS / PLEURA: There are diffuse increased interstitial markings throughout the lungs. No airspace c onsolidation or effusion. No pneumothorax. ADDITIONAL FINDINGS: No significant additional findings. IMPRESSION: Diffuse increased interstitial markings throughout the lungs, may reflect progression in chronic inte rstitial lung disease, though superimposed interstitial edema or infiltrate is not excluded. Signer Name: Segundo Licona MD Signed: 07/12/2020 8:46 PM Workstation Name: [id number]
== END 2020-07-12 20:33 | disposition home or self-care (01) ==
LOC: ED 19:12
DX: R06.00 Dyspnea, unspecified (principal); Z53.21 Procedure and treatment not carried out due to patient leaving prior to being seen by health care provider
CPT/HCPCS: 71045; J1100

== ENCOUNTER 2021-01-24 15:34 | Inpatient (IN) | payer MEDICARE ==
[2021-01-24] MEDS ORDERED: MORPHINE 4 MG/1 ML INJ IV ONE ×2 (17:06→19:42)
[2021-01-24] MEDS ORDERED: ACETAMINOPHEN 325 MG TAB PO ONE (17:06)
[2021-01-24] MEDS ORDERED: IPRATROPIUM 0.02% NEBU 2.5 ML IH ONE (17:07)
[2021-01-24] MEDS ORDERED: ALBUTEROL 2.5 MG/3 ML NEBU IH ONE (17:07)
[2021-01-24] MEDS ORDERED: methylPREDNISolone Sod Succinate 125 MG/2 ML INJ IV ONE (17:07)
--- NOTE | 2021-01-24 17:17 | Emergency Department Report ---
ED General Adult HPI - General Chief complaint: Fall Stated complaint: FALL, BACK PAIN PUI?: No Time Seen by Provider: 01/24/21 16:39 Source: patient, EMS ( EMS documentation not available at time of chart dictation ), RN notes reviewed, old records reviewed Mode of arrival: Wheelchair Limitations: Physical Limitation - History of Present Illness Initial comments: Cardiology: [facility]; Dr. Burt Elliott Pulmonology: Dr. Fernandez Past medical history: COPD, chronic respiratory failure, on 2 L of home oxygen, CHF, ejection fraction 25 to 30%, on echocardiogram November 2019, nuclear cardiac stress test April 2019 demonstrates evidence of severe dilated cardiomyopathy, with EF of 29%, chronic pain, frequent falls, convulsion, hypothyroidism, and questionable obstructive sleep apnea. The patient presents to the ER today with a complaint of dizziness, loss of consciousness, chest tightness and back pain. The patient states that a few days ago, she had a mechanical fall, was seen at [facility], and believes that she was diagnosed with a compressive lumbar spine fracture. She currently does not have TLSO brace, and has home PT, lives at home with her son, but indicates that she needs a walker. This is her fifth fall within the past few months. As of yet, she has not really had serious discussions about retirement facility, or acute/subacute rehabilitation. Today, she had just finished urinating, when she developed feeling like she was going to pass out, and she fell onto her head, and right hip. She thinks she also hurt her back. central chest pressure, dizziness, lightheadedness,She thinks she also hurt her back. She complains of generalized headache, thoracic pain, right-sided chest pain, right hip pain. She denies travel, surgery, immobilization. She has received her Covid va ccination, denies hematemesis, bright red blood per rectum, and she also denies loss of taste and smell. She has no abdominal pain. She has no urinary symptoms. She has no focal extremity weakness/numbness. She also endorses slightly worsening cough, with clear mucus, and slightly worsened shortness of breath and at baseline. -: Gradual, Sudden Location: head, chest, back, right, lower extremity Radiation: non-radiation Severity scale (0 -10): 10 Quality: aching Consistency: intermittent Improves with: rest Worsens with: movement - Related Data Home Medications Medication Instructions Recorded Confirmed Last Taken Warfarin [Coumadin] 5 mg PO QDAY 12/14/19 12/14/19 Unknown Previous Rx's Medication Instructions Recorded Last Taken Type Zolpidem [Ambien] 5 mg PO QHS PRN #10 tablet 06/11/18 05/11/19 Rx Aspirin [Aspirin BABY CHEW TAB] 81 mg PO QDAY #30 tab.chew 09/04/18 05/11/19 Rx Spironolactone [Aldactone] 25 mg PO QDAY #30 tablet 05/15/19 Unknown Rx lisinopriL [Zestril TAB] 5 mg PO QDAY #30 tablet 05/15/19 Unknown Rx Albuterol Mdi (or & Nicu Only) 2 puff IH Q4HR PRN #1 inhalation 06/08/19 Unknown Rx [ProAir HFA Inhaler] Budesonide/Formoterol Fumarate 10.2 gm IH BID #1 hfa.aer.ad 06/08/19 Unknown Rx [Symbicort 160-4.5 Mcg Inhaler] Furosemide [Lasix TAB] 40 mg PO QDAY #30 tablet 06/08/19 Unknown Rx Famotidine [Pepcid] 20 mg PO BID #20 tablet 10/12/19 Unknown Rx diazePAM TAB [Valium] 2 mg PO TID PRN #10 tablet 10/12/19 Unknown Rx Albuterol Mdi (or & Nicu Only) 2 puff IH QID PRN #1 inhalation 11/01/19 Unknown Rx [ProAir HFA Inhaler] Levothyroxine [Synthroid] 25 mcg PO DAILY@0600 #30 tablet 12/14/19 Unknown Rx Levothyroxine [Synthroid] 112 mcg PO DAILY@0600 #30 tablet 12/14/19 Unknown Rx levETIRAcetam [Keppra TAB] 750 mg PO BID #60 tablet 12/14/19 Unknown Rx Allergies Allergy/AdvReac Type Severity Reaction Status Date / Time cyclobenzaprine HCl Allergy Severe Itching Verified 01/24/21 15:41 [From Flexeril] Fish Containing Products Allergy Anaphylaxis Verified 01/24/21 15:41 ibuprofen Allergy abd pain Verified 01/24/21 15:41 ketorolac tromethamine Allergy Headache Verified 01/24/21 15:41 [From Toradol] methocarbamol [From Robaxin] Allergy Unknown Verified 01/24/21 15:41 ED Review of Systems ROS: Stated complaint: FALL, BACK PAIN Other details as noted in HPI Constitutional: malaise, weakness Eyes: denies: eye discharge ENT: denies: epistaxis Respiratory: cough, shortness of breath Cardiovascular: chest pain, syncope Gastrointestinal: denies: abdominal pain Musculoskeletal: back pain, arthralgia, myalgia Skin: denies: lesions Neurological: headache. denies: weakness Hematological/Lymphatic: denies: easy bleeding ED Past Medical Hx - Past Medical History Hx Hypertension: Yes Hx CVA: Yes (TIA 2014; Stroke Aug 2018) Hx Heart Attack/AMI: Yes (04/2014 as per pt although pt had a neg cardiac cath here ) Hx Congestive Heart Failure: Yes (Dilated cardiomyopathy EF of 20 to 25% echo 04/2019) Hx Diabetes: No Hx Seizures: Yes Hx Asthma: No Hx COPD: Yes Additional medical history: history of anxiety - Surgical History Additional Surgical History: Hysterectomy, back surgery - Social History Smoking Status: Former Smoker Substance Use Type: None - Medications Home Medications: Home Medications Medication Instructions Recorded Confirmed Last Taken Type Zolpidem [Ambien] 5 mg PO QHS PRN #10 tablet 06/11/18 12/11/19 05/11/19 Rx Aspirin [Aspirin BABY CHEW TAB] 81 mg PO QDAY #30 tab.chew 09/04/18 12/11/19 05/11/19 Rx Spironolactone [Aldactone] 25 mg PO QDAY #30 tablet 05/15/19 12/11/19 Unknown Rx lisinopriL [Zestril TAB] 5 mg PO QDAY #30 tablet 05/15/19 12/11/19 Unknown Rx Albuterol Mdi (or & Nicu Only) 2 puff IH Q4HR PRN #1 inhalation 06/08/19 12/11/19 Unknown Rx [ProAir HFA Inhaler] Budesonide/Formoterol Fumarate 10.2 gm IH BID #1 hfa.aer.ad 06/08/19 12/11/19 Unknown Rx [Symbicort 160-4.5 Mcg Inhaler] Furosemide [Lasix TAB] 40 mg PO QDAY #30 tablet 06/08/19 12/11/19 Unknown Rx Famotidine [Pepcid] 20 mg PO BID #20 tablet 10/12/19 12/11/19 Unknown Rx diazePAM TAB [Valium] 2 mg PO TID PRN #10 tablet 10/12/19 12/11/19 Unknown Rx Albuterol Mdi (or & Nicu Only) 2 puff IH QID PRN #1 inhalation 11/01/19 12/11/19 Unknown Rx [ProAir HFA Inhaler] Levothyroxine [Synthroid] 25 mcg PO DAILY@0600 #30 tablet 12/14/19 Unknown Rx Levothyroxine [Synthroid] 112 mcg PO DAILY@0600 #30 tablet 12/14/19 Unknown Rx Warfarin [Coumadin] 5 mg PO QDAY 12/14/19 12/14/19 Unknown History levETIRAcetam [Keppra TAB] 750 mg PO BID #60 tablet 12/14/19 Unknown Rx ED Physical Exam - General Limitations: Physical Limitation General appearance: alert, anxious, obese - Head Head exam: Present: normocephalic, other (There is a right forehead contusion/ecchymosis) - Eye Eye exam: Present: normal appearance, EOMI. Absent: nystagmus - ENT ENT exam: Present: normal exam, normal orophraynx, mucous membranes moist, normal external ear exam - Neck Neck exam: Present: normal inspection, full ROM - Respiratory Respiratory exam: Present: wheezes, rales, rhonchi, chest wall tenderness. Absent: respiratory distress, stridor - Cardiovascular Cardiovascular Exam: Present: regular rate, normal rhythm, normal heart sounds. Absent: bradycardia, tachycardia, irregular rhythm, systolic murmur, diastolic murmur, rubs, gallop - GI/Abdominal GI/Abdominal exam: Present: soft. Absent: distended, tenderness, guarding, rebound, rigid, pulsatile mass - Extremities Exam Extremities exam: Present: normal inspection (Multiple abrasions noted to the upper extremities), other (The right pelvis/femur tender. 2+ pulses noted in the bilateral upper and lower extremities. Upper extremities have no longer any tenderness. Left lower extremity has no long bony tenderness. Right femur, distal, right knee, right tib-fib, right ankle, right foot nontender). Absent: calf tenderness - Back Exam Back exam: Present: normal inspection, paraspinal tenderness, vertebral tenderness. Absent: CVA tenderness (R), CVA tenderness (L) - Neurological Exam Neurological exam: Present: alert, oriented X3, other (No facial droop. Tongue midline. Extraocular movements intact bilaterally. Facial sensation intact to light touch in V1, V2, V3 distribution bilaterally. 5 and a 5 strength in 4 extremities. Sensation intact to light touch in 4 extremities.) - Skin Skin exam: Present: warm, abrasion, ecchymosis ED Course Vital Signs 01/24/21 01/24/21 01/24/21 15:40 16:55 19:12 Temperature 97.9 F Pulse Rate 98 H 95 H Pulse Rate [ 88 Posterior Bilateral Throughout] Respiratory 24 20 Rate Respiratory 18 Rate [Posterior Bilateral Throughout] Blood Pressure 73/47 115/67 [Left] O2 Sat by Pulse 91 89 Oximetry - Reevaluation(s) Reevaluation #1: 01/24/21 18:19 Differential diagnosis, including but not limited to: Orthostasis, vagal event, structural cardiac disease, pulmonary embolism, arrhythmia, closed head injury, pulmonary embolism, frequent falls, spinal injury, arthritis Assessment and plan: 56-year-old female, who is currently afebrile, with improved hypotension, with a GCS of 15, who is clinically sober, with a complaint of dizziness, lightheadedness, chest pressure, after urinating, falling onto her head, and right hip, now with back pain, chest pain, and hip pain. Place patient on library monitor. Obtain appropriate laboratory studies. Treat wheezing, and pain. Obtain CT scan of the brain, CT and L-spine. Obtain CT angiogram of the chest. Obtain appropriate laboratory studies, and reassess after initial data points. This is the patient's fifth fall in the past few months. Anticipate admission once initial diagnostics have resulted. 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 I discussed this plan of care with the patient, who verbalized understanding, and is amenable to this plan of care. 01/24/21 18:23 Laboratory studies demonstrate renal insufficiency, with GFR of 29. CT angiogram canceled. proBNP appreciated. Elevated proBNP likely secondary to chronic pulmonary hypertension, likely secondary to chronic COPD. Dilated cardiomyopathy may also be contributing to this. However, I suspect the patient is volume down, not volume up. Suspect that this is secondary to COPD rather than acute CHF. Given hypotension, gentle fluid bolus will be initiated Suspect a component of prerenal insufficiency. 01/24/21 18:47 Reevaluation #2: 01/24/21 21:09 Nuclear medicine study is low probability for pulmonary embolism. Hospital physician, Dr. Polk, to admit to IMS - Consultations Consultation #1: 01/24/21 18:47 Discussed history, physical, pertinent laboratory studies, overall plan of care and clinical impression with cardiology on-call, Dr. Stewart. He is in agreement with the plan of care. His group will follow in consultation. Consultation #2: 01/24/21 19:48 Discussed patient's history, physical, pertinent imaging studies with neurosurgery on-call, Dr. Issa. T6 fracture is likely a subacute fracture. Recommends physical therapy, mobilization as tolerated, pain medication, he will see the patient in consultation. The patient is neurologically intact, this is likely a subacute injury from her recent fall, Does not have physical exam or clinical evidence of acute cord compression or injury at this time. 01/24/21 19:48 ED Medical Decision Making - Lab Data Result diagrams: 01/24/21 17:28 01/24/21 17:28 Vital Signs 01/24/21 01/24/21 15:40 16:55 Temperature 97.9 F Pulse Rate 98 H 95 H Respiratory 24 20 Rate Blood Pressure 73/47 115/67 [Left] O2 Sat by Pulse 91 89 Oximetry Lab Results 01/24/21 01/24/21 01/24/21 Range/Units 17:28 17:28 17:28 WBC 12.5 H (4.5-11.0) K/mm3 RBC 3.56 L (3.65-5.03) M/mm3 Hgb 11.2 (10.1-14.3) gm/dl Hct 34.7 (30.3-42.9) % MCV 98 H (79-97) fl MCH 32 (28-32) pg MCHC 32 (30-34) % RDW 15.7 H (13.2-15.2) % Plt Count 303 (140-440) K/mm3 Lymph % (Auto) 4.6 L (13.4-35.0) % Clarke % (Auto) 9.2 H (0.0-7.3) % Eos % (Auto) 0.7 (0.0-4.3) % Baso % (Auto) 0.1 (0.0-1.8) % Lymph # (Auto) 0.6 L (1.2-5.4) K/mm3 Clarke # (Auto) 1.2 H (0.0-0.8) K/mm3 Eos # (Auto) 0.1 (0.0-0.4) K/mm3 Baso # (Auto) 0.0 (0.0-0.1) K/mm3 Seg Neutrophils % 85.4 H (40.0-70.0) % Seg Neutrophils # 10.7 H (1.8-7.7) K/mm3 PT 15.4 H (12.2-14.9) Sec. INR 1.16 H (0.87-1.13) Sodium 136 L (137-145) mmol/L Potassium 4.2 (3.6-5.0) mmol/L Chloride 95.1 L (98-107) mmol/L Carbon Dioxide 30 (22-30) mmol/L Anion Gap 15 mmol/L BUN 22 H (7-17) mg/dL Creatinine 1.9 H (0.6-1.2) mg/dL Estimated GFR 27 ml/min BUN/Creatinine Ratio 12 % Glucose 135 H (65-100) mg/dL Calcium 9.0 (8.4-10.2) mg/dL Magnesium (1.7-2.3) mg/dL Total Bilirubin 1.30 H (0.1-1.2) mg/dL AST 22 (5-40) units/L ALT 22 (7-56) units/L Alkaline Phosphatase 93 (35-129) units/L Total Creatine Kinase (30-135) units/L Troponin T 0.012 (0.00-0.029) ng/mL NT-Pro-B Natriuret Pep (0-900) pg/mL Total Protein 7.0 (6.3-8.2) g/dL Albumin 4.1 (3.9-5) g/dL Albumin/Globulin Ratio 1.4 % 01/24/21 Range/Units 17:28 WBC (4.5-11.0) K/mm3 RBC (3.65-5.03) M/mm3 Hgb (10.1-14.3) gm/dl Hct (30.3-42.9) % MCV (79-97) fl MCH (28-32) pg MCHC (30-34) % RDW (13.2-15.2) % Plt Count (140-440) K/mm3 Lymph % (Auto) (13.4-35.0) % Clarke % (Auto) (0.0-7.3) % Eos % (Auto) (0.0-4.3) % Baso % (Auto) (0.0-1.8) % Lymph # (Auto) (1.2-5.4) K/mm3 Clarke # (Auto) (0.0-0.8) K/mm3 Eos # (Auto) (0.0-0.4) K/mm3 Baso # (Auto) (0.0-0.1) K/mm3 Seg Neutrophils % (40.0-70.0) % Seg Neutrophils # (1.8-7.7) K/mm3 PT (12.2-14.9) Sec. INR (0.87-1.13) Sodium (137-145) mmol/L Potassium (3.6-5.0) mmol/L Chloride (98-107) mmol/L Carbon Dioxide (22-30) mmol/L Anion Gap mmol/L BUN (7-17) mg/dL Creatinine (0.6-1.2) mg/dL Estimated GFR ml/min BUN/Creatinine Ratio % Glucose (65-100) mg/dL Calcium (8.4-10.2) mg/dL Magnesium 3.20 H (1.7-2.3) mg/dL Total Bilirubin (0.1-1.2) mg/dL AST (5-40) units/L ALT (7-56) units/L Alkaline Phosphatase (35-129) units/L Total Creatine Kinase 48 (30-135) units/L Troponin T (0.00-0.029) ng/mL NT-Pro-B Natriuret Pep 3414 H (0-900) pg/mL Total Protein (6.3-8.2) g/dL Albumin (3.9-5) g/dL Albumin/Globulin Ratio % - EKG Data -: EKG Interpreted by Or EKG shows normal: sinus rhythm Rate: normal - EKG Data 01/24/21 18:24 The EKG today shows a sinus rhythm, rate 97 bpm, with a borderline leftward axis deviation, left anterior fascicular block, poor R wave progression, motion artifact, QTC 502 ms. This is an abnormal EKG. This is not a STEMI. Compared to prior EKG from 07/22/2020; right axis deviation has resolved. Poor R wave progression persists. Nonspecific lateral T wave abnormalities. - Radiology Data Radiology results: pending, report reviewed, image reviewed CHEST 1 VIEW INDICATION: Fell in Bathroom....Trauma COMPARISON: 07/22/2020 FINDINGS: SUPPORT DEVICES: None. HEART / MEDIASTINUM: No significant abnormality. LUNGS / PLEURA: No significant pulmonary or pleural abnormality. No pneumothorax. ADDITIONAL FINDINGS: IMPRESSION: 1. No acute cardiopulmonary disease Signer Name: Haider Cleveland MD Signed: 01/24/2021 5:37 PM Workstation Name: [id number] XR femur 2+V RT INDICATION / CLINICAL INFORMATION: Fell in bathroom. Right leg pain COMPARISON: None available. FINDINGS: BONES/JOINT(S): No acute fracture or subluxation. No significant degenerative changes. SOFT TISSUES: No signific ant abnormality. ADDITIONAL FINDINGS: None. Signer Name: Koby White MD Signed: 01/24/2021 5:36 PM XR pelvis 1-2V INDICATION / CLINICAL INFORMATION: Fell in bathroom. Pelvic pain COMPARISON: None available. FINDINGS: BONES/JOINT(S): No acute fracture or subluxation. No significant degenerative changes. SOFT TISSUES: No significant abnormality. ADDITIONAL FINDINGS: None. Signer Name: Koby White MD Signed: 01/24/2021 5:36 PM Workstation Name: [id number] CT thoracic spine wo con, CT head/brain wo con, CT lumbar spine wo con, CT cervical spine wo con INDICATION: Trauma. TECHNIQUE: CT head and cervical spine without contrast. All CT scans at this location are performed using CT dose reduction for ALARA by means of automated exposure control. COMPARISON: CTA neck 12/11/2019. MRI brain 12/12/2019. CT lumbar spine 09/09/2019. CTA chest 10/11/2019 FINDINGS: HEAD: Intracranial: Fabian-white matter differentiation is maintained. No intracranial hemorrhage. No extra axial collection.. No hydrocephalus. No herniation. Sinuses: Paranasal sinuses and mastoid air cells are essentially clear. Orbits: Globes are intact Calvarium: No acute fracture. CERVICAL/THORACIC/LUMBAR: Alignment: Normal alignment. Vertebrae: Age-indeterminate new T6 vertebral body height loss compared to 2020. Minimal retropulsion of the osseous fragments.. No canal, otherwise no extension to the posterior elements. Multilevel chronic vertebral body height loss throughout the spine.. Vertebral body heights are otherwise preserved. C1 and C2 are congruent. Atlantooccipital joint is maintain ed. Spondylolysis: Multilevel spondylosis is similar prior exam. L4 5 cm bulge with mild spinal canal stenosis is present. Soft tissues: No prevertebral soft tissue thickening. Additional findings: Severe emphysema. IMPRESSION: 1. New age-indeterminate mild T6 burst fracture with minimal retro pulsion of osseous fragments but no canal compromise. Correlate for percussible pain. 2. No acute intracranial abnormality. No other acute fracture identified in the cervical, thoracic, or lumbar spine. 3. several chronic vertebral body compression fractures throughout the spine. Signer Name: Blayne Montes MD Signed: 01/24/2021 6:21 PM Workstation Name: [id number] Critical care attestation.: If time is entered above; I have spent that time in minutes in the direct care of this critically ill patient, excluding procedure time. ED Disposition Clinical Impression: COPD exacerbation, Acute back pain, Closed head injury, Frequent falls, Acute chest pain, Near syncope, Acute renal insufficiency, Thoracic spine fracture Disposition: 09 OP ADMIT IP TO THIS HOSP Is pt being admited?: Yes Does the pt Need Aspirin: No Condition: Fair Instructions: Chest Pain (ED), Chronic Obstructive Pulmonary Disease (ED) Referrals: PRIMARY CARE, [Primary Care Provider] - 3-5 Days Heart Score - HEART Score History: Slightly suspicious EKG: Non-specific Age: 45-65 Risk factors: > 3 risk factors or hx of atherosclerotic disease Troponin: < normal limit HEART Score: 4 - EKG Read Time Time EKG Completed: 15:42 EKG Read Time: 15:46 - Critical Actions Critical Actions: 4-6 pts:12-16.6% risk of adverse cardiac event. Should be admitted
[2021-01-24 17:58] LABS: Basophils % (Auto) 0.1 % (0.0-1.8); Eosinophils # (Auto) 0.1 K/mm3 (0.0-0.4); Eosinophils % (Auto) 0.7 % (0.0-4.3); Hematocrit 34.7 % (30.3-42.9); Hemoglobin 11.2 gm/dl (10.1-14.3); Lymphocytes # (Auto) 0.6 K/mm3 (1.2-5.4); Lymphocytes % (Auto) 4.6 % (13.4-35.0); Mean Corpuscular HGB Conc 32 % (30-34); Mean Corpuscular Volume 98 fl (79-97); Monocytes # (Auto) 1.2 K/mm3 (0.0-0.8); Monocytes % (Auto) 9.2 % (0.0-7.3); Platelet Count 303 K/mm3 (140-440); Red Blood Count 3.56 M/mm3 (3.65-5.03); Red Cell Distribution Width 15.7 % (13.2-15.2)
[2021-01-24 18:08] LABS: INR 1.16 (0.87-1.13)
[2021-01-24 18:18] LABS: Albumin 4.1 g/dL (3.9-5)
[2021-01-24] MEDS ORDERED: SODIUM CHLORIDE 0.9% 250ML 250 ML IV ONE (18:24)
--- NOTE | 2021-01-24 18:40 | XRay Report ---
XR femur 2+V RT INDICATION / CLINICAL INFORMATION: Fell in bathroom. Right leg pain COMPARISON: None available. FINDINGS: BONES/JOINT(S): No acute fracture or subluxation. No significant degenerative changes. SOFT TISSUES: No significant abnormality. ADDITIONAL FINDINGS: None. Signer Name: Koby White MD Signed: 01/24/2021 6:36 PM Workstation Name: [id number]
--- NOTE | 2021-01-24 18:41 | XRay Report ---
XR pelvis 1-2V INDICATION / CLINICAL INFORMATION: Fell in bathroom. Pelvic pain COMPARISON: None available. FINDINGS: BONES/JOINT(S): No acute fracture or subluxation. No significant degenerative changes. SOFT TISSUES: No significant abnormality. ADDITIONAL FINDINGS: None. Signer Name: Koby White MD Signed: 01/24/2021 6:36 PM Workstation Name: [id number]
--- NOTE | 2021-01-24 18:42 | XRay Report ---
CHEST 1 VIEW INDICATION: Fell in Bathroom....Trauma COMPARISON: 07/22/2020 FINDINGS: SUPPORT DEVICES: None. HEART / MEDIASTINUM: No significant abnormality. LUNGS / PLEURA: No significant pulmonary or pleural abnormality. No pneumothorax. ADDITIONAL FINDINGS: IMPRESSION: 1. No acute cardiopulmonary disease Signer Name: Haider Cleveland MD Signed: 01/24/2021 6:37 PM Workstation Name: [id number]
--- NOTE | 2021-01-24 19:26 | Cat Scan Report ---
CT thoracic spine wo con, CT head/brain wo con, CT lumbar spine wo con, CT cervical spine wo con INDICATION: Trauma. TECHNIQUE: CT head and cervical spine without contrast. All CT scans at this location are performed u sing CT dose reduction for ALARA by means of automated exposure control. COMPARISON: CTA neck 12/11/2019. MRI brain 12/12/2019. CT lumbar spine 09/09/2019. CTA chest 10/11/2019 FINDINGS: HEAD: Intracranial: Fabian-white matter differentiation is maintained. No intracranial hemorrhage. No extra a xial collection.. No hydrocephalus. No herniation. Sinuses: Paranasal sinuses and mastoid air cells are essentially clear. Orbits: Globes are intact Calvarium: No acute fracture. CERVICAL/THORACIC/LUMBAR: Alignment: Normal alignment. Vertebrae: Age-indeterminate new T6 vertebral body height loss compared to 2020. Minimal retropulsion of the osseous fragments.. No canal, otherwise no extension to the posterior elements. Multilevel ch ronic vertebral body height loss throughout the spine.. Vertebral body heights are otherwise preserve d. C1 and C2 are congruent. Atlantooccipital joint is maintained. Spondylolysis: Multilevel spondylosis is similar prior exam. L4 5 cm bulge with mild spinal canal roberta nosis is present. Soft tissues: No prevertebral soft tissue thickening. Additional findings: Severe emphysema. IMPRESSION: 1. New age-indeterminate mild T6 burst fracture with minimal retropulsion of osseous fragments but no canal compromise. Correlate for percussible pain. 2. No acute intracranial abnormality. No other acute fracture identified in the cervical, thoracic, o r lumbar spine. 3. several chronic vertebral body compression fractures throughout the spine. Signer Name: Blayne Montes MD Signed: 01/24/2021 7:21 PM Workstation Name: [id number]
[2021-01-24] MEDS ORDERED: ASPIRIN 81 MG TAB CHEW PO ONE (20:08)
--- NOTE | 2021-01-24 21:02 | Nuclear Medicine Report ---
NM perfusion only lung scan INDICATION / CLINICAL INFORMATION: Chest pain, near syncope, elevated D-dimer. TRACER: Technetium 99m MAA 5.5 mCi IV injection. COMPARISON: No relevant prior imaging study available. FINDINGS: Mild heterogeneity of perfusion. No suspicious perfusion defect. IMPRESSION: No suspicious perfusion defect. Signer Name: Shayne Camacho MD Signed: 01/24/2021 8:57 PM Workstation Name: [id number]
[2021-01-24] MEDS ORDERED: SODIUM CHLORIDE 0.9% 250ML 250 ML ONE (21:28)
[2021-01-24] MEDS ORDERED: ACETAMINOPHEN 325 MG TAB PO PRN (21:35)
[2021-01-24] MEDS ORDERED: ALBUTEROL 8.5 GM MDI INHALATION IH PRN (21:40)
[2021-01-24] MEDS: traMADol 50 MG TAB PO PRN (21:50)
--- NOTE | 2021-01-24 21:53 | History and Physical Report ---
History of Present Illness Date of examination: 01/24/21 Date of admission: 01/24/21 Chief complaint: Chest pain dizziness Fall back pain History of present illness: 56 years old female with past medical history of COPD, CHF, ejection fraction 25 to 30%, on echocardiogram November 2019, severe dilated cardiomyopathy, with EF of 29%, chronic pain, frequent falls, convulsion, hypothyroidism, and questionable obstructive sleep apnea was brought to the emergency room because of dizziness, loss of consciousness, chest tightness and back pain. Today patient finished urinating, when she developed feeling like she was going to pass out, and she fell onto her head, and right hip. She thinks she also hurt her back. central chest pressure, dizziness, lightheadedness,She thinks she also hurt her back. She complains of generalized headache, thoracic pain, right-sided chest pain, right hip pain. patient had a mechanical fall few days ago, patient was seen at [facility], and believes that she was diagnosed with a compressive lumbar spine fracture. She currently does not have TLSO brace, and has home PT, lives at home with her son, but indicates that she needs a walker. This is her fifth fall within the past few months. As of yet, she has not really had serious discussions about custodial facility, or acute/subacute rehabilitation. She denies travel, surgery, immobilization. She has received her Covid vaccination, In the emergency room initial cardiac enzyme is negative troponin is 0.012 but patient BNP is 3414 also BUN is [address] scan of the lumbar thoracic spine shows age indeterminate new T6 burst fracture with minimal retropulsion of the osseous fragment but no canal compromise Past History Past Medical History: COPD, heart failure, hypothyroidism (Convulsion, dilated cord cardiomyopathy chronic pain frequent falls obstructive sleep apnea), other (Dilated cardiomyopathy fall chronic pain) Medications and Allergies Allergies Allergy/AdvReac Type Severity Reaction Status Date / Time cyclobenzaprine HCl Allergy Severe Itching Verified 01/24/21 15:41 [From Flexeril] Fish Containing Products Allergy Anaphylaxis Verified 01/24/21 15:41 ibuprofen Allergy abd pain Verified 01/24/21 15:41 ketorolac tromethamine Allergy Headache Verified 01/24/21 15:41 [From Toradol] methocarbamol [From Robaxin] Allergy Unknown Verified 01/24/21 15:41 Home Medications Medication Instructions Recorded Confirmed Last Taken Type Zolpidem [Ambien] 5 mg PO QHS PRN #10 tablet 06/11/18 12/11/19 05/11/19 Rx Aspirin [Aspirin BABY CHEW TAB] 81 mg PO QDAY #30 tab.chew 09/04/18 12/11/19 05/11/19 Rx Spironolactone [Aldactone] 25 mg PO QDAY #30 tablet 05/15/19 12/11/19 Unknown Rx lisinopriL [Zestril TAB] 5 mg PO QDAY #30 tablet 05/15/19 12/11/19 Unknown Rx Albuterol Mdi (or & Nicu Only) 2 puff IH Q4HR PRN #1 inhalation 06/08/19 12/11/19 Unknown Rx [ProAir HFA Inhaler] Budesonide/Formoterol Fumarate 10.2 gm IH BID #1 hfa.aer.ad 06/08/19 12/11/19 Unknown Rx [Symbicort 160-4.5 Mcg Inhaler] Furosemide [Lasix TAB] 40 mg PO QDAY #30 tablet 06/08/19 12/11/19 Unknown Rx Famotidine [Pepcid] 20 mg PO BID #20 tablet 10/12/19 12/11/19 Unknown Rx diazePAM TAB [Valium] 2 mg PO TID PRN #10 tablet 10/12/19 12/11/19 Unknown Rx Albuterol Mdi (or & Nicu Only) 2 puff IH QID PRN #1 inhalation 11/01/19 12/11/19 Unknown Rx [ProAir HFA Inhaler] Levothyroxine [Synthroid] 25 mcg PO DAILY@0600 #30 tablet 12/14/19 Unknown Rx Levothyroxine [Synthroid] 112 mcg PO DAILY@0600 #30 tablet 12/14/19 Unknown Rx Warfarin [Coumadin] 5 mg PO QDAY 12/14/19 12/14/19 Unknown History levETIRAcetam [Keppra TAB] 750 mg PO BID #60 tablet 12/14/19 Unknown Rx Active Meds: Active Medications Acetaminophen (Acetaminophen 325 Mg Tab) 650 mg PO Q6H PRN PRN Reason: Pain, Mild (1-3) Albuterol (Albuterol 8.5 Gm Mdi Inhalation) 2 puff IH QID PRN PRN Reason: Shortness Of Breath Aspirin (Aspirin 81 Mg Tab Chew) 81 mg PO QDAY [facility] Atorvastatin Calcium (Atorvastatin 40 Mg Tab) 40 mg PO QHS [facility] Diazepam (Diazepam 2 Mg Tab) 2 mg PO TID PRN PRN Reason: Anxiety Levetiracetam (Levetiracetam 500 Mg Tab) 750 mg PO BID [facility] Levothyroxine Sodium (Levothyroxine 25 Mcg Tab) 25 mcg PO DAILY@0600 [facility] Levothyroxine Sodium (Levothyroxine 112 Mcg Tab) 112 mcg PO DAILY@0600 [facility] Lisinopril (Lisinopril 5 Mg Tab) 5 mg PO QDAY [facility] Miscellaneous Medication (Budesonide/Formoterol Fumarate [Symbicort 160-4.5 Mcg Inhaler]) 10.2 gm IH BID [facility] Morphine Sulfate (Morphine 4 Mg/1 Ml Inj) 2 mg IV Q5MIN PRN PRN Reason: Chest Pain Nitroglycerin (Nitroglycerin 0.4 Mg Tab Subl) 0.4 mg SL Q5M PRN PRN Reason: Chest Pain Pantoprazole Sodium (Pantoprazole 40 Mg Tab) 40 mg PO QDAY [facility] Sodium Chloride (Sodium Chloride 0.9% 10 Ml Flush Syringe) 10 ml IV PRN PRN PRN Reason: LINE FLUSH Spironolactone (Spironolactone 25 Mg Tab) 25 mg PO QDAY [facility] Tramadol HCl (Tramadol 50 Mg Tab) 50 mg PO Q6H PRN PRN Reason: Pain, Moderate (4-6) Warfarin Sodium (Warfarin 5 Mg Tab) 5 mg PO QDAY [facility]; Protocol Zolpidem Tartrate (Zolpidem 5 Mg Tab) 5 mg PO QHS PRN PRN Reason: Insomnia Review of Systems Cardiovascular: chest pain, syncope, lightheadedness Musculoskeletal: low back pain Exam - Constitutional Vitals: Temp Pulse Resp BP Pulse Ox 97.9 F 85 16 101/58 95 01/24/21 15:40 01/24/21 21:40 01/24/21 21:40 01/24/21 21:40 01/24/21 21:40 General appearance: Present: no acute distress, well-nourished - EENT Eyes: Present: PERRL ENT: hearing intact, clear oral mucosa - Neck Neck: Present: supple, normal ROM - Respiratory Respiratory effort: normal Respiratory: bilateral: diminished - Cardiovascular Heart Sounds: Present: S1 & S2. Absent: rub, click - Extremities Extremities: pulses symmetrical, No edema Peripheral Pulses: within normal limits - Abdominal General gastrointestinal: Present: soft, non-tender, non-distended, normal bowel sounds Female genitourinary: Present: normal - Integumentary Integumentary: Present: clear, warm, dry - Musculoskeletal Musculoskeletal: strength equal bilaterally, other (Back pain) - Psychiatric Psychiatric: appropriate mood/affect, intact judgment & insight - Neurologic Neurologic: CNII-XII intact, moves all extremities HEART Score - HEART Score EKG: Non-specific Age: 45-65 Risk factors: > 3 risk factors or hx of atherosclerotic disease Troponin: Troponin T 0.012 ng/mL (0.00-0.029) 01/24/21 17:28 Troponin: < normal limit - Critical Actions Critical Actions: 4-6 pts:12-16.6% risk of adverse cardiac event. Should be admitted Results - Labs CBC & Chem 7: 01/24/21 17:28 01/24/21 17:28 Labs: Laboratory Last Values WBC 12.5 K/mm3 (4.5-11.0) H 01/24/21 17:28 RBC 3.56 M/mm3 (3.65-5.03) L 01/24/21 17:28 Hgb 11.2 gm/dl (10.1-14.3) 01/24/21 17:28 Hct 34.7 % (30.3-42.9) 01/24/21 17:28 MCV 98 fl (79-97) H 01/24/21 17:28 MCH 32 pg (28-32) 01/24/21 17:28 MCHC 32 % (30-34) 01/24/21 17:28 RDW 15.7 % (13.2-15.2) H 01/24/21 17:28 Plt Count 303 K/mm3 (140-440) 01/24/21 17:28 Lymph % (Auto) 4.6 % (13.4-35.0) L 01/24/21 17:28 [place] % (Auto) 9.2 % (0.0-7.3) H 01/24/21 17:28 Eos % (Auto) 0.7 % (0.0-4.3) 01/24/21 17:28 Baso % (Auto) 0.1 % (0.0-1.8) 01/24/21 17:28 Lymph # (Auto) 0.6 K/mm3 (1.2-5.4) L 01/24/21 17:28 [place] # (Auto) 1.2 K/mm3 (0.0-0.8) H 01/24/21 17:28 Eos # (Auto) 0.1 K/mm3 (0.0-0.4) 01/24/21 17:28 Baso # (Auto) 0.0 K/mm3 (0.0-0.1) 01/24/21 17: Seg Neutrophils % 85.4 % (40.0-70.0) H 01/24/21 17: Seg Neutrophils # 10.7 K/mm3 (1.8-7.7) H 01/24/21 17: PT 15.4 Sec. (12.2-14.9) H 01/24/21 17:28 INR 1.16 (0.87-1.13) H 01/24/21 17:28 D-Dimer 2018.62 ng/mlDDU (0-234) H 01/24/21 17:28 Sodium 136 mmol/L (137-145) L 01/24/21 17:28 Potassium 4.2 mmol/L (3.6-5.0) 01/24/21 17:28 Chloride 95.1 mmol/L (98-107) L 01/24/21 17:28 Carbon Dioxide 30 mmol/L (22-30) 01/24/21 17:28 Anion Gap 15 mmol/L 01/24/21 17:28 BUN 22 mg/dL (7-17) H 01/24/21 17:28 Creatinine 1.9 mg/dL (0.6-1.2) H 01/24/21 17:28 Estimated GFR 27 ml/min 01/24/21 17:28 BUN/Creatinine Ratio 12 % 01/24/21 17:28 Glucose 135 mg/dL (65-100) H 01/24/21 17:28 Calcium 9.0 mg/dL (8.4-10.2) 01/24/21 17:28 Magnesium 3.20 mg/dL (1.7-2.3) H 01/24/21 17:28 Total Bilirubin 1.30 mg/dL (0.1-1.2) H 01/24/21 17:28 AST 22 units/L (5-40) 01/24/21 17:28 ALT 22 units/L (7-56) 01/24/21 17:28 Alkaline Phosphatase 93 units/L (35-129) 01/24/21 17:28 Total Creatine Kinase 48 units/L (30-135) 01/24/21 17:28 Troponin T 0.012 ng/mL (0.00-0.029) 01/24/21 17:28 NT-Pro-B Natriuret Pep 3414 pg/mL (0-900) H 01/24/21 17:28 Total Protein 7.0 g/dL (6.3-8.2) 01/24/21 17:28 Albumin 4.1 g/dL (3.9-5) 01/24/21 17:28 Albumin/Globulin Ratio 1.4 % 01/24/21 17:28 - Imaging and Cardiology Chest x-ray: report reviewed CT Scan - head: report reviewed Assessment and Plan VTE prophylaxis?: Chemical Plan of care discussed with patient/family: Yes - Patient Problems (1) Acute chest pain Current Visit: Yes Status: Acute Plan to address problem: Admit the patient to the cardiac telemetry. Put the patient on aspirin 81 mg p.o. daily. Lipitor 40 mg p.o. daily. Nitroglycerin as needed. We do the seri al cardiac enzymes we also do echocardiogram and consult cardiology for evaluation (2) Near syncope Current Visit: Yes Status: Acute Plan to address problem: aspirin 81 mg p.o. daily. Lipitor 40 mg p.o. daily. Nitroglycerin as needed. We do the serial cardiac enzymes we also do echocardiogram and consult cardiology for evaluation (3) Acute back pain Current Visit: Yes Status: Acute Plan to address problem: Tylenol 650 mg p.o. every 6 hours as needed. Morphine 2 mg IV every 4 hours as needed. Will consult spine surgeon to see the patient for evaluation and treatment (4) Acute renal insufficiency Current Visit: Yes Status: Acute Plan to address problem: We will hold the Lasix. Avoid nephrotoxic drug. Renally dose medication. Recheck BMP in the morning. Consult nephrology in the morning if needed (5) COPD exacerbation Current Visit: Yes Status: Acute Plan to address problem: Oxygen via nasal cannula 3 L/min DuoNeb by nebulizer every 4 hours as needed. We will continue the home medication. Monitor the patient closely (6) CHF (congestive heart failure) Current Visit: No Status: Acute Plan to address problem: Stable. We will continue the home medication. We will hold the Lasix for the time being because of her renal insufficiency. Echocardiogram. Repeat BMP in the morning. Cardiology evaluation (7) Thoracic spine fracture Current Visit: Yes Status: Acute Plan to address problem: Tylenol 650 mg p.o. every 6 hours as needed. Morphine 2 mg IV every 4 hours as needed. Will consult spine surgeon to see the patient for evaluation and treatment (8) Hypertension Current Visit: No Status: Acute Qualifiers: Hypertension type: essential hypertension Qualified Code(s): I10 - Essential (primary) hypertension Plan to address problem: Lisinopril 5 mg p.o. daily. Spironolactone 25 mg p.o. daily. We will monitor the blood pressure closely (9) Seizure disorder Current Visit: No Status: Chronic Plan to address problem: Stable. Keppra 750 mg p.o. twice daily. Outpatient follow-up with neurology (10) Tobacco abuse Current Visit: No Status: Chronic Plan to address problem: . We counseled the patient regarding quitting smoking. We will put on nicotine patch if needed (11) DVT prophylaxis Current Visit: Yes Status: Acute Plan to address problem: Warfarin 5 mg p.o. daily for DVT prophylaxis. Protonix 40 mg p.o. daily for GI prophylaxis. Patient is a full code
[2021-01-24] MEDS ORDERED: NON-FORMULARY EACH (Budesonide/Formoterol Fumarate [Symbicort 160-4.5 Mcg Inhaler] 10.2 GM IH SCH (22:00)
[2021-01-24] MEDS ORDERED: ALBUTEROL 2.5 MG/3 ML NEBU IH PRN (22:50)
[2021-01-24] MEDS: levETIRAcetam 500 MG TAB PO SCH (23:54)
[2021-01-24] MEDS: MORPHINE 4 MG/1 ML INJ IV PRN (23:56)
[2021-01-24 23:58] LABS: Hematocrit 29.6 % (30.3-42.9); Hemoglobin 9.7 gm/dl (10.1-14.3); Mean Corpuscular HGB Conc 33 % (30-34); Mean Corpuscular Volume 97 fl (79-97); Platelet Count 236 K/mm3 (140-440); Red Blood Count 3.06 M/mm3 (3.65-5.03); Red Cell Distribution Width 15.7 % (13.2-15.2)
[2021-01-25] MEDS: NITROGLYCERIN 0.4 MG TAB SUBL SL PRN (00:15)
[2021-01-25 00:18] LABS: Calcium 7.7 mg/dL (8.4-10.2)
[2021-01-25] MEDS ORDERED: oxyCODONE /ACETAMINOPHEN 5-325MG TAB PO ONE (00:27)
[2021-01-25 00:52] LABS: Chol/HDL Ratio 1.86 %
[2021-01-25 01:21] LABS: RBC Morphology Normal; Total Cells Counted 100
[2021-01-25] MEDS: traMADol 50 MG TAB PO PRN ×2 (05:16→11:33)
[2021-01-25] MEDS ORDERED: LEVOTHYROXINE 25 MCG TAB PO SCH (06:00)
[2021-01-25] MEDS ORDERED: LEVOTHYROXINE 112 MCG TAB PO SCH (06:00)
[2021-01-25] MEDS ORDERED: ALBUTEROL 2.5 MG/3 ML NEBU IH SCH (08:00)
[2021-01-25] MEDS: MORPHINE 4 MG/1 ML INJ IV PRN ×2 (08:06→14:13)
[2021-01-25] MEDS: PANTOPRAZOLE 40 MG TAB PO SCH (09:32)
[2021-01-25] MEDS: levETIRAcetam 500 MG TAB PO SCH (09:32)
[2021-01-25] MEDS: ASPIRIN 81 MG TAB CHEW PO SCH (09:32)
[2021-01-25] MEDS ORDERED: LISINOPRIL 5 MG TAB PO SCH (10:00)
[2021-01-25] MEDS ORDERED: SPIRONOLACTONE 25 MG TAB PO SCH (10:00)
--- NOTE | 2021-01-25 10:41 | Progress Note ---
Assessment and Plan Assessment and plan: --Thoracic spine fracture/T6 burst fracture Current Visit: Yes Status: Acute Pending neurosurgeon evaluation. Stabilize the spine, pain medications, neurosurgery evaluation Supportive care , fentanyl patch, morphine and oral pain medications CT T-spine ; new age-indeterminate mild T6 burst fracture with minimal retropulsion of osseous fragments but no canal compromise no acute intracranial abnormality no other acute fractures identified in the cervical thoracic or lumbar spine Several chronic vertebral body compression fractures throughout the spine several throughout the body compression fractures --History of recurrent falls; Current Visit: Yes Status: Acute Fall precautions, supportive care Orthostats, PT, OT when medically stable Possible rehabilitation at discharge --Acute chest pain Current Visit: Yes Status: Acute Cardiology evaluation recommendations noted and appreciated Continue current cardiac management -- Near syncope Current Visit: Yes Status: Acute History of recurrent falls, orthostats, PT OT and rehab When medically stable, fall precautions --Acute back pain Current Visit: Yes Status: Acute Tylenol 650 mg p.o. every 6 hours as needed. Morphine 2 mg IV every 4 hours as needed. Will consult spine surgeon to see the patient for evaluation and treatment --Acute renal insufficiency Current Visit: Yes Status: Acute We will hold the Lasix. Avoid nephrotoxic drug. Renally dose medication. Recheck BMP in the morning. Consult nephrology in the morning if needed -- COPD exacerbation Current Visit: Yes Status: Acute Oxygen via nasal cannula 3 L/min DuoNeb by nebulizer every 4 hours as needed. We will continue the home medication. Monitor the patient closely --CHF (congestive heart failure) Current Visit: No Status: Acute Stable. We will continue the home medication. We will hold the Lasix for the time being because of her renal insufficiency. Echocardiogram. Repeat BMP in the morning. Cardiology evaluation --Hypertension Current Visit: No Status: Acute Lisinopril 5 mg p.o. daily. Spironolactone 25 mg p.o. daily. We will monitor the blood pressure closely -- Seizure disorder Current Visit: No Status: Chronic Stable. Keppra 750 mg p.o. twice daily. Outpatient follow-up with neurology --Tobacco abuse Current Visit: No Status: Chronic . We counseled the patient regarding quitting smoking. We will put on nicotine patch if needed --DVT prophylaxis Current Visit: Yes Status: Acute SCD Protonix 40 mg p.o. daily for GI prophylaxis. Patient is a full code We will closely monitor the patient and adjust management as needed History Interval history: I have seen and examined the patient at the bedside Patient's chart and medications reviewed Patient was admitted with history of recurrent falls And fracture T6 Patient complains of excruciating pain and discomfort In mild distress vital signs reviewed Hospitalist Physical - Constitutional Vitals: Temp Pulse Resp BP Pulse Ox 97.9 F 71 20 105/62 91 01/25/21 07:39 01/25/21 08:25 01/25/21 08:25 01/25/21 07:39 01/25/21 07:39 General appearance: Present: mild distress, well-nourished, other (Excruciating pain) - EENT Eyes: Present: PERRL, EOM intact - Neck Neck: Present: supple, normal ROM - Respiratory Respiratory effort: normal Respiratory: bilateral: diminished, negative: rales, rhonchi, wheezing - Cardiovascular Rhythm: regular Heart Sounds: Present: S1 & S2 - Extremities Extremities: no ischemia, No edema - Abdominal General gastrointestinal: soft, non-tender, non-distended, normal bowel sounds - Integumentary Integumentary: Present: clear, warm - Psychiatric Psychiatric: appropriate mood/affect, cooperative - Neurologic Neurologic: CNII-XII intact, moves all extremities HEART Score - HEART Score EKG: Non-specific Age: 45-65 Risk factors: > 3 risk factors or hx of atherosclerotic disease Troponin: Troponin T < 0.010 ng/mL (0.00-0.029) 01/25/21 05:05 Troponin: < normal limit - Critical Actions Critical Actions: 4-6 pts:12-16.6% risk of adverse cardiac event. Should be admitted Results - Labs CBC & Chem 7: 01/25/21 14:11 01/25/21 14:11 Labs: Laboratory Last Values WBC 12.8 K/mm3 (4.5-11.0) H 01/24/21 23:35 RBC 3.06 M/mm3 (3.65-5.03) L 01/24/21 23:35 Hgb 9.7 gm/dl (10.1-14.3) L 01/24/21 23:35 Hct 29.6 % (30.3-42.9) L 01/24/21 23:35 MCV 97 fl (79-97) 01/24/21 23:35 MCH 32 pg (28-32) 01/24/21 23:35 MCHC 33 % (30-34) 01/24/21 23:35 RDW 15.7 % (13.2-15.2) H 01/24/21 23:35 Plt Count 236 K/mm3 (140-440) 01/24/21 23:35 Lymph % (Auto) 4.6 % (13.4-35.0) L 01/24/21 17:28 [place] % (Auto) 9.2 % (0.0-7.3) H 01/24/21 17:28 Eos % (Auto) 0.7 % (0.0-4.3) 01/24/21 17: Baso % (Auto) 0.1 % (0.0-1.8) 01/24/21 17:28 Lymph # (Auto) 0.6 K/mm3 (1.2-5.4) L 01/24/21 17:28 [place] # (Auto) 1.2 K/mm3 (0.0-0.8) H 01/24/21 17:28 Eos # (Auto) 0.1 K/mm3 (0.0-0.4) 01/24/21 17: Baso # (Auto) 0.0 K/mm3 (0.0-0.1) 01/24/21 17:28 Add Manual Diff Complete 01/24/21 23:35 Total Counted 100 01/24/21 23:35 Seg Neutrophils % Platen Press Feeder 01/24/21 23:35 Seg Neuts % (Manual) 92.0 % (40.0-70.0) H 01/24/21 23:35 Lymphocytes % (Manual) 5.0 % (13.4-35.0) L 01/24/21 23:35 Monocytes % (Manual) 3.0 % (0.0-7.3) 01/24/21 23:35 Nucleated RBC % Not Reportable 01/24/21 23:35 Seg Neutrophils # 10.7 K/mm3 (1.8-7.7) H 01/24/21 17:28 Seg Neutrophils # Man 11.8 K/mm3 (1.8-7.7) H 01/24/21 23:35 Band Neutrophils # 0.0 K/mm3 01/24/21 23:35 Lymphocytes # (Manual) 0.6 K/mm3 (1.2-5.4) L 01/24/21 23:35 Abs React Lymphs (Man) 0.0 K/mm3 01/24/21 23:35 Monocytes # (Manual) 0.4 K/mm3 (0.0-0.8) 01/24/21 23:35 Eosinophils # (Manual) 0.0 K/mm3 (0.0-0.4) 01/24/21 23:35 Basophils # (Manual) 0.0 K/mm3 (0.0-0.1) 01/24/21 23:35 Metamyelocytes # 0.0 K/mm3 01/24/21 23:35 Myelocytes # 0.0 K/mm3 01/24/21 23:35 Promyelocytes # 0.0 K/mm3 01/24/21 23:35 Blast Cells # 0.0 K/mm3 01/24/21 23:35 WBC Morphology Not Reportable 01/24/21 23:35 Hypersegmented Neuts Not Reportable 01/24/21 23:35 Hyposegmented Neuts Not Reportable 01/24/21 23:35 Hypogranular Neuts Not Reportable 01/24/21 23:35 Smudge Cells Not Reportable 01/24/21 23:35 Toxic Granulation Not Reportable 01/24/21 23:35 Toxic Vacuolation Not Reportable 01/24/21 23:35 Dohle Bodies Not Reportable 01/24/21 23:35 Pelger-Huet Anomaly Not Reportable 01/24/21 23:35 Jeremy Rods Not Reportable 01/24/21 23:35 Platelet Estimate Not Reportable 01/24/21 23:35 Clumped Platelets Not Reportable 01/24/21 23:35 Plt Clumps, EDTA Not Reportable 01/24/21 23:35 Large Platelets Not Reportable 01/24/21 23:35 Giant Platelets Not Reportable 01/24/21 23:35 Platelet Satelliting Not Reportable 01/24/21 23:35 Plt Morphology Comment Not Reportable 01/24/21 23:35 RBC Morphology Normal 01/24/21 23:35 Dimorphic RBCs Not Reportable 01/24/21 23:35 Polychromasia Not Reportable 01/24/21 23:35 Hypochromasia Not Reportable 01/24/21 23:35 Poikilocytosis Not Reportable 01/24/21 23:35 Anisocytosis Not Reportable 01/24/21 23:35 Microcytosis Not Reportable 01/24/21 23:35 Macrocytosis Not Reportable 01/24/21 23:35 Spherocytes Not Reportable 01/24/21 23:35 Pappenheimer Bodies Not Reportable 01/24/21 23:35 Sickle Cells Not Reportable 01/24/21 23:35 Target Cells Not Reportable 01/24/21 23:35 Tear Drop Cells Not Reportable 01/24/21 23:35 Ovalocytes Not Reportable 01/24/21 23:35 Helmet Cells Not Reportable 01/24/21 23:35 Terrell-Cerulean Bodies Not Reportable 01/24/21 23:35 [employer] Rings Not Reportable 01/24/21 23:35 [place] Cells Not Reportable 01/24/21 23:35 Bite Cells Not Reportable 01/24/21 23:35 Crenated Cell Not Reportable 01/24/21 23:35 Elliptocytes Not Reportable 01/24/21 23:35 Acanthocytes (Spur) Not Reportable 01/24/21 23:35 Rouleaux Not Reportable 01/24/21 23:35 Hemoglobin C Crystals Not Reportable 01/24/21 23:35 Schistocytes Not Reportable 01/24/21 23:35 Malaria parasites Not Reportable 01/24/21 23:35 Armand Bodies Not Reportable 01/24/21 23:35 Hem Pathologist Commnt No 01/24/21 23:35 PT 15.4 Sec. (12.2-14.9) H 01/24/21 17:28 INR 1.16 (0.87-1.13) H 01/24/21 17:28 D-Dimer 2018.62 ng/mlDDU (0-234) H 01/24/21 17:28 Sodium 132 mmol/L (137-145) L 01/24/21 23:35 Potassium 4.5 mmol/L (3.6-5.0) 01/24/21 23:35 Chloride 95.2 mmol/L (98-107) L 01/24/21 23:35 Carbon Dioxide 22 mmol/L (22-30) D 01/24/21 23:35 Anion Gap 19 mmol/L 01/24/21 23:35 BUN 28 mg/dL (7-17) H 01/24/21 23:35 Creatinine 2.0 mg/dL (0.6-1.2) H 01/24/21 23:35 Estimated GFR 26 ml/min 01/24/21 23:35 BUN/Creatinine Ratio 14 % 01/24/21 23:35 Glucose 272 mg/dL (65-100) H 01/24/21 23:35 Calcium 7.7 mg/dL (8.4-10.2) L 01/24/21 23:35 Magnesium 3.20 mg/dL (1.7-2.3) H 01/24/21 17:28 Total Bilirubin 1.30 mg/dL (0.1-1.2) H 01/24/21 17:28 AST 22 units/L (5-40) 01/24/21 17:28 ALT 22 units/L (7-56) 01/24/21 17:28 Alkaline Phosphatase 93 units/L (35-129) 01/24/21 17:28 Total Creatine Kinase 48 units/L (30-135) 01/24/21 17:28 Troponin T < 0.010 ng/mL (0.00-0.029) 01/25/21 05:05 NT-Pro-B Natriuret Pep 3414 pg/mL (0-900) H 01/24/21 17:28 Total Protein 7.0 g/dL (6.3-8.2) 01/24/21 17:28 Albumin 4.1 g/dL (3.9-5) 01/24/21 17:28 Albumin/Globulin Ratio 1.4 % 01/24/21 17:28 Triglycerides 59 mg/dL (2-149) 01/24/21 23:35 Cholesterol 108 mg/dL (50-199) 01/24/21 23:35 LDL Cholesterol Direct 46 mg/dL (50-130) L 01/24/21 23:35 HDL Cholesterol 58 mg/dL (40-59) 01/24/21 23:35 Cholesterol/HDL Ratio 1.86 % 01/24/21 23:35 Barrios/IV: Voiding Method Toilet Active Medications - Current Medications Current Medications: Generic Name Dose Route Start Last Admin Trade Name Freq PRN Reason Stop Dose Admin Acetaminophen 650 mg 01/24/21 21:35 Acetaminophen 325 Mg Tab PO Q6H PRN Pain, Mild (1-3) Albuterol 2.5 mg 01/24/21 22:50 Albuterol 2.5 Mg/3 Ml Nebu IH QIDRT PRN Shortness Of Breath Arformoterol Tartrate 15 mcg 01/25/21 08:00 Arformoterol 15 Mcg/2 Ml Nebu IH Q12HRT [facility] Aspirin 81 mg 01/25/21 10:00 01/25/21 09:32 Aspirin 81 Mg Tab Chew PO 81 mg QDAY [facility] Administration Atorvastatin Calcium 40 mg 01/24/21 22:00 01/24/21 23:55 Atorvastatin 40 Mg Tab PO 40 mg QHS IRINA Administration Budesonide 0.5 mg 01/25/21 08:00 Budesonide 0.5 Mg/2 Ml Nebu Q12HRT [facility] Diazepam 2 mg 01/24/21 21:40 Diazepam 2 Mg Tab PO TID PRN Anxiety Levetiracetam 750 mg 01/24/21 22:00 01/25/21 09:32 Levetiracetam 500 Mg Tab PO 750 mg BID IRINA Administration Levothyroxine Sodium 25 mcg 01/25/21 06:00 01/25/21 05:16 Levothyroxine 25 Mcg Tab PO 25 mcg DAILY@0600 IRINA Administration Levothyroxine Sodium 112 mcg 01/25/21 06:00 01/25/21 05:16 Levothyroxine 112 Mcg Tab PO 112 mcg DAILY@0600 IRINA Administration Lisinopril 5 mg 01/25/21 10:00 01/25/21 09:32 Lisinopril 5 Mg Tab PO 5 mg QDAY IRINA Administration Morphine Sulfate 2 mg 01/24/21 21:35 01/25/21 08:06 Morphine 4 Mg/1 Ml Inj IV 2 mg Q5MIN PRN Administration Chest Pain Nitroglycerin 0.4 mg 01/24/21 21:35 01/25/21 00:15 Nitroglycerin 0.4 Mg Tab Subl SL 0.4 mg Q5M PRN Administration Chest Pain Pantoprazole Sodium 40 mg 01/25/21 10:00 01/25/21 09:32 Pantoprazole 40 Mg Tab PO 40 mg QDAY IRINA Administration Sodium Chloride 10 ml 01/24/21 21:35 Sodium Chloride 0.9% 10 Ml Flush Syringe IV PRN PRN LINE FLUSH Spironolactone 25 mg 01/25/21 10:00 01/25/21 09:32 Spironolactone 25 Mg Tab PO 25 mg QDAY IRINA Administration Tramadol HCl 50 mg 01/24/21 21:35 01/25/21 05:16 Tramadol 50 Mg Tab PO 50 mg Q6H PRN Administration Pain, Moderate (4-6) Warfarin Sodium 5 mg 01/25/21 17:00 Warfarin 5 Mg Tab PO QDAY@1700 [facility] Protocol Zolpidem Tartrate 5 mg 01/24/21 21:40 Zolpidem 5 Mg Tab PO QHS PRN Insomnia
--- NOTE | 2021-01-25 11:15 | Electrocardiograph Report ---
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
--- NOTE | 2021-01-25 11:19 | Electrocardiograph Report ---
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
[2021-01-25] MEDS: ARFORMOTEROL 15 MCG/2 ML NEBU IH SCH ×2 (11:20→20:28)
[2021-01-25] MEDS: BUDESONIDE 0.5 MG/2 ML NEBU IH SCH ×2 (11:20→20:28)
--- NOTE | 2021-01-25 11:20 | Electrocardiograph Report ---
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
--- NOTE | 2021-01-25 11:53 | Consultation ---
History of Present Illness Consult date: 01/25/21 Consult reason: syncope History of present illness: Patient is a 66-year old F with multiple medical problems. She has a cardiac history of resolving nonischemic cardiomyopathy, left ventricular ejection fraction 45-50% by an echocardiogram done at [facility] 3 weeks ago. She also has a history of paroxysmal atrial fibrillation at [facility] for oral anticoagulation. Co-morbidities includes history of seizures, CVA, chronic kidney disease, COPD on ambulatory oxygen, and hypertension. Patient was bought to this hospital and admitted with syncope. Patient reports standing from the commode, feeling dizzy, then she passed out. When she came to herself, she had no chest pain or no palpitations. Head CT scan reports mild T6 fracture. No acute intracranial abnormality. No evidence of pulmonary embolism by ventilation perfusion scan. Chest x-ray showed no evidence of interstitial edema and her ECG is sinus rhythm with LVH and nonspecific T wave abnormalities. Past History Past Medical History: atrial fib, COPD, heart failure, hypothyroidism (Convulsion, dilated cord cardiomyopathy chronic pain frequent falls obstructive sleep apnea), renal failure, seizures, stroke, other (chronic pain) Medications and Allergies Allergies Allergy/AdvReac Type Severity Reaction Status Date / Time cyclobenzaprine HCl Allergy Severe Itching Verified 01/24/21 15:41 [From Flexeril] Fish Containing Products Allergy Anaphylaxis Verified 01/24/21 15:41 ibuprofen Allergy abd pain Verified 01/24/21 15:41 ketorolac tromethamine Allergy Headache Verified 01/24/21 15:41 [From Toradol] methocarbamol [From Robaxin] Allergy Unknown Verified 01/24/21 15:41 Home Medications Medication Instructions Recorded Confirmed Last Taken Type Albuterol Mdi (or & Nicu Only) 2 puff IH Q4HR PRN #1 inhalation 06/08/1901/25 Unknown Rx [ProAir HFA Inhaler] Furosemide [Lasix TAB] 40 mg PO QDAY #30 tablet 06/08/19 01/25/21 Unknown Rx Famotidine [Pepcid] 20 mg PO BID #20 tablet 10/12/19 01/25/21 Unknown Rx diazePAM TAB [Valium] 2 mg PO TID PRN #10 tablet 10/12/19 01/25/21 Unknown Rx AtorvaSTATin [Lipitor] 40 mg PO QHS 01/25/21 01/25/21 Unknown History Buspirone HCl [busPIRone] 15 mg PO BID 01/25/21 01/25/21 Unknown History Clopidogrel [Plavix] 75 mg PO QDAY 01/25/21 01/25/21 Unknown History Isosorbide Mononitrate [Isosorbide 30 mg PO QDAY 01/25/21 01/25/21 Unknown History Mononitrate ER] Mirtazapine 7.5 mg PO QDAY 01/25/21 01/25/21 Unknown History QUEtiapine [SEROquel] 50 mg PO TID 01/25/21 01/25/21 Unknown History Tramadol HCl [traMADol ER 100 MG] 100 mg PO QDAY 01/25/21 01/25/21 Unknown History carvediloL [Coreg] 12.5 mg PO BID 01/25/21 01/25/21 Unknown History oxyCODONE /ACETAMINOPHEN [Percocet 1 tab PO Q4HR 01/25/21 01/25/21 Unknown History 5/325] Active Meds: Active Medications Acetaminophen (Acetaminophen 325 Mg Tab) 650 mg PO Q6H PRN PRN Reason: Pain, Mild (1-3) Albuterol (Albuterol 2.5 Mg/3 Ml Nebu) 2.5 mg IH QIDRT PRN PRN Reason: Shortness Of Breath Arformoterol Tartrate (Arformoterol 15 Mcg/2 Ml Nebu) 15 mcg IH Q12HRT [facility] Last Admin: 01/25/21 11:20 Dose: 15 mcg Documented by: Aspirin (Aspirin 81 Mg Tab Chew) 81 mg PO QDAY [facility] Last Admin: 01/25/21 09:32 Dose: 81 mg Documented by: Atorvastatin Calcium (Atorvastatin 40 Mg Tab) 40 mg PO QHS [facility] Last Admin: 01/24/21 23:55 Dose: 40 mg Documented by: Budesonide (Budesonide 0.5 Mg/2 Ml Nebu) 0.5 mg IH Q12HRT [facility] Last Admin: 01/25/21 11:20 Dose: 0.5 mg Documented by: Diazepam (Diazepam 2 Mg Tab) 2 mg PO TID PRN PRN Reason: Anxiety Levetiracetam (Levetiracetam 500 Mg Tab) 750 mg PO BID [facility] Last Admin: 01/25/21 09:32 Dose: 750 mg Documented by: Levothyroxine Sodium (Levothyroxine 25 Mcg Tab) 25 mcg PO DAILY@0600 [facility] Last Admin: 01/25/21 05:16 Dose: 25 mcg Documented by: Levothyroxine Sodium (Levothyroxine 112 Mcg Tab) 112 mcg PO DAILY@0600 [facility] Last Admin: 01/25/21 05:16 Dose: 112 mcg Documented by: Lisinopril (Lisinopril 5 Mg Tab) 5 mg PO QDAY [facility] Last Admin: 01/25/21 09:32 Dose: 5 mg Documented by: Morphine Sulfate (Morphine 4 Mg/1 Ml Inj) 2 mg IV Q5MIN PRN PRN Reason: Chest Pain Last Admin: 01/25/21 08:06 Dose: 2 mg Documented by: Nitroglycerin (Nitroglycerin 0.4 Mg Tab Subl) 0.4 mg SL Q5M PRN PRN Reason: Chest Pain Last Admin: 01/25/21 00:15 Dose: 0.4 mg Documented by: Pantoprazole Sodium (Pantoprazole 40 Mg Tab) 40 mg PO QDAY [facility] Last Admin: 01/25/21 09:32 Dose: 40 mg Documented by: Sodium Chloride (Sodium Chloride 0.9% 10 Ml Flush Syringe) 10 ml IV PRN PRN PRN Reason: LINE FLUSH Spironolactone (Spironolactone 25 Mg Tab) 25 mg PO QDAY [facility] Last Admin: 01/25/21 09:32 Dose: 25 mg Documented by: Tramadol HCl (Tramadol 50 Mg Tab) 50 mg PO Q6H PRN PRN Reason: Pain, Moderate (4-6) Last Admin: 01/25/21 11:33 Dose: 50 mg Documented by: Warfarin Sodium (Warfarin 5 Mg Tab) 5 mg PO QDAY@1700 [facility]; Protocol Zolpidem Tartrate (Zolpidem 5 Mg Tab) 5 mg PO QHS PRN PRN Reason: Insomnia Physical Examination Vital Signs Temp Pulse Resp BP Pulse Ox 97.9 F 98 H 24 73/47 91 01/24/21 15:40 01/24/21 15:40 01/24/21 15:40 01/24/21 15:40 01/24/21 15:40 General appearance: no acute distress HEENT: Positive: PERRL Neck: Positive: trachea midline Cardiac: Positive: Reg Rate and Rhythm Lungs: Positive: Decreased Breath Sounds Neuro: Positive: Grossly Intact Extremities: Absent: edema Results 01/24/21 23:35 01/24/21 23:35 Cardiac Enzymes 01/24/21 Range/Units 17:28 AST 22 (5-40) units/L Coagulation 01/24/21 Range/Units 17:28 PT 15.4 H (12.2-14.9) Sec. INR 1.16 H (0.87-1.13) Lipids 01/24/21 Range/Units 23:35 Triglycerides 59 (2-149) mg/dL Cholesterol 108 (50-199) mg/dL HDL Cholesterol 58 (40-59) mg/dL Cholesterol/HDL Ratio 1.86 % CBC 01/24/21 01/24/21 Range/Units 17: 23:35 WBC 12.5 H 12.8 H (4.5-11.0) K/mm3 RBC 3.56 L 3.06 L (3.65-5.03) M/mm3 Hgb 11.2 9.7 L (10.1-14.3) gm/dl Hct 34.7 29.6 L (30.3-42.9) % Plt Count 303 236 (140-440) K/mm3 Lymph # (Auto) 0.6 L (1.2-5.4) K/mm3 [place] # (Auto) 1.2 H (0.0-0.8) K/mm3 Eos # (Auto) 0.1 (0.0-0.4) K/mm3 Baso # (Auto) 0.0 (0.0-0.1) K/mm3 Comprehensive Metabolic Panel 01/24/21 01/24/21 Range/Units 17:28 23:35 Sodium 136 L 132 L (137-145) mmol/L Potassium 4.2 4.5 (3.6-5.0) mmol/L Chloride 95.1 L 95.2 L (98-107) mmol/L Carbon Dioxide 30 22 D (22-30) mmol/L BUN 22 H 28 H (7-17) mg/dL Creatinine 1.9 H 2.0 H (0.6-1.2) mg/dL Glucose 135 H 272 H (65-100) mg/dL Calcium 9.0 7.7 L (8.4-10.2) mg/dL AST 22 (5-40) units/L ALT 22 (7-56) units/L Alkaline Phosphatase 93 (35-129) units/L Total Protein 7.0 (6.3-8.2) g/dL Albumin 4.1 (3.9-5) g/dL Assessment and Plan Syncope, likely vasovagal Hx of NICMP, resolving Echo this admission: LVEF 45-50%. There was moderate AR and moderate MR. 11/2019 Echo: LVEF 25% 07/2020 MPI: no reversible ischemia. 06/2019 LHC: no significant CAD. 2013 LHC: normal coronaries, EF 60%. Hx of paroxysmal atrial fibrillation on Eliquis as an outpatient Hx of COPD on home oxygen Hypertension CKD
[2021-01-25] MEDS: oxyCODONE /ACETAMINOPHEN 5-325MG TAB PO PRN ×2 (11:58→16:16)
[2021-01-25] MEDS: diazePAM 2 MG TAB PO PRN (13:02)
[2021-01-25 14:58] LABS: Hematocrit 28.8 % (30.3-42.9); Hemoglobin 9.6 gm/dl (10.1-14.3); Mean Corpuscular HGB Conc 33 % (30-34); Mean Corpuscular Volume 96 fl (79-97); Platelet Count 239 K/mm3 (140-440); Red Cell Distribution Width 15.8 % (13.2-15.2)
[2021-01-25 15:08] LABS: INR 1.06 (0.87-1.13)
[2021-01-25 15:09] LABS: Partial Thromboplastin Time 32.6 Sec. (24.2-36.6)
[2021-01-25] MEDS ORDERED: WARFARIN 5 MG TAB PO SCH (17:00)
[2021-01-25] MEDS: fentaNYL 12 MCG/HR PATCH 72HR TD SCH (18:07)
--- NOTE | 2021-01-25 19:51 | Progress Note ---
Subjective Date of service: 01/25/21 Interval history: NSGY update: imaging studies reviewed, age indeterminate T6 compression fracture. MRI T spine ordered. There is no evidence of instability. May mobilize as tolerated with physical therapy. Full consult to follow. Objective - Vital Sign Vital Signs - 12hr 01/25/21 01/25/21 01/25/21 08:25 11:37 16:01 Temperature 97.7 F 97.8 F Pulse Rate 71 83 76 Respiratory 20 22 20 Rate Blood Pressure 128/77 122/75 O2 Sat by Pulse 96 90 Oximetry 01/25/21 19:40 Temperature 97.8 F Pulse Rate 78 Respiratory 20 Rate Blood Pressure 109/64 O2 Sat by Pulse 90 Oximetry - Laboratory Findings CBC and BMP: 01/25/21 14:11 01/25/21 14:11 Abnormal Lab Findings: Abnormal Labs 01/24/21 01/24/21 01/24/21 17:28 17:28 17:28 WBC 12.5 H RBC 3.56 L Hgb Hct MCV 98 H RDW 15.7 H Lymph % (Auto) 4.6 L [place] % (Auto) 9.2 H Lymph # (Auto) 0.6 L [place] # (Auto) 1.2 H Seg Neutrophils % 85.4 H Seg Neuts % (Manual) Lymphocytes % (Manual) Seg Neutrophils # 10.7 H Seg Neutrophils # Man Lymphocytes # (Manual) PT 15.4 H INR 1.16 H D-Dimer 2018.62 H Sodium 136 L Chloride 95.1 L BUN 22 H Creatinine 1.9 H Glucose 135 H Calcium Magnesium Total Bilirubin 1.30 H NT-Pro-B Natriuret Pep LDL Cholesterol Direct 01/24/21 01/24/21 01/24/21 17:28 23:35 23:35 WBC 12.8 H RBC 3.06 L Hgb 9.7 L Hct 29.6 L MCV RDW 15.7 H Lymph % (Auto) [place] % (Auto) Lymph # (Auto) [place] # (Auto) Seg Neutrophils % Seg Neuts % (Manual) 92.0 H Lymphocytes % (Manual) 5.0 L Seg Neutrophils # Seg Neutrophils # Man 11.8 H Lymphocytes # (Manual) 0.6 L PT INR D-Dimer Sodium Chloride BUN Creatinine Glucose Calcium Magnesium 3.20 H Total Bilirubin NT-Pro-B Natriuret Pep 3414 H LDL Cholesterol Direct 46 L 01/24/21 01/25/21 01/25/21 23:35 14:11 14:11 WBC 11.8 H RBC 3.00 L Hgb 9.6 L Hct 28.8 L MCV RDW 15.8 H Lymph % (Auto) [place] % (Auto) Lymph # (Auto) [place] # (Auto) Seg Neutrophils % Seg Neuts % (Manual) Lymphocytes % (Manual) Seg Neutrophils # Seg Neutrophils # Man Lymphocytes # (Manual) PT INR D-Dimer Sodium 132 L Chloride 95.2 L BUN 28 H Creatinine 2.0 H 1.7 H Glucose 272 H Calcium 7.7 L Magnesium Total Bilirubin NT-Pro-B Natriuret Pep LDL Cholesterol Direct
[2021-01-25] MEDS: ONDANSETRON 4 MG/2 ML INJ IV PRN (20:18)
[2021-01-25] MEDS: MORPHINE 2 MG/1 ML INJ IV PRN (20:56)
[2021-01-25] MEDS: APIXABAN 5 MG TAB PO SCH (21:06)
[2021-01-25] MEDS: carvediloL 6.25 MG TAB PO SCH (21:06)
[2021-01-26] MEDS: oxyCODONE /ACETAMINOPHEN 5-325MG TAB PO PRN ×5 (00:17→20:06)
[2021-01-26] MEDS: MORPHINE 2 MG/1 ML INJ IV PRN ×5 (02:19→22:05)
[2021-01-26 06:16] LABS: INR 0.93 (0.87-1.13)
[2021-01-26] MEDS: BUDESONIDE 0.5 MG/2 ML NEBU IH SCH ×2 (08:15→20:42)
[2021-01-26] MEDS: ARFORMOTEROL 15 MCG/2 ML NEBU IH SCH ×2 (08:16→20:42)
[2021-01-26] MEDS ORDERED: LORazepam 2 MG/ML VIAL IV NR (08:45)
[2021-01-26] MEDS: PANTOPRAZOLE 40 MG TAB PO SCH (10:21)
[2021-01-26] MEDS: APIXABAN 5 MG TAB PO SCH ×2 (10:21→22:04)
[2021-01-26] MEDS: carvediloL 6.25 MG TAB PO SCH ×2 (10:21→22:04)
[2021-01-26] MEDS: ASPIRIN 81 MG TAB CHEW PO SCH (10:21)
--- NOTE | 2021-01-26 10:31 | Magnetic Resonance Report ---
MRI THORACIC SPINE WITHOUT CONTRAST INDICATION / CLINICAL INFORMATION: T6 fracture, back pain Patient was given Ativan prior to study, best possible exam, patient motion.. TECHNIQUE: Multisequence, multiplanar images of the thoracic spine were obtained. COMPARISON: CT scan of the thoracic spine from 01/24/2021 FINDINGS: T6 vertebral body: 40% height loss from recent fracture; predominantly involving the superior endplat e but also inferior endplate; pedicles lamina and the spinous processes normal; edema in the interspi nous ligament at T6-T7 and to a lesser degree at T5-T6 levels; focal bone bruise along the inferior s urface of T6 spinous process; very minimal retropulsion in the right lateral recess area; bony canal is not compromised; spinal cord is not compromised at this level; thoracic vertebral fracture type A2 B2 T10 vertebral body: Minimal height loss along the superior endplate with minimal edema underneath the superior endplate; no retropulsion; posterior elements and tension bands normal ; Type A1 ALIGNMENT: Normal thoracic kyphosis without significant scoliosis. VERTEBRAE:Normal marrow signal and vertebral body height for age. VISUALIZED SPINAL CORD: No significant abnormality. INTERVERTEBRAL DISCS: T11-T12: Focal disc protrusion on the right side; bony canal is compromised DEGENERATIVE FINDINGS: No significant degenerative findings. PARASPINAL SOFT TISSUES: No significant abnormality. ADDITIONAL FINDINGS: None. IMPRESSION: Vertebral body compression fracture of T6; no retropulsion; edematous changes in the interspinous lig ament Mild vertebral compression fracture along the superior endplate of T10; tension bands normal Signer Name: Getachew Lazaro MD Signed: 01/26/2021 10:26 AM Workstation Name: [id number]
--- NOTE | 2021-01-26 10:41 | Progress Note ---
Assessment and Plan Fall, likely vasovagal mild fracture of the thoracic vertebrae on CT scan Hx of NICMP, resolving Echo this admission: LVEF 45-50%. There was moderate AR and moderate MR. 11/2019 Echo: LVEF 25% 07/2020 MPI: no reversible ischemia. 06/2019 LHC: no significant CAD. 2013 LHC: normal coronaries, EF 60%. Hx of paroxysmal atrial fibrillation on Eliquis as an outpatient Hx of COPD on home oxygen Hypertension CKD Recommendations: Patient's transient dizziness may likely be due to orthostasis or a vasodepressive reaction. As outpatient she should be considered for a 2-week event monitor. Subjective Date of service: 01/26/21 Interval history: No cardiac events overnight. Patient is resting in bed and appears comfortable. Neurosurgery workup is in progress for mild fracture of the thoracic vertebrae. Objective Vital Signs Temp Pulse Pulse Pulse Resp Resp BP 01/26/21 08:36 97.9 F 82 18 110/63 01/26/21 08:21 01/26/21 08:16 82 18 01/26/21 07:27 78 20 01/26/21 04:25 98.7 F 78 20 106/53 01/26/21 00:14 98.0 F 84 20 117/65 01/25/21 22:11 94 H 18 01/25/21 22:00 78 01/25/21 21:06 78 109/64 01/25/21 20:58 78 20 01/25/21 19:40 97.8 F 78 20 109/64 01/25/21 16:01 97.8 F 76 20 122/75 01/25/21 11:37 97.7 F 83 22 128/77 01/25/21 11:20 92 H 18 Pulse Ox 01/26/21 08:36 91 01/26/21 08:21 91 01/26/21 08:16 01/26/21 07:27 01/26/21 04:25 90 01/26/21 00:14 85 01/25/21 22:11 94 01/25/21 22:00 01/25/21 21:06 01/25/21 20:58 01/25/21 19:40 90 01/25/21 16:01 90 01/25/21 11:37 96 01/25/21 11:20 - Physical Examination General: No Apparent Distress HEENT: Positive: PERRL Neck: Positive: trachea midline Cardiac: Positive: Reg Rate and Rhythm Lungs: Positive: Decreased Breath Sounds Neuro: Positive: Grossly Intact Extremities: Absent: edema - Labs and Meds Coagulation 01/25/21 01/26/21 Range/Units 14:11 04:57 PT 14.4 13.1 (12.2-14.9) Sec. INR 1.06 0.93 (0.87-1.13) APTT 32.6 (24.2-36.6) Sec. CBC 01/25/21 Range/Units 14:11 WBC 11.8 H (4.5-11.0) K/mm3 RBC 3.00 L (3.65-5.03) M/mm3 Hgb 9.6 L (10.1-14.3) gm/dl Hct 28.8 L (30.3-42.9) % Plt Count 239 (140-440) K/mm3 Comprehensive Metabolic Panel 01/25/21 Range/Units 14:11 Creatinine 1.7 H (0.6-1.2) mg/dL
--- NOTE | 2021-01-26 11:25 | Consultation ---
History of Present Illness Consult date: 01/24/21 Reason for Consult: Thoracic compression fracture Chief complaint: back pain History of present illness: Ira Jimenes is a 56 y/o Female w/ COPD and CHF. She presented to [facility] two days ago with complaints of progressive back pain. She had a mechanical fall a few days prior to presentation. She was initially evaluated at [facility]. She was not given a brace. She is undergoing home health PT. Presently, she reports both mid and lower back pain. She denies radiating pain, numbness or tingling. She also denies any weakness of her extremities. CT/MR revealed an acute burst fracture of the T6 vertebral body. There is subtle retropulsion but no significant spinal canal narrowing. The posterior elements appear intact. Past History Past Medical History: atrial fib, COPD, heart failure, hypothyroidism (Convulsion, dilated cord cardiomyopathy chronic pain frequent falls obstructive sleep apnea), renal failure, seizures, stroke, other (chronic pain) Medications and Allergies Allergies Allergy/AdvReac Type Severity Reaction Status Date / Time cyclobenzaprine HCl Allergy Severe Itching Verified 01/24/21 15:41 [From Flexeril] Fish Containing Products Allergy Anaphylaxis Verified 01/24/21 15:41 ibuprofen Allergy abd pain Verified 01/24/21 15:41 ketorolac tromethamine Allergy Headache Verified 01/24/21 15:41 [From Toradol] methocarbamol [From Robaxin] Allergy Unknown Verified 01/24/21 15:41 Home Medications Medication Instructions Recorded Confirmed Last Taken Type Albuterol Mdi (or & Nicu Only) 2 puff IH Q4HR PRN #1 inhalation 06/08/19 01/25/21 Unknown Rx [ProAir HFA Inhaler] Furosemide [Lasix TAB] 40 mg PO QDAY #30 tablet 06/08/19 01/25/21 Unknown Rx Famotidine [Pepcid] 20 mg PO BID #20 tablet 10/12/19 01/25/21 Unknown Rx diazePAM TAB [Valium] 2 mg PO TID PRN #10 tablet 10/12/19 01/25/21 Unknown Rx AtorvaSTATin [Lipitor] 40 mg PO QHS 01/25/21 01/25/21 Unknown History Buspirone HCl [busPIRone] 15 mg PO BID 01/25/21 01/25/21 Unknown History Clopidogrel [Plavix] 75 mg PO QDAY 01/25/21 01/25/21 Unknown History Isosorbide Mononitrate [Isosorbide 30 mg PO QDAY 01/25/21 01/25/21 Unknown History Mononitrate ER] Mirtazapine 7.5 mg PO QDAY 01/25/21 01/25/21 Unknown History QUEtiapine [SEROquel] 50 mg PO TID 01/25/21 01/25/21 Unknown History Tramadol HCl [traMADol ER 100 MG] 100 mg PO QDAY 01/25/21 01/25/21 Unknown History carvediloL [Coreg] 12.5 mg PO BID 01/25/21 01/25/21 Unknown History oxyCODONE /ACETAMINOPHEN [Percocet 1 tab PO Q4HR 01/25/21 01/25/21 Unknown History 5/325] Active Meds: Active Medications Acetaminophen (Acetaminophen 325 Mg Tab) 650 mg PO Q6H PRN PRN Reason: Pain, Mild (1-3) Albuterol (Albuterol 2.5 Mg/3 Ml Nebu) 2.5 mg IH QIDRT PRN PRN Reason: Shortness Of Breath Apixaban (Apixaban 5 Mg Tab) 5 mg PO Q12HR [facility]; Protocol Last Admin: 01/26/21 10:21 Dose: 5 mg Documented by: Arformoterol Tartrate (Arformoterol 15 Mcg/2 Ml Nebu) 15 mcg IH Q12HRT [facility] Last Admin: 01/26/21 08:16 Dose: 15 mcg Documented by: Aspirin (Aspirin 81 Mg Tab Chew) 81 mg PO QDAY [facility] Last Admin: 01/26/21 10:21 Dose: 81 mg Documented by: Atorvastatin Calcium (Atorvastatin 40 Mg Tab) 40 mg PO QHS [facility] Last Admin: 01/25/21 21:06 Dose: 40 mg Documented by: Budesonide (Budesonide 0.5 Mg/2 Ml Nebu) 0.5 mg IH Q12HRT [facility] Last Admin: 01/26/21 08:15 Dose: 0.5 mg Documented by: Carvedilol (Carvedilol 6.25 Mg Tab) 6.25 mg PO BID [facility] Last Admin: 01/26/21 10:21 Dose: 6.25 mg Documented by: Diazepam (Diazepam 2 Mg Tab) 2 mg PO TID PRN PRN Reason: Anxiety Last Admin: 01/25/21 13:02 Dose: 2 mg Documented by: Fentanyl (Fentanyl 12 Mcg/Hr Patch 72hr) 1 applic TD Q72HR [facility] Last Admin: 01/25/21 18:07 Dose: 1 applic Documented by: Lorazepam (Lorazepam 2 Mg/Ml Vial) 2 mg IV QA SPECIALIST NR Stop: 01/27/21 08:46 Last Admin: 01/26/21 08:48 Dose: 2 mg Documented by: Morphine Sulfate (Morphine 4 Mg/1 Ml Inj) 2 mg IV Q5MIN PRN PRN Reason: Chest Pain Last Admin: 01/25/21 14:13 Dose: 2 mg Documented by: Morphine Sulfate (Morphine 2 Mg/1 Ml Inj) 2 mg IV Q4H PRN PRN Reason: Pain, Moderate (4-6) Last Admin: 01/26/21 08:24 Dose: 2 mg Documented by: Nitroglycerin (Nitroglycerin 0.4 Mg Tab Subl) 0.4 mg SL Q5M PRN PRN Reason: Chest Pain Last Admin: 01/25/21 00:15 Dose: 0.4 mg Documented by: Ondansetron HCl (Ondansetron 4 Mg/2 Ml Inj) 4 mg IV Q4H PRN PRN Reason: Nausea And Vomiting Last Admin: 01/25/21 20:18 Dose: 4 mg Documented by: Oxycodone/Acetaminophen (Oxycodone /Acetaminophen 5-325mg Tab) 1 tab PO Q4H PRN PRN Reason: Pain, Moderate (4-6) Last Admin: 01/26/21 10:21 Dose: 1 tab Documented by: Pantoprazole Sodium (Pantoprazole 40 Mg Tab) 40 mg PO QDAY [facility] Last Admin: 01/26/21 10:21 Dose: 40 mg Documented by: Sodium Chloride (Sodium Chloride 0.9% 10 Ml Flush Syringe) 10 ml IV PRN PRN PRN Reason: LINE FLUSH Last Admin: 01/25/21 21:07 Dose: 10 ml Documented by: Zolpidem Tartrate (Zolpidem 5 Mg Tab) 5 mg PO QHS PRN PRN Reason: Insomnia Review of Systems All systems: negative (what is specified in HPI) Physical Examination - Vital Signs Vital Signs: Vital Signs Temp Pulse Resp BP Pulse Ox 97.9 F 98 H 24 73/47 91 06/28/21 15:40 01/24/21 15:40 01/24/21 15:40 01/24/21 15:40 01/24/21 15:40 - Physical Exam Narrative exam: seen and examined no acute distress NC/AT RRR breathing non-labored abdomen soft no cyanosis or clubbing A&Ox3 CNII-XII intact motor strength full throughout sensation intact to light touch reflexes +2 gait unremarkable Results - Laboratory Findings CBC and BMP: 01/25/21 14:11 01/25/21 14:11 Abnormal Lab Findings: Abnormal Labs 01/24/21 01/24/21 01/24/21 17:28 17:28 17:28 WBC 12.5 H RBC 3.56 L Hgb Hct MCV 98 H RDW 15.7 H Lymph % (Auto) 4.6 L [place] % (Auto) 9.2 H Lymph # (Auto) 0.6 L [place] # (Auto) 1.2 H Seg Neutrophils % 85.4 H Seg Neuts % (Manual) Lymphocytes % (Manual) Seg Neutrophils # 10.7 H Seg Neutrophils # Man Lymphocytes # (Manual) PT 15.4 H INR 1.16 H D-Dimer 2018.62 H Sodium 136 L Chloride 95.1 L BUN 22 H Creatinine 1.9 H Glucose 135 H Calcium Magnesium Total Bilirubin 1.30 H NT-Pro-B Natriuret Pep LDL Cholesterol Direct 01/24/21 01/24/21 01/24/21 17:28 23:35 23:35 WBC 12.8 H RBC 3.06 L Hgb 9.7 L Hct 29.6 L MCV RDW 15.7 H Lymph % (Auto) [place] % (Auto) Lymph # (Auto) [place] # (Auto) Seg Neutrophils % Seg Neuts % (Manual) 92.0 H Lymphocytes % (Manual) 5.0 L Seg Neutrophils # Seg Neutrophils # Man 11.8 H Lymphocytes # (Manual) 0.6 L PT INR D-Dimer Sodium Chloride BUN Creatinine Glucose Calcium Magnesium 3.20 H Total Bilirubin NT-Pro-B Natriuret Pep 3414 H LDL Cholesterol Direct 46 L 01/24/21 01/25/21 01/25/21 23:35 14:11 14:11 WBC 11.8 H RBC 3.00 L Hgb 9.6 L Hct 28.8 L MCV RDW 15.8 H Lymph % (Auto) [place] % (Auto) Lymph # (Auto) [place] # (Auto) Seg Neutrophils % Seg Neuts % (Manual) Lymphocytes % (Manual) Seg Neutrophils # Seg Neutrophils # Man Lymphocytes # (Manual) PT INR D-Dimer Sodium 132 L Chloride 95.2 L BUN 28 H Creatinine 2.0 H 1.7 H Glucose 272 H Calcium 7.7 L Magnesium Total Bilirubin NT-Pro-B Natriuret Pep LDL Cholesterol Direct Assessment and Plan 56 y/o F w/ acute T6 stable burst fx -no surgical intervention -recommend TLSO brace -may work with PT/OT in brace -will arrange for outpatient follow up -please notify if questions
--- NOTE | 2021-01-26 17:33 | Progress Note ---
Assessment and Plan Assessment and plan: --Thoracic spine fracture/T6 burst fracture Current Visit: Yes Status: Acute Neurosurgeon evaluated the patient, recommend MRI T-spine, MRI findings reviewed. Neurosurgeon feels stable fracture No surgical intervention needed Recommended TLSO brace, PT OT in brace as tolerated And outpatient follow-up upon discharge Requested PT OT, Case management for discharge planning when stable Supportive care , pain management fentanyl patch, morphine and oral pain medications MRI T-spine; 01/26/2021 vertebral body compression fracture of T6 No retropulsion edematous changes in the interspinous ligament Mild vertebral compression fracture along the superior endplate of T10 Tension bands normal tension bands normal CT T-spine ; new age-indeterminate mild T6 burst fracture with minimal retropulsion of osseous fragments but no canal compromise no acute intracranial abnormality no other acute fractures identified in the cervical thoracic or lumbar spine Several chronic vertebral body compression fractures throughout the spine several throughout the body compression fractures CT-C-spine; CT L-spine; CT head; --History of recurrent falls; Current Visit: Yes Status: Acute Fall precautions, supportive care Orthostats, PT, OT when medically stable Possible rehabilitation at discharge --Acute chest pain Current Visit: Yes Status: Acute Cardiology evaluation recommendations noted and appreciated Continue current cardiac management -- Near syncope Current Visit: Yes Status: Acute History of recurrent falls, orthostats, PT OT and rehab When medically stable, fall precautions --Acute back pain Current Visit: Yes Status: Acute Tylenol 650 mg p.o. every 6 hours as needed. Morphine 2 mg IV every 4 hours as needed. Will consult spine surgeon to see the patient for evaluation and treatment --Acute renal insufficiency Current Visit: Yes Status: Acute We will hold the Lasix. Avoid nephrotoxic drug. Renally dose medication. Recheck BMP in the morning. Consult nephrology in the morning if needed -- COPD exacerbation Current Visit: Yes Status: Acute Oxygen via nasal cannula 3 L/min DuoNeb by nebulizer every 4 hours as needed. We will continue the home medication. , Monitor the patient closely --CHF (congestive heart failure) Current Visit: No Status: Acute Stable. We will continue the home medication. We will hold the Lasix for the time being because of her renal insufficiency. Echocardiogram. Repeat BMP in the morning. Cardiology evaluation --Hypertension Current Visit: No Status: Acute Lisinopril 5 mg p.o. daily. Spironolactone 25 mg p.o. daily. We will monitor the blood pressure closely -- Seizure disorder Current Visit: No Status: Chronic Stable. Keppra 750 mg p.o. twice daily. Outpatient follow-up with neurology --Tobacco abuse Current Visit: No Status: Chronic . We counseled the patient regarding quitting smoking. We will put on nicotine patch if needed --DVT prophylaxis Current Visit: Yes Status: Acute SCD Protonix 40 mg p.o. daily for GI prophylaxis. Patient is a full code We will closely monitor the patient and adjust management as needed Follow PT, OT evaluation recommendation, DC planning per case management I called patient's son Mr. Leticia Vera at [phone] and discussed in detail patient's condition, tests and reports, neurosurgeons evaluation, and recommendations, treatment plan, physical therapy and discharge planning. he has numerous questions I answered all of them. And encouraged him to call if he has any new questions or concerns. I also informed patient's nurse Mr. Robert about my conversation with the family 01/26/2021; Neurosurgery evaluation and recommendations noted and appreciated MRI T-spine findings noted, TLSO brace, PT OT in brace, pain management and DC planning when stable Discharge needs pending PT OT evaluation. History Interval history: I have seen and examined the patient at the bedside this morning Patient's chart and medications reviewed Patient complains of excruciating pain in the back Admitted with history of recurrent falls, Thoracic spine T6 burst fracture. Neurosurgeon evaluated the patient and recommended MRI T-spine Patient is in mild distress Vital signs noted Hospitalist Physical - Constitutional Vitals: Temp Pulse Resp BP Pulse Ox 98.7 F 78 20 92/54 93 01/26/21 17:20 01/26/21 17:20 01/26/21 17:20 01/26/21 17:20 01/26/21 17:20 General appearance: Present: mild distress, well-nourished, other (Excruciating pain) - EENT Eyes: Present: PERRL, EOM intact - Neck Neck: Present: supple, normal ROM - Respiratory Respiratory effort: normal Respiratory: bilateral: diminished, negative: rales, rhonchi, wheezing - Cardiovascular Rhythm: regular Heart Sounds: Present: S1 & S2 - Extremities Extremities: no ischemia, No edema, abnormal (T6 burst fracture) - Abdominal General gastrointestinal: soft, non-tender, non-distended, normal bowel sounds - Integumentary Integumentary: Present: clear, warm - Psychiatric Psychiatric: cooperative, agitated - Neurologic Neurologic: other (T6 burst fracture) HEART Score - HEART Score EKG: Non-specific Age: 45-65 Risk factors: > 3 risk factors or hx of atherosclerotic disease Troponin: Troponin T < 0.010 ng/mL (0.00-0.029) 01/25/21 05:05 Troponin: < normal limit - Critical Actions Critical Actions: 4-6 pts:12-16.6% risk of adverse cardiac event. Should be admitted Results - Labs CBC & Chem 7: 01/25/21 14:11 01/25/21 14:11 Labs: Laboratory Last Values WBC 11.8 K/mm3 (4.5-11.0) H 01/25/21 14:11 RBC 3.00 M/mm3 (3.65-5.03) L 01/25/21 14:11 Hgb 9.6 gm/dl (10.1-14.3) L 01/25/21 14:11 Hct 28.8 % (30.3-42.9) L 01/25/21 14:11 MCV 96 fl (79-97) 01/25/21 14:11 MCH 32 pg (28-32) 01/25/21 14:11 MCHC 33 % (30-34) 01/25/21 14:11 RDW 15.8 % (13.2-15.2) H 01/25/21 14:11 Plt Count 239 K/mm3 (140-440) 01/25/21 14:11 Lymph % (Auto) 4.6 % (13.4-35.0) L 01/24/21 17:28 [place] % (Auto) 9.2 % (0.0-7.3) H 01/24/21 17:28 Eos % (Auto) 0.7 % (0.0-4.3) 01/24/21 17:28 Baso % (Auto) 0.1 % (0.0-1.8) 01/24/21 17:28 Lymph # (Auto) 0.6 K/mm3 (1.2-5.4) L 01/24/21 17:28 [place] # (Auto) 1.2 K/mm3 (0.0-0.8) H 01/24/21 17:28 Eos # (Auto) 0.1 K/mm3 (0.0-0.4) 01/24/21 17:28 Baso # (Auto) 0.0 K/mm3 (0.0-0.1) 01/24/21 17:28 Add Manual Diff Complete 01/24/21 23:35 Total Counted 100 01/24/21 23:35 Seg Neutrophils % Hairspring Assembler 01/24/21 23:35 Seg Neuts % (Manual) 92.0 % (40.0-70.0) H 01/24/21 23:35 Lymphocytes % (Manual) 5.0 % (13.4-35.0) L 01/24/21 23:35 Monocytes % (Manual) 3.0 % (0.0-7.3) 01/24/21 23:35 Nucleated RBC % Not Reportable 01/24/21 23:35 Seg Neutrophils # 10.7 K/mm3 (1.8-7.7) H 01/24/21 17:28 Seg Neutrophils # Man 11.8 K/mm3 (1.8-7.7) H 01/24/21 23:35 Band Neutrophils # 0.0 K/mm3 01/24/21 23:35 Lymphocytes # (Manual) 0.6 K/mm3 (1.2-5.4) L 01/24/21 23:35 Abs React Lymphs (Man) 0.0 K/mm3 01/24/21 23:35 Monocytes # (Manual) 0.4 K/mm3 (0.0-0.8) 01/24/21 23:35 Eosinophils # (Manual) 0.0 K/mm3 (0.0-0.4) 01/24/21 23:35 Basophils # (Manual) 0.0 K/mm3 (0.0-0.1) 01/24/21 23:35 Metamyelocytes # 0.0 K/mm3 01/24/21 23:35 Myelocytes # 0.0 K/mm3 01/24/21 23:35 Promyelocytes # 0.0 K/mm3 01/24/21 23:35 Blast Cells # 0.0 K/mm3 01/24/21 23:35 WBC Morphology Not Reportable 01/24/21 23:35 Hypersegmented Neuts Not Reportable 01/24/21 23:35 Hyposegmented Neuts Not Reportable 01/24/21 23:35 Hypogranular Neuts Not Reportable 01/24/21 23:35 Smudge Cells Not Reportable 01/24/21 23:35 Toxic Granulation Not Reportable 01/24/21 23:35 Toxic Vacuolation Not Reportable 01/24/21 23:35 Dohle Bodies Not Reportable 01/24/21 23:35 Pelger-Huet Anomaly Not Reportable 01/24/21 23:35 Jeremy Rods Not Reportable 01/24/21 23:35 Platelet Estimate Not Reportable 01/24/21 23:35 Clumped Platelets Not Reportable 01/24/21 23:35 Plt Clumps, EDTA Not Reportable 01/24/21 23:35 Large Platelets Not Reportable 01/24/21 23:35 Giant Platelets Not Reportable 01/24/21 23:35 Platelet Satelliting Not Reportable 01/24/21 23:35 Plt Morphology Comment Not Reportable 01/24/21 23:35 RBC Morphology Normal 01/24/21 23:35 Dimorphic RBCs Not Reportable 01/24/21 23:35 Polychromasia Not Reportable 01/24/21 23:35 Hypochromasia Not Reportable 01/24/21 23:35 Poikilocytosis Not Reportable 01/24/21 23:35 Anisocytosis Not Reportable 01/24/21 23:35 Microcytosis Not Reportable 01/24/21 23:35 Macrocytosis Not Reportable 01/24/21 23:35 Spherocytes Not Reportable 01/24/21 23:35 Pappenheimer Bodies Not Reportable 01/24/21 23:35 Sickle Cells Not Reportable 01/24/21 23:35 Target Cells Not Reportable 01/24/21 23:35 Tear Drop Cells Not Reportable 01/24/21 23:35 Ovalocytes Not Reportable 01/24/21 23:35 Helmet Cells Not Reportable 01/24/21 23:35 [place] Bodies Not Reportable 01/24/21 23:35 [place] Rings Not Reportable 01/24/21 23:35 [place] Cells Not Reportable 01/24/21 23:35 Bite Cells Not Reportable 01/24/21 23:35 Crenated Cell Not Reportable 01/24/21 23:35 Elliptocytes Not Reportable 01/24/21 23:35 Acanthocytes (Spur) Not Reportable 01/24/21 23:35 Rouleaux Not Reportable 01/24/21 23:35 Hemoglobin C Crystals Not Reportable 01/24/21 23:35 Schistocytes Not Reportable 01/24/21 23:35 Malaria parasites Not Reportable 01/24/21 23:35 Armand Bodies Not Reportable 01/24/21 23:35 Hem Pathologist Commnt No 01/24/21 23:35 PT 13.1 Sec. (12.2-14.9) 01/26/21 04:57 INR 0.93 (0.87-1.13) 01/26/21 04:57 APTT 32.6 Sec. (24.2-36.6) 01/25/21 14:11 D-Dimer 2018.62 ng/mlDDU (0-234) H 01/24/21 17:28 Sodium 132 mmol/L (137-145) L 01/24/21 23:35 Potassium 4.5 mmol/L (3.6-5.0) 01/24/21 23:35 Chloride 95.2 mmol/L (98-107) L 01/24/21 23:35 Carbon Dioxide 22 mmol/L (22-30) D 01/24/21 23:35 Anion Gap 19 mmol/L 01/24/21 23:35 BUN 28 mg/dL (7-17) H 01/24/21 23:35 Creatinine 1.7 mg/dL (0.6-1.2) H 01/25/21 14:11 Estimated GFR 31 ml/min 01/25/21 14:11 BUN/Creatinine Ratio 14 % 01/24/21 23:35 Glucose 272 mg/dL (65-100) H 01/24/21 23:35 Calcium 7.7 mg/dL (8.4-10.2) L 01/24/21 23:35 Magnesium 3.20 mg/dL (1.7-2.3) H 01/24/21 17:28 Total Bilirubin 1.30 mg/dL (0.1-1.2) H 01/24/21 17:28 AST 22 units/L (5-40) 01/24/21 17:28 ALT 22 units/L (7-56) 01/24/21 17:28 Alkaline Phosphatase 93 units/L (35-129) 01/24/21 17:28 Total Creatine Kinase 48 units/L (30-135) 01/24/21 17:28 Troponin T < 0.010 ng/mL (0.00-0.029) 01/25/21 05:05 NT-Pro-B Natriuret Pep 3414 pg/mL (0-900) H 01/24/21 17:28 Total Protein 7.0 g/dL (6.3-8.2) 01/24/21 17:28 Albumin 4.1 g/dL (3.9-5) 01/24/21 17:28 Albumin/Globulin Ratio 1.4 % 01/24/21 17:28 Triglycerides 59 mg/dL (2-149) 01/24/21 23:35 Cholesterol 108 mg/dL (50-199) 01/24/21 23:35 LDL Cholesterol Direct 46 mg/dL (50-130) L 01/24/21 23:35 HDL Cholesterol 58 mg/dL (40-59) 01/24/21 23:35 Cholesterol/HDL Ratio 1.86 % 01/24/21 23:35 Barrios/IV: Voiding Method Bedside Commode Active Medications - Current Medications Current Medications: Generic Name Dose Route Start Last Admin Trade Name Freq PRN Reason Stop Dose Admin Acetaminophen 650 mg 01/24/21 21:35 Acetaminophen 325 Mg Tab PO Q6H PRN Pain, Mild (1-3) Albuterol 2.5 mg 01/24/21 22:50 Albuterol 2.5 Mg/3 Ml Nebu IH QIDRT PRN Shortness Of Breath Apixaban 5 mg 01/25/21 22:00 01/26/21 10:21 Apixaban 5 Mg Tab PO 5 mg Q12HR IRINA Administration Protocol Arformoterol Tartrate 15 mcg 01/25/21 08:00 01/26/21 08:16 Arformoterol 15 Mcg/2 Ml Nebu IH 15 mcg Q12HRT IRINA Administration Aspirin 81 mg 01/25/21 10:00 01/26/21 10:21 Aspirin 81 Mg Tab Chew PO 81 mg QDAY IRINA Administration Atorvastatin Calcium 40 mg 01/24/21 22:00 01/25/21 21:06 Atorvastatin 40 Mg Tab PO 40 mg QHS IRINA Administration Budesonide 0.5 mg 01/25/21 08:00 01/26/21 08:15 Budesonide 0.5 Mg/2 Ml Nebu IH 0.5 mg Q12HRT IRINA Administration Carvedilol 6.25 mg 01/25/21 22:00 01/26/21 10:21 Carvedilol 6.25 Mg Tab PO 6.25 mg BID IRINA Administration Diazepam 2 mg 01/24/21 21:40 01/25/21 13:02 Diazepam 2 Mg Tab PO 2 mg TID PRN Administration Anxiety Fentanyl 1 applic 01/25/21 18:00 01/25/21 18:07 Fentanyl 12 Mcg/Hr Patch 72hr TD 1 applic Q72HR IRINA Administration Lorazepam 2 mg 01/26/21 08:45 01/26/21 08:48 Lorazepam 2 Mg/Ml Vial IV 01/27/21 08:46 2 mg RN CARE TRANSITION NR Administration Morphine Sulfate 2 mg 01/24/21 21:35 01/25/21 14:13 Morphine 4 Mg/1 Ml Inj IV 2 mg Q5MIN PRN Administration Chest Pain Morphine Sulfate 2 mg 01/25/21 14:41 01/26/21 14:11 Morphine 2 Mg/1 Ml Inj IV 2 mg Q4H PRN Administration Pain, Moderate (4-6) Nitroglycerin 0.4 mg 01/24/21 21:35 01/25/21 00:15 Nitroglycerin 0.4 Mg Tab Subl SL 0.4 mg Q5M PRN Administration Chest Pain Ondansetron HCl 4 mg 01/25/21 19:46 01/25/21 20:18 Ondansetron 4 Mg/2 Ml Inj IV 4 mg Q4H PRN Administration Nausea And Vomiting Oxycodone/Acetaminophen 1 tab 01/25/21 12:00 01/26/21 15:35 Oxycodone /Acetaminophen 5-325mg Tab PO 1 tab Q4H PRN Administration Pain, Moderate (4-6) Pantoprazole Sodium 40 mg 01/25/21 10:00 01/26/21 10:21 Pantoprazole 40 Mg Tab PO 40 mg QDAY IRINA Administration Sodium Chloride 10 ml 01/24/21 21:35 01/25/21 21:07 Sodium Chloride 0.9% 10 Ml Flush Syringe IV 10 ml PRN PRN Administration LINE FLUSH Zolpidem Tartrate 5 mg 01/24/21 21:40 Zolpidem 5 Mg Tab PO QHS PRN Insomnia Nutrition/Malnutrition Assess - Dietary Evaluation Nutrition/Malnutrition Findings: Nutrition Notes Start: 01/25/21 12:05 Freq: Status: Active Protocol: Document 01/25/21 12:05 KRISTINE (Rec: 01/25/21 12:06 KRISTINE [id number]) Nutrition Notes Need for Assessment generated from: Education Initial or Follow up Brief Note Pertinent Medications Coumdin Subjective/Other Information Screen for Coumdin education. Pt unsure how long she has been on this medication because her son takes care of her. Pt given diet education and encourged her to speak about it with son. #1 Nutrition Diagnosis Food and nutrition-related knowledge deficit Etiology no prior coumadin education As Evidenced by Signs and Symptoms pt had questions Nutrition Intervention Teaching Recipient Patient Learning Readiness Good Teaching Methods Discussion,Handout Response to Teaching Verbalize understanding Education Handouts Provided Vitamin K and medications Barriers to Learning No Barriers RD phone number provided Yes Patient aware of follow up options Yes Revisit per MD consult or patient Sign Off request:
--- NOTE | 2021-01-26 19:01 | Event Note ---
Date: 01/26/21 I called patient's son Mr. Leticia Vera at [phone] and discussed in detail patient's condition, tests and reports, neurosurgeons evaluation, and recommendations, treatment plan, physical therapy and discharge planning. He has numerous questions I answered all of them. And encouraged him to call if he has any new questions or concerns. I also informed patient's nurse Mr. Robert about my conversation with the patient's son Mr. Vera.
[2021-01-27] MEDS: MORPHINE 2 MG/1 ML INJ IV PRN ×4 (02:56→20:17)
[2021-01-27] MEDS: oxyCODONE /ACETAMINOPHEN 5-325MG TAB PO PRN ×3 (05:44→22:43)
[2021-01-27 06:11] LABS: Hematocrit 27.7 % (30.3-42.9); Hemoglobin 9.2 gm/dl (10.1-14.3); Mean Corpuscular HGB Conc 33 % (30-34); Mean Corpuscular Volume 96 fl (79-97); Platelet Count 228 K/mm3 (140-440); Red Cell Distribution Width 15.5 % (13.2-15.2)
[2021-01-27 06:22] LABS: INR 1.23 (0.87-1.13)
[2021-01-27 06:35] LABS: Albumin 3.3 g/dL (3.9-5); Calcium 7.7 mg/dL (8.4-10.2)
[2021-01-27] MEDS: BUDESONIDE 0.5 MG/2 ML NEBU IH SCH ×2 (08:18→21:09)
[2021-01-27] MEDS: ARFORMOTEROL 15 MCG/2 ML NEBU IH SCH ×2 (08:18→21:09)
[2021-01-27] MEDS: ASPIRIN 81 MG TAB CHEW PO SCH (09:11)
[2021-01-27] MEDS: PANTOPRAZOLE 40 MG TAB PO SCH (09:11)
[2021-01-27] MEDS: APIXABAN 5 MG TAB PO SCH ×2 (09:12→22:41)
[2021-01-27] MEDS: carvediloL 6.25 MG TAB PO SCH ×2 (09:12→22:42)
--- NOTE | 2021-01-27 09:22 | Progress Note ---
Assessment and Plan Assessment and plan: --Thoracic spine fracture/T6 burst fracture Current Visit: Yes Status: Acute Neurosurgeon evaluated the patient, recommend MRI T-spine, MRI findings reviewed. Neurosurgeon feels stable fracture No surgical intervention needed Recommended TLSO brace, PT OT in brace as tolerated And outpatient follow-up upon discharge Requested PT OT, Case management for discharge planning when stable Supportive care , pain management fentanyl patch, morphine and oral pain medications MRI T-spine; 01/26/2021 vertebral body compression fracture of T6 No retropulsion edematous changes in the interspinous ligament Mild vertebral compression fracture along the superior endplate of T10 Tension bands normal tension bands normal CT T-spine ; new age-indeterminate mild T6 burst fracture with minimal retropulsion of osseous fragments but no canal compromise no acute intracranial abnormality no other acute fractures identified in the cervical thoracic or lumbar spine Several chronic vertebral body compression fractures throughout the spine several throughout the body compression fractures CT-C-spine; CT L-spine; CT head; --History of recurrent falls; Current Visit: Yes Status: Acute Fall precautions, supportive care Orthostats, PT, OT when medically stable Possible rehabilitation at discharge --Acute chest pain Current Visit: Yes Status: Acute Cardiology evaluation recommendations noted and appreciated Continue current cardiac management -- Near syncope Current Visit: Yes Status: Acute History of recurrent falls, orthostats, PT OT and rehab When medically stable, fall precautions --Acute back pain Current Visit: Yes Status: Acute Tylenol 650 mg p.o. every 6 hours as needed. Morphine 2 mg IV every 4 hours as needed. Will consult spine surgeon to see the patient for evaluation and treatment --Acute renal insufficiency Current Visit: Yes Status: Acute We will hold the Lasix. Avoid nephrotoxic drug. Renally dose medication. Recheck BMP in the morning. Consult nephrology in the morning if needed -- COPD exacerbation Current Visit: Yes Status: Acute Oxygen via nasal cannula 3 L/min DuoNeb by nebulizer every 4 hours as needed. We will continue the home medication. , Monitor the patient closely --CHF (congestive heart failure) Current Visit: No Status: Acute Stable. We will continue the home medication. We will hold the Lasix for the time being because of her renal insufficiency. Echocardiogram. Repeat BMP in the morning. Cardiology evaluation --Hypertension Current Visit: No Status: Acute Lisinopril 5 mg p.o. daily. Spironolactone 25 mg p.o. daily. We will monitor the blood pressure closely -- Seizure disorder Current Visit: No Status: Chronic Stable. Keppra 750 mg p.o. twice daily. Outpatient follow-up with neurology --Tobacco abuse Current Visit: No Status: Chronic . We counseled the patient regarding quitting smoking. We will put on nicotine patch if needed --DVT prophylaxis Current Visit: Yes Status: Acute SCD Protonix 40 mg p.o. daily for GI prophylaxis. Patient is a full code We will closely monitor the patient and adjust management as needed Follow PT, OT evaluation recommendation, DC planning per case management I called patient's son Mr. Leticia Vera at [phone] and discussed in detail patient's condition, tests and reports, neurosurgeons evaluation, and recommendations, treatment plan, physical therapy and discharge planning. he has numerous questions I answered all of them. And encouraged him to call if he has any new questions or concerns. I also informed patient's nurse Mr. Robert about my conversation with the family 01/26/2021; Neurosurgery evaluation and recommendations noted and appreciated MRI T-spine findings noted, TLSO brace, PT OT in brace, pain management and DC planning when stable Discharge needs pending PT OT evaluation. 01/27/2021; PT OT evaluation and therapy noted Both recommend home health PT and some equipment possible discharge home tomorrow if stable History Interval history: I have seen and examined the patient at the bedside Patient's chart and medications reviewed Patient was working with the PT and OT in the morning Tolerating the therapy Still complains of severe back pain Wearing brace Vital signs reviewed Hospitalist Physical - Constitutional Vitals: Temp Pulse Resp BP Pulse Ox 98.0 F 70 18 152/90 94 01/27/21 08:18 01/27/21 09:12 01/27/21 08:18 01/27/21 08:18 01/27/21 08:53 General appearance: Present: mild distress, well-nourished, other (Complains of severe pain in the back) - EENT Eyes: Present: PERRL, EOM intact - Neck Neck: Present: supple, normal ROM - Respiratory Respiratory effort: normal Respiratory: bilateral: diminished, negative: rales, rhonchi, wheezing - Cardiovascular Rhythm: regular Heart Sounds: Present: S1 & S2 - Extremities Extremities: no ischemia, No edema, abnormal (Patient is wearing TLSO brace) - Abdominal General gastrointestinal: soft, non-tender, non-distended, normal bowel sounds - Integumentary Integumentary: Present: clear, warm - Psychiatric Psychiatric: appropriate mood/affect, cooperative - Neurologic Neurologic: moves all extremities HEART Score - HEART Score EKG: Non-specific Age: 45-65 Risk factors: > 3 risk factors or hx of atherosclerotic disease Troponin: Troponin T < 0.010 ng/mL (0.00-0.029) 01/25/21 05:05 Troponin: < normal limit - Critical Actions Critical Actions: 4-6 pts:12-16.6% risk of adverse cardiac event. Should be admitted Results - Labs CBC & Chem 7: 01/27/21 05:32 01/27/21 05:32 Labs: Laboratory Last Values WBC 5.2 K/mm3 (4.5-11.0) 01/27/21 05:32 RBC 2.90 M/mm3 (3.65-5.03) L 01/27/21 05:32 Hgb 9.2 gm/dl (10.1-14.3) L 01/27/21 05:32 Hct 27.7 % (30.3-42.9) L 01/27/21 05:32 MCV 96 fl (79-97) 01/27/21 05:32 MCH 32 pg (28-32) 01/27/21 05:32 MCHC 33 % (30-34) 01/27/21 05:32 RDW 15.5 % (13.2-15.2) H 01/27/21 05:32 Plt Count 228 K/mm3 (140-440) 01/27/21 05:32 Lymph % (Auto) 4.6 % (13.4-35.0) L 01/24/21 17:28 Centre % (Auto) 9.2 % (0.0-7.3) H 01/24/21 17:28 Eos % (Auto) 0.7 % (0.0-4.3) 01/24/21 17:28 Baso % (Auto) 0.1 % (0.0-1.8) 01/24/21 17:28 Lymph # (Auto) 0.6 K/mm3 (1.2-5.4) L 01/24/21 17:28 Centre # (Auto) 1.2 K/mm3 (0.0-0.8) H 01/24/21 17:28 Eos # (Auto) 0.1 K/mm3 (0.0-0.4) 01/24/21 17:28 Baso # (Auto) 0.0 K/mm3 (0.0-0.1) 01/24/21 17:28 Add Manual Diff Complete 01/24/21 23:35 Total Counted 100 01/24/21 23:35 Seg Neutrophils % Head Of Commission Department 01/24/21 23:35 Seg Neuts % (Manual) 92.0 % (40.0-70.0) H 01/24/21 23:35 Lymphocytes % (Manual) 5.0 % (13.4-35.0) L 01/24/21 23:35 Monocytes % (Manual) 3.0 % (0.0-7.3) 01/24/21 23:35 Nucleated RBC % Not Reportable 01/24/21 23:35 Seg Neutrophils # 10.7 K/mm3 (1.8-7.7) H 01/24/21 17:28 Seg Neutrophils # Man 11.8 K/mm3 (1.8-7.7) H 01/24/21 23:35 Band Neutrophils # 0.0 K/mm3 01/24/21 23:35 Lymphocytes # (Manual) 0.6 K/mm3 (1.2-5.4) L 01/24/21 23:35 Abs React Lymphs (Man) 0.0 K/mm3 01/24/21 23:35 Monocytes # (Manual) 0.4 K/mm3 (0.0-0.8) 01/24/21 23:35 Eosinophils # (Manual) 0.0 K/mm3 (0.0-0.4) 01/24/21 23:35 Basophils # (Manual) 0.0 K/mm3 (0.0-0.1) 01/24/21 23:35 Metamyelocytes # 0.0 K/mm3 01/24/21 23:35 Myelocytes # 0.0 K/mm3 01/24/21 23:35 Promyelocytes # 0.0 K/mm3 01/24/21 23:35 Blast Cells # 0.0 K/mm3 01/24/21 23:35 WBC Morphology Not Reportable 01/24/21 23:35 Hypersegmented Neuts Not Reportable 01/24/21 23:35 Hyposegmented Neuts Not Reportable 01/24/21 23:35 Hypogranular Neuts Not Reportable 01/24/21 23:35 Smudge Cells Not Reportable 01/24/21 23:35 Toxic Granulation Not Reportable 01/24/21 23:35 Toxic Vacuolation Not Reportable 01/24/21 23:35 Dohle Bodies Not Reportable 01/24/21 23:35 Pelger-Huet Anomaly Not Reportable 01/24/21 23:35 Jeremy Rods Not Reportable 01/24/21 23:35 Platelet Estimate Not Reportable 01/24/21 23:35 Clumped Platelets Not Reportable 01/24/21 23:35 Plt Clumps, EDTA Not Reportable 01/24/21 23:35 Large Platelets Not Reportable 01/24/21 23:35 Giant Platelets Not Reportable 01/24/21 23:35 Platelet Satelliting Not Reportable 01/24/21 23:35 Plt Morphology Comment Not Reportable 01/24/21 23:35 RBC Morphology Normal 01/24/21 23:35 Dimorphic RBCs Not Reportable 01/24/21 23:35 Polychromasia Not Reportable 01/24/21 23:35 Hypochromasia Not Reportable 01/24/21 23:35 Poikilocytosis Not Reportable 01/24/21 23:35 Anisocytosis Not Reportable 01/24/21 23:35 Microcytosis Not Reportable 01/24/21 23:35 Macrocytosis Not Reportable 01/24/21 23:35 Spherocytes Not Reportable 01/24/21 23:35 Pappenheimer Bodies Not Reportable 01/24/21 23:35 Sickle Cells Not Reportable 01/24/21 23:35 Target Cells Not Reportable 01/24/21 23:35 Tear Drop Cells Not Reportable 01/24/21 23:35 Ovalocytes Not Reportable 01/24/21 23:35 Helmet Cells Not Reportable 01/24/21 23:35 Terrell-Vance Bodies Not Reportable 01/24/21 23:35 [place] Rings Not Reportable 01/24/21 23:35 Sayre Cells Not Reportable 01/24/21 23:35 Bite Cells Not Reportable 01/24/21 23:35 Crenated Cell Not Reportable 01/24/21 23:35 Elliptocytes Not Reportable 01/24/21 23:35 Acanthocytes (Spur) Not Reportable 01/24/21 23:35 Rouleaux Not Reportable 01/24/21 23:35 Hemoglobin C Crystals Not Reportable 01/24/21 23:35 Schistocytes Not Reportable 01/24/21 23:35 Malaria parasites Not Reportable 01/24/21 23:35 Armand Bodies Not Reportable 01/24/21 23:35 Hem Pathologist Commnt No 01/24/21 23:35 PT 16.1 Sec. (12.2-14.9) H 01/27/21 05:32 INR 1.23 (0.87-1.13) H 01/27/21 05:32 APTT 32.6 Sec. (24.2-36.6) 01/25/21 14:11 D-Dimer 2018.62 ng/mlDDU (0-234) H 01/24/21 17:28 Sodium 138 mmol/L (137-145) 01/27/21 05:32 Potassium 4.7 mmol/L (3.6-5.0) 01/27/21 05:32 Chloride 102.2 mmol/L (98-107) 01/27/21 05:32 Carbon Dioxide 27 mmol/L (22-30) 01/27/21 05:32 Anion Gap 14 mmol/L 01/27/21 05:32 BUN 24 mg/dL (7-17) H 01/27/21 05:32 Creatinine 1.0 mg/dL (0.6-1.2) 01/27/21 05:32 Estimated GFR 58 ml/min 01/27/21 05:32 BUN/Creatinine Ratio 24 % 01/27/21 05:32 Glucose 80 mg/dL (65-100) 01/27/21 05:32 Calcium 7.7 mg/dL (8.4-10.2) L 01/27/21 05:32 Phosphorus 2.40 mg/dL (2.5-4.5) L 01/27/21 05:32 Magnesium 2.30 mg/dL (1.7-2.3) 01/27/21 05:32 Total Bilirubin 0.40 mg/dL (0.1-1.2) 01/27/21 05:32 AST 13 units/L (5-40) 01/27/21 05:32 ALT 13 units/L (7-56) 01/27/21 05:32 Alkaline Phosphatase 76 units/L (35-129) 01/27/21 05:32 Total Creatine Kinase 48 units/L (30-135) 01/24/21 17:28 Troponin T < 0.010 ng/mL (0.00-0.029) 01/25/21 05:05 NT-Pro-B Natriuret Pep 3414 pg/mL (0-900) H 01/24/21 17:28 Total Protein 5.7 g/dL (6.3-8.2) L 01/27/21 05:32 Albumin 3.3 g/dL (3.9-5) L 01/27/21 05:32 Albumin/Globulin Ratio 1.4 % 01/27/21 05:32 Triglycerides 59 mg/dL (2-149) 01/24/21 23:35 Cholesterol 108 mg/dL (50-199) 01/24/21 23:35 LDL Cholesterol Direct 46 mg/dL (50-130) L 01/24/21 23:35 HDL Cholesterol 58 mg/dL (40-59) 01/24/21 23:35 Cholesterol/HDL Ratio 1.86 % 01/24/21 23:35 Barrios/IV: Voiding Method Bedside Commode Active Medications - Current Medications Current Medications: Generic Name Dose Route Start Last Admin Trade Name Freq PRN Reason Stop Dose Admin Acetaminophen 650 mg 01/24/21 21:35 Acetaminophen 325 Mg Tab PO Q6H PRN Pain, Mild (1-3) Albuterol 2.5 mg 01/24/21 22:50 Albuterol 2.5 Mg/3 Ml Nebu IH QIDRT PRN Shortness Of Breath Apixaban 5 mg 01/25/21 22:00 01/27/21 09:12 Apixaban 5 Mg Tab PO 5 mg Q12HR IRINA Administration Protocol Arformoterol Tartrate 15 mcg 01/25/21 08:00 01/27/21 08:18 Arformoterol 15 Mcg/2 Ml Nebu IH 15 mcg Q12HRT IRINA Administration Aspirin 81 mg 01/25/21 10:00 01/27/21 09:11 Aspirin 81 Mg Tab Chew PO 81 mg QDAY IRINA Administration Atorvastatin Calcium 40 mg 01/24/21 22:00 01/26/21 22:04 Atorvastatin 40 Mg Tab PO 40 mg QHS IRINA Administration Budesonide 0.5 mg 01/25/21 08:00 01/27/21 08:18 Budesonide 0.5 Mg/2 Ml Nebu IH 0.5 mg Q12HRT IRINA Administration Carvedilol 6.25 mg 01/25/21 22:00 01/27/21 09:12 Carvedilol 6.25 Mg Tab PO 6.25 mg BID IRINA Administration Diazepam 2 mg 01/24/21 21:40 01/25/21 13:02 Diazepam 2 Mg Tab PO 2 mg TID PRN Administration Anxiety Fentanyl 1 applic 01/25/21 18:00 01/25/21 18:07 Fentanyl 12 Mcg/Hr Patch 72hr TD 1 applic Q72HR IRINA Administration Morphine Sulfate 2 mg 01/24/21 21:35 01/25/21 14:13 Morphine 4 Mg/1 Ml Inj IV 2 mg Q5MIN PRN Administration Chest Pain Morphine Sulfate 2 mg 01/25/21 14:41 01/27/21 08:40 Morphine 2 Mg/1 Ml Inj IV 2 mg Q4H PRN Administration Pain, Moderate (4-6) Nitroglycerin 0.4 mg 01/24/21 21:35 01/25/21 00:15 Nitroglycerin 0.4 Mg Tab Subl SL 0.4 mg Q5M PRN Administration Chest Pain Ondansetron HCl 4 mg 01/25/21 19:46 01/25/21 20:18 Ondansetron 4 Mg/2 Ml Inj IV 4 mg Q4H PRN Administration Nausea And Vomiting Oxycodone/Acetaminophen 1 tab 01/25/21 12:00 01/27/21 05:44 Oxycodone /Acetaminophen 5-325mg Tab PO 1 tab Q4H PRN Administration Pain, Moderate (4-6) Pantoprazole Sodium 40 mg 01/25/21 10:00 01/27/21 09:11 Pantoprazole 40 Mg Tab PO 40 mg QDAY IRINA Administration Sodium Chloride 10 ml 01/24/21 21:35 01/25/21 21:07 Sodium Chloride 0.9% 10 Ml Flush Syringe IV 10 ml PRN PRN Administration LINE FLUSH Zolpidem Tartrate 5 mg 01/24/21 21:40 Zolpidem 5 Mg Tab PO QHS PRN Insomnia Nutrition/Malnutrition Assess - Dietary Evaluation Nutrition/Malnutrition Findings: Nutrition Notes Start: 01/25/21 12:05 Freq: Status: Active Protocol: Document 01/25/21 12:05 KRISTINE (Rec: 01/25/21 12:06 KRISTINE [id number]) Nutrition Notes Need for Assessment generated from: Education Initial or Follow up Brief Note Pertinent Medications Coumdin Subjective/Other Information Screen for Coumdin education. Pt unsure how long she has been on this medication because her son takes care of her. Pt given diet education and encourged her to speak about it with son. #1 Nutrition Diagnosis Food and nutrition-related knowledge deficit Etiology no prior coumadin education As Evidenced by Signs and Symptoms pt had questions Nutrition Intervention Teaching Recipient Patient Learning Readiness Good Teaching Methods Discussion,Handout Response to Teaching Verbalize understanding Education Handouts Provided Vitamin K and medications Barriers to Learning No Barriers RD phone number provided Yes Patient aware of follow up options Yes Revisit per MD consult or patient Sign Off request:
--- NOTE | 2021-01-27 10:02 | Progress Note ---
Assessment and Plan Fall, likely vasovagal mild fracture of the thoracic vertebrae on CT scan Hx of NICMP, resolving Echo this admission: LVEF 45-50%. There was moderate AR and moderate MR. 11/2019 Echo: LVEF 25% 07/2020 MPI: no reversible ischemia. 06/2019 LHC: no significant CAD. 2013 LHC: normal coronaries, EF 60%. Hx of paroxysmal atrial fibrillation on Eliquis as an outpatient Hx of COPD on home oxygen Hypertension CKD Recommendations: Patient's transient dizziness may likely be due to orthostasis or a vasodepressive reaction. Conservative cardiac management. As outpatient she should be considered for a 2- week event monitor. Subjective Date of service: 01/27/21 Interval history: No cardiac events reported overnight. Patient is resting in bed and appears comfortable. She has no complaints. Objective Vital Signs Temp Pulse Pulse Pulse Resp Resp BP 01/27/21 09:12 70 01/27/21 08:53 01/27/21 08:18 98.0 F 80 76 18 18 152/90 01/27/21 03:47 97.3 F L 77 17 109/67 01/26/21 23:18 98.1 F 79 17 114/62 01/26/21 22:04 80 104/65 01/26/21 22:00 77 80 17 01/26/21 21:04 01/26/21 21:02 81 18 01/26/21 20:30 97.4 F L 80 17 104/65 01/26/21 17:20 98.7 F 78 20 92/54 Pulse Ox 01/27/21 09:12 01/27/21 08:53 94 01/27/21 08:18 94 01/27/21 03:47 93 01/26/21 23:18 94 01/26/21 22:04 01/26/21 22:00 93 01/26/21 21:04 91 01/26/21 21:02 01/26/21 20:30 93 01/26/21 17:20 93 - Physical Examination General: No Apparent Distress HEENT: Positive: PERRL Neck: Positive: trachea midline Cardiac: Positive: Reg Rate and Rhythm Lungs: Positive: Decreased Breath Sounds Neuro: Positive: Grossly Intact Extremities: Absent: edema - Labs and Meds Cardiac Enzymes 01/27/21 Range/Units 05:32 AST 13 (5-40) units/L Coagulation 01/27/21 Range/Units 05:32 PT 16.1 H (12.2-14.9) Sec. INR 1.23 H (0.87-1.13) CBC 01/27/21 Range/Units 05:32 WBC 5.2 (4.5-11.0) K/mm3 RBC 2.90 L (3.65-5.03) M/mm3 Hgb 9.2 L (10.1-14.3) gm/dl Hct 27.7 L (30.3-42.9) % Plt Count 228 (140-440) K/mm3 Comprehensive Metabolic Panel 01/27/21 Range/Units 05:32 Sodium 138 (137-145) mmol/L Potassium 4.7 (3.6-5.0) mmol/L Chloride 102.2 (98-107) mmol/L Carbon Dioxide 27 (22-30) mmol/L BUN 24 H (7-17) mg/dL Creatinine 1.0 (0.6-1.2) mg/dL Glucose 80 (65-100) mg/dL Calcium 7.7 L (8.4-10.2) mg/dL AST 13 (5-40) units/L ALT 13 (7-56) units/L Alkaline Phosphatase 76 (35-129) units/L Total Protein 5.7 L (6.3-8.2) g/dL Albumin 3.3 L (3.9-5) g/dL
[2021-01-27] MEDS: ONDANSETRON 4 MG/2 ML INJ IV PRN (11:20)
[2021-01-28] MEDS: MORPHINE 2 MG/1 ML INJ IV PRN ×5 (00:44→22:56)
[2021-01-28] MEDS: ONDANSETRON 4 MG/2 ML INJ IV PRN ×2 (00:48→15:11)
[2021-01-28] MEDS: ZOLPIDEM 5 MG TAB PO PRN ×2 (00:48→22:57)
[2021-01-28] MEDS: oxyCODONE /ACETAMINOPHEN 5-325MG TAB PO PRN ×3 (04:58→15:08)
[2021-01-28 05:40] LABS: INR 1.25 (0.87-1.13)
--- NOTE | 2021-01-28 09:12 | Progress Note ---
Assessment and Plan Fall, likely vasovagal mild fracture of the thoracic vertebrae on CT scan Hx of NICMP, resolving Echo this admission: LVEF 45-50%. There was moderate AR and moderate MR. 11/2019 Echo: LVEF 25% 07/2020 MPI: no reversible ischemia. 06/2019 LHC: no significant CAD. 2013 LHC: normal coronaries, EF 60%. Hx of paroxysmal atrial fibrillation on Eliquis as an outpatient Hx of COPD on home oxygen Hypertension CKD Recommendations: Patient's transient dizziness may likely be due to orthostasis or a vasodepressive reaction. Conservative cardiac management. As outpatient she should be considered for a 2- week event monitor. Subjective Date of service: 01/28/21 Interval history: Patient is resting in bed and appears comfortable. She has no complaints. Denies dizziness. Objective Vital Signs Temp Pulse Pulse Pulse Resp Resp BP 01/28/21 07:54 97.9 F 76 18 152/79 01/28/21 03:33 98.1 F 75 17 125/67 01/28/21 00:15 98.4 F 78 17 01/27/21 22:42 89 133/75 01/27/21 22:00 87 01/27/21 21:12 01/27/21 21:11 89 18 01/27/21 19:25 98.3 F 89 18 133/75 01/27/21 16:03 98.4 F 78 18 140/77 01/27/21 10:00 80 80 17 BP Pulse Ox 01/28/21 07:54 93 01/28/21 03:33 91 01/28/21 00:15 140/78 96 01/27/21 22:42 01/27/21 22:00 93 01/27/21 21:12 93 01/27/21 21:11 01/27/21 19:25 93 01/27/21 16:03 94 01/27/21 10:00 93 - Physical Examination General: No Apparent Distress HEENT: Positive: PERRL Neck: Positive: trachea midline Cardiac: Positive: Reg Rate and Rhythm Lungs: Positive: Decreased Breath Sounds Neuro: Positive: Grossly Intact Extremities: Absent: edema - Labs and Meds Coagulation 01/28/21 Range/Units 04:01 PT 16.2 H (12.2-14.9) Sec. INR 1.25 H (0.87-1.13) Comprehensive Metabolic Panel 01/28/21 Range/Units 04:01 Creatinine 0.9 (0.6-1.2) mg/dL
[2021-01-28] MEDS: BUDESONIDE 0.5 MG/2 ML NEBU IH SCH ×3 (09:17→19:51)
[2021-01-28] MEDS: ARFORMOTEROL 15 MCG/2 ML NEBU IH SCH ×2 (09:17→19:52)
[2021-01-28] MEDS: APIXABAN 5 MG TAB PO SCH ×2 (09:44→21:49)
[2021-01-28] MEDS: ASPIRIN 81 MG TAB CHEW PO SCH (09:44)
[2021-01-28] MEDS: carvediloL 6.25 MG TAB PO SCH ×2 (09:44→21:48)
[2021-01-28] MEDS: PANTOPRAZOLE 40 MG TAB PO SCH (09:44)
[2021-01-28] MEDS: NITROGLYCERIN 0.4 MG TAB SUBL SL PRN ×3 (17:23→17:36)
[2021-01-28] MEDS: MORPHINE 4 MG/1 ML INJ IV PRN ×3 (17:41→18:45)
[2021-01-28] MEDS: diazePAM 2 MG TAB PO PRN (17:46)
--- NOTE | 2021-01-28 18:12 | Progress Note ---
Assessment and Plan Assessment and plan: --Thoracic spine fracture/T6 burst fracture Current Visit: Yes Status: Acute Neurosurgeon evaluated the patient, recommend MRI T-spine, MRI findings reviewed. Neurosurgeon feels stable fracture No surgical intervention needed Recommended TLSO brace, PT OT in brace as tolerated And outpatient follow-up upon discharge Requested PT OT, Case management for discharge planning when stable Supportive care , pain management fentanyl patch, morphine and oral pain medications MRI T-spine; 01/26/2021 vertebral body compression fracture of T6 No retropulsion edematous changes in the interspinous ligament Mild vertebral compression fracture along the superior endplate of T10 Tension bands normal tension bands normal CT T-spine ; new age-indeterminate mild T6 burst fracture with minimal retropulsion of osseous fragments but no canal compromise no acute intracranial abnormality no other acute fractures identified in the cervical thoracic or lumbar spine Several chronic vertebral body compression fractures throughout the spine several throughout the body compression fractures CT-C-spine; CT L-spine; CT head; --History of recurrent falls; Current Visit: Yes Status: Acute Fall precautions, supportive care Orthostats, PT, OT when medically stable Possible rehabilitation at discharge --Acute chest pain Current Visit: Yes Status: Acute Cardiology evaluation recommendations noted and appreciated Continue current cardiac management -- Near syncope Current Visit: Yes Status: Acute History of recurrent falls, orthostats, PT OT and rehab When medically stable, fall precautions --Acute back pain Current Visit: Yes Status: Acute Tylenol 650 mg p.o. every 6 hours as needed. Morphine 2 mg IV every 4 hours as needed. Will consult spine surgeon to see the patient for evaluation and treatment --Acute renal insufficiency Current Visit: Yes Status: Acute We will hold the Lasix. Avoid nephrotoxic drug. Renally dose medication. Recheck BMP in the morning. Consult nephrology in the morning if needed -- COPD exacerbation Current Visit: Yes Status: Acute Oxygen via nasal cannula 3 L/min DuoNeb by nebulizer every 4 hours as needed. We will continue the home medication. , Monitor the patient closely --CHF (congestive heart failure) Current Visit: No Status: Acute Stable. We will continue the home medication. We will hold the Lasix for the time being because of her renal insufficiency. Echocardiogram. Repeat BMP in the morning. Cardiology evaluation --Hypertension Current Visit: No Status: Acute Lisinopril 5 mg p.o. daily. Spironolactone 25 mg p.o. daily. We will monitor the blood pressure closely -- Seizure disorder Current Visit: No Status: Chronic Stable. Keppra 750 mg p.o. twice daily. Outpatient follow-up with neurology --Tobacco abuse Current Visit: No Status: Chronic . We counseled the patient regarding quitting smoking. We will put on nicotine patch if needed --DVT prophylaxis Current Visit: Yes Status: Acute SCD Protonix 40 mg p.o. daily for GI prophylaxis. Patient is a full code We will closely monitor the patient and adjust management as needed Follow PT, OT evaluation recommendation, DC planning per case management I called patient's son Mr. Leticia Vera at [phone] and discussed in detail patient's condition, tests and reports, neurosurgeons evaluation, and recommendations, treatment plan, physical therapy and discharge planning. he has numerous questions I answered all of them. And encouraged him to call if he has any new questions or concerns. I also informed patient's nurse Mr. Robert about my conversation with the family 01/26/2021; Neurosurgery evaluation and recommendations noted and appreciated MRI T-spine findings noted, TLSO brace, PT OT in brace, pain management and DC planning when stable Discharge needs pending PT OT evaluation. 01/27/2021; PT OT evaluation and therapy noted Both recommend home health PT and some equipment possible discharge home tomorrow if stable 01/28/2021; patient tolerated PT OT, PT OT recommend Home health PT, neurosurgeon cleared for discharge on in brace And pain medications, follow-up as outpatient Possible discharge home tomorrow with home health PT If stable History Interval history: I seen and examined the patient this morning, during morning rounds Patient's chart and medications reviewed, patient is tolerating physical therapy Continues to have excruciating pain, in spite of being in the brace Denies any chest pain or shortness of breath Vital signs noted Hospitalist Physical - Constitutional Vitals: Temp Pulse Resp BP Pulse Ox 98.4 F 78 18 140/81 91 01/28/21 15:41 01/28/21 17:43 01/28/21 17:30 01/28/21 17:43 01/28/21 17:43 General appearance: Present: mild distress, well-nourished, other (Complains of severe pain in the back) - EENT Eyes: Present: PERRL, EOM intact - Neck Neck: Present: supple, normal ROM - Respiratory Respiratory effort: normal Respiratory: bilateral: diminished, negative: rales, rhonchi, wheezing - Cardiovascular Rhythm: regular Heart Sounds: Present: S1 & S2 - Extremities Extremities: no ischemia, No edema - Abdominal General gastrointestinal: soft, non-tender, non-distended, normal bowel sounds - Integumentary Integumentary: Present: clear, warm - Psychiatric Psychiatric: appropriate mood/affect, cooperative - Neurologic Neurologic: moves all extremities HEART Score - HEART Score EKG: Non-specific Age: 45-65 Risk factors: > 3 risk factors or hx of atherosclerotic disease Troponin: Troponin T < 0.010 ng/mL (0.00-0.029) 01/25/21 05:05 Troponin: < normal limit - Critical Actions Critical Actions: 4-6 pts:12-16.6% risk of adverse cardiac event. Should be admitted Results - Labs CBC & Chem 7: 01/27/21 05:32 01/28/21 04:01 Labs: Laboratory Last Values WBC 5.2 K/mm3 (4.5-11.0) 01/27/21 05:32 RBC 2.90 M/mm3 (3.65-5.03) L 01/27/21 05:32 Hgb 9.2 gm/dl (10.1-14.3) L 01/27/21 05:32 Hct 27.7 % (30.3-42.9) L 01/27/21 05:32 MCV 96 fl (79-97) 01/27/21 05:32 MCH 32 pg (28-32) 01/27/21 05:32 MCHC 33 % (30-34) 01/27/21 05:32 RDW 15.5 % (13.2-15.2) H 01/27/21 05:32 Plt Count 228 K/mm3 (140-440) 01/27/21 05:32 Lymph % (Auto) 4.6 % (13.4-35.0) L 01/24/21 17:28 Petroleum % (Auto) 9.2 % (0.0-7.3) H 01/24/21 17:28 Eos % (Auto) 0.7 % (0.0-4.3) 01/24/21 17:28 Baso % (Auto) 0.1 % (0.0-1.8) 01/24/21 17:28 Lymph # (Auto) 0.6 K/mm3 (1.2-5.4) L 01/24/21 17:28 Petroleum # (Auto) 1.2 K/mm3 (0.0-0.8) H 01/24/21 17:28 Eos # (Auto) 0.1 K/mm3 (0.0-0.4) 01/24/21 17: Baso # (Auto) 0.0 K/mm3 (0.0-0.1) 01/24/21 17:28 Add Manual Diff Complete 01/24/21 23:35 Total Counted 100 01/24/21 23:35 Seg Neutrophils % Health Care Attorney 01/24/21 23:35 Seg Neuts % (Manual) 92.0 % (40.0-70.0) H 01/24/21 23:35 Lymphocytes % (Manual) 5.0 % (13.4-35.0) L 01/24/21 23:35 Monocytes % (Manual) 3.0 % (0.0-7.3) 01/24/21 23:35 Nucleated RBC % Not Reportable 01/24/21 23:35 Seg Neutrophils # 10.7 K/mm3 (1.8-7.7) H 01/24/21 17:28 Seg Neutrophils # Man 11.8 K/mm3 (1.8-7.7) H 01/24/21 23:35 Band Neutrophils # 0.0 K/mm3 01/24/21 23:35 Lymphocytes # (Manual) 0.6 K/mm3 (1.2-5.4) L 01/24/21 23:35 Abs React Lymphs (Man) 0.0 K/mm3 01/24/21 23:35 Monocytes # (Manual) 0.4 K/mm3 (0.0-0.8) 01/24/21 23:35 Eosinophils # (Manual) 0.0 K/mm3 (0.0-0.4) 01/24/21 23:35 Basophils # (Manual) 0.0 K/mm3 (0.0-0.1) 01/24/21 23:35 Metamyelocytes # 0.0 K/mm3 01/24/21 23:35 Myelocytes # 0.0 K/mm3 01/24/21 23:35 Promyelocytes # 0.0 K/mm3 01/24/21 23:35 Blast Cells # 0.0 K/mm3 01/24/21 23:35 WBC Morphology Not Reportable 01/24/21 23:35 Hypersegmented Neuts Not Reportable 01/24/21 23:35 Hyposegmented Neuts Not Reportable 01/24/21 23:35 Hypogranular Neuts Not Reportable 01/24/21 23:35 Smudge Cells Not Reportable 01/24/21 23:35 Toxic Granulation Not Reportable 01/24/21 23:35 Toxic Vacuolation Not Reportable 01/24/21 23:35 Dohle Bodies Not Reportable 01/24/21 23:35 Pelger-Huet Anomaly Not Reportable 01/24/21 23:35 Jeremy Rods Not Reportable 01/24/21 23:35 Platelet Estimate Not Reportable 01/24/21 23:35 Clumped Platelets Not Reportable 01/24/21 23:35 Plt Clumps, EDTA Not Reportable 01/24/21 23:35 Large Platelets Not Reportable 01/24/21 23:35 Giant Platelets Not Reportable 01/24/21 23:35 Platelet Satelliting Not Reportable 01/24/21 23:35 Plt Morphology Comment Not Reportable 01/24/21 23:35 RBC Morphology Normal 01/24/21 23:35 Dimorphic RBCs Not Reportable 01/24/21 23:35 Polychromasia Not Reportable 01/24/21 23:35 Hypochromasia Not Reportable 01/24/21 23:35 Poikilocytosis Not Reportable 01/24/21 23:35 Anisocytosis Not Reportable 01/24/21 23:35 Microcytosis Not Reportable 01/24/21 23:35 Macrocytosis Not Reportable 01/24/21 23:35 Spherocytes Not Reportable 01/24/21 23:35 Pappenheimer Bodies Not Reportable 01/24/21 23:35 Sickle Cells Not Reportable 01/24/21 23:35 Target Cells Not Reportable 01/24/21 23:35 Tear Drop Cells Not Reportable 01/24/21 23:35 Ovalocytes Not Reportable 01/24/21 23:35 Helmet Cells Not Reportable 01/24/21 23:35 Terrell-Texline Bodies Not Reportable 01/24/21 23:35 [place] Rings Not Reportable 01/24/21 23:35 [place] Cells Not Reportable 01/24/21 23:35 Bite Cells Not Reportable 01/24/21 23:35 Crenated Cell Not Reportable 01/24/21 23:35 Elliptocytes Not Reportable 01/24/21 23:35 Acanthocytes (Spur) Not Reportable 01/24/21 23:35 Rouleaux Not Reportable 01/24/21 23:35 Hemoglobin C Crystals Not Reportable 01/24/21 23:35 Schistocytes Not Reportable 01/24/21 23:35 Malaria parasites Not Reportable 01/24/21 23:35 Armand Bodies Not Reportable 01/24/21 23:35 Hem Pathologist Commnt No 01/24/21 23:35 PT 16.2 Sec. (12.2-14.9) H 01/28/21 04:01 INR 1.25 (0.87-1.13) H 01/28/21 04:01 APTT 32.6 Sec. (24.2-36.6) 01/25/21 14:11 D-Dimer 2018.62 ng/mlDDU (0-234) H 01/24/21 17:28 Sodium 138 mmol/L (137-145) 01/27/21 05:32 Potassium 4.7 mmol/L (3.6-5.0) 01/27/21 05:32 Chloride 102.2 mmol/L (98-107) 01/27/21 05:32 Carbon Dioxide 27 mmol/L (22-30) 01/27/21 05:32 Anion Gap 14 mmol/L 01/27/21 05:32 BUN 24 mg/dL (7-17) H 01/27/21 05:32 Creatinine 0.9 mg/dL (0.6-1.2) 01/28/21 04:01 Estimated GFR > 60 ml/min 01/28/21 04:01 BUN/Creatinine Ratio 24 % 01/27/21 05:32 Glucose 80 mg/dL (65-100) 01/27/21 05:32 Calcium 7.7 mg/dL (8.4-10.2) L 01/27/21 05:32 Phosphorus 2.40 mg/dL (2.5-4.5) L 01/27/21 05:32 Magnesium 2.30 mg/dL (1.7-2.3) 01/27/21 05:32 Total Bilirubin 0.40 mg/dL (0.1-1.2) 01/27/21 05:32 AST 13 units/L (5-40) 01/27/21 05:32 ALT 13 units/L (7-56) 01/27/21 05:32 Alkaline Phosphatase 76 units/L (35-129) 01/27/21 05:32 Total Creatine Kinase 48 units/L (30-135) 01/24/21 17:28 Troponin T < 0.010 ng/mL (0.00-0.029) 01/25/21 05:05 NT-Pro-B Natriuret Pep 3414 pg/mL (0-900) H 01/24/21 17:28 Total Protein 5.7 g/dL (6.3-8.2) L 01/27/21 05:32 Albumin 3.3 g/dL (3.9-5) L 01/27/21 05:32 Albumin/Globulin Ratio 1.4 % 01/27/21 05:32 Triglycerides 59 mg/dL (2-149) 01/24/21 23:35 Cholesterol 108 mg/dL (50-199) 01/24/21 23:35 LDL Cholesterol Direct 46 mg/dL (50-130) L 01/24/21 23:35 HDL Cholesterol 58 mg/dL (40-59) 01/24/21 23:35 Cholesterol/HDL Ratio 1.86 % 01/24/21 23:35 Barrios/IV: Voiding Method Bedside Commode Active Medications - Current Medications Current Medications: Generic Name Dose Route Start Last Admin Trade Name Freq PRN Reason Stop Dose Admin Acetaminophen 650 mg 01/24/21 21:35 Acetaminophen 325 Mg Tab PO Q6H PRN Pain, Mild (1-3) Albuterol 2.5 mg 01/24/21 22:50 Albuterol 2.5 Mg/3 Ml Nebu IH QIDRT PRN Shortness Of Breath Apixaban 5 mg 01/25/21 22:00 01/28/21 09:44 Apixaban 5 Mg Tab PO 5 mg Q12HR IRINA Administration Protocol Arformoterol Tartrate 15 mcg 01/25/21 08:00 01/28/21 09:17 Arformoterol 15 Mcg/2 Ml Nebu IH Not Given Q12HRT [facility] Aspirin 81 mg 01/25/21 10:00 01/28/21 09:44 Aspirin 81 Mg Tab Chew PO 81 mg QDAY IRINA Administration Atorvastatin Calcium 40 mg 01/24/21 22:00 01/28/21 01:04 Atorvastatin 40 Mg Tab PO 40 mg QHS IRINA Administration Budesonide 0.5 mg 01/25/21 08:00 01/28/21 09:27 Budesonide 0.5 Mg/2 Ml Nebu IH Not Given Q12HRT IRINA Carvedilol 6.25 mg 01/25/21 22:00 01/28/21 09:44 Carvedilol 6.25 Mg Tab PO 6.25 mg BID IRINA Administration Diazepam 2 mg 01/24/21 21:40 01/28/21 17:46 Diazepam 2 Mg Tab PO 2 mg TID PRN Administration Anxiety Fentanyl 1 applic 01/25/21 18:00 01/25/21 18:07 Fentanyl 12 Mcg/Hr Patch 72hr TD 1 applic Q72HR IRINA Administration Morphine Sulfate 2 mg 01/24/21 21:35 01/28/21 17:59 Morphine 4 Mg/1 Ml Inj IV 2 mg Q5MIN PRN Administration Chest Pain Morphine Sulfate 2 mg 01/25/21 14:41 01/28/21 16:31 Morphine 2 Mg/1 Ml Inj IV 2 mg Q4H PRN Administration Pain, Moderate (4-6) Nitroglycerin 0.4 mg 01/24/21 21:35 01/28/21 17:36 Nitroglycerin 0.4 Mg Tab Subl SL 0.4 mg Q5M PRN Administration Chest Pain Ondansetron HCl 4 mg 01/25/21 19:46 01/28/21 15:11 Ondansetron 4 Mg/2 Ml Inj IV 4 mg Q4H PRN Administration Nausea And Vomiting Oxycodone/Acetaminophen 1 tab 01/25/21 12:00 01/28/21 15:08 Oxycodone /Acetaminophen 5-325mg Tab PO 1 tab Q4H PRN Administration Pain, Moderate (4-6) Pantoprazole Sodium 40 mg 01/25/21 10:00 07/02/21 09:44 Pantoprazole 40 Mg Tab PO 40 mg QDAY IRINA Administration Sodium Chloride 10 ml 01/24/21 21:35 01/25/21 21:07 Sodium Chloride 0.9% 10 Ml Flush Syringe IV 10 ml PRN PRN Administration LINE FLUSH Zolpidem Tartrate 5 mg 01/24/21 21:40 01/28/21 00:48 Zolpidem 5 Mg Tab PO 5 mg QHS PRN Administration Insomnia Nutrition/Malnutrition Assess - Dietary Evaluation Nutrition/Malnutrition Findings: Nutrition Notes Start: 01/25/21 12:05 Freq: Status: Active Protocol: Document 01/25/21 12:05 KRISTINE (Rec: 01/25/21 12:06 [id number]) Nutrition Notes Need for Assessment generated from: Education Initial or Follow up Brief Note Pertinent Medications Coumdin Subjective/Other Information Screen for Coumdin education. Pt unsure how long she has been on this medication because her son takes care of her. Pt given diet education and encourged her to speak about it with son. #1 Nutrition Diagnosis Food and nutrition-related knowledge deficit Etiology no prior coumadin education As Evidenced by Signs and Symptoms pt had questions Nutrition Intervention Teaching Recipient Patient Learning Readiness Good Teaching Methods Discussion,Handout Response to Teaching Verbalize understanding Education Handouts Provided Vitamin K and medications Barriers to Learning No Barriers RD phone number provided Yes Patient aware of follow up options Yes Revisit per MD consult or patient Sign Off request:
--- NOTE | 2021-01-28 18:15 | Event Note ---
Date: 01/28/21 Nurse reports that patient complains of worsening shortness of breath and vague chest pain Patient with traumatic T6 burst fracture, in TLSO brace on multiple pain medications, evaluated by neurosurgeon No indication for surgery, patient is on multiple pain medications, tolerated PT OT today However has excruciating back pain due to T6 fracture and multiple old spinal fractures Home oxygen dependent, patient O2 sats more than 90%, Advised chest x-ray, as needed nebulizers Titrate oxygen to more than 90%, BiPAP if hypoxic and no improvement If no improvement we will transfer to [facility] for close observation
--- NOTE | 2021-01-28 19:10 | XRay Report ---
CHEST 1 VIEW 01/28/2021 5:51 PM INDICATION / CLINICAL INFORMATION: Shortness of breath/chest pain. COMPARISON: 01/24/21 FINDINGS: SUPPORT DEVICES: None. HEART / MEDIASTINUM: No significant abnormality. LUNGS / PLEURA: No significant pulmonary or pleural abnormality. No pneumothorax. ADDITIONAL FINDINGS: No significant additional findings. IMPRESSION: 1. No acute findings. No significant change. Signer Name: Rachel Hanley MD Signed: 01/28/2021 7:06 PM Workstation Name: [id number]
[2021-01-28] MEDS: fentaNYL 12 MCG/HR PATCH 72HR TD SCH (21:49)
[2021-01-29] MEDS: oxyCODONE /ACETAMINOPHEN 5-325MG TAB PO PRN ×2 (01:38→10:32)
[2021-01-29 05:56] LABS: Hematocrit 29.3 % (30.3-42.9); Hemoglobin 9.8 gm/dl (10.1-14.3); Mean Corpuscular HGB Conc 33 % (30-34); Mean Corpuscular Volume 93 fl (79-97); Platelet Count 254 K/mm3 (140-440); Red Blood Count 3.13 M/mm3 (3.65-5.03); Red Cell Distribution Width 15.2 % (13.2-15.2)
[2021-01-29 06:02] LABS: INR 1.2 (0.87-1.13)
[2021-01-29] MEDS: ARFORMOTEROL 15 MCG/2 ML NEBU IH SCH ×2 (07:50→20:19)
[2021-01-29] MEDS: BUDESONIDE 0.5 MG/2 ML NEBU IH SCH ×2 (07:50→20:19)
--- NOTE | 2021-01-29 08:27 | Progress Note ---
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,,REQUESTS ANALGESIA Objective Vital Signs Temp Pulse Pulse Resp Resp BP BP 01/29/21 07:50 01/29/21 07:43 98.2 F 75 18 159/93 01/29/21 03:24 98.2 F 70 17 114/69 01/28/21 23:08 98.0 F 74 16 139/79 01/28/21 22:00 75 01/28/21 21:48 66 135/73 01/28/21 19:54 67 18 01/28/21 19:52 01/28/21 19:25 97.3 F L 64 16 135/73 01/28/21 18:44 69 131/75 01/28/21 18:02 70 127/76 01/28/21 17:56 70 01/28/21 17:51 74 01/28/21 17:43 78 140/81 01/28/21 17:36 75 138/79 01/28/21 17:30 70 18 150/86 01/28/21 17:28 70 150/86 01/28/21 17:23 72 146/75 01/28/21 15:41 98.4 F 73 18 138/76 01/28/21 11:28 97.9 F 69 18 130/82 01/28/21 09:44 76 152/79 01/28/21 09:29 Pulse Ox 01/29/21 07:50 96 01/29/21 07:43 94 01/29/21 03:24 97 01/28/21 23:08 94 01/28/21 22:00 97 01/28/21 21:48 01/28/21 19:54 01/28/21 19:52 95 01/28/21 19:25 98 01/28/21 18:44 97 01/28/21 18:02 95 01/28/21 17:56 92 01/28/21 17:51 89 01/28/21 17:43 91 01/28/21 17:36 01/28/21 17:30 92 01/28/21 17:28 01/28/21 17:23 93 01/28/21 15:41 92 01/28/21 11:28 94 01/28/21 09:44 01/28/21 09:29 94 - Physical Examination General: No Apparent Distress HEENT: Positive: PERRL Neck: Positive: trachea midline Cardiac: Positive: Reg Rate and Rhythm Lungs: Positive: clear to auscultation Neuro: Positive: Grossly Intact Abdomen: Positive: Soft Extremities: Absent: edema - Labs and Meds Coagulation 01/29/21 Range/Units 04:43 PT 15.7 H (12.2-14.9) Sec. INR 1.20 H (0.87-1.13) CBC 01/29/21 Range/Units 04:43 WBC 6.8 (4.5-11.0) K/mm3 RBC 3.13 L (3.65-5.03) M/mm3 Hgb 9.8 L (10.1-14.3) gm/dl Hct 29.3 L (30.3-42.9) % Plt Count 254 (140-440) K/mm3
[2021-01-29] MEDS: ONDANSETRON 4 MG/2 ML INJ IV PRN ×3 (08:43→21:58)
[2021-01-29] MEDS: MORPHINE 2 MG/1 ML INJ IV PRN ×4 (08:43→21:57)
--- NOTE | 2021-01-29 10:06 | Progress Note ---
Assessment and Plan Assessment and plan: --Acute hypoxic respiratory failure; Current Visit: Yes Status: Acute requiring high flow nasal cannula oxygen X-ray no acute abnormalities noted Patient feels slightly better today Incentive spirometry, Ambulate as tolerated Patient already has 4 L of home oxygen --History of recurrent falls; Current Visit: Yes Status: Acute Fall precautions, supportive care Orthostats, PT, OT when medically stable Possible rehabilitation at discharge --Thoracic spine fracture/T6 burst fracture Current Visit: Yes Status: Acute Neurosurgeon evaluated the patient, recommend MRI T-spine, MRI findings reviewed. Neurosurgeon feels stable fracture No surgical intervention needed Recommended TLSO brace, PT OT in brace as tolerated And outpatient follow-up upon discharge Requested PT OT, Case management for discharge planning when stable Supportive care , pain management fentanyl patch, morphine and oral pain medications MRI T-spine; 01/26/2021 vertebral body compression fracture of T6 No retropulsion edematous changes in the interspinous ligament Mild vertebral compression fracture along the superior endplate of T10 Tension bands normal tension bands normal CT- T-spine ; new age-indeterminate mild T6 burst fracture with minimal retropulsion of osseous fragments but no canal compromise no acute intracranial abnormality no other acute fractures identified in the cervical thoracic or lum bar spine Several chronic vertebral body compression fractures throughout the spine several throughout the body compression fractures CT-C-spine; CT L-spine; CT head; --Acute chest pain Current Visit: Yes Status: Acute Cardiology evaluation recommendations noted and appreciated Continue current cardiac management -- Near syncope Current Visit: Yes Status: Acute History of recurrent falls, orthostats, PT OT and rehab When medically stable, fall precautions --Acute back pain Current Visit: Yes Status: Acute Tylenol 650 mg p.o. every 6 hours as needed. Morphine 2 mg IV every 4 hours as needed. Will consult spine surgeon to see the patient for evaluation and treatment --Acute renal insufficiency Current Visit: Yes Status: Acute We will hold the Lasix. Avoid nephrotoxic drug. Renally dose medication. Recheck BMP in the morning. Consult nephrology in the morning if needed -- COPD exacerbation Current Visit: Yes Status: Acute Oxygen via nasal cannula 3 L/min DuoNeb by nebulizer every 4 hours as needed. We will continue the home medication. , Monitor the patient closely --CHF (congestive heart failure) Current Visit: No Status: Acute Stable. We will continue the home medication. We will hold the Lasix for the time being because of her renal insufficiency. Echo; EF 45 to 50% --Hypertension Current Visit: No Status: Acute Lisinopril 5 mg p.o. daily. Spironolactone 25 mg p.o. daily. We will monitor the blood pressure closely -- Seizure disorder Current Visit: No Status: Chronic Stable. Keppra 750 mg p.o. twice daily. Outpatient follow-up with neurology --Tobacco abuse Current Visit: No Status: Chronic . We counseled the patient regarding quitting smoking. We will put on nicotine patch if needed --DVT prophylaxis Current Visit: Yes Status: Acute SCD Protonix 40 mg p.o. daily for GI prophylaxis. Patient is a full code We will closely monitor the patient and adjust management as needed Follow PT, OT evaluation recommendation, DC planning per case management I called patient's son Mr. Leticia Vera at [phone] and discussed in detail patient's condition, tests and reports, neurosurgeons evaluation, and recommendations, treatment plan, physical therapy and discharge planning. he has numerous questions I answered all of them. And encouraged him to call if he has any new questions or concerns. I also informed patient's nurse Fela Robert about my conversation with the family 01/26/2021; Neurosurgery evaluation and recommendations noted and appreciated MRI T-spine findings noted, TLSO brace, PT OT in brace, pain management and DC planning when stable Discharge needs pending PT OT evaluation. 01/27/2021; PT OT evaluation and therapy noted Both recommend home health PT and some equipment possible discharge home tomorrow if stable 01/28/2021; patient tolerated PT OT, PT OT recommend Home health PT, neurosurgeon cleared for discharge on in brace And pain medications, follow-up as outpatient Possible discharge home tomorrow with home health PT If stable 01/29 2021; patient had an episode of acute respiratory failure Requiring high flow nasal cannula oxygen of 9 L Patient feels slightly better today, pain slightly less Vital signs noted History Interval history: I have seen and examined the patient at the bedside Patient's chart and medications reviewed Patient had an episode of shortness of breath yesterday Feels slightly better however using 9 L of nasal cannula oxygen Patient already has 4 L of home oxygen Still has some pain in the back Vital signs noted Hospitalist Physical - Constitutional Vitals: Temp Pulse Resp BP Pulse Ox 98.2 F 75 18 159/93 96 01/29/21 07:43 01/29/21 07:43 01/29/21 07:43 01/29/21 07:43 01/29/21 07:50 General appearance: Present: mild distress, well-nourished, other (Complains of severe pain in the back) - EENT Eyes: Present: PERRL, EOM intact - Neck Neck: Present: supple, normal ROM - Respiratory Respiratory effort: normal Respiratory: bilateral: diminished, negative: rales, rhonchi, wheezing - Cardiovascular Rhythm: regular Heart Sounds: Present: S1 & S2 - Extremities Extremities: no ischemia, No edema - Abdominal General gastrointestinal: soft, non-tender, non-distended, normal bowel sounds - Integumentary Integumentary: Present: clear, warm - Psychiatric Psychiatric: appropriate mood/affect, cooperative - Neurologic Neurologic: CNII-XII intact, moves all extremities HEART Score - HEART Score EKG: Non-specific Age: 45-65 Risk factors: > 3 risk factors or hx of atherosclerotic disease Troponin: Troponin T < 0.010 ng/mL (0.00-0.029) 01/25/21 05:05 Troponin: < normal limit - Critical Actions Critical Actions: 4-6 pts:12-16.6% risk of adverse cardiac event. Should be admitted Results - Labs CBC & Chem 7: 01/29/21 04:43 01/28/21 04:01 Labs: Laboratory Last Values WBC 6.8 K/mm3 (4.5-11.0) 01/29/21 04:43 RBC 3.13 M/mm3 (3.65-5.03) L 01/29/21 04:43 Hgb 9.8 gm/dl (10.1-14.3) L 01/29/21 04:43 Hct 29.3 % (30.3-42.9) L 01/29/21 04:43 MCV 93 fl (79-97) 01/29/21 04:43 MCH 31 pg (28-32) 01/29/21 04:43 MCHC 33 % (30-34) 01/29/21 04:43 RDW 15.2 % (13.2-15.2) 01/29/21 04:43 Plt Count 254 K/mm3 (140-440) 01/29/21 04:43 Lymph % (Auto) 4.6 % (13.4-35.0) L 01/24/21 17:28 [place] % (Auto) 9.2 % (0.0-7.3) H 01/24/21 17:28 Eos % (Auto) 0.7 % (0.0-4.3) 01/24/21 17: Baso % (Auto) 0.1 % (0.0-1.8) 01/24/21 17: Lymph # (Auto) 0.6 K/mm3 (1.2-5.4) L 01/24/21 17: [place] # (Auto) 1.2 K/mm3 (0.0-0.8) H 01/24/21 17: Eos # (Auto) 0.1 K/mm3 (0.0-0.4) 01/24/21: Baso # (Auto) 0.0 K/mm3 (0.0-0.1) 01/24/21 17:28 Add Manual Diff Complete 01/24/21 23:35 Total Counted 100 01/24/21 23:35 Seg Neutrophils % Finish Sander 01/24/21 23:35 Seg Neuts % (Manual) 92.0 % (40.0-70.0) H 01/24/21 23:35 Lymphocytes % (Manual) 5.0 % (13.4-35.0) L 01/24/21 23:35 Monocytes % (Manual) 3.0 % (0.0-7.3) 01/24/21 23:35 Nucleated RBC % Not Reportable 01/24/21 23:35 Seg Neutrophils # 10.7 K/mm3 (1.8-7.7) H 01/24/21 17:28 Seg Neutrophils # Man 11.8 K/mm3 (1.8-7.7) H 01/24/21 23:35 Band Neutrophils # 0.0 K/mm3 01/24/21 23:35 Lymphocytes # (Manual) 0.6 K/mm3 (1.2-5.4) L 01/24/21 23:35 Abs React Lymphs (Man) 0.0 K/mm3 01/24/21 23:35 Monocytes # (Manual) 0.4 K/mm3 (0.0-0.8) 01/24/21 23:35 Eosinophils # (Manual) 0.0 K/mm3 (0.0-0.4) 01/24/21 23:35 Basophils # (Manual) 0.0 K/mm3 (0.0-0.1) 01/24/21 23:35 Metamyelocytes # 0.0 K/mm3 01/24/21 23:35 Myelocytes # 0.0 K/mm3 01/24/21 23:35 Promyelocytes # 0.0 K/mm3 01/24/21 23:35 Blast Cells # 0.0 K/mm3 01/24/21 23:35 WBC Morphology Not Reportable 01/24/21 23:35 Hypersegmented Neuts Not Reportable 01/24/21 23:35 Hyposegmented Neuts Not Reportable 01/24/21 23:35 Hypogranular Neuts Not Reportable 01/24/21 23:35 Smudge Cells Not Reportable 01/24/21 23:35 Toxic Granulation Not Reportable 01/24/21 23:35 Toxic Vacuolation Not Reportable 01/24/21 23:35 Dohle Bodies Not Reportable 01/24/21 23:35 Pelger-Huet Anomaly Not Reportable 01/24/21 23:35 Jeremy Rods Not Reportable 01/24/21 23:35 Platelet Estimate Not Reportable 01/24/21 23:35 Clumped Platelets Not Reportable 01/24/21 23:35 Plt Clumps, EDTA Not Reportable 01/24/21 23:35 Large Platelets Not Reportable 01/24/21 23:35 Giant Platelets Not Reportable 01/24/21 23:35 Platelet Satelliting Not Reportable 01/24/21 23:35 Plt Morphology Comment Not Reportable 01/24/21 23:35 RBC Morphology Normal 01/24/21 23:35 Dimorphic RBCs Not Reportable 01/24/21 23:35 Polychromasia Not Reportable 01/24/21 23:35 Hypochromasia Not Reportable 01/24/21 23:35 Poikilocytosis Not Reportable 01/24/21 23:35 Anisocytosis Not Reportable 01/24/21 23:35 Microcytosis Not Reportable 01/24/21 23:35 Macrocytosis Not Reportable 01/24/21 23:35 Spherocytes Not Reportable 01/24/21 23:35 Pappenheimer Bodies Not Reportable 01/24/21 23:35 Sickle Cells Not Reportable 01/24/21 23:35 Target Cells Not Reportable 01/24/21 23:35 Tear Drop Cells Not Reportable 01/24/21 23:35 Ovalocytes Not Reportable 01/24/21 23:35 Helmet Cells Not Reportable 01/24/21 23:35 [place] Bodies Not Reportable 01/24/21 23:35 [place] Rings Not Reportable 01/24/21 23:35 [place] Cells Not Reportable 01/24/21 23:35 Bite Cells Not Reportable 01/24/21 23:35 Crenated Cell Not Reportable 01/24/21 23:35 Elliptocytes Not Reportable 01/24/21 23:35 Acanthocytes (Spur) Not Reportable 01/24/21 23:35 Rouleaux Not Reportable 01/24/21 23:35 Hemoglobin C Crystals Not Reportable 01/24/21 23:35 Schistocytes Not Reportable 01/24/21 23:35 Malaria parasites Not Reportable 01/24/21 23:35 Armand Bodies Not Reportable 01/24/21 23:35 Hem Pathologist Commnt No 01/24/21 23:35 PT 15.7 Sec. (12.2-14.9) H 01/29/21 04:43 INR 1.20 (0.87-1.13) H 01/29/21 04:43 APTT 32.6 Sec. (24.2-36.6) 01/25/21 14:11 D-Dimer 2018.62 ng/mlDDU (0-234) H 01/24/21 17:28 Sodium 138 mmol/L (137-145) 01/27/21 05:32 Potassium 4.7 mmol/L (3.6-5.0) 01/27/21 05:32 Chloride 102.2 mmol/L (98-107) 01/27/21 05:32 Carbon Dioxide 27 mmol/L (22-30) 01/27/21 05:32 Anion Gap 14 mmol/L 01/27/21 05:32 BUN 24 mg/dL (7-17) H 01/27/21 05:32 Creatinine 0.9 mg/dL (0.6-1.2) 01/28/21 04:01 Estimated GFR > 60 ml/min 01/28/21 04:01 BUN/Creatinine Ratio 24 % 01/27/21 05:32 Glucose 80 mg/dL (65-100) 01/27/21 05:32 Calcium 7.7 mg/dL (8.4-10.2) L 01/27/21 05:32 Phosphorus 2.40 mg/dL (2.5-4.5) L 01/27/21 05:32 Magnesium 2.30 mg/dL (1.7-2.3) 01/27/21 05:32 Total Bilirubin 0.40 mg/dL (0.1-1.2) 01/27/21 05:32 AST 13 units/L (5-40) 01/27/21 05:32 ALT 13 units/L (7-56) 01/27/21 05:32 Alkaline Phosphatase 76 units/L (35-129) 01/27/21 05:32 Total Creatine Kinase 48 units/L (30-135) 01/24/21 17:28 Troponin T < 0.010 ng/mL (0.00-0.029) 01/25/21 05:05 NT-Pro-B Natriuret Pep 3414 pg/mL (0-900) H 01/24/21 17:28 Total Protein 5.7 g/dL (6.3-8.2) L 01/27/21 05:32 Albumin 3.3 g/dL (3.9-5) L 01/27/21 05:32 Albumin/Globulin Ratio 1.4 % 01/27/21 05:32 Triglycerides 59 mg/dL (2-149) 01/24/21 23:35 Cholesterol 108 mg/dL (50-199) 01/24/21 23:35 LDL Cholesterol Direct 46 mg/dL (50-130) L 01/24/21 23:35 HDL Cholesterol 58 mg/dL (40-59) 01/24/21 23:35 Cholesterol/HDL Ratio 1.86 % 01/24/21 23:35 Barrios/IV: Voiding Method Bedside Commode Active Medications - Current Medications Current Medications: Generic Name Dose Route Start Last Admin Trade Name Freq PRN Reason Stop Dose Admin Acetaminophen 650 mg 01/24/21 21:35 Acetaminophen 325 Mg Tab PO Q6H PRN Pain, Mild (1-3) Albuterol 2.5 mg 01/24/21 22:50 Albuterol 2.5 Mg/3 Ml Nebu IH QIDRT PRN Shortness Of Breath Apixaban 5 mg 01/25/21 22:00 01/28/21 21:49 Apixaban 5 Mg Tab PO 5 mg Q12HR IRINA Administration Protocol Arformoterol Tartrate 15 mcg 01/25/21 08:00 01/29/21 07:50 Arformoterol 15 Mcg/2 Ml Nebu IH Not Given Q12HRT IRINA Aspirin 81 mg 01/25/21 10:00 01/28/21 09:44 Aspirin 81 Mg Tab Chew PO 81 mg QDAY IRINA Administration Atorvastatin Calcium 40 mg 01/24/21 22:00 01/28/21 21:49 Atorvastatin 40 Mg Tab PO 40 mg QHS IRINA Administration Budesonide 0.5 mg 01/25/21 08:00 01/29/21 07:50 Budesonide 0.5 Mg/2 Ml Nebu IH Not Given Q12HRT IRINA Carvedilol 6.25 mg 01/25/21 22:00 01/28/21 21:48 Carvedilol 6.25 Mg Tab PO 6.25 mg BID IRINA Administration Diazepam 2 mg 01/24/21 21:40 01/28/21 17:46 Diazepam 2 Mg Tab PO 2 mg TID PRN Administration Anxiety Fentanyl 1 applic 01/25/21 18:00 01/28/21 21:49 Fentanyl 12 Mcg/Hr Patch 72hr TD 1 applic Q72HR IRINA Administration Morphine Sulfate 2 mg 01/25/21 14:41 01/29/21 08:43 Morphine 2 Mg/1 Ml Inj IV 2 mg Q4H PRN Administration Pain, Moderate (4-6) Nitroglycerin 0.4 mg 01/24/21 21:35 01/28/21 17:36 Nitroglycerin 0.4 Mg Tab Subl SL 0.4 mg Q5M PRN Administration Chest Pain Ondansetron HCl 4 mg 01/25/21 19:46 01/29/21 08:43 Ondansetron 4 Mg/2 Ml Inj IV 4 mg Q4H PRN Administration Nausea And Vomiting Oxycodone/Acetaminophen 1 tab 01/25/21 12:00 01/29/21 01:38 Oxycodone /Acetaminophen 5-325mg Tab PO 1 tab Q4H PRN Administration Pain, Moderate (4-6) Pantoprazole Sodium 40 mg 01/25/21 10:00 01/28/21 09:44 Pantoprazole 40 Mg Tab PO 40 mg QDAY IRINA Administration Sodium Chloride 10 ml 01/24/21 21:35 01/25/21 21:07 Sodium Chloride 0.9% 10 Ml Flush Syringe IV 10 ml PRN PRN Administration LINE FLUSH Zolpidem Tartrate 5 mg 01/24/21 21:40 01/28/21 22:57 Zolpidem 5 Mg Tab PO 5 mg QHS PRN Administration Insomnia Nutrition/Malnutrition Assess - Dietary Evaluation Nutrition/Malnutrition Findings: Nutrition Notes Start: 01/25/21 12:05 Freq: Status: Active Protocol: Document 01/25/21 12:05 KRISTINE (Rec: 01/25/21 12:06 KRISTINE [id number]) Nutrition Notes Need for Assessment generated from: Education Initial or Follow up Brief Note Pertinent Medications Coumdin Subjective/Other Information Screen for Coumdin education. Pt unsure how long she has been on this medication because her son takes care of her. Pt given diet education and encourged her to speak about it with son. #1 Nutrition Diagnosis Food and nutrition-related knowledge deficit Etiology no prior coumadin education As Evidenced by Signs and Symptoms pt had questions Nutrition Intervention Teaching Recipient Patient Learning Readiness Good Teaching Methods Discussion,Handout Response to Teaching Verbalize understanding Education Handouts Provided Vitamin K and medications Barriers to Learning No Barriers RD phone number provided Yes Patient aware of follow up options Yes Revisit per MD consult or patient Sign Off request:
[2021-01-29] MEDS: APIXABAN 5 MG TAB PO SCH ×2 (10:32→21:58)
[2021-01-29] MEDS: PANTOPRAZOLE 40 MG TAB PO SCH (10:32)
[2021-01-29] MEDS: ASPIRIN 81 MG TAB CHEW PO SCH (10:32)
[2021-01-29] MEDS: diazePAM 2 MG TAB PO PRN (10:32)
[2021-01-29] MEDS: carvediloL 6.25 MG TAB PO SCH ×2 (10:32→21:59)
[2021-01-30] MEDS: MORPHINE 2 MG/1 ML INJ IV PRN (01:06)
[2021-01-30] MEDS: oxyCODONE /ACETAMINOPHEN 5-325MG TAB PO PRN ×4 (05:31→18:37)
[2021-01-30 08:11] LABS: INR 1.25 (0.87-1.13)
[2021-01-30] MEDS: BUDESONIDE 0.5 MG/2 ML NEBU IH SCH ×2 (08:45→20:12)
[2021-01-30] MEDS: ARFORMOTEROL 15 MCG/2 ML NEBU IH SCH ×2 (08:45→20:12)
[2021-01-30] MEDS: APIXABAN 5 MG TAB PO SCH (09:31)
[2021-01-30] MEDS: carvediloL 6.25 MG TAB PO SCH (09:31)
[2021-01-30] MEDS: PANTOPRAZOLE 40 MG TAB PO SCH (09:31)
[2021-01-30] MEDS: ASPIRIN 81 MG TAB CHEW PO SCH (09:31)
[2021-01-30] MEDS: ONDANSETRON 4 MG/2 ML INJ IV PRN (09:44)
--- NOTE | 2021-01-30 10:26 | Discharge Summary ---
Providers - Providers Date of Admission: 01/25/21 12:10 Date of discharge: 01/30/21 Attending physician: KAELYN CARDONA 01/24/21 Consult to Cardiac Rehabilitation [CONS] Routine Reason For Exam: Phase I 01/24/21 17:06 Consult to Physician [CONS] Stat Comment: Consulting Provider: BRI LARSON Physician Instructions: Reason For Exam: cp syncope dizzy 01/24/21 19:44 Consult to Physician [CONS] Urgent Comment: Consulting Provider: MALVIN HAYS II Physician Instructions: Reason For Exam: t6 fracture 01/26/21 11:06 Physical Therapy Evaluation and Treat [CONS] Urgent Comment: Neurosurgeon recommended PT/OT in brace Reason For Exam: Recurrent falls/T-spine fracture/in TLSO brace 01/26/21 11:07 Occupational Therapy Evaluate and Treat [CONS] Urgent Comment: Neurosurgeon recommended PT/OT in brace Reason For Exam: Recurrent falls/spinal fracture/inTLSO brace Primary care physician: GLAZE CARRIER Hospitalization Reason for admission: Mechanical fall, back pain Condition: Fair Pertinent studies: Echo; 45 to 50% MRI T-spine; 01/26/2021 vertebral body compression fracture of T6 No retropulsion edematous changes in the interspinous ligament Mild vertebral compression fracture along the superior endplate of T10 Tension bands normal tension bands normal CT T-spine ; new age-indeterminate mild T6 burst fracture with minimal retropulsion of osseous fragments but no canal compromise no acute intracranial abnormality no other acute fractures identified in the cervical thoracic or lumbar spine Several chronic vertebral body compression fractures throughout the spine several throughout the body compression fractures CT head, CT cervical spine, CT thoracic spine, CT lumbar spine no acute intracranial abnormality noted Multilevel spondylosis L4 5 cm bulge with mild spinal canal stenosis is present New age indeterminate mild T6 burst fracture with minimal retropulsion No acute intracranial abnormality Several chronic vertebral body vertebral body fractures throughout the spine Patient is hemodynamically and clinically stable at discharge Patient advised to follow primary care physician and private neurologist and neurosurgeon For further evaluation and management Hospital course: Ira Jimenes is a 56 y/o Female w/ COPD and CHF. She presented to [facility] two days ago with complaints of progressive back pain. She had a mechanical fall a few days prior to presentation. She was initially evaluated at [facility]. She was not given a brace. She is undergoing home health PT. Presently, she reports both mid and lower back pain. She denies radiating pain, numbness or tingling. She also denies any weakness of her extremities. CT/MR revealed an acute burst fracture of the T6 vertebral body. There is subtle retropulsion but no significant spinal canal narrowing. The posterior elements appear intact. Patient had extensive imaging studies as mentioned below, Patient was evaluated by neurosurgery, no neurosurgical intervention recommended physical therapy and TLSO brace and outpatient follow-up. PT and OT has evaluated the patient,Patient Received TLSO brace and home PT and OT Today patient is comfortable , no new complaints, cleared by specialist, stable at discharge. Discharge diagnosis: --Acute on chronic hypoxic respiratory failure; requiring high flow nasal cannula oxygen X-ray no acute abnormalities noted Patient feels slightly better today Incentive spirometry, Ambulate as tolerated Patient already has 4 L of home oxygen --History of recurrent falls; Fall precautions, supportive care Orthostats, PT, OT when medically stable Possible rehabilitation at discharge --Thoracic spine fracture/T6 burst fracture Neurosurgeon evaluated the patient, recommend MRI T-spine, MRI findings reviewed. Neurosurgeon feels stable fracture No surgical intervention needed Recommended TLSO brace, PT OT in brace as tolerated And outpatient follow-up upon discharge Requested PT OT, Case management for discharge planning when stable Supportive care , pain management fentanyl patch, morphine and oral pain medications MRI T-spine; 01/26/2021 vertebral body compression fracture of T6 No retropulsion edematous changes in the interspinous ligament Mild vertebral compression fracture along the superior endplate of T10 Tension bands normal tension bands normal CT- T-spine ; new age-indeterminate mild T6 burst fracture with minimal retropulsion of osseous fragments but no canal compromise no acute intracranial abnormality no other acute fractures identified in the cervical thoracic or lumb ar spine Several chronic vertebral body compression fractures throughout the spine several throughout the body compression fractures --Acute chest pain Cardiology evaluation recommendations noted and appreciated Continue current cardiac management -- Near syncope History of recurrent falls, orthostats, PT OT and rehab When medically stable, fall precautions --Acute back pain Tylenol 650 mg p.o. every 6 hours as needed. Morphine 2 mg IV every 4 hours as needed. Will consult spine surgeon to see the patient for evaluation and treatment --Acute renal insufficiency We will hold the Lasix. Avoid nephrotoxic drug. Renally dose medication. Recheck BMP in the morning. Consult nephrology in the morning if needed -- COPD exacerbation Oxygen via nasal cannula 3 L/min DuoNeb by nebulizer every 4 hours as needed. We will continue the home medication. , Monitor the patient closely --CHF (congestive heart failure) Stable. We will continue the home medication. We will hold the Lasix for the time being because of her renal insufficiency. Echo; EF 45 to 50% --Hypertension Lisinopril 5 mg p.o. daily. Spironolactone 25 mg p.o. daily. We will monitor the blood pressure closely -- Seizure disorder Stable. Keppra 750 mg p.o. twice daily. Outpatient follow-up with neurology --Tobacco abuse We counseled the patient regarding quitting smoking. We will put on nicotine patch if needed Stable at discharge Disposition: HOME HEALTH CARE SERVICE Final Discharge Diagnosis (Prints w/discharge instructions): Recurrent falls. Thoracic spine /T6 burst fracture. Hypertension. History of seizure disorder. COPD exacerbation. Acute renal failure. Near syncope. Chronic pain syndrome. Acute on chronic respiratory failure. Acute back pain Time spent for discharge: 35 min Core Measure Documentation - Palliative Care Palliative Care/ Comfort Measures: Not Applicable - Core Measures Any of the following diagnoses?: none Exam - Constitutional Vitals: Temp Pulse Resp BP Pulse Ox 98.0 F 72 20 140/85 94 01/30/21 08:09 01/30/21 08:45 01/30/21 08:45 01/30/21 08:09 01/30/21 09:14 General appearance: Present: no acute distress, well-nourished - EENT Eyes: Present: PERRL, EOM intact - Neck Neck: Present: supple, normal ROM - Respiratory Respiratory effort: normal Respiratory: bilateral: diminished, negative: rales, rhonchi, wheezing - Cardiovascular Rhythm: regular Heart Sounds: Present: S1 & S2 - Extremities Extremities: no ischemia, No edema - Abdominal General gastrointestinal: Present: soft, non-tender, non-distended, normal bowel sounds - Integumentary Integumentary: Present: clear, warm - Musculoskeletal Musculoskeletal: strength equal bilaterally - Psychiatric Psychiatric: appropriate mood/affect, cooperative - Neurologic Neurologic: moves all extremities Plan Activity: advance as tolerated, fall precautions Diet: other (Cardiac diet) Special Instructions: physical therapy, occupational therapy (Home PT OT) Additional Instructions: Fall precautions. If you have worsening symptoms contact MD or go to emergency room. Advised to follow primary care physician within 1 week. Advised to follow private neurosurgeon Dr. Malvin Hays in 1 to 2 weeks Follow up with: MALVIN HAYS II, MD [Staff Physician] - 14 Days PRIMARY CARE, [Primary Care Provider] - 3-5 Days RACHID SPAULDING MD [Staff Physician] - 7 Days Prescriptions: Zolpidem [Ambien] 5 mg PO QHS PRN #7 tablet PRN Reason: Insomnia carvediloL [Coreg] 6.25 mg PO BID #60 tablet Apixaban [Eliquis] 5 mg PO Q12HR #60 tablet oxyCODONE /ACETAMINOPHEN [Percocet 5/325 mg] 1 tab PO Q6H PRN #28 PRN Reason: Pain , Severe (7-10) Albuterol Mdi (or & Nicu Only) [ProAir HFA Inhaler] 2 puff IH Q4HR PRN #1 inhalation PRN Reason: Shortness Of Breath Pantoprazole [Protonix TAB] 40 mg PO QDAY #14 tablet
--- NOTE | 2021-01-30 11:10 | Progress Note ---
Subjective Date of service: 01/30/21 Interval history: NO CV C/O Objective Vital Signs Temp Pulse Pulse Pulse Resp Resp Resp 01/30/21 10:00 67 01/30/21 09:14 01/30/21 08:45 72 20 01/30/21 08:09 98.0 F 75 18 01/30/21 03:47 97.8 F 73 18 01/30/21 01:06 20 01/29/21 23:15 98.0 F 71 18 01/29/21 22:00 69 01/29/21 21:59 68 01/29/21 20:19 68 68 20 20 01/29/21 19:16 98.0 F 74 18 01/29/21 17:28 97.6 F 75 18 01/29/21 13:12 98.4 F 73 18 BP Pulse Ox 01/30/21 10:00 96 01/30/21 09:14 94 01/30/21 08:45 01/30/21 08:09 140/85 92 01/30/21 03:47 157/84 96 01/30/21 01:06 01/29/21 23:15 168/76 94 01/29/21 22:00 01/29/21 21:59 01/29/21 20:19 93 01/29/21 19:16 155/76 94 01/29/21 17:28 173/84 92 01/29/21 13:12 144/83 93 - Physical Examination General: No Apparent Distress HEENT: Positive: PERRL Neck: Positive: trachea midline Cardiac: Positive: Reg Rate and Rhythm Lungs: Positive: clear to auscultation Neuro: Positive: Grossly Intact Abdomen: Positive: Soft Extremities: Absent: edema - Labs and Meds Coagulation 01/30/21 Range/Units 07:21 PT 16.2 H (12.2-14.9) Sec. INR 1.25 H (0.87-1.13)
--- NOTE | 2021-01-30 14:18 | Progress Note ---
Hospitalist Physical - Constitutional Vitals: Temp Pulse Resp BP Pulse Ox 98.0 F 67 20 140/85 96 01/30/21 08:09 01/30/21 10:00 01/30/21 08:45 01/30/21 08:09 01/30/21 10:00 General appearance: Present: no acute distress, well-nourished HEART Score - HEART Score EKG: Non-specific Age: 45-65 Risk factors: > 3 risk factors or hx of atherosclerotic disease Troponin: Troponin T < 0.010 ng/mL (0.00-0.029) 01/25/21 05:05 Troponin: < normal limit - Critical Actions Critical Actions: 4-6 pts:12-16.6% risk of adverse cardiac event. Should be admitted Results - Labs CBC & Chem 7: 01/29/21 04:43 01/28/21 04:01 Labs: Laboratory Last Values WBC 6.8 K/mm3 (4.5-11.0) 01/29/21 04:43 RBC 3.13 M/mm3 (3.65-5.03) L 01/29/21 04:43 Hgb 9.8 gm/dl (10.1-14.3) L 01/29/21 04:43 Hct 29.3 % (30.3-42.9) L 01/29/21 04:43 MCV 93 fl (79-97) 01/29/21 04:43 MCH 31 pg (28-32) 01/29/21 04:43 MCHC 33 % (30-34) 01/29/21 04:43 RDW 15.2 % (13.2-15.2) 01/29/21 04:43 Plt Count 254 K/mm3 (140-440) 01/29/21 04:43 Lymph % (Auto) 4.6 % (13.4-35.0) L 01/24/21 17:28 Carroll % (Auto) 9.2 % (0.0-7.3) H 01/24/21 17:28 Eos % (Auto) 0.7 % (0.0-4.3) 01/24/21 17:28 Baso % (Auto) 0.1 % (0.0-1.8) 01/24/21 17:28 Lymph # (Auto) 0.6 K/mm3 (1.2-5.4) L 01/24/21 17:28 Carroll # (Auto) 1.2 K/mm3 (0.0-0.8) H 01/24/21 17:28 Eos # (Auto) 0.1 K/mm3 (0.0-0.4) 01/24/21 17:28 Baso # (Auto) 0.0 K/mm3 (0.0-0.1) 01/24/21 17:28 Add Manual Diff Complete 01/24/21 23:35 Total Counted 100 01/24/21 23:35 Seg 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 01/24/21 23:35 Seg Neuts % (Manual) 92.0 % (40.0-70.0) H 01/24/21 23:35 Lymphocytes % (Manual) 5.0 % (13.4-35.0) L 01/24/21 23:35 Monocytes % (Manual) 3.0 % (0.0-7.3) 01/24/21 23:35 Nucleated RBC % Not Reportable 01/24/21 23:35 Seg Neutrophils # 10.7 K/mm3 (1.8-7.7) H 01/24/21 17:28 Seg Neutrophils # Man 11.8 K/mm3 (1.8-7.7) H 01/24/21 23:35 Band Neutrophils # 0.0 K/mm3 01/24/21 23:35 Lymphocytes # (Manual) 0.6 K/mm3 (1.2-5.4) L 01/24/21 23:35 Abs React Lymphs (Man) 0.0 K/mm3 01/24/21 23:35 Monocytes # (Manual) 0.4 K/mm3 (0.0-0.8) 01/24/21 23:35 Eosinophils # (Manual) 0.0 K/mm3 (0.0-0.4) 01/24/21 23:35 Basophils # (Manual) 0.0 K/mm3 (0.0-0.1) 01/24/21 23:35 Metamyelocytes # 0.0 K/mm3 01/24/21 23:35 Myelocytes # 0.0 K/mm3 01/24/21 23:35 Promyelocytes # 0.0 K/mm3 01/24/21 23:35 Blast Cells # 0.0 K/mm3 01/24/21 23:35 WBC Morphology Not Reportable 01/24/21 23:35 Hypersegmented Neuts Not Reportable 01/24/21 23:35 Hyposegmented Neuts Not Reportable 01/24/21 23:35 Hypogranular Neuts Not Reportable 01/24/21 23:35 Smudge Cells Not Reportable 01/24/21 23:35 Toxic Granulation Not Reportable 01/24/21 23:35 Toxic Vacuolation Not Reportable 01/24/21 23:35 Dohle Bodies Not Reportable 01/24/21 23:35 Pelger-Huet Anomaly Not Reportable 01/24/21 23:35 Jeremy Rods Not Reportable 01/24/21 23:35 Platelet Estimate Not Reportable 01/24/21 23:35 Clumped Platelets Not Reportable 01/24/21 23:35 Plt Clumps, EDTA Not Reportable 01/24/21 23:35 Large Platelets Not Reportable 01/24/21 23:35 Giant Platelets Not Reportable 01/24/21 23:35 Platelet Satelliting Not Reportable 01/24/21 23:35 Plt Morphology Comment Not Reportable 01/24/21 23:35 RBC Morphology Normal 01/24/21 23:35 Dimorphic RBCs Not Reportable 01/24/21 23:35 Polychromasia Not Reportable 01/24/21 23:35 Hypochromasia Not Reportable 01/24/21 23:35 Poikilocytosis Not Reportable 01/24/21 23:35 Anisocytosis Not Reportable 01/24/21 23:35 Microcytosis Not Reportable 01/24/21 23:35 Macrocytosis Not Reportable 01/24/21 23:35 Spherocytes Not Reportable 01/24/21 23:35 Pappenheimer Bodies Not Reportable 01/24/21 23:35 Sickle Cells Not Reportable 01/24/21 23:35 Target Cells Not Reportable 01/24/21 23:35 Tear Drop Cells Not Reportable 01/24/21 23:35 Ovalocytes Not Reportable 01/24/21 23:35 Helmet Cells Not Reportable 01/24/21 23:35 Terrell-Ferry Bodies Not Reportable 01/24/21 23:35 Stewardson Rings Not Reportable 01/24/21 23:35 [place] Cells Not Reportable 01/24/21 23:35 Bite Cells Not Reportable 01/24/21 23:35 Crenated Cell Not Reportable 01/24/21 23:35 Elliptocytes Not Reportable 01/24/21 23:35 Acanthocytes (Spur) Not Reportable 01/24/21 23:35 Rouleaux Not Reportable 01/24/21 23:35 Hemoglobin C Crystals Not Reportable 01/24/21 23:35 Schistocytes Not Reportable 01/24/21 23:35 Malaria parasites Not Reportable 01/24/21 23:35 Armand Bodies Not Reportable 01/24/21 23:35 Hem Pathologist Commnt No 01/24/21 23:35 PT 16.2 Sec. (12.2-14.9) H 01/30/21 07: INR 1.25 (0.87-1.13) H 01/30/21 07:21 APTT 32.6 Sec. (24.2-36.6) 01/25/21 14:11 D-Dimer 2018.62 ng/mlDDU (0-234) H 01/24/21 17:28 Sodium 138 mmol/L (137-145) 01/27/21 05:32 Potassium 4.7 mmol/L (3.6-5.0) 01/27/21 05:32 Chloride 102.2 mmol/L (98-107) 01/27/21 05:32 Carbon Dioxide 27 mmol/L (22-30) 01/27/21 05:32 Anion Gap 14 mmol/L 01/27/21 05:32 BUN 24 mg/dL (7-17) H 01/27/21 05:32 Creatinine 0.9 mg/dL (0.6-1.2) 01/28/21 04:01 Estimated GFR > 60 ml/min 01/28/21 04:01 BUN/Creatinine Ratio 24 % 01/27/21 05:32 Glucose 80 mg/dL (65-100) 01/27/21 05:32 Calcium 7.7 mg/dL (8.4-10.2) L 01/27/21 05:32 Phosphorus 2.40 mg/dL (2.5-4.5) L 01/27/21 05:32 Magnesium 2.30 mg/dL (1.7-2.3) 01/27/21 05:32 Total Bilirubin 0.40 mg/dL (0.1-1.2) 01/27/21 05:32 AST 13 units/L (5-40) 01/27/21 05:32 ALT 13 units/L (7-56) 01/27/21 05:32 Alkaline Phosphatase 76 units/L (35-129) 01/27/21 05:32 Total Creatine Kinase 48 units/L (30-135) 01/24/21 17:28 Troponin T < 0.010 ng/mL (0.00-0.029) 01/25/21 05:05 NT-Pro-B Natriuret Pep 3414 pg/mL (0-900) H 01/24/21 17:28 Total Protein 5.7 g/dL (6.3-8.2) L 01/27/21 05:32 Albumin 3.3 g/dL (3.9-5) L 01/27/21 05:32 Albumin/Globulin Ratio 1.4 % 01/27/21 05:32 Triglycerides 59 mg/dL (2-149) 01/24/21 23:35 Cholesterol 108 mg/dL (50-199) 01/24/21 23:35 LDL Cholesterol Direct 46 mg/dL (50-130) L 01/24/21 23:35 HDL Cholesterol 58 mg/dL (40-59) 01/24/21 23:35 Cholesterol/HDL Ratio 1.86 % 01/24/21 23:35 Barrios/IV: Voiding Method Toilet Active Medications - Current Medications Current Medications: Generic Name Dose Route Start Last Admin Trade Name Freq PRN Reason Stop Dose Admin Acetaminophen 650 mg 01/24/21 21:35 Acetaminophen 325 Mg Tab PO Q6H PRN Pain, Mild (1-3) Albuterol 2.5 mg 01/24/21 22:50 Albuterol 2.5 Mg/3 Ml Nebu IH QIDRT PRN Shortness Of Breath Apixaban 5 mg 01/25/21 22:00 01/30/21 09:31 Apixaban 5 Mg Tab PO 5 mg Q12HR IRINA Administration Protocol Arformoterol Tartrate 15 mcg 01/25/21 08:00 01/30/21 08:45 Arformoterol 15 Mcg/2 Ml Nebu IH 15 mcg Q12HRT IRINA Administration Aspirin 81 mg 01/25/21 10:00 01/30/21 09:31 Aspirin 81 Mg Tab Chew PO 81 mg QDAY IRINA Administration Atorvastatin Calcium 40 mg 01/24/21 22:00 01/29/21 21:58 Atorvastatin 40 Mg Tab PO 40 mg QHS IRINA Administration Budesonide 0.5 mg 01/25/21 08:00 01/30/21 08:45 Budesonide 0.5 Mg/2 Ml Nebu IH 0.5 mg Q12HRT IRINA Administration Carvedilol 6.25 mg 01/25/21 22:00 01/30/21 09:31 Carvedilol 6.25 Mg Tab PO 6.25 mg BID IRINA Administration Diazepam 2 mg 01/24/21 21:40 01/29/21 10:32 Diazepam 2 Mg Tab PO 2 mg TID PRN Administration Anxiety Fentanyl 1 applic 01/25/21 18:00 01/28/21 21:49 Fentanyl 12 Mcg/Hr Patch 72hr TD 1 applic Q72HR IRINA Administration Morphine Sulfate 2 mg 01/25/21 14:41 01/30/21 01:06 Morphine 2 Mg/1 Ml Inj IV 2 mg Q4H PRN Administration Pain, Moderate (4-6) Nitroglycerin 0.4 mg 01/24/21 21:35 01/28/21 17:36 Nitroglycerin 0.4 Mg Tab Subl SL 0.4 mg Q5M PRN Administration Chest Pain Ondansetron HCl 4 mg 01/25/21 19:46 01/30/21 09:44 Ondansetron 4 Mg/2 Ml Inj IV 4 mg Q4H PRN Administration Nausea And Vomiting Oxycodone/Acetaminophen 1 tab 01/25/21 12:00 01/30/21 13:40 Oxycodone /Acetaminophen 5-325mg Tab PO 1 tab Q4H PRN Administration Pain, Moderate (4-6) Pantoprazole Sodium 40 mg 01/25/21 10:00 01/30/21 09:31 Pantoprazole 40 Mg Tab PO 40 mg QDAY IRINA Administration Sodium Chloride 10 ml 01/24/21 21:35 01/29/21 21:58 Sodium Chloride 0.9% 10 Ml Flush Syringe IV 10 ml PRN PRN Administration LINE FLUSH Zolpidem Tartrate 5 mg 01/24/21 21:40 01/28/21 22:57 Zolpidem 5 Mg Tab PO 5 mg QHS PRN Administration Insomnia Nutrition/Malnutrition Assess - Dietary Evaluation Nutrition/Malnutrition Findings: Nutrition Notes Start: 01/25/21 12:05 Freq: Status: Active Protocol: Document 01/25/21 12:05 KRISTINE (Rec: 01/25/21 12:06 KRISTINE [id number]) Nutrition Notes Need for Assessment generated from: Education Initial or Follow up Brief Note Pertinent Medications Coumdin Subjective/Other Information Screen for Coumdin education. Pt unsure how long she has been on this medication because her son takes care of her. Pt given diet education and encourged her to speak about it with son. #1 Nutrition Diagnosis Food and nutrition-related knowledge deficit Etiology no prior coumadin education As Evidenced by Signs and Symptoms pt had questions Nutrition Intervention Teaching Recipient Patient Learning Readiness Good Teaching Methods Discussion,Handout Response to Teaching Verbalize understanding Education Handouts Provided Vitamin K and medications Barriers to Learning No Barriers RD phone number provided Yes Patient aware of follow up options Yes Revisit per MD consult or patient Sign Off request:
[2021-01-30] MEDS: NITROGLYCERIN 0.4 MG TAB SUBL SL PRN (15:49)
[2021-01-30] MEDS: diazePAM 2 MG TAB PO PRN (15:53)
[2021-01-30 19:09] VITALS: BP 138/88
--- NOTE | 2021-02-03 10:42 | Electrocardiograph Report ---
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
== END 2021-01-30 20:59 | disposition home health service (06) | DRG 551 ==
LOC: ED 15:34 → 4A 21:09 → OBSVTOIN 01-25 12:10
PROVIDERS: ADMIT Hospitalist; ATTEND Internal Medicine
DX: S22.009A Unspecified fracture of unspecified thoracic vertebra, initial encounter for closed fracture (principal); J96.21 Acute and chronic respiratory failure with hypoxia; N17.9 Acute kidney failure, unspecified; I42.0 Dilated cardiomyopathy; J44.1 Chronic obstructive pulmonary disease with (acute) exacerbation; I13.0 Hypertensive heart and chronic kidney disease with heart failure and stage 1 through stage 4 chronic kidney disease, or unspecified chronic kidney disease; M54.9 Dorsalgia, unspecified; E03.9 Hypothyroidism, unspecified; G47.33 Obstructive sleep apnea (adult) (pediatric); S09.90XA Unspecified injury of head, initial encounter; E66.9 Obesity, unspecified; X58.XXXA Exposure to other specified factors, initial encounter; G40.909 Epilepsy, unspecified, not intractable, without status epilepticus; N18.9 Chronic kidney disease, unspecified; F41.9 Anxiety disorder, unspecified; I50.9 Heart failure, unspecified; G89.29 Other chronic pain; Z79.899 Other long term (current) drug therapy; Z79.891 Long term (current) use of opiate analgesic; Z79.01 Long term (current) use of anticoagulants; Z79.82 Long term (current) use of aspirin; Z88.8 Allergy status to other drugs, medicaments and biological substances; Z91.013 Allergy to seafood; Z88.5 Allergy status to narcotic agent; Z90.710 Acquired absence of both cervix and uterus; Z86.73 Personal history of transient ischemic attack (TIA), and cerebral infarction without residual deficits; Z87.891 Personal history of nicotine dependence; Y93.89 Activity, other specified; Y92.89 Other specified places as the place of occurrence of the external cause; Y99.8 Other external cause status
CPT/HCPCS: 36415; 70450; 71045; 72125; 72128; 72131; 72146; 72170; 78580; 80048; 80053; 80061; 82550; 82565; 83735; 83880; 84100; 84484; 85007; 85025; 85027; 85379; 85610; 85730; 93005; 93306; 94640; 94644; 99406; G0378; A9540; J2060; J2270; J2405; J2930; J7050

== ENCOUNTER 2021-03-28 16:25 | Emergency (ER) | payer MEDICARE ==
[2021-03-28] MEDS ORDERED: ALBUTEROL 2.5 MG/3 ML NEBU IH ONE (17:25)
[2021-03-28] MEDS ORDERED: IPRATROPIUM 0.02% NEBU 2.5 ML IH ONE (17:25)
--- NOTE | 2021-03-28 17:29 | Event Note ---
Date: 03/28/21 The patient was evaluated in the emergency department for symptoms described in the history of present illness. He/she was evaluated in the context of the global COVID-19 pandemic, which necessitated consideration that the patient might be at risk for infection with the virus that causes COVID-19. Institutional protocols and algorithms that pertain to the evaluation of patients at risk for COVID-19 are in a state of rapid change based on information released by regulatory bodies including the CDC and federal and state organizations. These policies and algorithms were followed during the patient's care in the emergency department. Please note that these policies, procedures and recommendations changed on a rapid basis. Medical screening examination: Verbal report received from emergency medical services. EMS documentation not available at time of chart dictation The patient is a 56-year-old female presenting to the ER today with a complaint of chest pain and shortness of breath. EMS reports they gave albuterol, Atrovent, steroids and magnesium. The patient complains of cough, clear mucus production, central and left-sided chest pain. This is similar to prior COPD exacerbations, but she feels worse than usual. Her chest pain does not radiate to her back, arms or neck. She denies vomiting or diaphoresis. She was a dmitted to [facility] last month for similar symptoms. She reports that she typically gets admitted once every other month for CHF and/or COPD exacerbation. She denies fever, loss of taste and smell, and exposure to Covid individuals. Place patient on cardiac cath technologist soon as possible. Obtain EKG, appropriate laboratory studies, x-ray the chest, treat with addition albuterol and Atrovent. Of note, this patient had a low probability nuclear medicine study in December of this year, when I admitted her to the hospital for similar symptoms. Cardiology: [facility]ology: Dr Fernandez Past medical history: COVID-19 vaccinated, COPD, with chronic respiratory failure, on 4 L of home oxygen, chronic pain syndrome, dilated nonischemic cardiomyopathy, EF of 20 to 25%.
[2021-03-28 18:18] LABS: Hematocrit 36.8 % (30.3-42.9); Hemoglobin 12.1 gm/dl (10.1-14.3); Mean Corpuscular HGB Conc 33 % (30-34); Mean Corpuscular Volume 93 fl (79-97); Platelet Count 254 K/mm3 (140-440); Red Blood Count 3.96 M/mm3 (3.65-5.03); Red Cell Distribution Width 16.9 % (13.2-15.2)
--- NOTE | 2021-03-28 18:33 | XRay Report ---
CHEST 1 VIEW 03/28/2021 6:24 PM INDICATION / CLINICAL INFORMATION: Dyspnea. COMPARISON: 01/28/2021 FINDINGS: SUPPORT DEVICES: None. HEART / MEDIASTINUM: No significant abnormality. LUNGS / PLEURA: No significant pulmonary or pleural abnormality. No pneumothorax. ADDITIONAL FINDINGS: No significant additional findings. IMPRESSION: 1. No acute findings. Signer Name: Dennis Pinon MD Signed: 03/28/2021 6:29 PM Workstation Name: [id number]
[2021-03-28 18:39] LABS: INR 0.85 (0.87-1.13)
[2021-03-28 18:40] LABS: Partial Thromboplastin Time 32.9 Sec. (24.2-36.6)
[2021-03-28 18:43] LABS: Alanine Aminotransferase 18 units/L (7-56); Albumin 4.7 g/dL (3.9-5); BUN/Creatinine Ratio 11; Blood Urea Nitrogen 18 mg/dL (7-17); Calcium 10.1 mg/dL (8.4-10.2); Hemolysis Index 6
[2021-03-28 20:08] LABS: Total Cells Counted 100
[2021-03-28 20:09] LABS: RBC Morphology Normal
--- NOTE | 2021-03-29 09:51 | Electrocardiograph Report ---
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
== END 2021-03-28 19:20 | disposition left against medical advice (07) ==
LOC: ED 16:25
DX: R06.02 Shortness of breath (principal); Z53.21 Procedure and treatment not carried out due to patient leaving prior to being seen by health care provider
CPT/HCPCS: 36415; 71045; 80053; 82140; 82550; 83735; 83880; 84484; 85007; 85025; 85610; 85730; 87040; 93005